=== PATIENT | female | born 1960 | race Caucasian/White ===

== ENCOUNTER 2017-05-01 15:04 | Emergency (ER) | payer OTHER ==
[2017-05-01 15:10] VITALS: BP 154/88; PULSE 87; RESP 20; TEMP 98.1
--- NOTE | 2017-05-01 15:36 | ED ---
General Adult HPI - General Chief complaint: Alcohol Stated complaint: Mental Health Time Seen by Provider: 05/01/17 15:15 Source: family, RN notes reviewed Mode of arrival: ambulatory Limitations: no limitations - History of Present Illness Initial comments: 56 yo female presents to the ER with cc of alcoholism. Patient is an alcoholic. She relapsed in February and has been drinking since then. He did contact [facility] does have an appointment for her to be evaluated and treated there on the . He states he's been watching her at home but he cannot seem to watch all the time and he is concerned that she may hurt herself she may fall. He states he cannot seem to get her to stop drinking. He states he is hoping we can admit her until the of that she is taking care of. He states he is not expressing suicidal or homicidal thoughts and the patient denies any suicidal or homicidal thoughts at this time. Patient denies any recent fever, chills, shortness of breath, chest pain, back pain, abdominal pain , nausea vomiting, numbness or tingling, dysuria or hematuria, constipation or diarrhea, headaches or visual changes, or any other current symptoms. - Related Data Home Medications Medication Instructions Recorded Confirmed Escitalopram [Lexapro] 10 mg PO DAILY 05/01/17 05/01/17 LORazepam [Ativan] 1 - 2 mg PO TID PRN 05/01/17 05/01/17 Allergies Allergy/AdvReac Type Severity Reaction Status Date / Time No Known Allergies Allergy Verified 05/01/17 15:24 Review of Systems ROS Statement: Those systems with pertinent positive or pertinent negative responses have been documented in the HPI. ROS Other: All systems not noted in ROS Statement are negative. Past Medical History Past Medical History: COPD Additional Past Medical History / Comment(s): alcoholism History of Any Multi-Drug Resistant Organisms: None Reported Past Surgical History: Section Past Anesthesia/Blood Transfusion Reactions: No Reported Reaction Past Psychological History: Anxiety, Depression Smoking Status: Current every day smoker Past Alcohol Use History: Daily, Heavy Past Drug Use History: None Reported - Past Family History Mother Family Medical History: COPD Additional Family Medical History / Comment(s): ETOH, lung cancer Father Family Medical History: Myocardial Infarction ([place]) Additional Family Medical History / Comment(s): ETOH General Exam - General Exam Comments Initial Comments: General: The patient is awake and alert, in no distress, and does not appear acutely ill. Eye: Pupils are equal Ears, nose, mouth and throat: There are moist mucous membranes. Neck: The neck is supple, there is no tenderness. Respiratory: respirations are non-labored Gastrointestinal: non-distended Back: There is no obvious deformity. No rashes noted. Musculoskeletal: Normal ROM. Neurological:There are no obvious motor or sensory deficits. Coordination appears grossly intact. Speech is normal. Skin: Skin is warm and dry and no rashes or lesions are noted. Psychiatric: Cooperative, intoxicated. Limitations: no limitations Course Vital Signs 05/01/17 15:07 Temperature 98.1 F Pulse Rate 87 Respiratory 20 Rate Blood Pressure 154/88 O2 Sat by Pulse 96 Oximetry Medical Decision Making - Medical Decision Making 56-year-old female presents for alcohol abuse. At this time and that was strong. At this time the patient has been will take her home. We did discuss outpatient follow-up. We did discuss [facility] as resources well and they were given paperwork regarding this. We did discuss return parameters and the importance of follow-up. We did discuss all the questions. They stated the [facility] management this plan. They will be discharged. Disposition Clinical Impression: Alcoholic intoxication Disposition: HOME SELF-CARE Condition: Stable Instructions: Alcohol Intoxication (ED), Alcohol Withdrawal (ED), Abuse of Alcohol (ED) Additional Instructions: Please follow up with CM as discussed. If she develops any suicidal or homicidal ideation please return to the emergency department. Please use medication as discussed. Please follow up with family doctor if symptoms have not improved over the next two days. Please return to the emergency room if your symptoms increase or worsen or for any other concerns. Referrals: Zev Contreras MD [Primary Care Provider] - 1-2 days Time of Disposition: 15:36
== END 2017-05-01 15:46 | disposition home or self-care (01) ==
LOC: EC 15:04
DX: F10.120 Alcohol abuse with intoxication, uncomplicated (principal); F41.9 Anxiety disorder, unspecified; F32.9 Major depressive disorder, single episode, unspecified; F17.200 Nicotine dependence, unspecified, uncomplicated; Z79.899 Other long term (current) drug therapy
CPT/HCPCS: 82075; 99284

== ENCOUNTER 2017-05-03 08:49 | Inpatient (IN) | payer OTHER ==
[2017-05-03] MEDS ORDERED: IPRATROPIUM-ALBUTEROL 3 ML NEB INHALATION STA (08:52)
[2017-05-03] MEDS ORDERED: SODIUM CHLORIDE 0.9% 1,000 ML IV STA (08:52)
[2017-05-03] MEDS ORDERED: SODIUM CHLORIDE 0.9% 500 ML IV STA (08:52)
--- NOTE | 2017-05-03 08:57 | ED ---
SOB HPI - General Stated Complaint: Resp Distress/Pneumonia Time Seen by Provider: 05/03/17 08:49 Source: patient, EMS, RN notes reviewed Mode of arrival: EMS - History of Present Illness Initial Comments: This is a 56-year-old female who is an admitted alcoholic who smokes cigarettes with COPD who apparently has had a cough with some fevers chills and sweats for last 2 weeks. EMS was finally called today she was brought in by EMS she was given oral prednisone updrafts with minimal relief. She has cough of white phlegm she states she also is been on a 10 day course of heavy alcohol use. She apparently is scheduled to be admitted for alcohol rehab this month at [facility]. She denies any chest pain or other symptoms she was nauseated she does not now feel nauseated. MD Complaint: shortness of breath, cough - Related Data Home Medications Medication Instructions Recorded Confirmed Escitalopram [Lexapro] 10 mg PO DAILY 05/01/17 05/03/17 LORazepam [Ativan] 1 - 2 mg PO TID PRN 05/01/17 05/03/17 Albuterol Inhaler [Ventolin Hfa 2 puff INHALATION RT-Q6H PRN 05/03/17 05/03/17 Inhaler] Allergies Allergy/AdvReac Type Severity Reaction Status Date / Time No Known Allergies Allergy Verified 05/03/17 11:02 Review of Systems ROS Statement: Those systems with pertinent positive or pertinent negative responses have been documented in the HPI. ROS Other: All systems not noted in ROS Statement are negative. Past Medical History Past Medical History: COPD Additional Past Medical History / Comment(s): alcoholism History of Any Multi-Drug Resistant Organisms: None Reported Past Surgical History: Section Past Anesthesia/Blood Transfusion Reactions: No Reported Reaction Past Psychological History: Anxiety, Depression Smoking Status: Current every day smoker Past Alcohol Use History: Daily, Heavy Past Drug Use History: None Reported - Past Family History Mother Family Medical History: COPD Additional Family Medical History / Comment(s): ETOH, lung cancer Father Family Medical History: Myocardial Infarction ([place]) Additional Family Medical History / Comment(s): ETOH General Exam - General Exam Comments Initial Comments: This is a well-developed well-nourished alert oriented 3 female she does have the smell of alcohol conjoiners on her breath General appearance: alert, lethargic Head exam: Present: atraumatic, normocephalic, normal inspection Eye exam: Present: normal appearance, PERRL, EOMI. Absent: scleral icterus, conjunctival injection, periorbital swelling ENT exam: Present: mucous membranes dry Neck exam: Present: normal inspection. Absent: tenderness, meningismus, lymphadenopathy Respiratory exam: Present: wheezes, decreased breath sounds. Absent: respiratory distress, rales, rhonchi, stridor Cardiovascular Exam: Present: regular rate, normal rhythm, normal heart sounds. Absent: systolic murmur, diastolic murmur, rubs, gallop, clicks GI/Abdominal exam: Present: soft, normal bowel sounds. Absent: distended, tenderness, guarding, rebound, rigid Extremities exam: Present: normal inspection, full ROM, normal capillary refill. Absent: tenderness, pedal edema, joint swelling, calf tenderness Back exam: Present: normal inspection Neurological exam: Present: alert, oriented X3, CN II-XII intact Psychiatric exam: Present: normal affect, normal mood Skin exam: Present: warm, dry, intact, normal color. Absent: rash Course Vital Signs 05/03/17 05/03/17 05/03/17 09:00 09:14 09:21 Temperature 97.4 F L Pulse Rate 86 85 83 Respiratory 16 Rate Blood Pressure 133/80 O2 Sat by Pulse 92 L Oximetry 05/03/17 05/03/17 09:28 10:00 Temperature Pulse Rate 87 Respiratory 18 18 Rate Blood Pressure 119/70 O2 Sat by Pulse 95 Oximetry - Reevaluation(s) Reevaluation #1: 05/03/17 11:11 I did reevaluate the patient she has no chest pain at this time I did have a discussion with her and her regarding findings patient later did say she has been having some chest pain. Further information also she had been sober for 3 years and started drinking again in February of this year for some unknown reason. Reevaluation #2: 05/03/17 11:14 Charting from [facility] has been ordered and is pending at this time Medical Decision Making - Medical Decision Making I did have a long discussion with the patient and family member regarding the findings. Patient will be admitted there was a mass of some sort found on the x -ray done at [facility] recently. The patient family do not recall who the lung doctor was patient. I did discuss the case with Dr. Campa the patient will be admitted for evaluation of the elevated troponin additionally the COPD exacerbation and lung mass. - Lab Data Result diagrams: 05/03/17 09:14 05/03/17 09:14 Lab Results 05/03/17 05/03/17 05/03/17 Range/Units 09:14 09:14 09:14 WBC 6.1 (3.8-10.6) k/uL RBC 4.62 (3.80-5.40) m/uL Hgb 15.0 (11.4-16.0) gm/dL Hct 47.1 H (34.0-46.0) % MCV 101.7 H (80.0-100.0) fL MCH 32.4 (25.0-35.0) pg MCHC 31.8 (31.0-37.0) g/dL RDW 15.9 H (11.5-15.5) % Plt Count 207 (150-450) k/uL Neutrophils % 63 % Lymphocytes % 32 % Monocytes % 4 % Eosinophils % 0 % Basophils % 1 % Neutrophils # 3.8 (1.3-7.7) k/uL Lymphocytes # 1.9 (1.0-4.8) k/uL Monocytes # 0.2 (0-1.0) k/uL Eosinophils # 0.0 (0-0.7) k/uL Basophils # 0.0 (0-0.2) k/uL Macrocytosis Slight PT (9.0-12.0) sec INR (<1.2) APTT (22.0-30.0) sec Sodium (137-145) mmol/L Potassium (3.5-5.1) mmol/L Chloride (98-107) mmol/L Carbon Dioxide (22-30) mmol/L Anion Gap mmol/L BUN (7-17) mg/dL Creatinine (0.52-1.04) mg/dL Est GFR (MDRD) Af Amer (>60 ml/min/1.73 sqM) Est GFR (MDRD) Non-Af (>60 ml/min/1.73 sqM) Glucose (74-99) mg/dL Calcium (8.4-10.2) mg/dL Magnesium (1.6-2.3) mg/dL Total Bilirubin (0.2-1.3) mg/dL AST (14-36) U/L ALT (9-52) U/L Alkaline Phosphatase (38-126) U/L Ammonia 15 (<30) umol/L Total Creatine Kinase 241 H (30-135) U/L CK-MB (CK-2) 0.4 (0.0-2.4) ng/mL CK-MB (CK-2) Rel Index 0.2 Troponin I 0.264 H* (0.000-0.034) ng/mL NT-Pro-B Natriuret Pep pg/mL Total Protein (6.3-8.2) g/dL Albumin (3.5-5.0) g/dL Amylase (30-110) U/L Lipase (23-300) U/L Serum Alcohol mg/dL 05/03/17 05/03/17 05/03/17 Range/Units 09:14 09:14 09:14 WBC (3.8-10.6) k/uL RBC (3.80-5.40) m/uL Hgb (11.4-16.0) gm/dL Hct (34.0-46.0) % MCV (80.0-100.0) fL MCH (25.0-35.0) pg MCHC (31.0-37.0) g/dL RDW (11.5-15.5) % Plt Count (150-450) k/uL Neutrophils % % Lymphocytes % % Monocytes % % Eosinophils % % Basophils % % Neutrophils # (1.3-7.7) k/uL Lymphocytes # (1.0-4.8) k/uL Monocytes # (0-1.0) k/uL Eosinophils # (0-0.7) k/uL Basophils # (0-0.2) k/uL Macrocytosis PT 12.5 H (9.0-12.0) sec INR 1.3 H (<1.2) APTT 22.2 (22.0-30.0) sec Sodium 143 (137-145) mmol/L Potassium 3.8 (3.5-5.1) mmol/L Chloride 104 (98-107) mmol/L Carbon Dioxide 27 (22-30) mmol/L Anion Gap 12 mmol/L BUN 12 (7-17) mg/dL Creatinine 0.68 (0.52-1.04) mg/dL Est GFR (MDRD) Af Amer >60 (>60 ml/min/1.73 sqM) Est GFR (MDRD) Non-Af >60 (>60 ml/min/1.73 sqM) Glucose 108 H (74-99) mg/dL Calcium 8.1 L (8.4-10.2) mg/dL Magnesium 1.8 (1.6-2.3) mg/dL Total Bilirubin 0.3 (0.2-1.3) mg/dL AST 65 H (14-36) U/L ALT 51 (9-52) U/L Alkaline Phosphatase 121 (38-126) U/L Ammonia (<30) umol/L Total Creatine Kinase (30-135) U/L CK-MB (CK-2) (0.0-2.4) ng/mL CK-MB (CK-2) Rel Index Troponin I (0.000-0.034) ng/mL NT-Pro-B Natriuret Pep 155 pg/mL Total Protein 6.2 L (6.3-8.2) g/dL Albumin 3.4 L (3.5-5.0) g/dL Amylase <30 L (30-110) U/L Lipase 102 (23-300) U/L Serum Alcohol 189 mg/dL - EKG Data -: EKG Interpreted by Me EKG shows normal: sinus rhythm (Normal sinus rhythm rate of 88. Interval 126 QRS duration 80 QT since QTC of 382/[address]-T wave changes) - Radiology Data Radiology results: report reviewed (I did review the imaging and report or is some evidence of right lung mass. Also COPD.), image reviewed Critical Care Time Critical Care Time: Yes Critical Care Time: Critical care time which includes the monitoring of the EMS run and discussed with paramedics upon arrival history physical and labs on the patient reevaluation patient several occasions long discussion with the patient and her regarding the findings. Discussion with the admitting physician admitting orders and documentation of the above. Disposition Clinical Impression: Acute exacerbation of chronic obstructive airways disease, Adult respiratory distress syndrome, Alcohol intoxication, Alcohol withdrawal, Lung mass Disposition: ADMITTED IP TO THIS HOSP Condition: Stable Referrals: Zev Contreras MD [Primary Care Provider] - 1-2 days
[2017-05-03 09:36] LABS: Basophils % (A) 1 %; CH 33.5; CHCM 33.2; Eosinophils % (A) 0 %; HCT 47.1 % (34.0-46.0); HDW 2.26; Luc % (Auto) 2; Lymphocytes # (A) 1.9 k/uL (1.0-4.8); Lymphocytes % (A) 32 %; MCH 32.4 pg (25.0-35.0); MCHC 31.8 g/dL (31.0-37.0); MCV 101.7 fL (80.0-100.0); Macrocytosis Slight; Mean Platelet Volume 7.3; Monocytes # (A) 0.2 k/uL (0-1.0); Monocytes % (A) 4 %; Neutrophils # (A) 3.8 k/uL (1.3-7.7); Neutrophils % (A) 63 %; RBC 4.62 m/uL (3.80-5.40); RDW 15.9 % (11.5-15.5); WBC 6.1 k/uL (3.8-10.6); WBC (Perox) 6.15
--- NOTE | 2017-05-03 09:42 | XR ---
EXAMINATION TYPE: XR chest 2V DATE OF EXAM: 05/03/2017 HISTORY: difficulty breathing. REFERENCE: Previous study dated 02/28/2013. FINDINGS: The lungs are overinflated. There has been interval development of a 3.6 cm mass in the rig ht midlung. This appears to be in the superior segment of the right lower lobe. The lungs are otherwi se clear. Pleural space are clear. The heart is not enlarged. IMPRESSION: 1. COPD. 2. 3.6 CM RIGHT-SIDED PULMONARY MASS.
[2017-05-03 09:47] LABS: INR 1.3 (<1.2); Partial Thromboplastin Time 22.2 sec (22.0-30.0); Prothrombin Time 12.5 sec (9.0-12.0)
[2017-05-03 09:48] LABS: ALT 51 U/L (9-52); AST 65 U/L (14-36); Alkaline Phosphatase 121 U/L (38-126); Amylase <30 U/L (30-110); Anion Gap 12 mmol/L; Blood Urea Nitrogen 12 mg/dL (7-17); Calcium 8.1 mg/dL (8.4-10.2); Carbon Dioxide 27 mmol/L (22-30); Chloride 104 mmol/L (98-107); Glucose 108 mg/dL (74-99); Magnesium 1.8 mg/dL (1.6-2.3); Non-African American GFR(MDRD) >60 (>60 ml/min/1.73 sqM); Potassium 3.8 mmol/L (3.5-5.1); Sodium 143 mmol/L (137-145); Total Bilirubin 0.3 mg/dL (0.2-1.3); Total Protein 6.2 g/dL (6.3-8.2)
[2017-05-03] MEDS ORDERED: LORazepam 2 MG/ML INJ IV STA ×2 (10:08→14:15)
[2017-05-03 10:12] LABS: Creatine Kinase MB 0.4 ng/mL (0.0-2.4)
[2017-05-03 10:20] LABS: Troponin I 0.264 ng/mL (0.000-0.034)
[2017-05-03 10:27] LABS: Alcohol 189 mg/dL
[2017-05-03] MEDS ORDERED: HEPARIN SODIUM,PORCINE/D5W PMX 25,000 UNIT in DEXTROSE/WATER 1 500ML.BAG IV SCH (11:15)
[2017-05-03] MEDS ORDERED: NITROGLYCERIN SL TABS 0.4 MG TAB SUBLINGUAL PRN (11:15)
[2017-05-03] MEDS ORDERED: HEPARIN SODIUM,PORCINE 5,000 UNIT/ML 1 ML VIAL IV ONE (11:15)
[2017-05-03] MEDS ORDERED: THIAMINE 100 MG/ML 2 ML VIAL IM STA (11:19)
--- NOTE | 2017-05-03 11:21 | ED ---
Medical Decision Making - Lab Data Result diagrams: 05/03/17 09:14 05/03/17 09:14 Lab Results 05/03/17 05/03/17 05/03/17 Range/Units 09:14 09:14 09:14 WBC 6.1 (3.8-10.6) k/uL RBC 4.62 (3.80-5.40) m/uL Hgb 15.0 (11.4-16.0) gm/dL Hct 47.1 H (34.0-46.0) % MCV 101.7 H (80.0-100.0) fL MCH 32.4 (25.0-35.0) pg MCHC 31.8 (31.0-37.0) g/dL RDW 15.9 H (11.5-15.5) % Plt Count 207 (150-450) k/uL Neutrophils % 63 % Lymphocytes % 32 % Monocytes % 4 % Eosinophils % 0 % Basophils % 1 % Neutrophils # 3.8 (1.3-7.7) k/uL Lymphocytes # 1.9 (1.0-4.8) k/uL Monocytes # 0.2 (0-1.0) k/uL Eosinophils # 0.0 (0-0.7) k/uL Basophils # 0.0 (0-0.2) k/uL Macrocytosis Slight PT (9.0-12.0) sec INR (<1.2) APTT (22.0-30.0) sec Sodium (137-145) mmol/L Potassium (3.5-5.1) mmol/L Chloride (98-107) mmol/L Carbon Dioxide (22-30) mmol/L Anion Gap mmol/L BUN (7-17) mg/dL Creatinine (0.52-1.04) mg/dL Est GFR (MDRD) Af Amer (>60 ml/min/1.73 sqM) Est GFR (MDRD) Non-Af (>60 ml/min/1.73 sqM) Glucose (74-99) mg/dL Calcium (8.4-10.2) mg/dL Magnesium (1.6-2.3) mg/dL Total Bilirubin (0.2-1.3) mg/dL AST (14-36) U/L ALT (9-52) U/L Alkaline Phosphatase (38-126) U/L Ammonia 15 (<30) umol/L Total Creatine Kinase 241 H (30-135) U/L CK-MB (CK-2) 0.4 (0.0-2.4) ng/mL CK-MB (CK-2) Rel Index 0.2 Troponin I 0.264 H* (0.000-0.034) ng/mL NT-Pro-B Natriuret Pep pg/mL Total Protein (6.3-8.2) g/dL Albumin (3.5-5.0) g/dL Amylase (30-110) U/L Lipase (23-300) U/L Serum Alcohol mg/dL 05/03/17 05/03/17 05/03/17 Range/Units 09:14 09:14 09:14 WBC (3.8-10.6) k/uL RBC (3.80-5.40) m/uL Hgb (11.4-16.0) gm/dL Hct (34.0-46.0) % MCV (80.0-100.0) fL MCH (25.0-35.0) pg MCHC (31.0-37.0) g/dL RDW (11.5-15.5) % Plt Count (150-450) k/uL Neutrophils % % Lymphocytes % % Monocytes % % Eosinophils % % Basophils % % Neutrophils # (1.3-7.7) k/uL Lymphocytes # (1.0-4.8) k/uL Monocytes # (0-1.0) k/uL Eosinophils # (0-0.7) k/uL Basophils # (0-0.2) k/uL Macrocytosis PT 12.5 H (9.0-12.0) sec INR 1.3 H (<1.2) APTT 22.2 (22.0-30.0) sec Sodium 143 (137-145) mmol/L Potassium 3.8 (3.5-5.1) mmol/L Chloride 104 (98-107) mmol/L Carbon Dioxide 27 (22-30) mmol/L Anion Gap 12 mmol/L BUN 12 (7-17) mg/dL Creatinine 0.68 (0.52-1.04) mg/dL Est GFR (MDRD) Af Amer >60 (>60 ml/min/1.73 sqM) Est GFR (MDRD) Non-Af >60 (>60 ml/min/1.73 sqM) Glucose 108 H (74-99) mg/dL Calcium 8.1 L (8.4-10.2) mg/dL Magnesium 1.8 (1.6-2.3) mg/dL Total Bilirubin 0.3 (0.2-1.3) mg/dL AST 65 H (14-36) U/L ALT 51 (9-52) U/L Alkaline Phosphatase 121 (38-126) U/L Ammonia (<30) umol/L Total Creatine Kinase (30-135) U/L CK-MB (CK-2) (0.0-2.4) ng/mL CK-MB (CK-2) Rel Index Troponin I (0.000-0.034) ng/mL NT-Pro-B Natriuret Pep 155 pg/mL Total Protein 6.2 L (6.3-8.2) g/dL Albumin 3.4 L (3.5-5.0) g/dL Amylase <30 L (30-110) U/L Lipase 102 (23-300) U/L Serum Alcohol 189 mg/dL Disposition Clinical Impression: Acute exacerbation of chronic obstructive airways disease, Adult respiratory distress syndrome, Alcohol intoxication, Alcohol withdrawal, Lung mass, Non-ST elevation (NSTEMI) myocardial infarction Disposition: ADMITTED IP TO THIS HOSP Condition: Stable Referrals: Zev Contreras MD [Primary Care Provider] - 1-2 days
[2017-05-03] MEDS: SODIUM CHLORIDE 0.9% 1,000 ML IV SCH (11:38)
[2017-05-03] MEDS ORDERED: methylPREDNISolone SOD SUCCI 125 MG/2 ML VIAL IV SCH (12:00)
[2017-05-03] MEDS ORDERED: IPRATROPIUM-ALBUTEROL 3 ML NEB INHALATION SCH (12:00)
[2017-05-03] MEDS: LORazepam 2 MG/ML INJ IV PRN ×7 (12:56→23:34)
[2017-05-03 14:08] LABS: Creatine Kinase MB 0.6 ng/mL (0.0-2.4)
[2017-05-03 14:12] LABS: Troponin I 0.219 ng/mL (0.000-0.034)
[2017-05-03] MEDS ORDERED: ALBUTEROL INHALER 60 PUFF/8 GM INHALER INHALATION PRN (14:32)
[2017-05-03 15:00] LABS: Glucose,Whole Blood 148 mg/dL (75-99)
[2017-05-03 15:12] VITALS: BMI 24.3
[2017-05-03] MEDS ORDERED: METOPROLOL TARTRATE 25 MG TAB PO SCH (15:30)
[2017-05-03] MEDS: LACTATED RINGERS 1,000 ML IV SCH (15:48)
[2017-05-03] MEDS: DIAZEPAM 5 MG TAB PO SCH ×2 (15:49→20:40)
--- NOTE | 2017-05-03 16:10 | HP ---
HISTORY AND PHYSICAL DATE OF ADMISSION: 05/03/17. PRESENTING COMPLAINT: Short of breath. Tired, nausea. HISTORY OF PRESENTING COMPLAINT: This is a 56-year-old patient of Dr. Contreras who is a long-standing alcoholic. The patient was clean for 3 years and started back doing alcohol recently. The patient was at [place]. The patient also a smoker, presented with multitude symptoms including short of breath, cough, wheezing, nausea, a bit delirious. Alcohol level was found to be high. The patient is drinking about a 5th of whiskey every day. Brought into the ER. The patient is put on the CIWA scale and did require quite a bit of Ativan, hence she was transferred to the ICU. The patient is somewhat jittery and somewhat delirious not able to give much of a history, but can answer some questions. REVIEW OF SYSTEMS: CONSTITUTIONAL: Tired. HEENT: None. RESPIRATORY: Wheezing, cough. CARDIOVASCULAR: None. GASTROINTESTINAL: None. GENITOURINARY: None. MUSCULOSKELETAL: None. DERMATOLOGICAL, HEMATOLOGIC, LYMPHATIC: None. PSYCHIATRY: Very anxious. NEUROLOGICAL: Nil focal except for some shakiness. PAST MEDICAL HISTORY: COPD, alcoholism, anxiety, depression. PAST SURGICAL HISTORY: . PAST PSYCH HISTORY: Anxiety and depression. SOCIAL HISTORY: Smokes anywhere from half to a pack a day. Drinks about a 5th of alcohol; had been clean for 3 years. Drinking prior to that and was also at [place]. Lives with her . FAMILY HISTORY: Lung cancer, COPD, alcohol. HOME MEDICATIONS: 1. Ventolin 2 puffs q.6h p.r.n. 2. Ativan 1-2 mg t.i.d. p.r.n. 3. Lexapro 10 mg a day. ALLERGIES: None. PHYSICAL EXAMINATION: On examination afebrile. Pulse 115, respiration 26, blood pressure 130/76, pulse ox 95% on room air. GENERAL APPEARANCE: Thin build sitting up, shaky, jittery, anxious. EYES: Pupils equal. Conjunctivae normal. HEENT: Oral cavity normal. NECK: JVD not raised. Mass not palpable. RESPIRATORY: Effort increased. LUNGS: Diminished breath sounds. Prolonged expiration wheezing. CARDIOVASCULAR: First and second sounds. No edema. ABDOMEN: Soft, nontender. Liver and spleen not palpable. LYMPHATIC: No lymph nodes palpable in neck or axillae. PSYCHIATRY: Patient is awake but somewhat delirious, not able to answer all questions. Sometimes just keeps quite. NEUROLOGICAL: Pupils equal. No facial asymmetry. Power and sensation grossly intact. MUSCULOSKELETAL: Some wasting of the muscles. INVESTIGATIONS: White count 6.1, hemoglobin 15, potassium 3.9. BUN and creatinine normal. Troponin 0.264, 0.219. Amylase less than 30. Lipase 102. Serum alcohol 189. ASSESSMENT: 1. Acute chronic obstructive pulmonary disease exacerbation in a smoker. 2. Chronic nicotine dependence. Patient active cigarette smoker. 3. Mild protein-calorie malnutrition. Patient has decreased muscle mass, decreased oral intake. Albumin is 3.4. 4. Chronic alcohol dependence. 5. Acute alcohol intoxication with level being 189 on presentation. 6. Acute delirium tremens. PLAN: The patient is already on the CIWA scale. We will start the patient on Valium 5 mg q.i.d. and also add a small dose of beta jud to cut back on sympathetic drive. The patient also started on COPD treatment with nebulized bronchodilators, IV steroids and also given nicotine patch. The patient will be monitored neurologically closely. No family members present. MMODL / IJN: [id number] /
[2017-05-03] MEDS: IPRATROPIUM-ALBUTEROL 3 ML NEB INHALATION SCH ×2 (16:14→19:49)
[2017-05-03] MEDS: METOPROLOL TARTRATE 12.5 MG TAB PO SCH (17:14)
[2017-05-03] MEDS: THIAMINE 100 MG TAB PO SCH (17:14)
[2017-05-03] MEDS: ENOXAPARIN 40 MG/0.4 ML SYRINGE SQ SCH (17:14)
[2017-05-03] MEDS: methylPREDNISolone SOD SUCCI 40 MG/ML 1 ML VIAL IV SCH (17:32)
[2017-05-03 18:56] LABS: Creatine Kinase MB 0.8 ng/mL (0.0-2.4)
[2017-05-03 18:57] LABS: Troponin I 0.167 ng/mL (0.000-0.034)
[2017-05-03] MEDS: ONDANSETRON 4 MG/2 ML VIAL IVP PRN (20:40)
[2017-05-03 20:45] LABS: Glucose,Whole Blood 158 mg/dL (75-99)
[2017-05-03] MEDS: INSULIN ASPART 100 UNIT/ML 1 ML 10 ML VIAL SQ SCH (20:48)
[2017-05-04] MEDS: LACTATED RINGERS 1,000 ML IV SCH ×5 (00:26→20:57)
[2017-05-04] MEDS: METOPROLOL TARTRATE 12.5 MG TAB PO SCH ×3 (00:26→16:14)
[2017-05-04] MEDS: IBUPROFEN 600 MG TAB PO PRN ×3 (00:26→13:27)
[2017-05-04] MEDS: methylPREDNISolone SOD SUCCI 40 MG/ML 1 ML VIAL IV SCH ×3 (00:27→16:14)
[2017-05-04] MEDS: LORazepam 2 MG/ML INJ IV PRN ×16 (00:37→23:57)
[2017-05-04] MEDS: DIAZEPAM 5 MG TAB PO SCH ×4 (03:11→20:20)
[2017-05-04 04:34] LABS: Anisocytosis Slight; Basophils % (A) 0 %; CH 33.1; CHCM 33.1; Eosinophils % (A) 0 %; HDW 2.27; HGB 13.4 gm/dL (11.4-16.0); Luc # (Auto) 0.03; Luc % (Auto) 1; Lymphocytes # (A) 0.4 k/uL (1.0-4.8); Lymphocytes % (A) 9 %; MCH 32.9 pg (25.0-35.0); MCHC 32.7 g/dL (31.0-37.0); MCV 100.6 fL (80.0-100.0); Macrocytosis Slight; Mean Platelet Volume 7.6; Monocytes # (A) 0.1 k/uL (0-1.0); Monocytes % (A) 1 %; Neutrophils # (A) 4.2 k/uL (1.3-7.7); Neutrophils % (A) 89 %; RBC 4.08 m/uL (3.80-5.40); RDW 16.4 % (11.5-15.5); WBC 4.7 k/uL (3.8-10.6); WBC (Perox) 4.96
[2017-05-04 04:48] LABS: Anion Gap 5 mmol/L; Blood Urea Nitrogen 8 mg/dL (7-17); Calcium 9.1 mg/dL (8.4-10.2); Carbon Dioxide 33 mmol/L (22-30); Chloride 99 mmol/L (98-107); Cholesterol 155 mg/dL (<200); Glucose 124 mg/dL (74-99); HDL Cholesterol 57 mg/dL (40-60); Magnesium 1.7 mg/dL (1.6-2.3); Non-African American GFR(MDRD) >60 (>60 ml/min/1.73 sqM); Potassium 3.9 mmol/L (3.5-5.1); Sodium 137 mmol/L (137-145)
[2017-05-04] MEDS ORDERED: Magnesium Replacement Protocol 1 EACH MISC MISCELLANE PRN (05:16)
[2017-05-04] MEDS: MAGNESIUM SULFATE-D5W PMX 1 GM in DEXTROSE/WATER 1 100ML.BAG IVPB SCH ×2 (05:59→07:04)
[2017-05-04 07:15] LABS: Glucose,Whole Blood 146 mg/dL (75-99)
[2017-05-04] MEDS: IPRATROPIUM-ALBUTEROL 3 ML NEB INHALATION SCH ×5 (07:37→23:12)
[2017-05-04] MEDS: NICOTINE 21MG/24HR PATCH TRANSDERM SCH (08:04)
[2017-05-04] MEDS: ENOXAPARIN 40 MG/0.4 ML SYRINGE SQ SCH (08:04)
[2017-05-04] MEDS ORDERED: RX INFO: IV CONTRAST WAS GIVEN 1 EACH MISC MISCELLANE PRN (08:21)
[2017-05-04] MEDS: INSULIN ASPART 100 UNIT/ML 1 ML 10 ML VIAL SQ SCH ×4 (08:28→20:56)
[2017-05-04] MEDS: PANTOPRAZOLE 40 MG/10 ML VIAL IVP SCH (08:35)
[2017-05-04] MEDS: ESCITALOPRAM 10 MG TAB PO SCH (08:35)
[2017-05-04] MEDS ORDERED: ASPIRIN 325 MG TAB PO SCH (09:00)
--- NOTE | 2017-05-04 11:09 | P.CNPUL ---
History of Present Illness Consult date: 05/04/17 Requesting physician: Esa Campa Reason for consult: lung mass Chief complaint: Shortness of breath, tired and nausea. History of present illness: This is a 56-year-old female, heavy smoker, heavy drinker, long-standing history of alcoholism, patient was for [place] of time at [place], and she was clean for about 3 years. However in the last few weeks, the patient relapsed, and has been drinking alcohol excessively again. Patient has been smoking heavily. Presented to the ER with mostly symptoms of shortness of breath, wheezing, nausea, and seems to be intoxicated with alcohol level high upon presentation. Patient drinks on the average of 1 pint of whiskey a day. And upon admission to the medical floor, patient was noted to require a bit of more Ativan based on the CIWA scale. Hence arrangements were made to transfer the patient to the ICU. And upon my evaluation the patient was noted to be called, less jittery, not delirious, and was noted to be in no form of distress. She was very appropriate. Chest x-ray however showed a 3.6 cm mass in the right lower lobe strongly suspicious for bronchogenic carcinoma. Hence I have recommended a CT of the chest, and the patient will eventually need further workup for the right lower lobe mass, and possibly bronchoscopy and transbronchial biopsy for tissue diagnosis. Based on the findings, the mass is felt to be malignant unless proven otherwise. Patient denies any constitutional symptoms, no weight loss, no fever, no chills. He denies any chest pain. She had no abdominal pain but she had occasional nausea but no vomiting. No headaches no blurred vision no dizziness. No aches and pains. Review of Systems 14 point review of systems were obtained, please refer to pertinent positives in HPI, otherwise remaining systems are negative. Past Medical History Past Medical History: COPD Additional Past Medical History / Comment(s): alcoholism History of Any Multi-Drug Resistant Organisms: None Reported Past Surgical History: Section Past Anesthesia/Blood Transfusion Reactions: No Reported Reaction Past Psychological History: Anxiety, Depression Smoking Status: Current every day smoker Past Alcohol Use History: Daily, Heavy Past Drug Use History: None Reported - Past Family History Mother Family Medical History: COPD Additional Family Medical History / Comment(s): ETOH, lung cancer Father Family Medical History: Myocardial Infarction ([place]) Additional Family Medical History / Comment(s): ETOH Medications and Allergies Home Medications Medication Instructions Recorded Confirmed Type Escitalopram [Lexapro] 10 mg PO DAILY 05/01/17 05/03/17 History LORazepam [Ativan] 1 - 2 mg PO TID PRN 05/01/17 05/03/17 History Albuterol Inhaler [Ventolin Hfa 2 puff INHALATION RT-Q6H PRN 05/03/17 05/03/17 History Inhaler] Allergies Allergy/AdvReac Type Severity Reaction Status Date / Time No Known Allergies Allergy Verified 05/03/17 11:02 Physical Exam Vitals: Vital Signs Temp Pulse Pulse Resp BP BP Pulse Ox 05/04/17 09:00 57 L 28 H 139/87 95 05/04/17 08:00 98.5 F 74 22 156/82 93 L 05/04/17 07:47 71 05/04/17 07:37 62 96 05/04/17 07:00 56 L 18 137/79 91 L 05/04/17 06:00 71 27 H 135/75 92 L 05/04/17 05:00 53 L 17 122/74 90 L 05/04/17 04:00 98.4 F 53 L 18 169/92 90 L 05/04/17 03:00 54 L 23 129/70 90 L 05/04/17 02:00 55 L 17 131/74 90 L 05/04/17 01:00 65 23 153/86 91 L 05/04/17 00:00 98.6 F 64 22 151/86 95 05/03/17 23:00 72 19 110/67 93 L 05/03/17 22:00 73 72 H 109/68 94 L 05/03/17 21:00 75 18 156/82 92 L 05/03/17 20:02 80 05/03/17 20:00 98.6 F 81 14 148/83 98 05/03/17 19:50 78 05/03/17 19:00 79 24 153/92 93 L 05/03/17 18:00 80 22 135/82 93 L 05/03/17 17:00 81 17 123/70 92 L 05/03/17 16:27 84 05/03/17 16:20 94 L 05/03/17 16:15 82 11/11/17 16:00 98.9 F 92 21 136/79 93 L 05/03/17 15:45 86 22 118/77 05/03/17 15:30 84 41 H 118/77 05/03/17 15:15 87 17 130/78 92 L 05/03/17 15:00 99.1 F 86 18 133/81 05/03/17 14:59 84 21 05/03/17 11:54 98.2 F 79 20 127/72 95 05/03/17 11:41 99.1 F 86 21 133/81 90 L Intake and Output 05/03/17 05/04/17 05/04/17 22:59 06:59 14:59 Intake Total 1132 1337 600 Output Total 850 1100 1300 Balance 282 237 -700 Intake: IV 895 1000 500 Lactated Ringers 1,000 ml 875 1000 500 @ 125 mls/hr IV .Q8H MOMO Rx#:[id number] Sodium Chloride 0.9% 1, 20 000 ml @ 20 mls/hr IV . Q24H MOMO Rx#:[id number] Intake, IV Titration 100 100 Amount Magnesium Sulfate-D5w Pmx 100 100 1 gm In Dextrose/Water 1 100ml.bag @ 100 mls/hr IVPB Q1H MOMO Rx#: [id number] Oral 237 237 Output: Urine 850 1100 1300 Other: Voiding Method Bedside Commode Bedside Commode Bedside Commode Weight 57.9 kg Physical Exam: Revealed a 56-year-old, frail looking, in no form of respiratory distress, calm, asymptomatic. HEENT:[Neck is supple.] [No neck masses.] [No thyromegaly.] [No JVD.] Chest: [Diminished breath sounds at the bases, no crackles or rhonchi or wheezes.] Cardiac Exam: [Normal S1 and S2, no S3 gallop, no murmur.] Abdomen: [Soft, nontender, no megaly, no rebound, no guarding, normal bowel sounds.] Extremities: Positive clubbing, no edema, no cyanosis.] Neurological Exam: [No focal neurologic deficit.] Psychiatric: Blunted affect, normal mood, normal mental status examination. Lymphatics: No lymphadenopathy was appreciated. Skin: No rashes, no erythema, no cyanosis. Positive clubbing was noted. Musculoskeletal: No limitations in range of motion, no deformities, no tenderness. Results - Laboratory Findings CBC and BMP: 05/04/17 04:19 05/04/17 04:19 PT/INR, D-dimer PT 12.5 sec (9.0-12.0) H 05/03/17 09:14 INR 1.3 (<1.2) H 05/03/17 09:14 Abnormal lab findings: Abnormal Labs 05/03/17 05/03/17 05/03/17 09:14 09:14 09:14 Hct 47.1 H MCV 101.7 H RDW 15.9 H Lymphocytes # PT INR APTT Carbon Dioxide Glucose 108 H POC Glucose (mg/dL) Calcium 8.1 L AST 65 H Total Creatine Kinase 241 H Troponin I 0.264 H* Total Protein 6.2 L Albumin 3.4 L Amylase <30 L 05/03/17 05/03/17 05/03/17 09:14 12:55 14:58 Hct MCV RDW Lymphocytes # PT 12.5 H INR 1.3 H APTT Carbon Dioxide Glucose POC Glucose (mg/dL) 148 H Calcium AST Total Creatine Kinase 258 H Troponin I 0.219 H* Total Protein Albumin Amylase 05/03/17 05/03/17 05/03/17 18:00 18:01 20:43 Hct MCV RDW Lymphocytes # PT INR APTT 31.8 H Carbon Dioxide Glucose POC Glucose (mg/dL) 158 H Calcium AST Total Creatine Kinase 262 H Troponin I 0.167 H* Total Protein Albumin Amylase 05/04/17 05/04/17 05/04/17 04:19 04:19 07:13 Hct MCV 100.6 H RDW 16.4 H Lymphocytes # 0.4 L PT INR APTT Carbon Dioxide 33 H Glucose 124 H POC Glucose (mg/dL) 146 H Calcium AST Total Creatine Kinase Troponin I Total Protein Albumin Amylase - Diagnostic Findings Chest x-ray: image reviewed (COPD and right lower lobe mass were noted.) Assessment and Plan Assessment: Impression: 1 chronic alcohol dependence and acute intoxication level was 189 on presentation. 2 acute alcohol withdrawal requiring transfer to the ICU and placed on the [facility] protocol. 3 history of alcoholism and nicotine dependence. 4 right lower lobe mass, 3.6 cm in size, strongly suspicious for bronchogenic carcinoma. 5 suspect significant chronic obstructive lung disease, patient will need further workup on outpatient basis. Recommendation: Continue present treatment plan for alcohol withdrawal, patient is on the protocol, arrange for a CT of the chest with contrast to evaluate the right lower lobe mass, and evaluate for any other lesions or lymphadenopathy. Patient may eventually require bronchoscopy, preferably navigational bronchoscopy and biopsy. Patient was counseled regarding smoking cessation. And in the meantime she was placed on nicotine patches. Prognosis is guarded, we'll continue to follow. Time with Patient: Greater than 30
[2017-05-04] MEDS: SODIUM CHLORIDE 0.9% 1,000 ML IV SCH (12:17)
[2017-05-04] MEDS: THIAMINE 100 MG TAB PO SCH ×2 (12:19→16:15)
[2017-05-04 12:20] LABS: Glucose,Whole Blood 126 mg/dL (75-99)
--- NOTE | 2017-05-04 12:23 | CONS ---
CONSULTATION Evangelina Myles is a 56-year-old lady with a history of smoking 2 packs a day and alcoholism. She came into the hospital with some alcohol intoxication type symptoms, also complained of increasing wheezing and shortness of breath, and after arrival and troponins were elevated and the lung mass was noted on the right mid lung area on the chest x-ray and I was asked to see her mainly because of the elevated troponin. Apparently, she has gone through alcohol rehab type situation and was free of alcohol for 3 years, but in the last 3-4 weeks she has been drinking alcohol excessively almost a pint of vodka daily and came in with intoxication. Her main complaint on arrival was shortness of breath, wheezing, nauseated and was quite intoxicated. After arrival, she was found to be hypoxic and had a troponin elevation. She has been transferred to the ICU. I evaluated her in the ICU. She seems to answer questions but is unable to give any meaningful history. She was also found to have a 3.6 cm right lung mass and this is being worked up by Dr. Arnett. She denies any chest pain, has no shortness of breath. She is comfortable at the time of my evaluation. PAST MEDICAL HISTORY: 1. Alcoholism. 2. Smoking and chronic obstructive pulmonary disease. 3. No evidence of any prior myocardial infarction, CVA, or any other major medical problems. 4. 5. MEDICATIONS: None. ALLERGIES: None. Although the chart says Lexapro, patient tells me that she does not take any medications. PHYSICAL EXAMINATION: On examination, blood pressure is 130/70, pulse rate is 68 per minute, regular. HEENT: Unremarkable. Fundus was not examined by me. Neck is supple. No JVD. I do not hear a carotid bruit. Heart exam reveals S1, S2 without any significant murmur. Lungs reveal diminished air entry. Abdomen is soft, nontender. Lower extremities reveal diminished but palpable pulses. No edema. Central nervous system is normal. LABORATORY DATA: EKG revealed a sinus mechanism without any acute changes. Lab data revealed the troponin is elevated. The initial troponin on arrival was 0.2 and now it is 0.167 this morning. The troponin profile does suggest hypoxia related to myocardial injury. However, the EKG changes are not evident. It is possible that there may have been a oxygen supply demand issue causing troponin elevation as a type 2 myocardial infarction. IMPRESSION: 1. Non-T elevation myocardial infarction probably related to hypoxia and oxygen mismatch. 2. History of acute alcoholism and chronic alcoholism. 3. Chronic obstructive pulmonary disease and smoking. 4. Right lung mass. RECOMMENDATIONS: From a cardiac standpoint. I am recommending that we will give Lovenox for another 24 hours at 60 mg subcu q.12 hours. I am also recommending that we will obtain echocardiogram to assess LV function. I would suggest that we will do the workup for lung mass before we do any aggressive intervention cardiac-[place], at this time. She has already been initiated on a small dose of beta jud and we will continue the same at this time. The patient is asymptomatic and the troponin profile suggests oxygen mismatch related myocardial injury. We will obtain echocardiogram to assess LV function and use Lovenox for now. Patient's workup with regards to lung mass is already in progress. Thank you very much for the consult. MMODL / IJN: [id number] /
--- NOTE | 2017-05-04 16:35 | P.PN ---
Progress Note - Text Progress Note Date: 05/04/17 DATE OF SERVICE: 05/04/2017 PRESENTING COMPLAINT: Short of breath, tired nausea. HISTORY OF PRESENT ILLNESS: 56-year-old female with history of alcohol abuse. Was clean for 3 years and just recently started drinking again. Has had 3 admissions for rehabilitation at [facility]. Patient was drinking about a fifth of whiskey every day, according to her patient was also abusing Ativan. Admitted to [facility]., placed on CIWA scale, received quite a bit in order to try and control her symptoms therefore requiring a transfer to the ICU. INTERVAL HISTORY: 05/04/2017: Patient lying in bed, at the bedside, patient is not speaking much, some tremoring noted, complains of low appetite, ate a banana for breakfast, has some nausea, ambulatory with assistance, we'll likely transfer to [facility]. is able to fill in patient history. He is very concerned about her ability to be admitted to [facility] for rehabilitation, particularly with this new right lower lobe mass. Explained to him that we will take it day by day, see how she does, follow testing results and then make decisions from there. He was in agreement. REVIEW OF SYSTEMS: Done for constitutional ,cardiovascular, GI, pulmonary with relevant findings as above. CURRENT MEDICATIONS DuoNeb's 3 mL every ID, aspirin 81 mg by mouth daily, Valium 5 mg by mouth every 6 hours, Lovenox 60 mg subcu every 12 hours, Lexapro 10 mg by mouth daily , Motrin 600 mg by mouth every 6 hours when necessary, NovoLog sliding scale, Ativan 1 mg IV every 2 hours WA protocol, Solu-Medrol 40 mg IV every 8 hours, Lopressor 12.5 mg by mouth every 8 hours, nicotine patch, Protonix 40 mg IV push daily, PHYSICAL EXAM VITAL SIGNS: Temperature 98.5, pulse 74, respiratory rate 22, blood pressure 156/82, oxygen saturation 93% on room air. GENERAL APPEARANCE: Lying in bed, not in distress. EYES: Pupils equal. Conjunctiva normal. NECK: JVD not raised. Mass not palpable. RESPIRATORY: Respiratory effort normal. Lungs diminished to auscultation. CARDIOVASCULAR: First and second sounds normal. No edema. ABDOMEN: Soft. Liver and spleen not palpable. No tenderness. No mass palpable. PSYCHIATRY: Alert and oriented x3. Mood and affect anxious and jittery. INVESTIGATIONS: CBC unremarkable, carbon dioxide 33, Accu-Cheks noted. ASSESSMENT: -Acute chronic obstructive pulmonary disease exacerbation in a smoker, slow to respond -Elevated troponin, Non-ST elevation myocardial infarction probably related to hypoxia and oxygen mismatch. -Right lower lobe mass, 3.6 cm in size, strongly suspicious for bronchogenic carcinoma. -Acute delirium tremens, slow to respond -Chronic nicotine dependence, patient is an active smoker -Protein calorie malnutrition, patient has a decreased muscle mass, decreased oral intake, albumin is 3.4. -Chronic alcohol dependence. -Acute alcohol intoxication with level being 189 on presentation, improving PLAN: Continue Lovenox for 24 hours, echocardiogram pending, right lower lobe mass being worked up by pulmonology, continue CIWA protocol for delirium tremens as well as beta jud and Valium. Will remain in ICU for today with possible transfer to E. tomorrow. Plan of care discussed at the bedside with patient and . Questions answered. We'll continue to follow closely. ADMINISTRATIVE PROFESSIONAL statement: Patient was seen and examined by nurse practitioner Olivia Mosher and all elements of the case discussed with attending Dr. Campa
[2017-05-04 17:06] LABS: Glucose,Whole Blood 135 mg/dL (75-99)
[2017-05-04] MEDS: ONDANSETRON 4 MG/2 ML VIAL IVP PRN (18:05)
--- NOTE | 2017-05-04 19:27 | PN ---
PROGRESS NOTE DATE OF SERVICE: 05/04/17. ATTENDING NOTE: Patient seen and examined by me. I discussed with nurse practitioner, Jyotihuang. Patient admitted with DTs and COPD exacerbation. Patient ate a little bit. PHYSICAL EXAMINATION: Temperature 98.8, pulse 68, respiration 20, blood pressure 110/67. LUNGS: Decreased breath sounds. Decreased wheezing. Some tremors are present. Less anxious. INVESTIGATIONS: White count 4.7, potassium 3.9. ASSESSMENT: 1. Acute chronic obstructive pulmonary disease exacerbation. 2. Right lower lobe mass being worked. 3. Acute delirium tremens. 4. Myocardial infarction, non ST elevation from hemodynamic mismatch. PLAN: Continue current medication and treatment plan. Will decrease the dose of Valium to 2.5 mg starting tomorrow morning. Encourage oral intake. MMCIERRAL / LEONARDON: [id number] /
[2017-05-04 20:57] LABS: Glucose,Whole Blood 128 mg/dL (75-99)
[2017-05-04] MEDS ORDERED: ENOXAPARIN 60 MG/0.6 ML SYRINGE SQ SCH (21:00)
[2017-05-05] MEDS: LORazepam 2 MG/ML INJ IV PRN ×13 (00:11→22:26)
[2017-05-05] MEDS: METOPROLOL TARTRATE 12.5 MG TAB PO SCH ×3 (00:54→16:04)
[2017-05-05] MEDS: methylPREDNISolone SOD SUCCI 40 MG/ML 1 ML VIAL IV SCH ×4 (01:21→23:49)
[2017-05-05] MEDS: DIAZEPAM 5 MG TAB PO SCH ×3 (02:37→09:11)
[2017-05-05 05:34] LABS: Anisocytosis Slight; Basophils % (A) 0 %; CH 32.4; CHCM 32.8; Eosinophils % (A) 0 %; HCT 43.6 % (34.0-46.0); HDW 2.25; HGB 14.1 gm/dL (11.4-16.0); Luc # (Auto) 0.02; Luc % (Auto) 0; Lymphocytes # (A) 0.4 k/uL (1.0-4.8); Lymphocytes % (A) 5 %; MCH 32.1 pg (25.0-35.0); MCHC 32.3 g/dL (31.0-37.0); MCV 99.4 fL (80.0-100.0); Macrocytosis Slight; Monocytes # (A) 0.2 k/uL (0-1.0); Monocytes % (A) 2 %; Neutrophils # (A) 7.8 k/uL (1.3-7.7); Neutrophils % (A) 92 %; RBC 4.38 m/uL (3.80-5.40); RDW 16.6 % (11.5-15.5); WBC 8.5 k/uL (3.8-10.6); WBC (Perox) 8.58
[2017-05-05 05:46] LABS: Anion Gap 5 mmol/L; Blood Urea Nitrogen 9 mg/dL (7-17); Calcium 9.3 mg/dL (8.4-10.2); Carbon Dioxide 34 mmol/L (22-30); Chloride 99 mmol/L (98-107); Glucose 121 mg/dL (74-99); Non-African American GFR(MDRD) >60 (>60 ml/min/1.73 sqM); Potassium 3.9 mmol/L (3.5-5.1); Sodium 138 mmol/L (137-145)
[2017-05-05 07:28] LABS: Glucose,Whole Blood 132 mg/dL (75-99)
[2017-05-05] MEDS: IPRATROPIUM-ALBUTEROL 3 ML NEB INHALATION SCH ×4 (08:30→20:43)
[2017-05-05] MEDS: LACTATED RINGERS 1,000 ML IV SCH ×2 (09:05→16:04)
[2017-05-05] MEDS: INSULIN ASPART 100 UNIT/ML 1 ML 10 ML VIAL SQ SCH ×4 (09:05→22:25)
[2017-05-05] MEDS: NICOTINE 21MG/24HR PATCH TRANSDERM SCH (09:05)
[2017-05-05] MEDS: ESCITALOPRAM 10 MG TAB PO SCH (09:06)
[2017-05-05] MEDS: ASPIRIN 81 MG PO SCH (09:06)
[2017-05-05] MEDS: PANTOPRAZOLE 40 MG/10 ML VIAL IVP SCH (09:06)
[2017-05-05] MEDS: ENOXAPARIN 30 MG/0.3 ML SYRINGE SQ SCH ×2 (09:44→20:11)
--- NOTE | 2017-05-05 09:59 | P.PN ---
Subjective Progress Note Date: 05/05/17 Principal diagnosis: Delirium tremens Progress note dated 05/05/2017 56-year-old female admitted on May 03. Has a history of heavy tobacco and alcohol abuse. Has a long-standing history of alcoholism. The patient was seen by my partner yesterday consultation. His impressions included chronic alcohol dependence with intoxication and admission alcohol level 189 acute alcohol withdrawal history of alcohol and nicotine dependence and right lower lobe mass, suspicious for bronchogenic carcinoma. She also probably has a history of underlying COPD. Her primary physician is Dr. Contreras. The patient is doing relatively well today. Is asking for something for anxiety. We'll stop the Valium. The patient is on the CIWA scale for alcohol abuse. Objective - Vital Signs Vital signs: Vital Signs Temp 98 F 05/05/17 09:00 Pulse 42 L 05/05/17 09:00 Resp 25 H 05/05/17 09:00 BP 127/73 05/05/17 09:00 Pulse Ox 100 05/05/17 09:00 Intake & Output 05/04/17 05/05/17 05/05/17 18:59 06:59 18:59 Intake Total 1400 1674 300 Output Total 1999 2760 Balance -600 -1086 300 Weight 55.5 kg Intake: IV 1300 1200 300 Lactated Ringers 1,000 ml 1300 1200 300 @ 100 mls/hr IV .Q10H MOMO Rx#:[id number] Intake, IV Titration 100 Amount Magnesium Sulfate-D5w Pmx 100 1 gm In Dextrose/Water 1 100ml.bag @ 100 mls/hr IVPB Q1H MOMO Rx#: [id number] Oral 237 Tube Feeding 237 Output: Urine 1999 2760 Other: Voiding Method Bedside Commode Bedside Commode # Voids 1 - Exam No acute distress, oriented 2. HEENT examination is grossly unremarkable. Mucous membranes are moist. No oral lesions. Neck supple. Full range of motion. No adenopathy or thyromegaly. Neck veins are flat. Cardiovascular examination reveals regular rhythm rate. S1-S2 normal. Mildly tachycardic. Lungs are clear breath sounds are equal. No wheezes or rhonchi. Abdomen soft bowel sounds are heard. No masses or tenderness. Extremities are intact. No cyanosis clubbing or edema. Skin without rash. Neurologic examination is nonfocal. - Labs CBC & Chem 7: 05/05/17 05:06 05/05/17 05:06 Labs: Abnormal Lab Results - Last 24 Hours (Table) 05/04/17 05/04/17 05/04/17 Range/Units 12:18 17:04 20:55 RDW (11.5-15.5) % Neutrophils # (1.3-7.7) k/uL Lymphocytes # (1.0-4.8) k/uL Carbon Dioxide (22-30) mmol/L Glucose (74-99) mg/dL POC Glucose (mg/dL) 126 H 135 H 128 H (75-99) mg/dL 05/05/17 05/05/17 05/05/17 Range/Units 05:06 05:06 07:25 RDW 16.6 H (11.5-15.5) % Neutrophils # 7.8 H (1.3-7.7) k/uL Lymphocytes # 0.4 L (1.0-4.8) k/uL Carbon Dioxide 34 H (22-30) mmol/L Glucose 121 H (74-99) mg/dL POC Glucose (mg/dL) 132 H (75-99) mg/dL Microbiology - Last 24 Hours (Table) 05/03/17 09:14 Blood Culture - Preliminary Blood No Growth after 24 hours Assessment and Plan (1) Acute exacerbation of chronic obstructive airways disease Current Visit: Yes Status: Acute Code(s): J44.1 - CHRONIC OBSTRUCTIVE PULMONARY DISEASE W (ACUTE) EXACERBATION SNOMED Code(s): 540918174 (2) Alcohol withdrawal syndrome Current Visit: Yes Status: Acute Code(s): F10.239 - ALCOHOL DEPENDENCE WITH WITHDRAWAL, UNSPECIFIED SNOMED Code(s): 555932710 (3) Alcoholic intoxication Current Visit: Yes Status: Acute Code(s): F10.929 - ALCOHOL USE, UNSPECIFIED WITH INTOXICATION, UNSPECIFIED SNOMED Code(s): 92196377 (4) Lung mass Current Visit: Yes Status: Acute Code(s): R91.8 - OTHER NONSPECIFIC ABNORMAL FINDING OF LUNG FIELD SNOMED Code(s): 486842664 (5) Non-ST elevation (NSTEMI) myocardial infarction Current Visit: Yes Status: Acute Code(s): I21.4 - NON-ST ELEVATION (NSTEMI) MYOCARDIAL INFARCTION SNOMED Code(s): 210535538 (6) Acute anxiety Current Visit: No Status: Acute Code(s): F41.9 - ANXIETY DISORDER, UNSPECIFIED SNOMED Code(s): 59754351 Plan: Plan dated 05/05/2017 The patient skipped receiving lactated Ringer's at 100 mL an hour. The patient is also on oxygen at 2 L/m by nasal cannula. The patient will be given Ativan as per the protocol. We are concerned about alcohol withdrawal syndrome. Additional recommendations and suggestions are forthcoming. We'll continue to follow closely. Prognosis is guarded. In addition, the patient will eventually need bronchoscopy for her lung mass in the right lower lobe. Is 3.6 cm in size. The patient is on a nicotine patch. Time with Patient: Greater than 30
[2017-05-05] MEDS: ONDANSETRON 4 MG/2 ML VIAL IVP PRN ×2 (11:27→20:44)
--- NOTE | 2017-05-05 11:43 | ECHOF ---
Referral Reason:nstemi MEASUREMENTS -------- HEIGHT: 157.5 cm WEIGHT: 57.6 kg BP: 127/73 RVIDd: 2.7 cm (< 3.3) IVSd: 1.2 cm (0.6 - 1.1) LVIDd: 3.8 cm (3.9 - 5.3) LVPWd: 1.0 cm (0.6 - 1.1) IVSs: 1.4 cm LVIDs: 2.9 cm LVPWs: 1.4 cm LA Diam: 3.1 cm (2.7 - 3.8) Ao Diam: 2.5 cm (2.0 - 3.7) AV Cusp: 1.3 cm (1.5 - 2.6) LA Diam: 3.9 cm (2.7 - 3.8) MV EXCURSION: 17.007 mm (> 18.000) MV EF SLOPE: 92 mm/s (70 - 150) EPSS: 0.6 cm MV E Ricky: 0.53 m/s MV DecT: 298 ms MV A Ricky: 0.96 m/s MV E/A Ratio: 0.56 RAP: 5.00 mmHg RVSP: 17.64 mmHg FINDINGS -------- Sinus rhythm. This was a technically adequate study. The left ventricular size is normal. There is mild concentric left ventricular hypertrophy. Overa ll left ventricular systolic function is normal with, an EF between 55 - 60 %. The right ventricle is normal in size. Normal LA size by volume 22+/-6 ml/m2. The right atrial size is normal. The aortic valve is trileaflet, and appears structurally normal. No aortic stenosis or regurgitation. Mild mitral regurgitation is present. Mild tricuspid regurgitation present. There is no evidence of pulmonary hypertension. The right v entricular systolic pressure, as measured by Doppler, is 17.64mmHg. There is no pulmonic regurgitation present. The aortic root size is normal. There is no pericardial effusion. CONCLUSIONS -------- 1. The left ventricular size is normal. 2. Overall left ventricular systolic function is normal with, an EF between 55 - 60 %. 3. The aortic valve is trileaflet, and appears structurally normal. No aortic stenosis or regurgitati on. 4. Mild mitral regurgitation is present. 5. Mild tricuspid regurgitation present. 6. There is no evidence of pulmonary hypertension. 7. The right ventricular systolic pressure, as measured by Doppler, is 17.64mmHg. 8. There is no pulmonic regurgitation present. 9. The aortic root size is normal. 10. There is no pericardial effusion. RESERVOIR ENGINEERING ADVISOR: Alexandria Barahona RDCS
--- NOTE | 2017-05-05 12:01 | CT ---
EXAMINATION TYPE: CT chest w con DATE OF EXAM: 05/05/2017 COMPARISON: NONE HISTORY: Right lower lobe mass CT DLP: 410 mGycm Automated exposure control for dose reduction was used. CONTRAST: CT scan of the chest is performed with IV Contrast, patient injected with 100 mL of Omnipaque 300. FINDINGS: LUNGS: Lobulated right infrahilar soft tissue mass felt to reflect malignancy until proven otherwise measures approximately 3.5 x 2.4 cm. No additional nodules or masses are seen. Mild upper lobe emphys ematous changes noted. Dependent atelectasis left lower lobe. MEDIASTINUM: There is right hilar adenopathy measuring 1.8 cm and 1.6 cm. There are no greater than 1 cm left hilar or mediastinal lymph nodes. No pericardial effusion is seen. Thoracic aorta is of normal caliber. The heart is not enlarged. UPPER ABDOMEN: There is hepatic steatosis noted. Upper pole nephrolithiasis left kidney. OTHER: No additional significant abnormality is seen. IMPRESSION: 1. Lobulated right infrahilar pulmonary mass felt to reflect malignancy until proven otherwise with r ight hilar adenopathy.
[2017-05-05 12:15] LABS: Glucose,Whole Blood 124 mg/dL (75-99)
--- NOTE | 2017-05-05 12:27 | PN ---
PROGRESS NOTE Mrs. Myles is a lady with alcoholism, came in yesterday with a troponin elevation in the setting of hypoxia. She is resting comfortably. Hemodynamically stable. She has some a alcohol withdrawal type symptoms, has been given a high dose of diazepam. PHYSICAL EXAMINATION: Blood pressure is 130/70, pulse rate is 68 per minute S1, S2 are normal. Lungs are clear. Abdomen and lower extremity exam unchanged. I will review the echocardiogram that was performed today. For now we will continue the beta jud. Same medications. Increase activity. MMODL / IJN: [id number] /
[2017-05-05] MEDS: THIAMINE 100 MG TAB PO SCH ×2 (13:00→17:50)
--- NOTE | 2017-05-05 15:20 | P.PN ---
Progress Note - Text Progress Note Date: 05/05/17 DATE OF SERVICE: 05/05/2017 PRESENTING COMPLAINT: Short of breath, tired nausea. HISTORY OF PRESENT ILLNESS: 56-year-old female with history of alcohol abuse. Was clean for 3 years and just recently started drinking again. Has had 3 admissions for rehabilitation at [place]. Patient was drinking about a fifth of whiskey every day, according to her patient was also abusing Ativan. Admitted to [facility] placed on CIWA scale, received quite a bit in order to try and control her symptoms therefore requiring a transfer to the ICU. INTERVAL HISTORY: 05/05/2017: Patient lying in bed, not speaking much, answers questions when asked what otherwise makes no other conversation some tremoring continues but improved Appetite is poor did not eat any breakfast due to nausea. Ambulatory with some assistance. Likely Transfers to [facility]. later today. Patient's computed tomography scan revealed a right infrahilar pulmonary mass. Will need bronchoscopy in the future. 05/04/2017: Patient lying in bed, at the bedside, patient is not speaking much, some tremoring noted, complains of low appetite, ate a banana for breakfast, has some nausea, ambulatory with assistance, we'll likely transfer to [facility]. is able to fill in patient history. He is very concerned about her ability to be admitted to [facility] for rehabilitation, particularly with this new right lower lobe mass. Explained to him that we will take it day by day, see how she does, follow testing results and then make decisions from there. He was in agreement. REVIEW OF SYSTEMS: Done for constitutional ,cardiovascular, GI, pulmonary with relevant findings as above. CURRENT MEDICATIONS DuoNeb's 3 mL every ID, aspirin 81 mg by mouth daily, Valium 5 mg by mouth every 6 hours, Lovenox 60 mg subcu every 12 hours, Lexapro 10 mg by mouth daily , Motrin 600 mg by mouth every 6 hours when necessary, NovoLog sliding scale, Ativan 1 mg IV every 2 hours [facility] protocol, Solu-Medrol 40 mg IV every 8 hours, Lopressor 12.5 mg by mouth every 8 hours, nicotine patch, Protonix 40 mg IV push daily, PHYSICAL EXAM VITAL SIGNS: Temperature 98.0, pulse 42, respirations 14, blood pressure 127/73, oxygen saturation 100% on 2 L. GENERAL APPEARANCE: Lying in bed, not in distress. EYES: Pupils equal. Conjunctiva normal. NECK: JVD not raised. Mass not palpable. RESPIRATORY: Respiratory effort normal. Lungs diminished to auscultation. CARDIOVASCULAR: First and second sounds normal. No edema. ABDOMEN: Soft. Liver and spleen not palpable. No tenderness. No mass palpable. PSYCHIATRY: Alert and oriented x3. Mood and affect anxious and jittery. INVESTIGATIONS: RDW 16.6, carbon dioxide 34,Accu-Cheks noted ASSESSMENT: -Acute chronic obstructive pulmonary disease exacerbation in a smoker, slow to respond - Non-ST elevation myocardial infarction probably related to hypoxia and oxygen mismatch. -Right lower lobe mass, 3.6 cm in size, strongly suspicious for bronchogenic carcinoma. -Acute delirium tremens, slow to respond -Chronic nicotine dependence, patient is an active smoker -Protein calorie malnutrition, patient has a decreased muscle mass, decreased oral intake, albumin is 3.4. -Chronic alcohol dependence. -Acute alcohol intoxication with level being 189 on presentation, improving PLAN: Valium stopped by ICU deputy fire marshal, beta jud to continue for now. patient's condition overall is stabilized and is appropriate for transfer to [facility]., right parahilar mass currently being worked up, may need bronchoscopy at a future date. Plan of care discussed at the bedside, patient is agreeable. We will follow closely. PEBBLE MILL OPERATOR statement: Patient was seen and examined by nurse practitioner Olivia Mosher and all elements of the case discussed with attending Dr. Campa
[2017-05-05 17:19] LABS: Glucose,Whole Blood 131 mg/dL (75-99)
[2017-05-05 21:11] LABS: Glucose,Whole Blood 129 mg/dL (75-99)
--- NOTE | 2017-05-05 21:30 | PN ---
PROGRESS NOTE DATE OF SERVICE: 05/05/17 ATTENDING NOTE: Patient was seen and examined by me. I discussed with nurse practitioner Ms. Mosher. Patient admitted with acute DTs, acute COPD exacerbation, more awake, less jittery, does not eat much. PHYSICAL EXAMINATION: Temperature 98, pulse 42, respiration 20, blood pressure 120/73, pulse ox of 96% on room air. The patient is a bit more settled. Lungs decreased breath sounds. Awake, answering questions. A bit anxious. ASSESSMENT: 1. Acute chronic obstructive pulmonary disease exacerbation. 2. Non ST elevation myocardial infarction type 2. 3. Acute delirium. 4. Acute delirium tremens, improving. PLAN: Valium was discontinued earlier. The patient encouraged to increase oral intake. Other medications and treatment plan to continue. Spoke to the nurse to get the patient out of bed. Follow. MANINDER / LEONARDON: [id number] /
[2017-05-06] MEDS: METOPROLOL TARTRATE 12.5 MG TAB PO SCH ×3 (00:32→16:12)
[2017-05-06] MEDS: LORazepam 2 MG/ML INJ IV PRN ×4 (00:33→11:43)
[2017-05-06] MEDS: SODIUM CHLORIDE 0.9% 1,000 ML IV SCH (05:53)
[2017-05-06] MEDS: IPRATROPIUM-ALBUTEROL 3 ML NEB INHALATION SCH ×4 (07:52→20:44)
[2017-05-06 07:54] LABS: Glucose,Whole Blood 117 mg/dL (75-99)
[2017-05-06] MEDS: INSULIN ASPART 100 UNIT/ML 1 ML 10 ML VIAL SQ SCH ×4 (08:02→21:58)
[2017-05-06] MEDS: ESCITALOPRAM 10 MG TAB PO SCH (09:13)
[2017-05-06] MEDS: ASPIRIN 81 MG PO SCH (09:13)
[2017-05-06] MEDS: NICOTINE 21MG/24HR PATCH TRANSDERM SCH (09:13)
[2017-05-06] MEDS: PANTOPRAZOLE 40 MG TABLET PO SCH (09:13)
[2017-05-06] MEDS: ENOXAPARIN 30 MG/0.3 ML SYRINGE SQ SCH ×2 (09:13→20:56)
[2017-05-06] MEDS: LACTATED RINGERS 1,000 ML IV SCH ×3 (09:14→22:01)
[2017-05-06] MEDS: methylPREDNISolone SOD SUCCI 40 MG/ML 1 ML VIAL IV SCH ×3 (09:14→16:39)
[2017-05-06 11:48] LABS: Glucose,Whole Blood 112 mg/dL (75-99)
--- NOTE | 2017-05-06 12:27 | P.PN ---
Subjective Progress Note Date: 05/06/17 Principal diagnosis: Chronic alcohol dependence and acute alcohol intoxication, shortness of breath, COPD, right lower lobe mass This is a 56-year-old female, heavy smoker, heavy drinker, long-standing history of alcoholism, patient was for [place] of time at [place], and she was clean for about 3 years. However in the last few weeks, the patient relapsed, and has been drinking alcohol excessively again. Patient has been smoking heavily. Presented to the ER with mostly symptoms of shortness of breath, wheezing, nausea, and seems to be intoxicated with alcohol level high upon presentation. Patient drinks on the average of 1 pint of whiskey a day. And upon admission to the medical floor, patient was noted to require a bit of more Ativan based on the CIWA scale. Hence arrangements were made to transfer the patient to the ICU. And upon my evaluation the patient was noted to be called, less jittery, not delirious, and was noted to be in no form of distress. She was very appropriate. Chest x-ray however showed a 3.6 cm mass in the right lower lobe strongly suspicious for bronchogenic carcinoma. Hence I have recommended a CT of the chest, and the patient will eventually need further workup for the right lower lobe mass, and possibly bronchoscopy and transbronchial biopsy for tissue diagnosis. Based on the findings, the mass is felt to be malignant unless proven otherwise. Patient denies any constitutional symptoms, no weight loss, no fever, no chills. He denies any chest pain. She had no abdominal pain but she had occasional nausea but no vomiting. No headaches no blurred vision no dizziness. No aches and pains. 56-year-old female admitted on May 03. Has a history of heavy tobacco and alcohol abuse. Has a long-standing history of alcoholism. The patient was seen by my partner yesterday consultation. His impressions included chronic alcohol dependence with intoxication and admission alcohol level 189 acute alcohol withdrawal history of alcohol and nicotine dependence and right lower lobe mass, suspicious for bronchogenic carcinoma. She also probably has a history of underlying COPD. Her primary physician is Dr. Contreras. The patient is doing relatively well today. Is asking for something for anxiety. We'll stop the Valium. The patient is on the CIWA scale for alcohol abuse. On 05/06/2017 patient seen in follow-up on medical surgical floor. She is resting in bed, lethargic, but arousable to stimuli. Appears generally weak, she has been up out of bed using the bedside commode, but from the looks of it that has been the extent of her activity. She has been afebrile, on room air with O2 sat at 96%. Lung sounds are diminished, with rhonchi over right lower lobe. Vital signs has been stable, blood cultures show no growth since admission. She continues on IV Solu-Medrol, Ativan for DTs on as-needed basis. IV fluids are infusing at 100 mL per hour. Her oral intake remains poor, she has a poor appetite. But she states it is improving. Objective - Vital Signs Vital signs: Vital Signs Temp 97.6 F 05/06/17 07:00 Pulse 56 L 05/06/17 11:27 Resp 15 05/06/17 07:00 BP 142/73 05/06/17 07:00 Pulse Ox 96 05/06/17 07:00 Intake & Output 05/05/17 05/06/17 05/06/17 18:59 06:59 18:59 Intake Total 1500 Output Total 1900 Balance -400 Intake: IV 1200 Lactated Ringers 1,000 ml 1200 @ 100 mls/hr IV .Q10H MOMO Rx#:[id number] Oral 300 Output: Urine 1900 Other: Voiding Method Bedside Commode Bedside Commode # Voids 1 - Exam GENERAL EXAM: Lethargic, but arousable to verbal stimuli, comfortable in no apparent distress. HEAD: Normocephalic/atraumatic. EYES: Normal reaction of pupils, equal size. Conjunctiva pink, sclera white. NOSE: Clear with pink turbinates. THROAT: No erythema or exudates. NECK: No masses, no JVD, no thyroid enlargement, no adenopathy. CHEST: No chest wall deformity. Symmetrical expansion. LUNGS: Equal air entry, lung sounds are positive for coarse rhonchi over right lower lobe. CVS: Regular rate and rhythm, normal S1 and S2, no gallops, no murmurs, no rubs ABDOMEN: Soft, nontender. No hepatosplenomegaly, normal bowel sounds, no guarding or rigidity. EXTREMITIES: No clubbing, no edema, no cyanosis, 2+ pulses and upper and lower extremities. MUSCULOSKELETAL: Muscle strength and tone normal. SPINE: No scoliosis or deformity SKIN: No rashes CENTRAL NERVOUS SYSTEM: Alert and oriented -3. No focal deficits, tone is normal in all 4 extremities. PSYCHIATRIC: Alert and oriented -3. Appropriate affect. Intact judgment and insight. - Labs CBC & Chem 7: 05/05/17 05:06 05/05/17 05:06 Labs: Abnormal Lab Results - Last 24 Hours (Table) 05/05/17 05/05/17 05/06/17 Range/Units 17:18 21:05 07:42 POC Glucose (mg/dL) 131 H 129 H 117 H (75-99) mg/dL 05/06/17 Range/Units 11:46 POC Glucose (mg/dL) 112 H (75-99) mg/dL Microbiology - Last 24 Hours (Table) 05/03/17 09:14 Blood Culture - Preliminary Blood No Growth after 72 hours Assessment and Plan Plan: Assessment: Impression: 1 chronic alcohol dependence and acute intoxication level was 189 on presentation. 2 acute alcohol withdrawal requiring transfer to the ICU and placed on the CIAZ protocol. 3 history of alcoholism and nicotine dependence. 4 right lower lobe mass, 3.6 cm in size, strongly suspicious for bronchogenic carcinoma. 5 suspect significant chronic obstructive lung disease, patient will need further workup on outpatient basis. Recommendation: Patient is negative for any signs of delirium tremens, remains generally weak, may benefit from physical therapy and potentially rehab. Will arrange for CT of the chest to rule out bronchogenic carcinoma in the right lower lobe as an outpatient. Patient may eventually require bronchoscopy, preferably navigational bronchoscopy and biopsy. Patient was counseled regarding smoking cessation. And in the meantime she was placed on nicotine patches. Prognosis is guarded, we'll continue to follow. I performed a history & physical examination of the patient and discussed their management with my nurse practitioner, Rebecca Amaral. I reviewed the nurse practitioner's note and agree with the documented findings and plan of care. Lung sounds are positive for coarse rhonchi in the right lower lobe. The findings and the impression was discussed with the patient. I attest to the documentation by the nurse practitioner. Time with Patient: Less than 30
[2017-05-06] MEDS: THIAMINE 100 MG TAB PO SCH ×2 (13:10→18:33)
[2017-05-06] MEDS: LORazepam 1 MG TAB PO SCH ×2 (15:43→21:57)
[2017-05-06] MEDS: ONDANSETRON 4 MG/2 ML VIAL IVP PRN (17:11)
[2017-05-06 17:32] LABS: Glucose,Whole Blood 120 mg/dL (75-99)
--- NOTE | 2017-05-06 20:22 | P.PN ---
Progress Note - Text Progress Note Date: 05/06/17 DATE OF SERVICE: 05/06/2017 PRESENTING COMPLAINT: Short of breath, tired nausea. HISTORY OF PRESENT ILLNESS: 56-year-old female with history of alcohol abuse. Was clean for 3 years and just recently started drinking again. Has had 3 admissions for rehabilitation at [place]. Patient was drinking about a fifth of whiskey every day, according to her patient was also abusing Ativan. Admitted to [facility] placed on CIWA scale, received quite a bit in order to try and control her symptoms therefore requiring a transfer to the ICU. INTERVAL HISTORY: 05/06/2017: Patient lying in bed appears anxious tremoring less than in previous days. Appetite is poor didn't eat breakfast. Did better with lunch ate about 30%. Requires some assistance with ambulation. Requesting Ativan. Remains on beta jud and small dose of Valium. 1 mg of Ativan added for anxiety. Psychiatry consulted for anxiety. CIWA scale discontinued. 05/05/2017: Patient lying in bed, not speaking much, answers questions when asked what otherwise makes no other conversation some tremoring continues but improved Appetite is poor did not eat any breakfast due to nausea. Ambulatory with some assistance. Likely Transfers to [facility]. later today. Patient's computed tomography scan revealed a right infrahilar pulmonary mass. Will need bronchoscopy in the future. 05/04/2017: Patient lying in bed, at the bedside, patient is not speaking much, some tremoring noted, complains of low appetite, ate a banana for breakfast, has some nausea, ambulatory with assistance, we'll likely transfer to [facility]. is able to fill in patient history. He is very concerned about her ability to be admitted to [place] for rehabilitation, particularly with this new right lower lobe mass. Explained to him that we will take it day by day, see how she does, follow testing results and then make decisions from there. He was in agreement. REVIEW OF SYSTEMS: Done for constitutional ,cardiovascular, GI, pulmonary with relevant findings as above. CURRENT MEDICATIONS DuoNeb's 3 mL every ID, aspirin 81 mg by mouth daily, Valium 5 mg by mouth every 6 hours, Lovenox 60 mg subcu every 12 hours, Lexapro 10 mg by mouth daily , Motrin 600 mg by mouth every 6 hours when necessary, NovoLog sliding scale, Ativan 1 mg by mouth 3 times a day, Solu-Medrol 40 mg IV every 8 hours, Lopressor 12.5 mg by mouth every 8 hours, nicotine patch, Protonix 40 mg IV push daily, PHYSICAL EXAM VITAL SIGNS: Temperature 97.6, pulse 64, respirations 15, blood pressure 142/73, oxygen saturation 96% on room air. GENERAL APPEARANCE: Lying in bed, not in distress. EYES: Pupils equal. Conjunctiva normal. NECK: JVD not raised. Mass not palpable. RESPIRATORY: Respiratory effort normal. Lungs diminished to auscultation. CARDIOVASCULAR: First and second sounds normal. No edema. ABDOMEN: Soft. Liver and spleen not palpable. No tenderness. No mass palpable. PSYCHIATRY: Alert and oriented x3. Mood and affect anxious and jittery. INVESTIGATIONS: Labs: Accu-Cheks noted ASSESSMENT: -Acute chronic obstructive pulmonary disease exacerbation in a smoker, slow to respond - Non-ST elevation myocardial infarction probably related to hypoxia and oxygen mismatch. -Right lower lobe mass, 3.6 cm in size, strongly suspicious for bronchogenic carcinoma. -Acute delirium tremens, improving -Chronic nicotine dependence, patient is an active smoker -Protein calorie malnutrition, patient has a decreased muscle mass, decreased oral intake, albumin is 3.4. -Chronic alcohol dependence. -Acute alcohol intoxication with level being 189 on presentation, resolved -Anxiety not otherwise specified PLAN: Valium and beta jud continue, Ativan added for patient's anxiety, psychiatry consulted to evaluate anxiety. Patient encouraged to be up out of bed and to encourage eating her meals. right parahilar mass currently being worked up, may need navigational bronchoscopy and biopsy at a future date. Nicotine patches added. Plan of care discussed at the bedside, patient is agreeable. We will follow closely. ELECTRICAL CONSTRUCTION PROJECT MANAGER statement: Patient was seen and examined by nurse practitioner Olivia Mosher and all elements of the case discussed with attending Dr. Campa
[2017-05-06 20:36] LABS: Glucose,Whole Blood 137 mg/dL (75-99)
[2017-05-06] MEDS: IBUPROFEN 600 MG TAB PO PRN (21:28)
[2017-05-07] MEDS ORDERED: METOPROLOL TARTRATE 12.5 MG TAB ONE (00:37)
--- NOTE | 2017-05-07 02:23 | PN ---
PROGRESS NOTE DATE OF SERVICE: 05/06/2017. ATTENDING NOTE: The patient was seen and examined by me. I discussed with nurse practitioner, Ms. Mosher. Patient admitted with COPD exacerbation, acute OR and acute DTs. Eating slightly better. Valium was discontinued yesterday. Patient is rather anxious. PHYSICAL EXAMINATION: Temperature 98.2, pulse 72, respirations 15, blood pressure 105/82. LUNGS: Decreased breath sounds. Anxiety present. Tremors are present. INVESTIGATIONS: Accu-Cheks are noted. ASSESSMENT: Anxiety, uncontrolled. PLAN: We will put the patient on Ativan 1 mg 3 times a day. Psychiatry has been consulted. Care was discussed with the patient. Other medication and treatment plan is to continue. Will switch to p.o. steroids from the morning. MANINDER / LEONARDON: [id number] /
[2017-05-07] MEDS: METOPROLOL TARTRATE 12.5 MG TAB PO SCH ×2 (03:18→08:56)
[2017-05-07 07:37] LABS: Glucose,Whole Blood 94 mg/dL (75-99)
[2017-05-07] MEDS: IPRATROPIUM-ALBUTEROL 3 ML NEB INHALATION SCH ×5 (07:53→20:27)
[2017-05-07] MEDS: INSULIN ASPART 100 UNIT/ML 1 ML 10 ML VIAL SQ SCH ×4 (08:09→22:03)
[2017-05-07] MEDS: LORazepam 1 MG TAB PO SCH ×2 (08:56→15:00)
[2017-05-07] MEDS: ENOXAPARIN 30 MG/0.3 ML SYRINGE SQ SCH ×2 (08:56→20:18)
[2017-05-07] MEDS: NICOTINE 21MG/24HR PATCH TRANSDERM SCH (08:56)
[2017-05-07] MEDS: ESCITALOPRAM 10 MG TAB PO SCH (08:56)
[2017-05-07] MEDS: predniSONE 20 MG TAB PO SCH (08:56)
[2017-05-07] MEDS: THIAMINE 100 MG TAB PO SCH ×2 (08:56→16:07)
[2017-05-07] MEDS: PANTOPRAZOLE 40 MG TABLET PO SCH (08:56)
[2017-05-07] MEDS: ASPIRIN 81 MG PO SCH (08:56)
[2017-05-07 12:24] LABS: Glucose,Whole Blood 112 mg/dL (75-99)
--- NOTE | 2017-05-07 12:24 | P.PN ---
Subjective Progress Note Date: 05/07/17 Principal diagnosis: Chronic alcohol dependence and acute alcohol intoxication, COPD exacerbation, right lower lobe mass. This is a 56-year-old female, heavy smoker, heavy drinker, long-standing history of alcoholism, patient was for [place] of time at [place], and she was clean for about 3 years. However in the last few weeks, the patient relapsed, and has been drinking alcohol excessively again. Patient has been smoking heavily. Presented to the ER with mostly symptoms of shortness of breath, wheezing, nausea, and seems to be intoxicated with alcohol level high upon presentation. Patient drinks on the average of 1 pint of whiskey a day. And upon admission to the medical floor, patient was noted to require a bit of more Ativan based on the CIWA scale. Hence arrangements were made to transfer the patient to the ICU. And upon my evaluation the patient was noted to be called, less jittery, not delirious, and was noted to be in no form of distress. She was very appropriate. Chest x-ray however showed a 3.6 cm mass in the right lower lobe strongly suspicious for bronchogenic carcinoma. Hence I have recommended a CT of the chest, and the patient will eventually need further workup for the right lower lobe mass, and possibly bronchoscopy and transbronchial biopsy for tissue diagnosis. Based on the findings, the mass is felt to be malignant unless proven otherwise. Patient denies any constitutional symptoms, no weight loss, no fever, no chills. He denies any chest pain. She had no abdominal pain but she had occasional nausea but no vomiting. No headaches no blurred vision no dizziness. No aches and pains. 56-year-old female admitted on May 03. Has a history of heavy tobacco and alcohol abuse. Has a long-standing history of alcoholism. The patient was seen by my partner yesterday consultation. His impressions included chronic alcohol dependence with intoxication and admission alcohol level 189 acute alcohol withdrawal history of alcohol and nicotine dependence and right lower lobe mass, suspicious for bronchogenic carcinoma. She also probably has a history of underlying COPD. Her primary physician is Dr. Contreras. The patient is doing relatively well today. Is asking for something for anxiety. We'll stop the Valium. The patient is on the CIWA scale for alcohol abuse. On 05/06/2017 patient seen in follow-up on medical surgical floor. She is resting in bed, lethargic, but arousable to stimuli. Appears generally weak, she has been up out of bed using the bedside commode, but from the looks of it that has been the extent of her activity. She has been afebrile, on room air with O2 sat at 96%. Lung sounds are diminished, with rhonchi over right lower lobe. Vital signs has been stable, blood cultures show no growth since admission. She continues on IV Solu-Medrol, Ativan for DTs on as-needed basis. IV fluids are infusing at 100 mL per hour. Her oral intake remains poor, she has a poor appetite. But she states it is improving. She was seen again today 05/07/2017 in follow-up on the regular medical floor. She is awake and alert in no acute distress. She denies any worsening shortness of breath, cough or congestion. She's been afebrile. Maintaining O2 saturations in the 90s on room air. Hemodynamically stable. He did require 1 mg of Ativan earlier this morning for some restlessness. Objective - Vital Signs Vital signs: Vital Signs Temp 97.5 F L 05/07/17 07:00 Pulse 67 05/07/17 07:00 Resp 16 05/07/17 07:00 BP 134/84 05/07/17 07:00 Pulse Ox 92 L 05/07/17 07:00 Intake & Output 05/06/17 05/07/17 05/07/17 18:59 06:59 18:59 Intake Total 440 Balance 440 Intake: Oral 440 Other: Voiding Method Bedside Commode # Voids 4 2 # Bowel Movements 1 0 - Exam GENERAL EXAM: Alert, comfortable in no apparent distress. HEAD: Normocephalic/atraumatic. EYES: Normal reaction of pupils, equal size. Conjunctiva pink, sclera white. NOSE: Clear with pink turbinates. THROAT: No erythema or exudates. NECK: No masses, no JVD, no thyroid enlargement, no adenopathy. CHEST: No chest wall deformity. Symmetrical expansion. LUNGS: Equal air entry, lung sounds are positive for coarse rhonchi over right lower lobe. CVS: Regular rate and rhythm, normal S1 and S2, no gallops, no murmurs, no rubs ABDOMEN: Soft, nontender. No hepatosplenomegaly, normal bowel sounds, no guarding or rigidity. EXTREMITIES: No clubbing, no edema, no cyanosis, 2+ pulses and upper and lower extremities. MUSCULOSKELETAL: Muscle strength and tone normal. SPINE: No scoliosis or deformity SKIN: No rashes CENTRAL NERVOUS SYSTEM: Alert and oriented -3. No focal deficits, tone is normal in all 4 extremities. PSYCHIATRIC: Alert and oriented -3. Appropriate affect. Intact judgment and insight. - Labs CBC & Chem 7: 05/05/17 05:06 05/05/17 05:06 Labs: Abnormal Lab Results - Last 24 Hours (Table) 05/06/17 05/06/17 Range/Units 17:20 20:33 POC Glucose (mg/dL) 120 H 137 H (75-99) mg/dL Microbiology - Last 24 Hours (Table) 05/03/17 09:14 Blood Culture - Preliminary Blood No Growth after 96 hours Assessment and Plan Assessment: Impression: 1 chronic alcohol dependence and acute intoxication level was 189 on presentation. 2 acute alcohol withdrawal requiring transfer to the ICU and placed on the CIWA protocol. 3 history of alcoholism and nicotine dependence. 4 right lower lobe mass, 3.6 cm in size, strongly suspicious for bronchogenic carcinoma. 5 suspect significant chronic obstructive lung disease, patient will need further workup on outpatient basis. Recommendation: The patient was seen and evaluated by Dr. Zhang. She is cleared for discharge from the pulmonary standpoint. She will need a follow-up appointment in our office. We will need to optimize her suspected COPD with maintenance medications. She'll most likely require bronchoscopy, preferably navigational, in the outpatient setting. She is again educated regarding the importance of complete smoking cessation. I, the cosigning physician, have performed a history and physical examination on the patient. Lung sounds have faint end expiratory wheeze. Diminished.. Maintaining good O2 saturations in the 90s on room air. I have discussed the assessment and plan of care with my nurse practitioner, Cassandra Nolan. I attest the above note as dictated by her.
[2017-05-07] MEDS ORDERED: METOPROLOL TARTRATE 12.5 MG TAB PO SCH (16:00)
--- NOTE | 2017-05-07 16:19 | P.CN ---
Psychiatric Consult - . Consult date: 05/07/17 Consult:: PSYCHIATRY CONSULTATION: HPI: Patient is a 56-year-old female with a longstanding history of alcoholism who recently relapsed after sobriety for 3 years. Patient presented to ER with acutely intoxicated on alcohol with shortness of breath, wheezing, nausea. She reported drinking 1+ pint of whiskey per day. Patient was admitted to medicine and then ICU due to amount of Ativan consumption, patient stabilized and transferred back to medicine where she was evaluated by Psychiatry today. Patient states she is feeling much better today. She denies feeling depressed or anxious and states, I learned my lesson, and I want to go home. Mild tremors are still noted. Patient states she has been through bad alcohol withdrawals before and she is not concerned at this time.Patient is unable to report what triggered her to start drinking again. She is able to state that she sequestered herself from friends and family when she started thinking she could control her behavior with the intention initially of just taking one drink. This disastrously failed, and patient relapsed hiding her drinking which escalated, patient was ultimately caught by family. Patient states she had been sober for 3 years. She reports going to anabaptist being her primary support structure to maintain sobriety. In years past, she also attended professional OP therapy for substance abuse. Patient has an extensive alcohol history with years of failed. At this time, patient denies SI/HI/AVH. PSYCHIATRIC HISTORY: 1 past hospitalization at [facility] in 2013 for SI, see EMR. No history of SA. PAST MEDICAL HISTORY: Past Medical History: COPD Additional Past Medical History / Comment(s): alcoholism, patient started drinking heavily after of one of her brother and has had multiple episodes of relapse and recovery Past Surgical History: Section Past Psychological History: Anxiety, Depression Smoking Status: Current every day smoker Past Alcohol Use History: Daily, Heavy Past Drug Use History: None Reported - Past Family History Mother Family Medical History: COPD Additional Family Medical History / Comment(s): ETOH, lung cancer Father Family Medical History: Myocardial Infarction ([place]) Additional Family Medical History / Comment(s): ETOH HOME MEDICATIONS: 3 Medication Instructions Recorded Confirmed Escitalopram [Lexapro] 10 mg PO DAILY 05/01/17 05/03/17 LORazepam [Ativan] 1 - 2 mg PO TID PRN 05/01/17 05/03/17 Albuterol Inhaler [Ventolin Hfa 2 puff INHALATION RT-Q6H PRN 05/03/17 05/03/17 Inhaler] ALLERGIES: 3 Allergy/AdvReac Type Severity Reaction Status Date / Time No Known Allergies Allergy Verified 05/03/17 11:02 SOCIAL HISTORY: education: 11th occupational: in home care environmental: lives at home with : no alevism: [employer] access to firearms: no sexual orientation: heterosexual safety at home: yes and characterizes such as being good, two children who are healthy and doing well. Reports having a total of 4 sisters, 7 brothers, patient the 2nd youngest of the children. Denies any past trauma history. One patient's nephews via suicide a few years ago. STRENGTHS/WEAKNESSES: Strong family/social support system Difficulty asking for help MENTAL STATUS EXAM: Appearance: sleepy at first, easily aroused, disheveled , appears stated age Behavior: no psychomotor agitation or psychomotor retardation, mild bilateral hand tremors, fair eye contact Attitude: cooperative Speech: normal rate, rhythm, fluency, articulation, volume, and prosody; primary language: Lithuanian Mood: anxious Affect: congruent, reactive Thought processes: linear Thought content: patient does not appear to be responding to internal stimuli; patient denies auditory and visual hallucinations, no delusions appreciated Insight: fair Judgment: overall fair despite recent relapse Cognitive: oriented to all 3 spheres, average intelligence Assessment and Plan (1) Alcohol use disorder, severe, dependence Current Visit: Yes Status: Acute Code(s): F10.20 - ALCOHOL DEPENDENCE, UNCOMPLICATED SNOMED Code(s): 103912774 (2) Alcohol withdrawal syndrome Current Visit: Yes Status: Acute Code(s): F10.239 - ALCOHOL DEPENDENCE WITH WITHDRAWAL, UNSPECIFIED SNOMED Code(s): 361514886 (3) Acute anxiety Narrative/Plan: Continue Lexapro 10-mg PO QAM Current Visit: No Status: Acute Code(s): F41.9 - ANXIETY DISORDER, UNSPECIFIED SNOMED Code(s): 41397573 Plan: RECOMMENDATIONS: There is no psychiatric contraindication for discharge Patient identified attending routine anabaptist services as a rome component to maintaining her sobriety and was encouraged return Patient was encouraged to schedule routine OP counseling which helped her after she graduated from [place] No psychotropic medications are indicated at this time For future cases, recommend against adding B-jud therapy to blunt autonomic symptoms as this invalidates the CIWA scale. For this reason, the patient was presenting as overly anxious with a low score on day 3 of hospital course ~ Rodo Ibarra DO Time with Patient: Greater than 30
[2017-05-07 17:20] LABS: Glucose,Whole Blood 104 mg/dL (75-99)
--- NOTE | 2017-05-07 18:23 | P.PN ---
Progress Note - Text Progress Note Date: 05/07/17 DATE OF SERVICE: 05/07/2017 PRESENTING COMPLAINT: Short of breath, tired nausea. HISTORY OF PRESENT ILLNESS: 56-year-old female with history of alcohol abuse. Was clean for 3 years and just recently started drinking again. Has had 3 admissions for rehabilitation at [facility] [place]. Patient was drinking about a fifth of whiskey every day, according to her patient was also abusing Ativan. Admitted to [facility]., placed on CIWA scale, received quite a bit in order to try and control her symptoms therefore requiring a transfer to the ICU. INTERVAL HISTORY: 05/07/2017: Resting quietly in bed, less tremoring remains anxious. Appetite continues to be poor ate barely 20% of her meals. Psychiatry evaluated the patient, no contraindication for discharge from a psychiatric standpoint. Patient is up with assistance and requires a lot of encouragement. 05/06/2017: Patient lying in bed appears anxious tremoring less than in previous days. Appetite is poor didn't eat breakfast. Did better with lunch ate about 30%. Requires some assistance with ambulation. Requesting Ativan. Remains on beta jud and small dose of Valium. 1 mg of Ativan added for anxiety. Psychiatry consulted for anxiety. CIWA scale discontinued. 05/05/2017: Patient lying in bed, not speaking much, answers questions when asked what otherwise makes no other conversation some tremoring continues but improved Appetite is poor did not eat any breakfast due to nausea. Ambulatory with some assistance. Likely Transfers to [facility]. later today. Patient's computed tomography scan revealed a right infrahilar pulmonary mass. Will need bronchoscopy in the future. 05/04/2017: Patient lying in bed, at the bedside, patient is not speaking much, some tremoring noted, complains of low appetite, ate a banana for breakfast, has some nausea, ambulatory with assistance, we'll likely transfer to [facility]. is able to fill in patient history. He is very concerned about her ability to be admitted to [facility] for rehabilitation, particularly with this new right lower lobe mass. Explained to him that we will take it day by day, see how she does, follow testing results and then make decisions from there. He was in agreement. REVIEW OF SYSTEMS: Done for constitutional ,cardiovascular, GI, pulmonary with relevant findings as above. CURRENT MEDICATIONS DuoNeb's 3 mL every ID, aspirin 81 mg by mouth daily, Valium 5 mg by mouth every 6 hours, Lovenox 60 mg subcu every 12 hours, Lexapro 10 mg by mouth daily , Motrin 600 mg by mouth every 6 hours when necessary, NovoLog sliding scale, Ativan 1 mg by mouth 3 times a day, Solu-Medrol 40 mg IV every 8 hours, Lopressor 12.5 mg by mouth every 8 hours, nicotine patch, Protonix 40 mg IV push daily, PHYSICAL EXAM VITAL SIGNS: Temperature 97.5, pulse 67, respiratory rate 16, blood pressure 134/84, oxygen saturation 92% on room air. GENERAL APPEARANCE: Lying in bed, not in distress. EYES: Pupils equal. Conjunctiva normal. NECK: JVD not raised. Mass not palpable. RESPIRATORY: Respiratory effort normal. Lungs diminished to auscultation. CARDIOVASCULAR: First and second sounds normal. No edema. ABDOMEN: Soft. Liver and spleen not palpable. No tenderness. No mass palpable. PSYCHIATRY: Alert and oriented x3. Mood and affect anxious and less jittery. INVESTIGATIONS: Labs: Accu-Cheks noted ASSESSMENT: -Acute chronic obstructive pulmonary disease exacerbation in a smoker, slow to respond - Non-ST elevation myocardial infarction probably related to hypoxia and oxygen mismatch. -Right lower lobe mass, 3.6 cm in size, strongly suspicious for bronchogenic carcinoma. -Acute delirium tremens, improving -Chronic nicotine dependence, patient is an active smoker -Protein calorie malnutrition, patient has a decreased muscle mass, decreased oral intake, albumin is 3.4. -Chronic alcohol dependence. -Acute alcohol intoxication with level being 189 on presentation, resolved -Anxiety not otherwise specified PLAN: Psychiatry recommends not using beta-blockade for withdrawal as it invalidates the CIWA scale and patient presented is anxious with a low score towards the end of withdrawal when she was actually still withdrawing. Patient encouraged to be up out of bed and to encourage eating her meals. Plan of care discussed at the bedside, patient is agreeable. Discharge planning for the next 24-48 hours. We will follow closely. PREP MANAGER statement: Patient was seen and examined by nurse practitioner Olivia Mosher and all elements of the case discussed with attending Dr. Campa
[2017-05-07 21:11] LABS: Glucose,Whole Blood 89 mg/dL (75-99)
--- NOTE | 2017-05-07 22:39 | PN ---
PROGRESS NOTE DATE OF SERVICE: 05/07/2017 ATTENDING NOTE: This patient was seen and examined by me. I discussed with my nurse practitioner, Ms. Mosher. I saw this patient this morning, doing much better, awaiting a psych input, eating better, less shaky. EXAMINATION: Temperature 97.5, pulse 67, respirations 16, blood pressure 134/84. Sitting up, less anxious. LUNGS: Decreased breath sounds. Accu-Cheks are noted. ASSESSMENT: 1. Anxiety disorder. 2. Chronic obstructive pulmonary disease exacerbation. PLAN: Overall doing much better. Will cut back the dose of Ativan, await input from Psychiatry. Beta jud can be discontinued after today. MMODL / IJN: [id number] /
[2017-05-08 07:29] LABS: Glucose,Whole Blood 89 mg/dL (75-99)
[2017-05-08] MEDS: IPRATROPIUM-ALBUTEROL 3 ML NEB INHALATION SCH ×3 (07:31→15:50)
[2017-05-08 07:34] VITALS: BP 132/77; RESP 16; TEMP 97.8
[2017-05-08] MEDS: INSULIN ASPART 100 UNIT/ML 1 ML 10 ML VIAL SQ SCH ×2 (08:13→12:26)
[2017-05-08] MEDS ORDERED: LORazepam 0.5 MG TAB PO SCH (09:00)
[2017-05-08] MEDS: ESCITALOPRAM 10 MG TAB PO SCH (09:53)
[2017-05-08] MEDS: predniSONE 20 MG TAB PO SCH (09:53)
[2017-05-08] MEDS: PANTOPRAZOLE 40 MG TABLET PO SCH (09:53)
[2017-05-08] MEDS: NICOTINE 21MG/24HR PATCH TRANSDERM SCH (09:53)
[2017-05-08] MEDS: ENOXAPARIN 30 MG/0.3 ML SYRINGE SQ SCH (09:53)
[2017-05-08] MEDS: ASPIRIN 81 MG PO SCH (09:54)
[2017-05-08] MEDS: THIAMINE 100 MG TAB PO SCH (11:35)
--- NOTE | 2017-05-08 11:58 | P.PN ---
Subjective Progress Note Date: 05/08/17 Principal diagnosis: Chronic alcohol dependence and acute alcohol intoxication, COPD exacerbation, right lower lobe mass. This is a 56-year-old female, heavy smoker, heavy drinker, long-standing history of alcoholism, patient was for [place] of time at [facility], and she was clean for about 3 years. However in the last few weeks, the patient relapsed, and has been drinking alcohol excessively again. Patient has been smoking heavily. Presented to the ER with mostly symptoms of shortness of breath, wheezing, nausea, and seems to be intoxicated with alcohol level high upon presentation. Patient drinks on the average of 1 pint of whiskey a day. And upon admission to the medical floor, patient was noted to require a bit of more Ativan based on the CIWA scale. Hence arrangements were made to transfer the patient to the ICU. And upon my evaluation the patient was noted to be called, less jittery, not delirious, and was noted to be in no form of distress. She was very appropriate. Chest x-ray however showed a 3.6 cm mass in the right lower lobe strongly suspicious for bronchogenic carcinoma. Hence I have recommended a CT of the chest, and the patient will eventually need further workup for the right lower lobe mass, and possibly bronchoscopy and transbronchial biopsy for tissue diagnosis. Based on the findings, the mass is felt to be malignant unless proven otherwise. Patient denies any constitutional symptoms, no weight loss, no fever, no chills. He denies any chest pain. She had no abdominal pain but she had occasional nausea but no vomiting. No headaches no blurred vision no dizziness. No aches and pains. 56-year-old female admitted on May 03. Has a history of heavy tobacco and alcohol abuse. Has a long-standing history of alcoholism. The patient was seen by my partner yesterday consultation. His impressions included chronic alcohol dependence with intoxication and admission alcohol level 189 acute alcohol withdrawal history of alcohol and nicotine dependence and right lower lobe mass, suspicious for bronchogenic carcinoma. She also probably has a history of underlying COPD. Her primary physician is Dr. Contreras. The patient is doing relatively well today. Is asking for something for anxiety. We'll stop the Valium. The patient is on the CIWA scale for alcohol abuse. On 05/06/2017 patient seen in follow-up on medical surgical floor. She is resting in bed, lethargic, but arousable to stimuli. Appears generally weak, she has been up out of bed using the bedside commode, but from the looks of it that has been the extent of her activity. She has been afebrile, on room air with O2 sat at 96%. Lung sounds are diminished, with rhonchi over right lower lobe. Vital signs has been stable, blood cultures show no growth since admission. She continues on IV Solu-Medrol, Ativan for DTs on as-needed basis. IV fluids are infusing at 100 mL per hour. Her oral intake remains poor, she has a poor appetite. But she states it is improving. She was seen again today 05/07/2017 in follow-up on the regular medical floor. She is awake and alert in no acute distress. She denies any worsening shortness of breath, cough or congestion. She's been afebrile. Maintaining O2 saturations in the 90s on room air. Hemodynamically stable. He did require 1 mg of Ativan earlier this morning for some restlessness. The patient is seen again today 05/08/2017 in follow-up on the regular medical floor. She is currently sitting up in the chair at the bedside. She is awake and alert in no acute distress. She is anxious to go home. Objective - Vital Signs Vital signs: Vital Signs Temp 97.8 F 05/08/17 07:00 Pulse 81 05/08/17 07:00 Resp 16 05/08/17 07:00 BP 132/77 05/08/17 07:00 Pulse Ox 98 05/08/17 07:00 Intake & Output 05/07/17 05/08/17 05/08/17 18:59 06:59 18:59 Intake Total 400 720 Balance 400 720 Intake: IV 400 Lactated Ringers 1,000 ml 400 @ 100 mls/hr IV .Q10H MOMO Rx#:[id number] Oral 720 Other: Voiding Method Bedside Commode # Voids 2 4 - Exam GENERAL EXAM: Alert, comfortable in no apparent distress. HEAD: Normocephalic/atraumatic. EYES: Normal reaction of pupils, equal size. Conjunctiva pink, sclera white. NOSE: Clear with pink turbinates. THROAT: No erythema or exudates. NECK: No masses, no JVD, no thyroid enlargement, no adenopathy. CHEST: No chest wall deformity. Symmetrical expansion. LUNGS: Equal air entry, lung sounds are positive for coarse rhonchi over right lower lobe. CVS: Regular rate and rhythm, normal S1 and S2, no gallops, no murmurs, no rubs ABDOMEN: Soft, nontender. No hepatosplenomegaly, normal bowel sounds, no guarding or rigidity. EXTREMITIES: No clubbing, no edema, no cyanosis, 2+ pulses and upper and lower extremities. MUSCULOSKELETAL: Muscle strength and tone normal. SPINE: No scoliosis or deformity SKIN: No rashes CENTRAL NERVOUS SYSTEM: Alert and oriented -3. No focal deficits, tone is normal in all 4 extremities. PSYCHIATRIC: Alert and oriented -3. Appropriate affect. Intact judgment and insight. - Labs CBC & Chem 7: 05/05/17 05:06 05/05/17 05:06 Labs: Abnormal Lab Results - Last 24 Hours (Table) 05/07/17 05/07/17 Range/Units 12:19 17:07 POC Glucose (mg/dL) 112 H 104 H (75-99) mg/dL Microbiology - Last 24 Hours (Table) 05/03/17 09:14 Blood Culture - Preliminary Blood No Growth after 120 hours Assessment and Plan Assessment: Impression: 1 chronic alcohol dependence and acute intoxication level was 189 on presentation. 2 acute alcohol withdrawal requiring transfer to the ICU and placed on the CIWA protocol. 3 history of alcoholism and nicotine dependence. 4 right lower lobe mass, 3.6 cm in size, strongly suspicious for bronchogenic carcinoma. 5 suspect significant chronic obstructive lung disease, patient will need further workup on outpatient basis. Recommendation: The patient was seen and evaluated by Dr. Zhang. She is cleared for discharge from the pulmonary standpoint. She will need a follow-up appointment in our office. She'll most likely require bronchoscopy, preferably navigational, in the outpatient setting. She is again educated regarding the importance of complete smoking cessation. I, the cosigning physician, have performed a history and physical examination on the patient. Lung sounds are clear.. Diminished.. Maintaining good O2 saturations in the 90s on room air. I have discussed the assessment and plan of care with my nurse practitioner, Cassandra Nolan. I attest the above note as dictated by her.
[2017-05-08 12:02] LABS: Glucose,Whole Blood 215 mg/dL (75-99)
[2017-05-08 14:23] VITALS: PULSE 86
--- NOTE | 2017-05-08 17:13 | DS ---
DISCHARGE SUMMARY DATE OF ADMISSION: 05/03/17. DATE OF DISCHARGE: May 08, 2017. FINAL DIAGNOSES: 1. Acute chronic obstructive pulmonary disease exacerbation in a smoker, present on admission. 2. Acute non ST elevation myocardial infarction probably related to type 2 hypoxia and oxygen mismatch. 3. Right lower lobe mass 3.6 cm to be followed by Pulmonary. 4. Acute DTs from alcohol, present on admission. 5. Nicotine dependence patient active cigarette smoker. 6. Moderate protein-calorie malnutrition from decreased oral intake. 7. Chronic alcohol dependence. 8. Acute alcohol intoxication upon presentation. 9. Anxiety disorder not otherwise noted. CONSULTATION: Dr. Ibarra from Psychiatry, Dr. Zhang from Pulmonary, Dr. Ramy Vance from cardiology. HOSPITAL COURSE: This is a patient who smokes and drinks alcohol, has been at [facility], presented with DTs and COPD exacerbation. The patient has been drinking about a fifth of whiskey. The patient is put on CIWA scale, given Valium, Ativan and finally settled down and treated for COPD exacerbation. The patient did have a CT scan of the chest that showed a lobulated right infrahilar pulmonary mass. This was followed by Pulmonary, who will follow the patient as an outpatient. 2D echocardiogram shows EF of 55-60%. No wall motion abnormality. The patient did have a troponin leak could be from hemodynamic mismatch. On exam lungs decreased breath sounds. by the time of discharge AO x3. DISCHARGE MEDICATIONS: 1. Lexapro 10 mg a day. 2. Ventolin 2 puffs q.6h p.r.n. 3. Aspirin 81 mg a day. 4. Pepcid 20 mg b.i.d. 5. Atrovent HFA 2 puffs q.i.d. 6. Ativan 0.5 p.o. p.r.n. 7. Nicotine 20 mg patch. 8. Thiamine 100 mg p.o. b.i.d. 9. Prednisone taper. Follow up with Dr. Arnett on May 13, 2017, Dr. Contreras on May 12, 2017. MMCIERRAL / IJN: [id number] /
== END 2017-05-08 15:58 | disposition home health service (06) | DRG 140 ==
LOC: EC 08:49 → 6SEL 11:16 → 6ICU 14:58 → 4MS4W 05-05 17:57
PROVIDERS: ADMIT Hospitalist; ATTEND Hospitalist
DX: J44.1 Chronic obstructive pulmonary disease with (acute) exacerbation (principal); I21.A1 Myocardial infarction type 2; F10.231 Alcohol dependence with withdrawal delirium; E44.0 Moderate protein-calorie malnutrition; F10.229 Alcohol dependence with intoxication, unspecified; R91.8 Other nonspecific abnormal finding of lung field; F17.210 Nicotine dependence, cigarettes, uncomplicated; F41.9 Anxiety disorder, unspecified; R09.02 Hypoxemia; F32.9 Major depressive disorder, single episode, unspecified; Y90.6 Blood alcohol level of 120-199 mg/100 ml; Z80.1 Family history of malignant neoplasm of trachea, bronchus and lung; Z79.899 Other long term (current) drug therapy; Z82.49 Family history of ischemic heart disease and other diseases of the circulatory system; Z82.5 Family history of asthma and other chronic lower respiratory diseases
CPT/HCPCS: 36415; 71020; 71260; 80048; 80053; 80061; 80320; 82075; 82140; 82150; 82550; 82553; 83036; 83690; 83735; 83880; 84484; 85025; 85610; 85730; 87040; 93005; 93306; 94640; 96361; 96372; 96374; 96375; 99284; 99285

== ENCOUNTER 2017-07-09 10:55 | Day surgery (SDC) | payer OTHER ==
[2017-07-02 14:51] VITALS: BMI 27.4
[~2017-07-09 10:55] MED LIST: ALBUTEROL NEB (CONC) 2.5 MG/0.5 ML INHALATION ONE; ATROPINE SULFATE 0.4 MG/ML 1 ML VIAL IM ONE; LACTATED RINGERS 1,000 ML IV ONE; LACTATED RINGERS 1,000 ML IV SCH; LIDOCAINE 1% 20 ML VIAL (10MG/ML) FOR IV START INTRADERMA PRN; LIDOCAINE 2% (PF) 20 MG/ML 2 ML AMP INHALATION ONE
[2017-07-09 11:18] VITALS: RESP 16
[2017-07-09] MEDS ORDERED: ONDANSETRON 4 MG/2 ML VIAL IVP ONE (11:45)
[2017-07-09] MEDS ORDERED: DEXAMETHASONE SOD PHOSPHATE 10 MG/ML 1 ML VIAL IV ONE (11:45)
[2017-07-09] MEDS ORDERED: MIDAZOLAM 2 MG/2 ML VIAL IV ONE (11:47)
[2017-07-09] MEDS ORDERED: SUCCINYLCHOLINE CHLORIDE 100 MG/5 ML SYR IV ONE (13:18)
[2017-07-09] MEDS ORDERED: fentaNYL (PF) 50 MCG/ML 2 ML AMP ONE (13:18)
[2017-07-09] MEDS ORDERED: GLYCOPYRROLATE 0.2 MG/ML 2 ML VIAL ONE (13:18)
[2017-07-09] MEDS ORDERED: PROPOFOL 10 MG/ML 20 ML VIAL IV ONE (13:18)
[2017-07-09] MEDS ORDERED: LIDOCAINE 1% INJ 10MG/ML (20 ML MDV) ONE (13:18)
[2017-07-09] MEDS ORDERED: NEOSTIGMINE 1 MG/ML 10 ML VIAL ONE (13:18)
[2017-07-09] MEDS ORDERED: ROCURONIUM BROMIDE 10 MG/ML 10 ML VIAL IV ONE (13:18)
[2017-07-09] MEDS ORDERED: MIDAZOLAM 2 MG/2 ML VIAL ONE (13:18)
--- NOTE | 2017-07-09 13:22 | CT ---
EXAMINATION TYPE: CT Chest [facility] Protocol DATE OF EXAM: 07/09/2017 COMPARISON: CT chest 05/05/2017 HISTORY: Pre op bronchial navigation CT DLP: 557 mGycm Automated exposure control for dose reduction was used. Helical acquisition through the chest. No int ravenous contrast. FINDINGS: Exam was performed for prebronchoscopy planning. Soft tissue mass in the right lower lobe is again no amy and shows a lobular contour, there may be interval development of pleural extension, there is ext ension towards the right hilum, right hilar adenopathy noted. Mass measures approximately 7.2 x 4.6 x 4 cm in size. No pleural or pericardial effusion. Lack of contrast could compromise sensitivity. Cor onary artery calcifications are present. IMPRESSION: CT FOR BRONCHOSCOPY PLANNING. RIGHT LOWER LOBE LUNG MASS AGAIN NOTED.
[2017-07-09 14:44] VITALS: TEMP 97
--- NOTE | 2017-07-09 15:34 | XR ---
EXAMINATION TYPE: XR chest 1V portable DATE OF EXAM: 07/09/2017 COMPARISON: Prior chest x-ray 05/03/2017 HISTORY: Status post bronchoscopy, lung biopsy TECHNIQUE: Single frontal view of the chest is obtained. FINDINGS: Some increased airspace disease noted at the right lung base. No evident pneumothorax or s izable effusion. Patchy basilar density also noted in the left. Heart size thought to be stable accou nting for rotation, differences in technique. There are overlying cardiac leads IMPRESSION: Post bronchoscopy findings, no evident pneumothorax. Local airspace disease could be due to washings or local hemorrhage in the right lower lobe. Follow-up as indicated.
[2017-07-09 16:00] VITALS: PULSE 82
[2017-07-09 16:01] VITALS: BP 129/86
--- NOTE | 2017-07-09 16:37 | PCN ---
PROCEDURE NOTE PROCEDURE: Navigational bronchoscopy. PREOPERATIVE DIAGNOSIS: Right lung mass. POSTOPERATIVE DIAGNOSIS: Rule out cancer. PROCEDURE DESCRIPTION: The patient's procedure was done in room #2 of the operating room side of [facility]. The patient underwent general anesthesia. This was provided by Dr. Rodriguez and Phil Murphy CRNA. There was informed consent. There was universal timeout. After the patient was adequately sedated and under the effects of general anesthesia with an endotracheal tube in place, the bronchoscope was taken down to the location suggested by the [employer] electromagnetic navigational bronchoscope. First, transbronchial biopsies were done in the right lower lobe. Next, a needle biopsy was done in the right lower lobe. Subsequent to that, brushes were done in the right lower lobe, and after that a BAL was done in the right lower lobe. The patient tolerated the procedure well. There was minimal if any bleeding. There was no significant blood loss. There was no immediate complication. The patient will have a chest x-ray post procedure. The patient will be recovered in the recovery area. If everything is okay, the patient will be discharged. Specimens were sent to the laboratory for analysis. Appropriate paperwork was filled out. MMODL / IJN: [id number] /
== END 2017-07-09 16:08 | disposition home or self-care (01) ==
LOC: ORWHC2ENDO 10:55
PROVIDERS: ATTEND Internal Medicine Critical Care Medicine
DX: C34.91 Malignant neoplasm of unspecified part of right bronchus or lung (principal); J44.9 Chronic obstructive pulmonary disease, unspecified; F17.210 Nicotine dependence, cigarettes, uncomplicated; I25.10 Atherosclerotic heart disease of native coronary artery without angina pectoris; I25.2 Old myocardial infarction; F41.9 Anxiety disorder, unspecified; F32.9 Major depressive disorder, single episode, unspecified; Z79.899 Other long term (current) drug therapy; Z79.82 Long term (current) use of aspirin
CPT/HCPCS: 88104; 88108; 88305; 88173; 88342; 88341; 87070; 87205; 71045; 71250; 31628; 31623; 31624; 31627; J2250; J0461; J1100; J2710; J2405; J2001; J3010; J0330; J2704; 31629

== ENCOUNTER 2017-07-16 14:37 | Emergency (ER) | payer OTHER ==
[2017-07-16 15:09] VITALS: PULSE 104; TEMP 100.8
[2017-07-16] MEDS ORDERED: LORazepam 2 MG/ML INJ IM STA (15:51)
--- NOTE | 2017-07-16 16:02 | ED ---
General Adult HPI - General Chief complaint: Anxiety Stated complaint: anxiety Time Seen by Provider: 07/16/17 15:42 Source: patient, RN notes reviewed Mode of arrival: ambulatory Limitations: no limitations - History of Present Illness Initial comments: 56-year-old female presents to the emergency department with a chief complaint of anxiety. She receives her cancer resulting test tomorrow. She has Ativan 1 mg at home but is not helping. She states she just needs something to help with her anxiety at this time. She denies any suicidal or homicidal ideation. She states is exactly like her normal anxiety it just seems worse and she believes is related to these results. She denies any other symptoms at this time. She denies any pain or discomfort.Patient denies any recent fever, chills , shortness of breath, chest pain, back pain, abdominal pain, nausea vomiting, numbness or tingling, dysuria or hematuria, constipation or diarrhea, headaches or visual changes, or any other current symptoms. - Related Data Home Medications Medication Instructions Recorded Confirmed Albuterol Inhaler [Ventolin Hfa 2 puff INHALATION RT-Q6H PRN 05/03/17 07/02/17 Inhaler] busPIRone HCL [Buspar] 30 mg PO BID 07/02/17 07/02/17 traZODone HCL [Desyrel] 100 mg PO HS 07/02/17 07/09/17 Escitalopram [Lexapro] 1 tab PO DAILY 07/09/17 07/09/17 Previous Rx's Medication Instructions Recorded Aspirin 81 mg PO DAILY chew 05/08/17 Ipratropium [place] [Atrovent Hfa] 2 puff INHALATION QID #1 inhaler 05/08/17 Allergies Allergy/AdvReac Type Severity Reaction Status Date / Time No Known Allergies Allergy Verified 07/16/17 15:09 Review of Systems ROS Statement: Those systems with pertinent positive or pertinent negative responses have been documented in the HPI. ROS Other: All systems not noted in ROS Statement are negative. Past Medical History Past Medical History: COPD Additional Past Medical History / Comment(s): hx alcoholism History of Any Multi-Drug Resistant Organisms: None Reported Past Surgical History: Section Past Anesthesia/Blood Transfusion Reactions: No Reported Reaction Past Psychological History: Anxiety, Depression Smoking Status: Current every day smoker Past Alcohol Use History: None Reported Past Drug Use History: None Reported - Past Family History Mother Family Medical History: COPD Additional Family Medical History / Comment(s): ETOH, lung cancer Father Family Medical History: Myocardial Infarction ([place]) Additional Family Medical History / Comment(s): ETOH General Exam Limitations: no limitations General appearance: alert, anxious Head exam: Present: atraumatic, normocephalic, normal inspection Respiratory exam: Present: normal lung sounds bilaterally. Absent: respiratory distress, wheezes, rales, rhonchi, stridor Cardiovascular Exam: Present: regular rate, normal rhythm, normal heart sounds. Absent: systolic murmur, diastolic murmur, rubs, gallop, clicks Neurological exam: Present: alert, oriented X3 Psychiatric exam: Present: anxious. Absent: homicidal ideation, suicidal ideation Skin exam: Present: warm, dry, intact Course Vital Signs 07/16/17 15:07 Temperature 100.8 F H Pulse Rate 104 H Respiratory 20 Rate Blood Pressure 172/89 O2 Sat by Pulse 95 Oximetry Medical Decision Making - Medical Decision Making 56-year-old female presents emergency department with what appears to be anxiety. She states this is much like her normal anxiety. She states that it is increased due to receiving her cancer resulting seen. At this time we did give her Ativan. We did discuss close follow-up return parameters all questions. Patient states that she understood and all questions have any answered. At this time the patient is agreement this plan. Patient will be discharged home. Disposition Clinical Impression: Acute anxiety Disposition: HOME SELF-CARE Condition: Stable Instructions: Generalized Anxiety Disorder (ED) Additional Instructions: Please use medication as discussed. Please follow up with family doctor if symptoms have not improved over the next two days. Please return to the emergency room if your symptoms increase or worsen or for any other concerns. Referrals: Zev Contreras MD [Primary Care Provider] - 1-2 days Time of Disposition: 16:01
[2017-07-16 16:14] VITALS: BP 148/84; RESP 18
== END 2017-07-16 16:13 | disposition home or self-care (01) ==
LOC: EC 14:37
DX: F41.9 Anxiety disorder, unspecified (principal); F32.9 Major depressive disorder, single episode, unspecified; F17.200 Nicotine dependence, unspecified, uncomplicated; Z79.899 Other long term (current) drug therapy
CPT/HCPCS: 99283; 96372; J2060

== ENCOUNTER 2017-07-23 18:56 | Emergency (ER) | payer OTHER ==
[2017-07-23 19:03] VITALS: RESP 20
[2017-07-23] MEDS ORDERED: ONDANSETRON 4 MG/2 ML VIAL IVP STA (19:24)
[2017-07-23] MEDS ORDERED: PANTOPRAZOLE 40 MG/10 ML VIAL IVP STA (19:24)
[2017-07-23] MEDS ORDERED: DIAZEPAM 5 MG/ML 2 ML INJ IVP STA (19:24)
[2017-07-23] MEDS ORDERED: diphenhydrAMINE 50 MG/ML 1 ML VIAL IVP STA (19:24)
[2017-07-23] MEDS ORDERED: SODIUM CHLORIDE 0.9% 1,000 ML IV STA (19:25)
--- NOTE | 2017-07-23 19:34 | ED ---
General Adult HPI - General Chief complaint: Anxiety Stated complaint: Anxiety Time Seen by Provider: 07/23/17 19:02 Source: patient, EMS, RN notes reviewed, old records reviewed Mode of arrival: EMS Limitations: no limitations - History of Present Illness Initial comments: This is a 56-year-old female to the ER for evaluation. Patient coming in for evaluation of severe anxiety. Patient is a lot of changes in her life recently especially her health, COPD and recent diagnosis of lung CA. Patient's going through outpatient management. Patient does take medication at home with no help at this time. Patient's coming in by EMS for evaluation regarding severe anxiety. She denies chest pain no significant shortness of breath. Patient denies drugs or alcohol, denies soft tissue symptoms of wine to kill herself or hurt others - Related Data Home Medications Medication Instructions Recorded Confirmed Albuterol Inhaler [Ventolin Hfa 2 puff INHALATION RT-Q6H PRN 05/03/17 07/23/17 Inhaler] busPIRone HCL [Buspar] 30 mg PO BID 07/02/17 07/23/17 traZODone HCL [Desyrel] 100 mg PO HS 07/02/17 07/23/17 LORazepam [Ativan] 0.5 - 1 mg PO TID PRN 07/23/17 07/23/17 Previous Rx's Medication Instructions Recorded Aspirin 81 mg PO DAILY chew 05/08/17 Allergies Allergy/AdvReac Type Severity Reaction Status Date / Time No Known Allergies Allergy Verified 07/23/17 19:03 Review of Systems ROS Statement: Those systems with pertinent positive or pertinent negative responses have been documented in the HPI. ROS Other: All systems not noted in ROS Statement are negative. Past Medical History Past Medical History: Cancer, COPD Additional Past Medical History / Comment(s): hx alcoholism, lung cancer History of Any Multi-Drug Resistant Organisms: None Reported Past Surgical History: Section Past Anesthesia/Blood Transfusion Reactions: No Reported Reaction Past Psychological History: Anxiety, Depression Smoking Status: Current every day smoker Past Alcohol Use History: None Reported Past Drug Use History: None Reported - Past Family History Mother Family Medical History: COPD Additional Family Medical History / Comment(s): ETOH, lung cancer Father Family Medical History: Myocardial Infarction ([place]) Additional Family Medical History / Comment(s): ETOH General Exam Limitations: no limitations General appearance: alert, in no apparent distress, anxious Head exam: Present: atraumatic, normocephalic, normal inspection Eye exam: Present: normal appearance, PERRL, EOMI. Absent: scleral icterus, conjunctival injection, periorbital swelling ENT exam: Present: normal exam, mucous membranes moist Neck exam: Present: normal inspection. Absent: tenderness, meningismus, lymphadenopathy Respiratory exam: Present: normal lung sounds bilaterally. Absent: respiratory distress, wheezes, rales, rhonchi, stridor Cardiovascular Exam: Present: regular rate, normal rhythm, normal heart sounds. Absent: systolic murmur, diastolic murmur, rubs, gallop, clicks GI/Abdominal exam: Present: soft, normal bowel sounds. Absent: distended, tenderness, guarding, rebound, rigid Extremities exam: Present: normal inspection, full ROM, normal capillary refill. Absent: tenderness, pedal edema, joint swelling, calf tenderness Back exam: Present: normal inspection Neurological exam: Present: alert, oriented X3, CN II-XII intact Psychiatric exam: Present: normal affect, normal mood Skin exam: Present: warm, dry, intact, normal color. 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 Medical Decision Making - Medical Decision Making 56 female the ER for anxiety, patient's feeling better at this time, not homicidal or suicidal, we'll keep outpatient evaluation for lung C8 tomorrow Disposition Clinical Impression: Acute anxiety, Panic attack, Panic disorder Disposition: HOME SELF-CARE Instructions: Generalized Anxiety Disorder (ED) Referrals: Zev Contreras MD [Primary Care Provider] - 1-2 days
[2017-07-23 22:00] VITALS: BP 126/66; PULSE 80; TEMP 98.1
== END 2017-07-23 22:01 | disposition home or self-care (01) ==
LOC: EC 18:56
DX: F41.0 Panic disorder [episodic paroxysmal anxiety] (principal); F32.9 Major depressive disorder, single episode, unspecified; F17.200 Nicotine dependence, unspecified, uncomplicated; Z85.118 Personal history of other malignant neoplasm of bronchus and lung; Z79.899 Other long term (current) drug therapy
CPT/HCPCS: 99284; 96374; 96375 ×3; 96361 ×2; J1200; J3360; J2405; C9113

== ENCOUNTER → 2017-07-24 | Outpatient (CLI) | payer OTHER ==
--- NOTE | 2017-07-24 15:15 | MR ---
EXAMINATION TYPE: MR brain wo/w con DATE OF EXAM: 07/24/2017 COMPARISON: NONE HISTORY: 56-year-old female Lung cancer / Headache/Dizziness TECHNIQUE: Multiplanar, multisequence images of the brain and brainstem were acquired before and aft er administration of 5 mL IV Gadavist. Diffusion weighted imaging is performed. FINDINGS: No evidence for acute infarction, hemorrhage, mass, mass effect, midline shift, herniation, effacemen t of basal cisterns, or extra-axial fluid collection. The ventricles and sulci are age-appropriate. Major intracranial flow voids are intact. T2/FLAIR weighted sequences show [id number] scattered burden of bright white matter change in t he subcortical and deep white matter of both cerebral hemispheres, numbering approximately 25 in the left cerebral hemisphere and 15 in the right cerebral hemisphere. Midline structures demonstrate normal morphology. The craniocervical junction is normal. Post contrast images demonstrate no evidence of pathologic enhancement. Dural venous sinuses are pat ent. Mild mucosal thickening ethmoid air cells and right maxillary sinus. Globes are intact. Leftward nasa l septal deviation. IMPRESSION: 1. No evidence for brain metastases. No acute intracranial abnormality seen. 2. Mild to moderate scattered burden of T2 bright white matter change in both cerebral hemispheres. N onspecific findings typically related to changes of chronic small vessel ischemic disease. 3. Mild chronic ethmoid and right maxillary sinus disease.
== END | disposition home or self-care (01) ==
LOC: RADMRIMAIN 14:00
PROVIDERS: ATTEND Internal Medicine Hematology & Oncology
DX: C34.91 Malignant neoplasm of unspecified part of right bronchus or lung (principal); I67.82 Cerebral ischemia; R51 Headache; R90.89 Other abnormal findings on diagnostic imaging of central nervous system
CPT/HCPCS: 70553; A9581

== ENCOUNTER → 2017-07-26 | Outpatient (CLI) | payer OTHER ==
--- NOTE | 2017-07-27 16:16 | PE ---
EXAMINATION TYPE: PET CT fusion skull to thigh DATE OF EXAM: 07/26/2017 COMPARISON: CT chest 07/09/2017 Prior PET/CT: None HISTORY: Lung cancer TECHNIQUE: Following the intravenous administration of 16.3 mCi of F-18 FDG, whole body images are p erformed from the skull base to the midthigh. Images are reviewed on the computer in the coronal, ax ial, and sagittal planes. Reconstructed rotating images are created on independent workstation and r eviewed on the computer. A localization and attenuation correction CT is performed in conjunction w ith the PET scan. DLP: 235.90 mGycm SCAN: Initial Blood glucose: 110 mg/dL Average Mediastinum SUV: 1.1 Average Liver SUV: 1.35 FINDINGS: NECK: Vocal cord level uptake bilaterally likely related to inflammation. No suspicious radiotracer accumulation. THORAX: There is focal radiotracer accumulation in the right infrahilar region with an SUV value of 5 .80. Uptake in the region of consolidation type change of the right lower lung field is in the range of SUV 4.1 suspicious for neoplastic involvement. Metabolically active infection is within the differ ential. ABDOMEN: No abnormal uptake PELVIS: There is muscular type activity within the left proximal hamstring. Suspicious uptake is not identified. OSSEOUS STRUCTURES: No abnormal uptake LOCALIZATION CT: There are shotty lymph nodes within the pretracheal space. The ascending thoracic ao rta at the level the main pulmonary artery is 3.4 cm. The main pulmonary artery the bifurcation is 2. 9 cm. Coronary artery calcifications present. There is superior medial left renal calcifications with out evidence of obstruction. COMPARISON: The consolidation type findings in the right lower lobe have developed over the interval. The right infrahilar mass remains present. IMPRESSION: 1. Right infrahilar mass with increased uptake compatible with neoplasm. 2. Developing consolidation peripheral to the mass. SUV value is elevated. Neoplasm is not excluded. Active infection could be considered.
== END | disposition home or self-care (01) ==
LOC: RADPETMAIN 15:24
PROVIDERS: ATTEND Internal Medicine Hematology & Oncology
DX: C34.91 Malignant neoplasm of unspecified part of right bronchus or lung (principal); R91.8 Other nonspecific abnormal finding of lung field
CPT/HCPCS: 78815; A9552

== ENCOUNTER 2017-09-12 18:07 | Emergency (ER) | payer OTHER ==
[2017-09-12 18:33] VITALS: RESP 18
--- NOTE | 2017-09-12 18:52 | ED ---
GI Bleed HPI - General Chief complaint: GI Bleed Stated complaint: Rectal bleeding/ca pt Time Seen by Provider: 09/12/17 18:33 Source: patient, RN notes reviewed, old records reviewed Mode of arrival: ambulatory Limitations: no limitations - History of Present Illness Initial comments: This patient is a 56-year-old female with history of lung cancer currently undergoing chemotherapy and radiation treatments presents emergency department today chief complaint of having blood after a hard bowel movement. Patient states that it was bright red blood in his toilet. She states she's not had any bleeding since then. She reports that when she wipes she's noticed some bright red blood. Patient states that she has no abdominal pain. She has been having history of constipation over the past 2 weeks. She has not been taking her stool softener. Patient states that she has no chest pain shortness of breath, nausea or vomiting. Denies any recent fever or chills. Patient states that she is going through daily radiation but with the radiation was canceled today due to malfunction of the SHEENT today. Patient states that she otherwise feels well. Patient reports her oncologist Dr. Recinos. - Related Data Home Medications Medication Instructions Recorded Confirmed busPIRone HCL [Buspar] 30 mg PO BID 07/02/17 09/12/17 traZODone HCL [Desyrel] 100 mg PO HS 07/02/17 09/12/17 Citalopram Hydrobromide [CeleXA] 20 mg PO DAILY 09/12/17 09/12/17 Diazepam [Valium] 10 mg PO TID 09/12/17 09/12/17 Dronabinol [Marinol] 5 mg PO TID 09/12/17 09/12/17 Ipratropium [place] [Atrovent Hfa] 2 puff INHALATION RT-QID 09/12/17 09/12/17 Lactose-Reduced Food [Ensure Plus] 1 can PO TID-W/MEALS 09/12/17 09/12/17 Ondansetron [Zofran] 4 mg PO Q6H PRN 09/12/17 09/12/17 Potassium Chloride [Klor-Con 20] 20 meq PO DAILY 09/12/17 09/12/17 Allergies Allergy/AdvReac Type Severity Reaction Status Date / Time No Known Allergies Allergy Verified 03/23/18 18:55 Review of Systems ROS Statement: Those systems with pertinent positive or pertinent negative responses have been documented in the HPI. ROS Other: All systems not noted in ROS Statement are negative. Past Medical History Past Medical History: Cancer, COPD Additional Past Medical History / Comment(s): hx alcoholism, lung cancer History of Any Multi-Drug Resistant Organisms: None Reported Past Surgical History: Section Past Anesthesia/Blood Transfusion Reactions: No Reported Reaction Past Psychological History: Anxiety, Depression Smoking Status: Current every day smoker Past Alcohol Use History: None Reported Past Drug Use History: None Reported - Past Family History Mother Family Medical History: COPD Additional Family Medical History / Comment(s): ETOH, lung cancer Father Family Medical History: Myocardial Infarction ([place]) Additional Family Medical History / Comment(s): ETOH General Exam - General Exam Comments Initial Comments: This patient is a 56-year-old female. Patient does not appear to be in any acute distress. Patient is very thin. Limitations: no limitations General appearance: alert, in no apparent distress Head exam: Present: atraumatic, normocephalic, normal inspection Eye exam: Present: normal appearance, PERRL, EOMI. Absent: scleral icterus, conjunctival injection, periorbital swelling ENT exam: Present: normal exam, mucous membranes moist Neck exam: Present: normal inspection. Absent: tenderness, meningismus, lymphadenopathy Respiratory exam: Present: normal lung sounds bilaterally. Absent: respiratory distress, wheezes, rales, rhonchi, stridor Cardiovascular Exam: Present: regular rate, normal rhythm, normal heart sounds. Absent: systolic murmur, diastolic murmur, rubs, gallop, clicks Rectal exam: Present: normal inspection, normal rectal tone, heme (+) stool, hemorrhoids (Patient has evidence of some small external hemorrhoids. On internal exam there is positive internal hemorrhoid with bright red bleeding.) Extremities exam: Present: normal inspection, full ROM, normal capillary refill. Absent: tenderness, pedal edema, joint swelling, calf tenderness Back exam: Present: normal inspection Neurological exam: Present: alert, oriented X3, CN II-XII intact Psychiatric exam: Present: normal affect, normal mood Skin exam: Present: warm, dry, intact, normal color. Absent: rash Course Vital Signs 09/12/17 18:30 Temperature 96.7 F L Pulse Rate 97 Respiratory 18 Rate Blood Pressure 113/81 O2 Sat by Pulse 97 Oximetry Medical Decision Making - Medical Decision Making Patient's 56-year-old patient with lung cancer undergoing chemo and radiation treatment. She states after having a large hard bowel movement she had some bright red blood in her toilet. does have positive external hemorrhoids. She denies some dried blood in her rectum. Upon review of patient's previous charts last hemoglobin was done in April and was 14. Today patient's hemoglobin is 10.5. She is also neutropenic with white blood cell count 1.6. Again she is undergoing chemotherapy. She has no significant complaints at this time. His cousin Sayed. Concern for the Hemoglobin drop of 4 points. We would like to admit the patient for repeat CBCs and follow-up. Patient states that she does feel fine. She states that she does not want to be admitted and would like to go home. Discussed that I do believe her source of bleeding is from her hemorrhoids however there is a chance that she could have a significant drop her hemoglobin. Patient states that she would like to leave and will be signing out AGAINST MEDICAL ADVICE. I discussed with her that despite leading us medical patient needs return if she has any worsening symptoms or any pain fevers or other concerning side effects. Patient advised to use stool softeners for stool. Discussed the importance of repeat CBC on Friday. - Lab Data Result diagrams: 09/12/17 18:50 09/12/17 18:50 Lab Results 09/12/17 09/12/17 09/12/17 Range/Units 18:50 18:50 18:50 WBC 1.6 L* (3.8-10.6) k/uL RBC 3.29 L (3.80-5.40) m/uL Hgb 10.5 L (11.4-16.0) gm/dL Hct 29.9 L (34.0-46.0) % MCV 90.8 (80.0-100.0) fL MCH 31.9 (25.0-35.0) pg MCHC 35.1 (31.0-37.0) g/dL RDW 18.2 H (11.5-15.5) % Plt Count 80 L (150-450) k/uL Neutrophils % (Manual) 31 % Band Neutrophils % 6 % Lymphocytes % (Manual) 62 % Basophils % (Manual) 1 % Neutrophils # (Manual) 0.50 L (1.3-7.7) k/uL Lymphocytes # (Manual) 0.99 L (1.0-4.8) k/uL Basophils # (Manual) 0.02 (0-0.2) k/uL Nucleated RBCs 0 (0-0) /100 WBC Manual Slide Review Performed Poikilocytosis (manual Present Anisocytosis Slight PT (9.0-12.0) sec INR (<1.2) APTT (22.0-30.0) sec Sodium 139 (137-145) mmol/L Potassium 3.7 (3.5-5.1) mmol/L Chloride 99 (98-107) mmol/L Carbon Dioxide 28 (22-30) mmol/L Anion Gap 12 mmol/L BUN 10 (7-17) mg/dL Creatinine 0.42 L (0.52-1.04) mg/dL Est GFR (CKD-EPI)AfAm >90 (>60 ml/min/1.73 sqM) Est GFR (CKD-EPI)NonAf >90 (>60 ml/min/1.73 sqM) Glucose 78 (74-99) mg/dL Calcium 9.2 (8.4-10.2) mg/dL Total Bilirubin 0.2 (0.2-1.3) mg/dL AST 21 (14-36) U/L ALT 37 (9-52) U/L Alkaline Phosphatase 74 (38-126) U/L Total Protein 6.3 (6.3-8.2) g/dL Albumin 3.7 (3.5-5.0) g/dL Stool Occult Blood Positive H (Negative) 09/12/17 Range/Units 18:50 WBC (3.8-10.6) k/uL RBC (3.80-5.40) m/uL Hgb (11.4-16.0) gm/dL Hct (34.0-46.0) % MCV (80.0-100.0) fL MCH (25.0-35.0) pg MCHC (31.0-37.0) g/dL RDW (11.5-15.5) % Plt Count (150-450) k/uL Neutrophils % (Manual) % Band Neutrophils % % Lymphocytes % (Manual) % Basophils % (Manual) % Neutrophils # (Manual) (1.3-7.7) k/uL Lymphocytes # (Manual) (1.0-4.8) k/uL Basophils # (Manual) (0-0.2) k/uL Nucleated RBCs (0-0) /100 WBC Manual Slide Review Poikilocytosis (manual Anisocytosis PT 9.7 (9.0-12.0) sec INR 1.0 (<1.2) APTT 23.2 (22.0-30.0) sec Sodium (137-145) mmol/L Potassium (3.5-5.1) mmol/L Chloride (98-107) mmol/L Carbon Dioxide (22-30) mmol/L Anion Gap mmol/L BUN (7-17) mg/dL Creatinine (0.52-1.04) mg/dL Est GFR (CKD-EPI)AfAm (>60 ml/min/1.73 sqM) Est GFR (CKD-EPI)NonAf (>60 ml/min/1.73 sqM) Glucose (74-99) mg/dL Calcium (8.4-10.2) mg/dL Total Bilirubin (0.2-1.3) mg/dL AST (14-36) U/L ALT (9-52) U/L Alkaline Phosphatase (38-126) U/L Total Protein (6.3-8.2) g/dL Albumin (3.5-5.0) g/dL Stool Occult Blood (Negative) Disposition Clinical Impression: Hemorrhoids, Drop in hemoglobin, Chemotherapy induced neutropenia Disposition: Left Against Medical Advice Condition: Stable Instructions: Gastrointestinal Bleeding (ED) Additional Instructions: Patient is follow-up with primary care provider oncologist on Friday to have repeat CBC. Also recommended following up with GI specialist for possible scopes. Recommended stool softeners. Return to emergency department if any alarming signs or symptoms occur. Referrals: Zev Contreras MD [Primary Care Provider] - 1-2 days Hiral Stone MD [STAFF PHYSICIAN] - 1-2 days Time of Disposition: 19:55
[2017-09-12 19:10] LABS: Partial Thromboplastin Time 23.2 sec (22.0-30.0); Prothrombin Time 9.7 sec (9.0-12.0)
[2017-09-12 19:11] LABS: ALT 37 U/L (9-52); AST 21 U/L (14-36); Albumin 3.7 g/dL (3.5-5.0); Alkaline Phosphatase 74 U/L (38-126); Anion Gap 12 mmol/L; Blood Urea Nitrogen 10 mg/dL (7-17); Calcium 9.2 mg/dL (8.4-10.2); Carbon Dioxide 28 mmol/L (22-30); Chloride 99 mmol/L (98-107); Glucose 78 mg/dL (74-99); Potassium 3.7 mmol/L (3.5-5.1); Sodium 139 mmol/L (137-145); Total Bilirubin 0.2 mg/dL (0.2-1.3); Total Protein 6.3 g/dL (6.3-8.2)
[2017-09-12 19:14] LABS: Anisocytosis Slight; HCT 29.9 % (34.0-46.0); HGB 10.5 gm/dL (11.4-16.0); MCH 31.9 pg (25.0-35.0); MCHC 35.1 g/dL (31.0-37.0); Mean Platelet Volume 7.6; RBC 3.29 m/uL (3.80-5.40); RDW 18.2 % (11.5-15.5)
[2017-09-12 19:17] LABS: Platelet Count 80 k/uL (150-450); WBC 1.6 k/uL (3.8-10.6)
[2017-09-12 19:18] LABS: MCV 90.8 fL (80.0-100.0)
[2017-09-12 19:43] LABS: Band Neutrophils % 6 %; Basophils # (M) 0.02 k/uL (0-0.2); Lymphocytes # (M) 0.99 k/uL (1.0-4.8); Neutrophils % (M) 31 %; Nucleated Red Blood Cells 0 /100 WBC (0-0); Poikilocytosis (M) Present; Total Cells Counted 100
[2017-09-12] MEDS ORDERED: SODIUM CHLORIDE 0.9% 1,000 ML IV ONE (19:44)
[2017-09-12] MEDS ORDERED: SODIUM CHLORIDE 0.9% 1,000 ML IV SCH (19:45)
[2017-09-12 20:18] VITALS: BP 125/89; PULSE 100; TEMP 97.9
== END 2017-09-12 20:18 | disposition left against medical advice (07) ==
LOC: EC 18:07
DX: K64.4 Residual hemorrhoidal skin tags (principal); D70.1 Agranulocytosis secondary to cancer chemotherapy; D64.9 Anemia, unspecified; J44.9 Chronic obstructive pulmonary disease, unspecified; C34.90 Malignant neoplasm of unspecified part of unspecified bronchus or lung; F32.9 Major depressive disorder, single episode, unspecified; F41.9 Anxiety disorder, unspecified; F17.200 Nicotine dependence, unspecified, uncomplicated; Z79.899 Other long term (current) drug therapy
CPT/HCPCS: 36415; 80053; 82272; 85025; 85610; 85730; 99285

== ENCOUNTER → 2017-12-03 | Outpatient (CLI) | payer OTHER ==
--- NOTE | 2017-12-03 14:31 | CT ---
EXAMINATION TYPE: CT ChestAbdPelvis w con DATE OF EXAM: 12/03/2017 COMPARISON: Prior CT chest 05/05/2017, nuclear medicine PET/CT 07/26/2017 HISTORY: Lung CA post radiation and chemo CT DLP: 1468 mGycm Automated exposure control for dose reduction was used. CONTRAST: CT scan of the chest, abdomen and pelvis is performed with Oral Contrast and with IV Contrast, patien t injected with 100 mL of Isovue 300. FINDINGS: LUNGS: There are extensive emphysematous changes within the lungs. There has been development of dist ortion abnormal lung parenchyma the right lung base likely due to posttreatment change, thickened sep ghazala bands are present with some large cystic spaces especially at the level of the right hemidiaphrag m, there is some pleural thickening, there may be minimal pleural effusion on the right. Comparison t o prior PET/CT shows improvement in consolidation. Some volume loss present in the right hemithorax. Some minimal pleural thickening at the left lung base is stable. MEDIASTINUM: There are no greater than 1 cm hilar or mediastinal lymph nodes. No pericardial effusi on is seen. AORTA: No significant abnormality is seen. Coronary artery calcifications are present. OTHER: No additional significant abnormality is seen. LIVER/GB: No significant abnormality is appreciated. PANCREAS: No significant abnormality is seen. SPLEEN: No significant abnormality is seen. ADRENALS: No significant abnormality is seen. KIDNEYS: There are nonobstructive calculi present within the upper pole of the left kidney which are stable. There may be some mild hydronephrosis or partial ureteropelvic junction stenosis on the right . REPRODUCTIVE ORGANS: No gross abnormality seen. BOWEL: No significant abnormality is seen. FREE AIR: No Free Air visible. ASCITES: None seen. RETROPERITONEAL ADENOPATHY: No retroperitoneal adenopathy is seen. LYMPH NODES: No greater than 1 cm abdominal or pelvic lymph nodes are appreciated. URINARY BLADDER: No significant abnormality is seen. PELVIC ADENOPATHY: None visualized. OSSEOUS STRUCTURES: No significant abnormality is seen. IMPRESSION: Interval improvement compared to previous exams as described.
== END ==
LOC: RADCTMAIN 10:57
PROVIDERS: ATTEND Internal Medicine Hematology & Oncology
DX: Z03.89 Encounter for observation for other suspected diseases and conditions ruled out (principal); C34.91 Malignant neoplasm of unspecified part of right bronchus or lung
CPT/HCPCS: 71260; 74177; Q9967

== ENCOUNTER → 2017-12-09 | Outpatient (CLI) | payer OTHER ==
--- NOTE | 2017-12-09 11:42 | MR ---
EXAMINATION TYPE: MR brain wo/w con DATE OF EXAM: 12/09/2017 COMPARISON: Prior MRI brain July 24, 2017 HISTORY: Secondary malignant neoplasm of bone, metastatic lung cancer TECHNIQUE: Multiplanar, multisequence images of the brain and brainstem is performed without and with IV contras t, utilizing 5.5 mL intravenous Gadavist . FINDINGS: Diffusion weighted images demonstrate no evidence of a recent infarct or other diffusion ab normality. There is no worrisome extra-axial fluid collection. The ventricular system and cisternal spaces are normal in size and appearance. The brain volume is age appropriate. There are scattered foci of T2 hyperintensity redemonstrated throughout the white matter bilaterally. Lesions are nonspec ific in appearance and distribution but most likely on basis of product of chronic small vessel ische aide change. Approximately 25-35 scattered small lesions are felt present Midline structures demonstrate normal morphology. The craniocervical junction appears within normal limits. Post contrast images demonstrate no abnormal enhancement. The dural venous sinuses appear pa tent. The visualized sinuses are clear and the globes are intact. Stable leftward nasal septal deviat ion is noted. IMPRESSION: Mild to moderate nonspecific white matter changes redemonstrated is likely on basis of pr oduct of chronic small vessel ischemic change in patient this age. No significant change from prior s tudy. No suspicious enhancing intraparenchymal mass is noted to suggest metastatic disease.
== END | disposition home or self-care (01) ==
LOC: RADMRIMAIN 10:42
PROVIDERS: ATTEND Radiology Radiation Oncology
DX: C79.51 Secondary malignant neoplasm of bone (principal); R90.82 White matter disease, unspecified
CPT/HCPCS: 70553; A9581

== ENCOUNTER → 2018-03-09 | Outpatient (CLI) | payer OTHER ==
--- NOTE | 2018-03-09 13:20 | CT ---
EXAMINATION TYPE: CT ChestAbdPelvis w con DATE OF EXAM: 03/09/2018 COMPARISON: 12/03/2017 HISTORY: C34.91 Lung ca / Z03.[address] DLP: 1139 mGycm CONTRAST: CT scan of the chest, abdomen and pelvis is performed with Oral Contrast and with IV Contrast, patien t injected with 100 mL of Isovue 300. CT Chest: LUNGS: Persistent pleural-parenchymal opacity right lung base with associated posttherapeutic interst itial change. Small right-sided pleural effusion. No distinct mass identified. Upper lobe emphysemato us changes seen. MEDIASTINUM: Thoracic aorta is of normal caliber. The heart is not enlarged. No evidence for media stinal mass or adenopathy. HILAR STRUCTURES: No evidence for mass. No hilar adenopathy is appreciated. OTHER: No significant abnormality. CONTRAST CT ABDOMEN AND PELVIS FINDINGS: LIVER/GB: No calcified gallstones. No space occupying hepatic lesion. Biliary tree is of normal ca liber. PANCREAS: No inflammation. No distinct mass. SPLEEN: No splenic enlargement. No lesion seen. ADRENALS: No nodule. Mild left adrenal glandular thickening compatible with hyperplasia unchanged fr om prior study. KIDNEYS/BLADDER: No hydronephrosis. No nephrolithiasis. No distinct renal mass. BOWEL: Normal appendix. Normal bowel caliber. No inflammation. GENITAL ORGANS: No gross abnormality. LYMPH NODES: No greater than 1cm abdominal or pelvic lymph nodes are appreciated. AORTA: No significant abnormality. OSSEOUS STRUCTURES: No significant abnormality is seen. OTHER: No significant additional abnormality is seen. IMPRESSION: 1. Stable post therapeutic change right lung base. No evidence for recurrent disease or metastatic di sease at this time.
== END | disposition home or self-care (01) ==
LOC: RADCTMAIN 10:16
PROVIDERS: ATTEND Internal Medicine Hematology & Oncology
DX: Z03.89 Encounter for observation for other suspected diseases and conditions ruled out (principal); Z85.118 Personal history of other malignant neoplasm of bronchus and lung
CPT/HCPCS: 71260; 74177; Q9967

== ENCOUNTER → 2018-03-09 | Outpatient (CLI) | payer OTHER ==
--- NOTE | 2018-03-09 13:59 | MR ---
EXAMINATION TYPE: MR brain wo/w con DATE OF EXAM: 03/09/2018 COMPARISON: 12/09/2017 HISTORY: Secondary Brain Ca / Lung Ca CONTRAST: Performed utilizing 6.5 mL intravenous Gadavist gadolinium contrast. TECHNIQUE: Multiplanar, multiecho imaging on a 3.0 Nieves magnet is performed through the brain. Stud y is performed within 24 hours of arrival to the hospital. The craniovertebral junction is normal. The pituitary is normal. Diffusion-weighted imaging is performed. No abnormal hyperintensity is present to suggest an acute i ntracranial infarct or acute ischemic change. There are normal vascular flow voids within the visualized intracranial cerebral vasculature. Couple of punctate subcortical white matter changes are in the frontal and parietal lobes. Additional subcor tical white matter changes are through the parietal-occipital regions and into the centrum semiovale. These are nonspecific. Abnormal enhancement is not identified. Diagnosis could include microvascular ischemic change. Vasculitis multiple sclerosis Lyme disease cou ld be considered. Metastatic disease without enhancement is considered less likely but remains within the differential. Ventricles and sulci are mildly prominent for the patient age. IMPRESSIONS: 1. Multiple stable appearing punctate subcortical white matter changes, most likely on the basis of m icrovascular ischemic change. Findings are unchanged from the comparison of 12/09/2017. Suspicious sujatha nges for metastases are not identified.
== END | disposition home or self-care (01) ==
LOC: RADMRIMAIN 10:10
PROVIDERS: ATTEND Radiology Radiation Oncology
DX: C79.31 Secondary malignant neoplasm of brain (principal); C34.31 Malignant neoplasm of lower lobe, right bronchus or lung; R90.89 Other abnormal findings on diagnostic imaging of central nervous system
CPT/HCPCS: 70553; A9581

== ENCOUNTER → 2018-07-08 | Outpatient (CLI) | payer SELFPAY ==
--- NOTE | 2018-07-08 15:47 | CT ---
EXAMINATION TYPE: CT ChestAbdPelvis w con DATE OF EXAM: 07/08/2018 COMPARISON: CT chest abdomen and pelvis March 09, 2018 and older studies. Intact CT July 26 015 HISTORY: Lung cancer observed for metastases. CT DLP: 1214 mGycm. Automated Exposure Control for Dose Reduction was Utilized. CONTRAST: CT scan of the thorax, abdomen and pelvis is performed with oral and with IV Contrast, patient inject ed with 100 mL of Isovue 300. FINDINGS: LUNGS: Moderate to advanced underlying emphysematous change is redemonstrated. There is small right-s ided pleural fluid collection remains present. There is increasing. There is increasing right basilar compressive atelectasis and/or irregular consolidation with moderate bronchiectatic change in the ri ght lung base identified suspected posttreatment change. Right-sided volume loss with mediastinal meerdith ft is more prominent on current study. Left lung remains clear. MEDIASTINUM: There are no greater than 1 cm hilar or mediastinal lymph nodes. No cardiomegaly or pe ricardial effusion is seen. Moderate to severe 3 vessel coronary artery calcification is redemonstra amy. OTHER: No additional significant abnormality is seen. LIVER/GB: No significant abnormality is appreciated. PANCREAS: No significant abnormality is seen. SPLEEN: No significant abnormality is seen. ADRENALS: Thickening to both adrenal glands is redemonstrated and stable favoring benign hyperplasia. KIDNEYS: No significant abnormality is seen. BOWEL: Oral contrast reaches level of rectum. No suspicious small or large bowel dilatation is presen t. GENITAL ORGANS: Anteverted uterus is seen. LYMPH NODES: No greater than 1cm abdominal or pelvic lymph nodes are appreciated. OSSEOUS STRUCTURES: Mild chronic compression T9 level is noted. OTHER: No significant additional abnormality is seen. IMPRESSION: Further progression of suspected posttreatment change right lung centered right lung base as detailed above. No convincing evidence for local or metastatic recurrence.
== END ==
LOC: RADCTMAIN 10:25
PROVIDERS: ATTEND Internal Medicine Hematology & Oncology
DX: C34.91 Malignant neoplasm of unspecified part of right bronchus or lung (principal)
CPT/HCPCS: 71260; 74177; Q9967

== ENCOUNTER → 2018-10-13 | Outpatient (CLI) | payer OTHER ==
--- NOTE | 2018-10-15 07:39 | MR ---
MR thoracic spine with and without contrast HISTORY: Lung cancer, back pain for 6 months Multiplanar multisequence and postcontrast images obtained through the thoracic spine following 6 cc Gadavist IV. Correlation CT chest abdomen pelvis 07/08/2018 The eighth thoracic vertebral body shows compression deformity centrally with loss of height of appro ximately 50% towards the right of midline, there is some superior endplate deformity and loss of sign al also present at the superior margin of T9 and inferior margin of T7, low signal is present on T1 a nd T2-weighted sequences within the marrow. Following contrast administration, there is some mild enh ancement. There is no associated soft tissue mass present. There is a mild spinal curvature present. No significant central stenosis is evident. Mild facet arthropathy changes are present at the lower t horacic spine. No sizable disc herniation or foraminal encroachment. Disc spaces are maintained. Mild spondylosis is present. T3 also shows some low signal on T1 and T2 weighted images with some mild en hancement, mild superior compression of endplate anteriorly. Increased signal within the T10 vertebra l body may be due to hemangioma. Minimal posterior extension of endplate disc complex present at T8-9 , T7-8 causing only slight anterior mass effect on the thecal sac. Abnormal signal in the right lung base is at a similar level to the abnormal findings within the thor acic spine. Thoracic cord signal is maintained. IMPRESSION: Correlate for any history of radiation to the right chest, findings could be related to r adiation necrosis rather than tumor. Follow-up could be performed to assess for stability. Whole body bone scan may be of benefit.
== END | disposition home or self-care (01) ==
LOC: RADMRIMAIN 10:57
PROVIDERS: ATTEND Internal Medicine Hematology & Oncology
DX: C34.91 Malignant neoplasm of unspecified part of right bronchus or lung (principal); Z92.3 Personal history of irradiation
CPT/HCPCS: 72157; A9585

== ENCOUNTER 2018-10-17 11:17 | Inpatient (IN) | payer OTHER ==
[2018-10-17] MEDS ORDERED: SODIUM CHLORIDE 0.9% 2,000 ML IV ONE (11:38)
[2018-10-17] MEDS ORDERED: methylPREDNISolone SOD SUCCI 125 MG/2 ML VIAL IV STA (11:40)
[2018-10-17] MEDS ORDERED: IPRATROPIUM-ALBUTEROL 3 ML NEB INHALATION STA (11:40)
--- NOTE | 2018-10-17 11:44 | ED ---
General Adult HPI - General Chief complaint: Weakness Stated complaint: KAI, Weak Time Seen by Provider: 10/17/18 11:29 - History of Present Illness Initial comments: There is a 57-year-old female with a history of lung cancer, COPD, and a history of alcoholism, currently smoking, who presents with a chief complaint weakness and shortness of breath. This is been going on for about 3 days. Patient does not wear supple oxygen at home and was found to be hypoxic. She not identified inciting incident. She admits to a cough that is somewhat productive of white sputum. I relating factors are exertion, alleviating or rest, timing is constant. She denies any previous medical history or neurologic history. She states that she has not had a drink of alcohol a long time. - Related Data Home Medications Medication Instructions Recorded Confirmed traZODone HCL [Desyrel] 100 mg PO HS 07/02/17 10/17/18 Citalopram Hydrobromide [CeleXA] 20 mg PO DAILY 09/12/17 10/17/18 Ipratropium [place] [Atrovent Hfa] 2 puff INHALATION RT-QID 09/12/17 10/17/18 Acetaminophen/Diphenhydramine 1 tab PO HS PRN 10/17/18 10/17/18 [Tylenol PM Extra Strength] Benzonatate [Tessalon Perles] 100 mg PO TID PRN 10/17/18 10/17/18 Cyclobenzaprine [Flexeril] 5 mg PO TID PRN 10/17/18 10/17/18 Diazepam [Valium] 7.5 mg PO TID PRN 10/17/18 10/17/18 Ibuprofen [Motrin] 800 mg PO TID PRN 10/17/18 10/17/18 Allergies Allergy/AdvReac Type Severity Reaction Status Date / Time No Known Allergies Allergy Verified 10/17/18 12:08 Review of Systems ROS Statement: Those systems with pertinent positive or pertinent negative responses have been documented in the HPI. ROS Other: All systems not noted in ROS Statement are negative. Constitutional: Reports: weakness ENT: Reports: congestion Respiratory: Reports: cough, dyspnea Cardiovascular: Reports: chest pain Past Medical History Past Medical History: Cancer, COPD Additional Past Medical History / Comment(s): hx alcoholism, lung cancer History of Any Multi-Drug Resistant Organisms: None Reported Past Surgical History: Section Past Anesthesia/Blood Transfusion Reactions: No Reported Reaction Smoking Status: Current every day smoker - Past Family History Mother Family Medical History: COPD Additional Family Medical History / Comment(s): ETOH, lung cancer Father Family Medical History: Myocardial Infarction ([place]) Additional Family Medical History / Comment(s): ETOH General Exam Limitations: no limitations General appearance: alert, in no apparent distress Head exam: Present: atraumatic, normocephalic Eye exam: Present: normal appearance, PERRL ENT exam: Present: normal exam, normal oropharynx, mucous membranes dry Neck exam: Present: normal inspection Respiratory exam: Present: wheezes, accessory muscle use Cardiovascular Exam: Present: normal rhythm, tachycardia GI/Abdominal exam: Present: soft. Absent: distended, tenderness Rectal exam: Present: deferred Extremities exam: Present: normal inspection Back exam: Present: normal inspection. Absent: CVA tenderness (R), CVA tenderness (L) Neurological exam: Present: alert, oriented X3 Psychiatric exam: Present: normal affect, normal mood Skin exam: Present: warm, dry, intact Course Vital Signs 10/17/18 10/17/18 10/17/18 11:25 11:31 11:57 Temperature 98.1 F Pulse Rate 92 105 H Respiratory 28 H Rate Blood Pressure 87/60 100/70 O2 Sat by Pulse 79 L 93 L Oximetry 10/17/18 10/17/18 10/17/18 12:07 12:18 12:30 Temperature Pulse Rate 103 H 102 H 112 H Respiratory 20 Rate Blood Pressure 100/70 O2 Sat by Pulse 94 L Oximetry 10/17/18 13:17 Temperature Pulse Rate 110 H Respiratory 20 Rate Blood Pressure 103/72 O2 Sat by Pulse 93 L Oximetry Medical Decision Making - Medical Decision Making Patient presents with a chief complaint short of breath and weakness. On initial evaluation, vital signs show hypotension and tachycardia. EKG performed at 1139 shows sinus tachycardia with a rate of 108 beats per minute, segment are within normal limits, no acute ischemic findings. Patient appears septic on exam, she is using accessory muscles of breathing, she was placed in supple oxygen with an oxygen saturation of 90-94%. Patient given duo nebs and Solu- Medrol. Blood cultures drawn, lactic sent. She'll be evaluated with basic cardiac labs and a chest x-ray. 12:27 PM Laboratory evaluation shows leukocytosis of 22.6, d-dimer is elevated at 1.26, other abnormalities include an elevated alk phos at 244. No previous values to compare, patient not having any abdominal pain currently. Patient given a dose of Rocephin, she will be sent for a computed tomography scan of the chest and abdominal ultrasound. 2:32 PM Lab evaluation this patient otherwise shows a mild respiratory acidosis. Chest x-ray shows near white out of the right lung, computed tomography scan showing pneumonia versus mucus plugging. Case discussed with Dr. seaman except admission. Case discussed with Dr. Zhang who is aware of the patient. Patient will be admitted to the ICU. Patient made nothing by mouth - Lab Data Result diagrams: 10/17/18 11:57 10/17/18 11:57 Lab Results 10/17/18 10/17/18 10/17/18 Range/Units 11:56 11:57 11:57 WBC 22.6 H (3.8-10.6) k/uL RBC 3.12 L (3.80-5.40) m/uL Hgb 11.4 (11.4-16.0) gm/dL Hct 33.5 L (34.0-46.0) % MCV 107.2 H (80.0-100.0) fL MCH 36.3 H (25.0-35.0) pg MCHC 33.9 (31.0-37.0) g/dL RDW 15.8 H (11.5-15.5) % Plt Count 197 (150-450) k/uL Neutrophils % 94 % Lymphocytes % 1 % Monocytes % 3 % Eosinophils % 0 % Basophils % 0 % Neutrophils # 21.3 H (1.3-7.7) k/uL Lymphocytes # 0.3 L (1.0-4.8) k/uL Monocytes # 0.7 (0-1.0) k/uL Eosinophils # 0.1 (0-0.7) k/uL Basophils # 0.1 (0-0.2) k/uL Manual Slide Review Performed Macrocytosis Marked Target Cells Present D-Dimer (<0.60) mg/L FEU VBG pH 7.32 (7.31-7.41) VBG pCO2 43 (37-51) mmHg VBG HCO3 22 L (24-28) mmol/L Sodium (137-145) mmol/L Potassium (3.5-5.1) mmol/L Chloride (98-107) mmol/L Carbon Dioxide (22-30) mmol/L Anion Gap mmol/L BUN (7-17) mg/dL Creatinine (0.52-1.04) mg/dL Est GFR (CKD-EPI)AfAm (>60 ml/min/1.73 sqM) Est GFR (CKD-EPI)NonAf (>60 ml/min/1.73 sqM) Glucose (74-99) mg/dL Plasma Lactic Acid Osman (0.7-2.0) mmol/L Calcium (8.4-10.2) mg/dL Total Bilirubin (0.2-1.3) mg/dL AST (14-36) U/L ALT (9-52) U/L Alkaline Phosphatase (38-126) U/L Troponin I (0.000-0.034) ng/mL NT-Pro-B Natriuret Pep pg/mL Total Protein (6.3-8.2) g/dL Albumin (3.5-5.0) g/dL Influenza Type A RNA Not Detected (Not Detectd) Influenza Type B (PCR) Not Detected (Not Detectd) 10/17/18 10/17/18 10/17/18 Range/Units 11:57 11:57 11:57 WBC (3.8-10.6) k/uL RBC (3.80-5.40) m/uL Hgb (11.4-16.0) gm/dL Hct (34.0-46.0) % MCV (80.0-100.0) fL MCH (25.0-35.0) pg MCHC (31.0-37.0) g/dL RDW (11.5-15.5) % Plt Count (150-450) k/uL Neutrophils % % Lymphocytes % % Monocytes % % Eosinophils % % Basophils % % Neutrophils # (1.3-7.7) k/uL Lymphocytes # (1.0-4.8) k/uL Monocytes # (0-1.0) k/uL Eosinophils # (0-0.7) k/uL Basophils # (0-0.2) k/uL Manual Slide Review Macrocytosis Target Cells D-Dimer 1.26 H (<0.60) mg/L FEU VBG pH (7.31-7.41) VBG pCO2 (37-51) mmHg VBG HCO3 (24-28) mmol/L Sodium 125 L (137-145) mmol/L Potassium 3.5 (3.5-5.1) mmol/L Chloride 92 L (98-107) mmol/L Carbon Dioxide 19 L (22-30) mmol/L Anion Gap 14 mmol/L BUN 21 H (7-17) mg/dL Creatinine 0.72 (0.52-1.04) mg/dL Est GFR (CKD-EPI)AfAm >90 (>60 ml/min/1.73 sqM) Est GFR (CKD-EPI)NonAf >90 (>60 ml/min/1.73 sqM) Glucose 96 (74-99) mg/dL Plasma Lactic Acid Osman 2.0 (0.7-2.0) mmol/L Calcium 8.5 (8.4-10.2) mg/dL Total Bilirubin 1.2 (0.2-1.3) mg/dL AST 14 (14-36) U/L ALT 25 (9-52) U/L Alkaline Phosphatase 244 H (38-126) U/L Troponin I (0.000-0.034) ng/mL NT-Pro-B Natriuret Pep pg/mL Total Protein 5.2 L (6.3-8.2) g/dL Albumin 2.6 L (3.5-5.0) g/dL Influenza Type A RNA (Not Detectd) Influenza Type B (PCR) (Not Detectd) 10/17/18 10/17/18 Range/Units 11:57 11:57 WBC (3.8-10.6) k/uL RBC (3.80-5.40) m/uL Hgb (11.4-16.0) gm/dL Hct (34.0-46.0) % MCV (80.0-100.0) fL MCH (25.0-35.0) pg MCHC (31.0-37.0) g/dL RDW (11.5-15.5) % Plt Count (150-450) k/uL Neutrophils % % Lymphocytes % % Monocytes % % Eosinophils % % Basophils % % Neutrophils # (1.3-7.7) k/uL Lymphocytes # (1.0-4.8) k/uL Monocytes # (0-1.0) k/uL Eosinophils # (0-0.7) k/uL Basophils # (0-0.2) k/uL Manual Slide Review Macrocytosis Target Cells D-Dimer (<0.60) mg/L FEU VBG pH (7.31-7.41) VBG pCO2 (37-51) mmHg VBG HCO3 (24-28) mmol/L Sodium (137-145) mmol/L Potassium (3.5-5.1) mmol/L Chloride (98-107) mmol/L Carbon Dioxide (22-30) mmol/L Anion Gap mmol/L BUN (7-17) mg/dL Creatinine (0.52-1.04) mg/dL Est GFR (CKD-EPI)AfAm (>60 ml/min/1.73 sqM) Est GFR (CKD-EPI)NonAf (>60 ml/min/1.73 sqM) Glucose (74-99) mg/dL Plasma Lactic Acid Osman (0.7-2.0) mmol/L Calcium (8.4-10.2) mg/dL Total Bilirubin (0.2-1.3) mg/dL AST (14-36) U/L ALT (9-52) U/L Alkaline Phosphatase (38-126) U/L Troponin I <0.012 (0.000-0.034) ng/mL NT-Pro-B Natriuret Pep 92683 pg/mL Total Protein (6.3-8.2) g/dL Albumin (3.5-5.0) g/dL Influenza Type A RNA (Not Detectd) Influenza Type B (PCR) (Not Detectd) Disposition Clinical Impression: Hypoxia, Respiratory failure, COPD exacerbation, Sepsis, CAP (community acquired pneumonia) Disposition: ADMITTED IP TO THIS HOSP Condition: Fair Referrals: Zev Contreras MD [Primary Care Provider] - 1-2 days Decision to Admit Reason: Admit from EC - Out of Hospital Transfer - Req. Specs Out of Hospital Transfer - Requested Specifics: Adult ICU
[2018-10-17 12:13] LABS: Basophils # (A) 0.1 k/uL (0-0.2); Basophils % (A) 0 %; Eosinophils # (A) 0.1 k/uL (0-0.7); Eosinophils % (A) 0 %; HCT 33.5 % (34.0-46.0); HGB 11.4 gm/dL (11.4-16.0); Lymphocytes # (A) 0.3 k/uL (1.0-4.8); Lymphocytes % (A) 1 %; MCH 36.3 pg (25.0-35.0); MCHC 33.9 g/dL (31.0-37.0); MCV 107.2 fL (80.0-100.0); Macrocytosis Marked; Mean Platelet Volume 8.3; Monocytes # (A) 0.7 k/uL (0-1.0); Monocytes % (A) 3 %; Neutrophils # (A) 21.3 k/uL (1.3-7.7); Neutrophils % (A) 94 %; Platelet Count 197 k/uL (150-450); RBC 3.12 m/uL (3.80-5.40); RDW 15.8 % (11.5-15.5); WBC 22.6 k/uL (3.8-10.6)
[2018-10-17 12:14] LABS: VBG PH 7.32 (7.31-7.41)
[2018-10-17 12:21] LABS: ALT 25 U/L (9-52); AST 14 U/L (14-36); Albumin 2.6 g/dL (3.5-5.0); Alkaline Phosphatase 244 U/L (38-126); Anion Gap 14 mmol/L; Blood Urea Nitrogen 21 mg/dL (7-17); Calcium 8.5 mg/dL (8.4-10.2); Carbon Dioxide 19 mmol/L (22-30); Chloride 92 mmol/L (98-107); Glucose 96 mg/dL (74-99); Potassium 3.5 mmol/L (3.5-5.1); Sodium 125 mmol/L (137-145); Total Bilirubin 1.2 mg/dL (0.2-1.3); Total Protein 5.2 g/dL (6.3-8.2)
[2018-10-17] MEDS ORDERED: cefTRIAXone IN SWFI 1,000 MG/10 ML SYRINGE IVP STA (12:24)
[2018-10-17 12:26] LABS: Target Cells Present
[2018-10-17] MEDS ORDERED: DOXYCYCLINE 100 MG in SODIUM CHLORIDE 0.9% 100 ML IVPB ONE (13:00)
--- NOTE | 2018-10-17 13:11 | XR ---
EXAMINATION TYPE: XR chest 2V DATE OF EXAM: 10/17/2018 HISTORY: Pain. REFERENCE: Previous study dated 07/09/2017. FINDINGS: There has been a marked worsening in the appearance of the chest. The right hemithorax is a lmost completely opaque with some aerated lung in the right upper lobe. Left lung is overinflated but clear. Mediastinal structures are shifted towards the right. Heart size is obscured. IMPRESSION: MARKED WORSENING IN THE APPEARANCE OF THE CHEST WITH NEAR COMPLETE OPACIFICATION OF THE RIGHT HEMITHO RAX.
--- NOTE | 2018-10-17 13:19 | CT ---
EXAMINATION TYPE: CT chest angio for PE DATE OF EXAM: 10/17/2018 COMPARISON: None. HISTORY: KAI, elevated d dimer, lung CA CT DLP: 205 mGycm Automated exposure control for dose reduction was used. CONTRAST: CT Chest for pulmonary embolism performed with with IV Contrast, patient injected with 43 mL of Isovu e 370. FINDINGS: There are emphysematous changes throughout the lungs worse on the right than the left. Ther e is honeycombing involving the entire right lung and there is marked consolidation and masslike opac ity of the right lung. There is volume loss on the right. The right main stem bronchus is patent but both the upper lobe bronchus and the middle and lower lobe bronchus is are attenuated. There is some paratracheal adenopathy. The largest lymph node measures 9.6 mm. The contrast bolus is suboptimal. No large central pulmonary emboli are seen. The aorta is normal in caliber without evidence of dissection. The heart is upper limits of normal in size. There are at least 3 nonobstructing left upper pole renal calculi. Visualized portions of the upper a bdomen are otherwise unremarkable. There is a wedge compression fracture of the T8 vertebral body as well as inferior endplate infractio n of the T7 vertebral body and superior endplate of the T9 vertebral body. This is associated with fo fortino sclerosis but without a definite paraspinal mass. IMPRESSION: 1. SUBOPTIMAL EXAMINATION. 2. NO LARGE, CENTRAL PULMONARY EMBOLI. 3. MARKED VOLUME LOSS ON THE RIGHT WITH END-STAGE LUNG AND NEAR COMPLETE OPACIFICATION. THERE IS APPE ARS TO BE OBSTRUCTION OF BOTH THE UPPER AND LOWER LOBE BRONCHI. 4. NONOBSTRUCTING LEFT UPPER POLE RENAL CALCULI. 5. LESIONS OF THE T7-T9 VERTEBRAL BODIES.
--- NOTE | 2018-10-17 14:07 | US ---
EXAMINATION TYPE: US abdomen limited DATE OF EXAM: 10/17/2018 COMPARISON: CLINICAL HISTORY: Pain. Difficult breathing. Abn labs. suboptimal exam due to patient breathing and coughing EXAM MEASUREMENTS: Liver Length: 18.3 cm Gallbladder Wall: 0.2 cm CBD: 0.7 cm CHD: 0.4 cm Right Kidney: 12.9 x 4.2 x 3.9 cm Pancreas: Limited visualization due to overlying bowel gas, appears echogenic Liver: Enlarged in size. Portal wood appear echogenic and prominent. Gallbladder: wnl Evidence for sonographic Best's sign: neg CBD: appears dilated for patient age Right Kidney: Appears echogenic. Medial anechoic lesion seen at hilum - 2.6 x 0.6 cm Limited views of the pancreas are unremarkable. The liver is mildly prominent measuring 18.3 cm. It is otherwise unremarkable. The gallbladder is normal. The gallbladder wall measures 2 mm. The distal common hepatic duct is prom inent measuring 7 mm. There is no sonographic Best's sign. Anechoic lesion in the hilum of the right kidney may represent a parapelvic cyst. IMPRESSION: 1. MILD HEPATOMEGALY. 2. DISTAL COMMON HEPATIC DUCT IS PROMINENT FOR THE PATIENT'S AGE. ERCP OR MRCP MAY BE WORTHWHILE.
[2018-10-17] MEDS ORDERED: IPRATROPIUM-ALBUTEROL 3 ML NEB INHALATION PRN (14:29)
[2018-10-17] MEDS ORDERED: NALOXONE 0.4 MG/ML 1 ML VIAL IV PRN (14:29)
[2018-10-17 15:57] LABS: Glucose,Whole Blood 119 mg/dL (75-99)
[2018-10-17] MEDS: SODIUM CHLORIDE 0.9% 1,000 ML IV SCH (20:39)
[2018-10-17] MEDS: IPRATROPIUM-ALBUTEROL 3 ML NEB INHALATION SCH (22:07)
--- NOTE | 2018-10-17 22:52 | HP ---
HISTORY AND PHYSICAL DATE OF ADMISSION: 10/17/2018 DATE OF SERVICE: 10/17/2018. PRESENTING COMPLAINT: Short of breath, cough. HISTORY OF PRESENTING COMPLAINT: This is a 57-year-old patient of Dr. Contreras. The patient, at the present time, is in overflow in the ICU, very lethargic, not really able to give any history, though arousable and dozes off. History is obtained by the nurse and the ER physician. The patient has a history of COPD, has been smoking for close to 40 years. Did heavy alcohol in the past. The patient also has a diagnosis of lung cancer apparently with metastasis disease to the brain and bone. Has been followed by Dr. Recinos and also Dr. Rafael Tobar from radiation oncology. The patient came in to the ER feeling more short of breath, cough, some sputum production, tired and lethargic. The patient is rather hypoxic, 89% on room air, respiratory rate of 28. Hence patient was sent down to the ICU. The nurse spoke to Dr. Zhang and patient was made an overflow. I am not really able to obtain much history from the patient as patient is rather lethargic. REVIEW OF SYSTEMS: See above. Rest cannot be obtained as patient rather lethargic. PAST MEDICAL HISTORY: COPD, alcoholism, not anymore; metastatic lung cancer, anxiety, depression. PAST SURGICAL HISTORY: . PSYCH HISTORY: Anxiety and depression. SOCIAL HISTORY: Smoked for close to 40 years down to half a pack a day. The patient has stop drinking excessive alcohol for over a year. FAMILY HISTORY: COPD, alcohol, lung cancer. HOME MEDICATIONS: 1. Desyrel 100 mg q.h.s. 2. Tylenol p.m. 1 tablet at bedtime p.r.n. 3. Motrin 800 mg t.i.d. p.r.n. 4. Tessalon Perles 100 mg p.o. t.i.d. p.r.n. 5. Atrovent HFA 2 puffs q.i.d. 6. Valium 7.5 p.o. t.i.d. p.r.n. 7. Flexeril 5 mg p.o. t.i.d. p.r.n. 8. Celexa 20 mg p.o. daily. ALLERGIES: None. PHYSICAL EXAMINATION: VITAL SIGNS: Vital signs on presentation, temperature 98.1, pulse 105, respirations 28, blood pressure 87/60, pulse ox 97% on room air. GENERAL APPEARANCE: Thin build, BMI 22.1. Lying in bed, lethargic but arousable. EYES: Pupils equal. Conjunctivae pale. HEENT: External appearance of nose and ears normal. Oral cavity a bit dry. NECK: JVD unable to assess. Mass not palpable. RESPIRATORY: Effort increased. Some accessory muscles are working. Patient not able to speak in full sentences. LUNGS: Diminished breath sounds. Scattered crackles and wheezing. CARDIOVASCULAR: First and second sounds normal. No edema. ABDOMEN: Soft, nontender. Liver and spleen not palpable. LYMPHATICS: No lymph nodes palpable in the neck and axilla. PSYCHIATRY: Patient lethargic, unable to assess. NEUROLOGICAL: Pupils equal. No facial asymmetry. Does move all limbs and then dozes off. INVESTIGATIONS: White count 22.6, hemoglobin 11.4, platelets 197. Potassium 3.5, sodium 125, BUN 21, creatinine 0.72. ProBNP 11,700. Albumin 2.6. Influenza A and B negative. Chest x- ray film, personally reviewed by me shows extensive white out on the right side. EKG tracing personally reviewed by me shows sinus tachycardia. CT scan of the chest emphysematous changes, honeycombing involving the entire right lung with marked consolidation and masslike opacity of the right lung volume loss, some attenuation of the right upper lobe bronchus and middle and lower lobe bronchus, which compression fracture of T8, T7, T9. ASSESSMENT: 1. Possible obstructive pneumonia in a patient with lung cancer. 2. Metastatic lung cancer, being followed by Dr. Recinos and Dr. Rafael Tobar. 3. Anxiety and depression, not otherwise specified. 4. Acute hypoxic respiratory failure. 5. Acute metabolic encephalopathy from hypoxia and patient is also taking Valium and Flexeril. 6. Chronic nicotine dependence, patient is a cigarette smoker. 7. Acute chronic obstructive pulmonary disease exacerbation in a cigarette smoker. 8. Mild protein-calorie malnutrition. Albumin is 2.6 with some muscle wasting. 9. Hyponatremia; suspect hypo-osmolar from decreased oral intake. PLAN: Dr. Zhang from Pulmonary was consulted. Will add Zosyn. The patient is already on DuoNeb and also add steroids, breathing treatments. Prognosis is guarded. I will also consult Oncology. Oxygen being supplemented. May need BiPAP if needed. Aspiration precautions in place ordered. Copy to Dr. Contreras. MMCIERRAL / IJN: [id number] /
[2018-10-17] MEDS: NICOTINE 14MG/24HR PATCH TRANSDERM SCH (23:14)
[2018-10-17] MEDS: methylPREDNISolone SOD SUCCI 40 MG/ML 1 ML VIAL IV SCH (23:15)
[2018-10-17] MEDS: ENOXAPARIN 40 MG/0.4 ML SYRINGE SQ SCH (23:15)
[2018-10-18] MEDS: IPRATROPIUM-ALBUTEROL 3 ML NEB INHALATION SCH ×7 (01:22→23:05)
[2018-10-18 05:49] LABS: Anion Gap 6 mmol/L; Blood Urea Nitrogen 17 mg/dL (7-17); Calcium 8.8 mg/dL (8.4-10.2); Carbon Dioxide 24 mmol/L (22-30); Chloride 105 mmol/L (98-107); Glucose 124 mg/dL (74-99); Potassium 3.9 mmol/L (3.5-5.1); Sodium 135 mmol/L (137-145)
[2018-10-18 05:53] LABS: Anisocytosis Slight; Basophils % (A) 0 %; Eosinophils # (A) 0.1 k/uL (0-0.7); Eosinophils % (A) 1 %; HCT 32.8 % (34.0-46.0); HGB 10.6 gm/dL (11.4-16.0); Lymphocytes # (A) 0.4 k/uL (1.0-4.8); Lymphocytes % (A) 2 %; MCH 34.8 pg (25.0-35.0); MCHC 32.3 g/dL (31.0-37.0); MCV 107.9 fL (80.0-100.0); Mean Platelet Volume 8.7; Monocytes # (A) 0.4 k/uL (0-1.0); Monocytes % (A) 2 %; Neutrophils # (A) 18.8 k/uL (1.3-7.7); Neutrophils % (A) 95 %; Platelet Count 188 k/uL (150-450); RBC 3.04 m/uL (3.80-5.40); RDW 16.7 % (11.5-15.5); WBC 19.8 k/uL (3.8-10.6)
[2018-10-18 05:54] LABS: Macrocytosis Marked
[2018-10-18] MEDS: SODIUM CHLORIDE 0.9% 1,000 ML IV SCH ×2 (05:56→20:10)
[2018-10-18] MEDS ORDERED: DOXYCYCLINE 100 MG in SODIUM CHLORIDE 0.9% 100 ML IVPB SCH (06:00)
--- NOTE | 2018-10-18 06:33 | XR ---
EXAMINATION TYPE: XR chest 1V portable DATE OF EXAM: 10/18/2018 HISTORY: SOB . REFERENCE: Previous study dated 10/17/2018. FINDINGS: There is volume loss in the right lung with shift of mediastinal structures towards the rig ht. There is near complete opacification of the right hemithorax and this is worsened slightly from p revious. There is vascular congestion and increased interstitial markings in the left. I could not ex clude some degree of pulmonary edema. I could not exclude a small left effusion. IMPRESSION: 1. WORSENING OPACIFICATION OF THE RIGHT HEMITHORAX. 2. I COULD NOT EXCLUDE A MILD DEGREE OF PULMONARY EDEMA.
[2018-10-18] MEDS: NICOTINE 14MG/24HR PATCH TRANSDERM SCH (08:11)
[2018-10-18] MEDS: methylPREDNISolone SOD SUCCI 40 MG/ML 1 ML VIAL IV SCH ×3 (08:11→23:30)
[2018-10-18] MEDS: ENOXAPARIN 40 MG/0.4 ML SYRINGE SQ SCH (08:11)
[2018-10-18] MEDS ORDERED: IPRATROPIUM-ALBUTEROL 3 ML NEB INHALATION PRN (09:08)
[2018-10-18] MEDS ORDERED: AZITHROMYCIN 500 MG in SODIUM CHLORIDE 0.9% 250 ML IVPB SCH (09:30)
--- NOTE | 2018-10-18 10:25 | CONS ---
CONSULTATION Pulmonary/critical care consultation DATE OF SERVICE: October 18, 2018. REASON FOR CONSULTATION: Shortness of breath and weakness. HISTORY OF PRESENT ILLNESS: This is a 57-year-old female who apparently I saw in the past for a lung mass. 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 She apparently is undergoing chemotherapy and radiation therapy with Dr. Recinos. She apparently was admitted to the hospital on October 17. She came with apparent shortness of breath and weakness. The patient is currently still smoking. Shortness of breath has been going on for about 3 days. Her weakness for a bit longer. She apparently was found to be hypoxemic at home. She admits to some coughing and producing some white thick phlegm. No fever or chills. No chest pain or chest discomfort. Her chest x-ray shows near complete opacification of the right chest. I did speak to the ER doctor yesterday. Her primary doctor is Dr. Contreras. I think Dr. Armstrong saw the patient in the emergency room. Currently, she is on O2 at 4 L by nasal cannula and has a saline IV running at 75 mL an hour. The plan for today was to do a bronchoscopy. We kept her n.p.o. I am not sure whether not that is fluid and/or cancer in the right chest or maybe just mucus plugs. MEDICATIONS: Her home medications are reviewed. She is on Desyrel, Celexa, ipratropium bromide, Tylenol Extra Strength, Tessalon Perles, Flexeril, Valium, Motrin. ALLERGIES: Are negative. PAST MEDICAL HISTORY: Includes small cell lung cancer and COPD. She apparently also has a history of anxiety and depression. She also has a history of chronic tobacco abuse and chronic alcohol abuse. SURGICAL HISTORY: Includes electromagnetic navigational bronchoscopy which was done June 2017 to make a diagnosis of lung cancer, small cell type and . SOCIAL HISTORY: Positive for chronic tobacco and alcohol use. FAMILY HISTORY: Positive for lung cancer, alcohol history, myocardial infarction, and COPD. REVIEW OF SYSTEMS: CONSTITUTIONAL: Weakness, decreased appetite neurologic negative. HEENT negative. CARDIOVASCULAR: Negative. PULMONARY: Shortness of breath, cough, phlegm production. GI: Negative. : Negative. RHEUMATOLOGIC negative. IMMUNOLOGIC negative. ENDOCRINOLOGIC negative. DERMATOLOGIC negative. PHYSICAL EXAMINATION: VITAL SIGNS: Current vital signs are reviewed. Temperature 98.9, heart rate 105, respiratory rate 14, blood pressure 95/67, mean 76, 4 L saturation 95%. GENERAL: Appears in no acute distress. Lying in bed comfortably. No audible wheezing. No use of accessory muscles. HEENT examination is grossly unremarkable. Nasal O2 noted. NECK: Supple. Full range of motion. No adenopathy. CARDIOVASCULAR EXAMINATION: Reveals mild tachycardia. Heart rate 105. S1, S2 normal. No S3, S4, or murmur. LUNGS: Diminished breath sounds on the right. A few scattered rhonchi noted. No wheezes or crackles. ABDOMEN: Soft. Bowel sounds are heard. EXTREMITIES are intact. No cyanosis, clubbing, or edema. SKIN without rash. NEUROLOGIC EXAMINATION: Is brief but nonfocal. LABORATORY STUDIES: White count 19.8, hemoglobin 10.6, hematocrit 32.8, platelet count is normal. D-dimer 1.26. Venous blood gas shows a CO2 of 43, pH 7.32. Sodium 135, potassium 3.9, chloride 105, CO2 of 24. BUN and creatinine were 17 and 0.5. Alkaline phosphatase 244. Albumin 2.6. N terminal proBNP 50570. Influenza A and B negative. CHEST X-RAY: From today shows worsening opacification of the right hemithorax. There may be some pulmonary edema as well. CT angiogram shows no large central pulmonary emboli but marked volume loss on the right side with end-stage lung and near-complete opacification. There appears to be obstruction of both the upper and lower lobe bronchi. This could be from tumor and/or mucus plugs. Medications are reviewed. Currently, she is on Zithromax and ceftriaxone, Lovenox, updrafts, Solu-Medrol, Narcan, nicotine patch, and a basic IV of saline at 75 mL an hour. ASSESSMENT: 1. Shortness of breath, presumably from underlying chronic obstructive pulmonary disease and significant lung cancer involving the right chest with possible mucous plugging and opacification of the right hemithorax. 2. Status post diagnosis of small cell lung cancer June 2017 by electromagnetic navigational bronchoscopy, the patient has undergone both chemo and radiation. 3. Ongoing tobacco use with nicotine addiction. 4. Possible postobstructive pneumonia. 5. History of alcohol abuse. 6. Anemia of chronic disease. 7. Anorexia/cachexia syndrome of malignancy. PLAN: The patient will likely undergo bronchoscopy. We kept her n.p.o. We will make sure that she is on updrafts, steroids and antibiotics. Additional recommendations and suggestions forthcoming. Prognosis is very guarded. We will continue to follow. MMODL / IJN: [id number] /
[2018-10-18] MEDS ORDERED: IV FLUID CONTINUATION 1,000 ML IV ONE (13:10)
[2018-10-18] MEDS ORDERED: LIDOCAINE 1% INJ 10MG/ML (20 ML MDV) ONE (13:10)
[2018-10-18] MEDS ORDERED: MIDAZOLAM 2 MG/2 ML VIAL ONE (13:10)
[2018-10-18] MEDS ORDERED: KETAMINE 10 MG/ML 20 ML VIAL ONE (13:10)
[2018-10-18] MEDS ORDERED: PROPOFOL 10 MG/ML 20 ML VIAL IV ONE (13:10)
[2018-10-18] MEDS ORDERED: fentaNYL (PF) 50 MCG/ML 2 ML AMP ONE (13:10)
[2018-10-18] MEDS ORDERED: LIDOCAINE 2% INJ 20 MG/ML INTRATRACH ONE ×2 (13:15→13:20)
--- NOTE | 2018-10-18 14:01 | PCN ---
PROCEDURE NOTE PROCEDURE PERFORMED: Bronchoscopy, airway examination and lavage, BAL. OPERATORS: Dr. Zhang and Blair Amaral. PREOP DIAGNOSIS: Lung cancer. POSTOPERATIVE DIAGNOSES: Lung cancer and right lung collapse from mucus plugs. There was informed consent. There was universal timeout. ANESTHESIA: Anesthesia provided general anesthetic at the bedside. It was Dr. Chan and one of the [employer]. DESCRIPTION OF PROCEDURE: After the patient was adequately sedated and being fully monitored, the bronchoscope was inserted through the left nostril. It passed through the left nasopharynx into the oropharynx. There was quite a bit of debris in the hypopharynx which needed to be suctioned out. Once all the debris was removed, I got a good evaluation of the hypopharyngeal structures including anterior commissure, true cords, false cords, arytenoids, piriform sinuses, right and left vallecula and epiglottis. Everything appeared normal. The glottic opening was topicalized. The bronchoscope was pushed through the glottic opening into the trachea. Trachea appeared normal. Tracheal michael was sharp. First, we went down the right side. The right mainstem, right upper lobe, right middle lobe and right lower lobe were full of secretions. They were very thick and purulent looking. I had to suction them with some difficulty using saline. The right upper lobe was normally trifurcated. The mucosa was mildly erythematous. The right middle lobe was bifurcated. The medial and lateral segments appeared relatively normal otherwise. There were thick secretions noted throughout. The right lower lobe had traditional 5 segments including superior basal, medial basal, anterior lateral and posterior basal segments. On the left side, the left upper lobe proper with the apical posterior and anterior segments appeared relatively normal. Likewise, the lingula with the superior and inferior segments looked normal. They were thick secretions noted, but not near as many on the left than that was on the right. Likewise, the left lower lobe and its 4 segments including anterior medial, lateral, posterior and superior basal segments were all relatively normal. There was no dominant mass or tumor. There was no bleeding. Next, the bronchoscope was wedged into the right middle lobe. The BAL took place. Thirty mL was recovered. The patient tolerated the procedure well. There was no immediate complications. The fluid will be sent for analysis. The patient will be recovered. No additional recommendations are made. MMODL / IJN: [id number] /
[2018-10-18 15:18] LABS: Appearance,BF Hazy; RBC, Body Fluid 50 /uL
[2018-10-18 15:19] LABS: Nucleated Cells, Body Fluid 5650 /uL
[2018-10-18 15:23] LABS: Mononuclear WBC,Body Fluid 18 %; Polynuclear WBC,Body Fluid 82 %; Total Cells Counted,Body Fluid 100
[2018-10-18] MEDS ORDERED: ACETAMINOPHEN PO PRN (21:17)
[2018-10-18] MEDS ORDERED: DIPHENHYDRAMINE PO PRN (21:17)
[2018-10-18] MEDS: traZODone HCL 100 MG TAB PO SCH (21:43)
[2018-10-18] MEDS: IBUPROFEN 800 MG TAB PO PRN (21:43)
--- NOTE | 2018-10-18 22:22 | PN ---
PROGRESS NOTE DATE OF SERVICE: 10/18/2018. PRESENTING COMPLAINT: Short of breath, cough. INTERVAL HISTORY: This is a patient admitted with postobstructive pneumonia, who has known metastatic lung cancer, acute hypoxic respiratory failure, metabolic encephalopathy. Seen by Dr. Zhang this morning. The patient was urgently taken down for a bronchoscopy and there was right lung collapse from severe mucus. A lot of mucus secretion was removed. The patient is awake, tired, got a cough. Lying in bed. REVIEW OF SYSTEMS: Done for constitutional, cardiovascular, GI, pulmonary; relevant findings as above. CURRENT MEDICATIONS: Reviewed. They include IV ceftriaxone, IV Solu-Medrol. PHYSICAL EXAMINATION: VITAL SIGNS: Temperature 97.9, pulse 105, respirations 22, blood pressure 103/70, pulse ox 97% on 4 L. GENERAL APPEARANCE: Lying in bed, awake. Tired-appearing. EYES: Pupils equal. Conjunctivae pale. NECK: JVD unable to assess. Mass not palpable. RESPIRATORY: Effort increased. LUNGS: Decreased breath sounds. Prolonged expiration. Some crackles. CARDIOVASCULAR: First and second sounds normal. No edema. ABDOMEN: Soft, nontender. Liver and spleen not palpable. Some psychiatry awake tired- appearing but answering questions. INVESTIGATIONS: White count 19.8, hemoglobin 10.6, potassium 3.9, BUN 17, creatinine 0.50. Influenza A and B was negative. Chest x-ray from this morning was showed worsening opacification of the right hemothorax. ASSESSMENT: 1. Obstructive pneumonia due to mucus plug, status post bronchoscopy with mucus plug being removed. 2. Metastatic lung cancer. Patient being followed by Dr. Recinos and Dr. Davin Tobar. 3. Anxiety and depression, not otherwise specified. 4. Acute hypoxic respiratory failure from pneumonia and chronic obstructive pulmonary disease, on nasal cannula 4 L. 5. Acute metabolic encephalopathy from hypoxia and many medications improving. 6. Chronic nicotine dependence. The patient is a cigarette smoker. 7. Acute chronic obstructive pulmonary disease exacerbation in a cigarette smoker, slow to respond. 8. Mild protein-calorie malnutrition. 9. Hyponatremia; suspect hypoosmolar from decreased oral intake with some improvement. PLAN: Patient is on bronchodilators, steroids, antibiotics. Prognosis remains guarded. The patient is reminded about smoking. We will start on the home medications. Will hold off patient's Valium. Care was discussed with the patient. MMODL / IJN: [id number] /
[2018-10-19] MEDS: IPRATROPIUM-ALBUTEROL 3 ML NEB INHALATION SCH ×6 (02:54→23:53)
[2018-10-19] MEDS: CYCLOBENZAPRINE 5 MG TAB PO PRN (04:18)
[2018-10-19] MEDS: NICOTINE 14MG/24HR PATCH TRANSDERM SCH (08:56)
[2018-10-19] MEDS: ENOXAPARIN 40 MG/0.4 ML SYRINGE SQ SCH (08:56)
[2018-10-19] MEDS: methylPREDNISolone SOD SUCCI 40 MG/ML 1 ML VIAL IV SCH ×3 (08:56→23:00)
--- NOTE | 2018-10-19 09:55 | XR ---
EXAMINATION TYPE: XR chest 2V DATE OF EXAM: 10/19/2018 COMPARISON: 10/18/2018 TECHNIQUE: PA and lateral views submitted. HISTORY: Shortness of breath FINDINGS: There is volume loss in the right lung with shift of mediastinal structures towards the right. There is near complete opacification of the right hemithorax and this is worsened slightly from previous. T here is vascular congestion and increased interstitial markings in the left. Could not exclude some d egree of pulmonary edema. I could not exclude a small left effusion. IMPRESSION: 1. Diffuse lung disease in the right is stable. Asymmetric pulmonary edema, diffuse pneumonia, endobr onchial lesion or mucous plug in the differential diagnosis. 2. Stable small left effusion and subsegmental consolidation. Underlying CHF is not excluded given th e interstitial prominence.
[2018-10-19] MEDS ORDERED: VANCOMYCIN IV PER PHARMACY 1 EACH MISC MISCELLANE PRN (15:11)
[2018-10-19] MEDS: AZITHROMYCIN 500 MG TAB PO SCH (16:44)
[2018-10-19] MEDS: VANCOMYCIN 1,000 MG in SODIUM CHLORIDE 0.9% 250 ML IVPB SCH ×2 (16:44→23:01)
--- NOTE | 2018-10-19 16:52 | P.PN ---
Subjective Progress Note Date: 10/19/18 Principal diagnosis: Dyspnea On 10/19/2018 patient seen in follow-up on selective care unit, he is awake and alert, in no acute distress, she still has a occasional cough with production of yellow sputum, current antibiotic coverage in the form of Zithromax and Rocephin, patient is status post bronchoscopy with BAL on 10/18/2018, bronchial wash cultures are pending, was positive for Divya albicans only thus far. No fever or chills, platelets of chest pain, she remains on 3 L of oxygen with a pulse ox of 98%, hemodynamically stable, will patient is weak, her incentive s pirometer effort is only 500 mL. Lung sounds reveal diminished breath sounds with some limited crackles at the bases. Objective - Vital Signs Vital signs: Vital Signs Temp 98.1 F 10/19/18 08:00 Pulse 106 H 10/19/18 11:51 Resp 16 10/19/18 11:51 BP 126/82 10/19/18 11:51 Pulse Ox 98 10/19/18 11:51 Intake & Output 10/18/18 10/19/18 10/19/18 18:59 06:59 18:59 Intake Total 1000 1850 360 Output Total 1350 Balance 1000 500 360 Weight 56.6 kg Intake: IV 1000 850 Sodium Chloride 0.9% 1, 900 850 000 ml @ 75 mls/hr IV . [id number] [facility] Rx#:[id number] Oral 1000 360 Output: Urine 1350 Other: Voiding Method Bedpan Bedside Commode Bedside Commode # Voids 2 1 1 # Bowel Movements 0 - Exam GENERAL EXAM: Alert, weak, thin 57-year-old white female comfortable in no apparent distress. HEAD: Normocephalic/atraumatic. EYES: Normal reaction of pupils, equal size. Conjunctiva pink, sclera white. NOSE: Clear with pink turbinates. THROAT: No erythema or exudates. NECK: No masses, no JVD, no thyroid enlargement, no adenopathy. CHEST: No chest wall deformity. Symmetrical expansion. LUNGS: Equal air entry with diminished breath sounds, lower crackles at the bases CVS: Regular rate and rhythm, normal S1 and S2, no gallops, no murmurs, no rubs ABDOMEN: Soft, nontender. No hepatosplenomegaly, normal bowel sounds, no guarding or rigidity. EXTREMITIES: No clubbing, no edema, no cyanosis, 2+ pulses and upper and lower extremities. MUSCULOSKELETAL: Muscle strength and tone normal. SPINE: No scoliosis or deformity SKIN: No rashes CENTRAL NERVOUS SYSTEM: Alert and oriented -3. No focal deficits, tone is normal in all 4 extremities. PSYCHIATRIC: Alert and oriented -3. Appropriate affect. Intact judgment and insight. - Labs CBC & Chem 7: 10/18/18 04:21 10/18/18 04:21 Labs: Microbiology - Last 24 Hours (Table) 10/17/18 11:57 Blood Culture - Preliminary Blood No Growth after 48 hours 10/18/18 13:30 Gram Stain - Preliminary Bronchoalviolar Lavage - Right Bronchial Washings Culture - Preliminary Divya albicans 10/18/18 13:30 Fungal Culture - Preliminary Bronchoalviolar Lavage - Right 10/18/18 13:30 Acid Fast Bacilli Culture - Preliminary Bronchoalviolar Lavage - Right Assessment and Plan Plan: Assessment: #1. Shortness of breath related to right lung pneumonia, chest x-ray showed significant opacification of the right hemithorax. She is status post bronchoscopy with BAL on 10/18/2018 with removal of large amount of tenacious secretions #2. 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 Patient undergone both chemotherapy and radiation, and has been in remission #3. Ongoing tobacco use with nicotine addiction #4. History of alcohol abuse #5. Of chronic disease #6. Anorexia/cachexia syndrome of malignancy #7. Elevated d-dimer #8. Elevated proBNP sudjesting possibility of underlying congestive heart failure Plan: Bronchial wash cultures are still pending, today's chest x-ray has been reviewed, shows diffuse lung disease in the right lung likely related to underlying pneumonia, although the possibility of recurrent malignancy is not completely excluded. We will switch the antibiotic coverage to cefepime and vancomycin. We will obtain echocardiogram. Will continue breathing treatments. She did the steroids, we'll continue to follow I performed a history & physical examination of the patient and discussed their management with my nurse practitioner, Rebecca Amaral. I reviewed the nurse practitioner's note and agree with the documented findings and plan of care. Lung sounds are positive for diminished breath sounds, some limited crackles. The findings and the impression was discussed with the patient. I attest to the documentation by the nurse practitioner. Time with Patient: Less than 30
--- NOTE | 2018-10-19 17:19 | P.CONS ---
History of Present Illness - Reason for Consult Consult date: 10/19/18 SCLC Requesting physician: Esa Campa - Chief Complaint KAI - History of Present Illness Mrs. Myles is a very pleasant female patient of Dr. Recinos who initially presented to the hospital with complaints of acute dyspnea in April 2017. Test x-ray revealed a right lower lobe lung mass, CT of the chest 05/05/17 revealed 3.5cm RLL lung mass and right hilar adenopathy. She was evaluated by Dr Zhang, underwent diagnostic navigational bronchoscopy on 07/15/17, FNA of RLL mass was positive for small cell lung carcinoma, 07/24/17 brain MRI negative for metastatic disease, staging PET scan on 07/27/17 revealed suspicious uptake in the right hilar node and right lower lobe mass, otherwise negative. Patient was started on carboplatin any topical side concurrent radiation starting with cycle 2. She completed 4 cycles of treatment in October 2017. Treatment follow-up CT CAP 12/03/2017 showed significant improvement, MRI of the brain on 12/09/2017 was negative for metastatic disease. March 09, 2018, brain MRI and CT CAP showed no evidence of progression. June 2018 CT of the CAP showed no evidence of recurrence, compression deformity at T9. 09/09/18 she was seen in the office with complaints of pain across the back, she had no other symptoms, this was tr eated with medications and supportive care and supposed to follow-up for reevaluation. Patient is currently on observation for her malignancy Patient comes to the hospital with complaints of difficulty in breathing, progressive, x 3 days, she was hypoxic and having difficulty expectorating, not sure if she had fever. CTA on admit which showed no evidence for PE, there was note of suspicious areas in the thoracic spine, patient recently had an MRI of the thoracic spine on 10/13 and questioned if this was from radiation. Patient had abdominal ultrasound that was negative for any acute process. Yesterday patient had a bronchoscopy with mucous plug removal as well as bronchioloalveolar lavage with Dr. Zhang, the procedure note was reviewed, no discussion of mass or areas suspicious for recurrent malignancy. Post bronchoscopy she is feeling much better, denies any hemoptysis, nausea, vomit ing, pain is fairly well-controlled time. Past Medical History Past Medical History: Cancer, COPD Additional Past Medical History / Comment(s): hx alcoholism, lung cancer History of Any Multi-Drug Resistant Organisms: None Reported Past Surgical History: Section Past Anesthesia/Blood Transfusion Reactions: No Reported Reaction Past Psychological History: Anxiety, Depression Smoking Status: Current every day smoker Past Alcohol Use History: None Reported Additional Past Alcohol Use History / Comment(s): states has not used alchohol since 04/2018. smokes about 1/2ppd from age 16 Past Drug Use History: None Reported - Past Family History Mother Family Medical History: COPD Additional Family Medical History / Comment(s): ETOH, lung cancer Father Family Medical History: Myocardial Infarction (ID) Additional Family Medical History / Comment(s): ETOH Medications and Allergies Home Medications Medication Instructions Recorded Confirmed Type traZODone HCL [Desyrel] 100 mg PO HS 07/02/17 10/17/18 History Citalopram Hydrobromide [CeleXA] 20 mg PO DAILY 09/12/17 10/17/18 History Ipratropium [place] [Atrovent Hfa] 2 puff INHALATION RT-QID 09/12/17 10/17/18 History Acetaminophen/Diphenhydramine 1 tab PO HS PRN 10/17/18 10/17/18 History [Tylenol PM Extra Strength] Benzonatate [Tessalon Perles] 100 mg PO TID PRN 10/17/18 10/17/18 History Cyclobenzaprine [Flexeril] 5 mg PO TID PRN 10/17/18 10/17/18 History Diazepam [Valium] 7.5 mg PO TID PRN 10/17/18 10/17/18 History Ibuprofen [Motrin] 800 mg PO TID PRN 10/17/18 10/17/18 History Allergies Allergy/AdvReac Type Severity Reaction Status Date / Time No Known Allergies Allergy Verified 10/17/18 12:08 Physical Exam Vitals: Vital Signs Temp Pulse Pulse Resp BP Pulse Ox 10/19/18 11:51 106 H 16 126/82 98 10/19/18 11:32 96 10/19/18 11:31 16 10/19/18 11:20 92 10/19/18 08:00 98.1 F 101 H 16 96/62 96 10/19/18 07:57 92 10/19/18 07:45 96 96 10/19/18 04:00 97.5 F L 96 16 95/59 96 10/19/18 03:08 96 10/19/18 02:54 100 10/18/18 23:23 98 F 101 H 16 99/65 95 10/18/18 23:12 101 H 16 10/18/18 20:17 98 10/18/18 20:10 97.9 F 105 H 16 103/70 97 10/18/18 20:08 96 10/18/18 20:00 15 10/18/18 19:45 98 Intake and Output 10/19/18 10/19/18 10/19/18 06:59 14:59 22:59 Intake Total 650 360 Output Total 450 Balance 200 360 Intake: IV 350 Sodium Chloride 0.9% 1, 350 000 ml @ 75 mls/hr IV . [id number] MOMO Rx#:[id number] Oral 300 360 Output: Urine 450 Other: Voiding Method Bedside Commode Bedside Commode # Voids 1 1 # Bowel Movements 0 Weight 56.6 kg - Constitutional General appearance: average body habitus, cooperative, disheveled, no acute distress - EENT dry mouth Eyes: anicteric sclerae, EOMI ENT: hearing grossly normal - Neck Neck: no lymphadenopathy - Respiratory Respiratory: left: rales (rub? ), bilateral: diminished - Cardiovascular Rhythm: regular Heart sounds: normal: S1, S2 Abnormal Heart Sounds: no systolic murmur, no diastolic murmur, no rub, no S3 Gallop, no S4 Gallop, no click, no other leg Peripheral Edema: bilateral: None - Gastrointestinal General gastrointestinal: no absent bowel sounds, no decreased bowel sounds, no distended, no hepatomegaly, no hyperactive bowel sounds, normal bowel sounds, no organomegaly, no rigid, no scaphoid, soft, no splenomegaly, no tenderness, no umbilical hernia, no ventral hernia - Integumentary Integumentary: normal - Neurologic Neurologic: CNII-XII intact - Musculoskeletal Musculoskeletal: generalized weakness, strength equal bilaterally - Psychiatric Psychiatric: A&O x's 3, appropriate affect, intact judgment & insight Results CBC & Chem 7: 10/18/18 04:21 10/18/18 04:21 Labs: Microbiology - Last 24 Hours (Table) 10/17/18 11:57 Blood Culture - Preliminary Blood No Growth after 48 hours 10/18/18 13:30 Gram Stain - Preliminary Bronchoalviolar Lavage - Right Bronchial Washings Culture - Preliminary Divya albicans 10/18/18 13:30 Fungal Culture - Preliminary Bronchoalviolar Lavage - Right 10/18/18 13:30 Acid Fast Bacilli Culture - Preliminary Bronchoalviolar Lavage - Right Chest x-ray: report reviewed CT scan - chest: report reviewed US - abdomen: report reviewed Assessment and Plan (1) Respiratory failure Narrative/Plan: Status post bronchoscopy with significant improvement after mucous plug removal as well as BAL. Pending cytology Current Visit: Yes Status: Acute Priority: High Code(s): J96.90 - RESPIRATORY FAILURE, UNSP, UNSP W HYPOXIA OR HYPERCAPNIA SNOMED Code(s): 540447506 (2) CAP (community acquired pneumonia) Current Visit: Yes Status: Acute Priority: High Code(s): J18.9 - PNEUMONIA, UNSPECIFIED ORGANISM SNOMED Code(s): 666375128 (3) Small cell lung carcinoma Narrative/Plan: Patient's last PET scan was in June, no evidence of disease at that time. Braxton edmondson was just in the office a few weeks ago with complaints of back pain. It was treated conservatively at that time with patient due to follow-up but, she is now been admitted. There is concern about T7 - T9 findings on CT, MRI reports may be necrosis secondary to radiation, recommendation was for a bone scan. This will be requested. Patient would be due for follow-up imaging, this will be planned and continued as an outpatient as PET scan is the imaging that is being utilized for follow-up. We have to delay imaging until patient's current COPD exacerbation/upper respiratory infection is treated. Current Visit: Yes Status: Chronic Priority: Medium Code(s): C34.90 - MALIGNANT NEOPLASM OF UNSP PART OF UNSP BRONCHUS OR LUNG SNOMED Code(s): 943121300 Plan: Leukocytosis: Likely related to infection, no acute intervention Mild anemia: Will check a office for iron studies prior to ordering. Patient will be following up in the outpatient setting and these can be done at that time as anemia is not severe or requiring intervention at this time. Mild hepatomegaly on ultrasound-patient does have a history of EtOH abuse, po ssibly cirrhotic changes. Based on patient's hospital course may have to follow with recommendation for ERCP/MRCP for evaluation.
--- NOTE | 2018-10-19 17:56 | PN ---
PROGRESS NOTE DATE OF SERVICE: October 19, 2018. PRESENTING COMPLAINT: Short of breath, cough. INTERVAL HISTORY: This patient with metastatic lung cancer presented with postobstructive pneumonia, acute hypoxic respiratory failure, metabolic encephalopathy, status post mucous plugs removed and the patient was found to have right lung collapse. The patient is tired, eating a little bit, some wheezing, short of breath. The patient's sister is present who also takes care of her. Sister did pull me outside the room and told me the patient was very keen to get more Valium, but has been very sleepy with the same. I did tell the sister that I have held off the Valium, it is not safe for her. The patient wanted some more Valium which I have stopped. REVIEW OF SYSTEMS: Done for constitutional, cardiovascular, GI, pulmonary and relevant findings as above. CURRENT MEDICATIONS: Reviewed that include DuoNeb, IV cefepime, Solu-Medrol and vancomycin. PHYSICAL EXAMINATION: VITAL SIGNS: Temperature 97.1, pulse 101, respirations 16, blood pressure 96/62, pulse ox 96% on 3 L. GENERAL APPEARANCE: Lying in bed. Remains tired. EYES: Pupils equal. Conjunctivae pale. NECK: JVD unable to assess. Mass not palpable. RESPIRATORY: Effort increased. LUNGS: Decreased breath sounds. Prolonged expiration. Some crackles. CARDIOVASCULAR: First and second sounds normal. No edema. ABDOMEN: Soft, nontender. Liver and spleen not palpable. PSYCHIATRY: Awake. Does answer simple questions. NEUROLOGICAL: Moving all 4 limbs. INVESTIGATIONS: ProBNP is 5130. ASSESSMENT: 1. Right-sided obstructive pneumonia and mucus plugs removed with bronchoscopy. 2. Metastatic lung cancer, being followed by Dr. Recinos. 3. Anxiety, depression not otherwise specified. 4. Acute hypoxic respiratory failure from pneumonia and chronic obstructive pulmonary disease exacerbation on nasal cannula 4 L. 5. Acute metabolic encephalopathy from hypoxia on many medications including Valium, the latter of which has been discontinued. 6. Chronic nicotine dependence, patient is a cigarette smoker. 7. Acute chronic obstructive pulmonary disease exacerbation in a cigarette smoker, slow to respond. 8. Mild protein-calorie malnutrition. 9. Hyponatremia, hypoosmolar with some improvement. PLAN: Patient is still rather weak, tired, bronchospastic. Continue current medication and treatment plan. I did reiterate to the patient and caregiver, which I agree that Valium will not be given. Did speak to Myra Temple from Oncology to give me an update on the patient's cancer status. Expect the patient to be in the hospital for at least 2 more days. MMODL / IJN: [id number] /
[2018-10-19] MEDS: IBUPROFEN 800 MG TAB PO PRN (18:43)
[2018-10-19] MEDS: SODIUM CHLORIDE 0.9% 1,000 ML IV SCH ×2 (19:41→20:04)
--- NOTE | 2018-10-19 19:53 | ECHOF ---
Referral Reason:LV function MEASUREMENTS -------- HEIGHT: 157.5 cm WEIGHT: 56.2 kg BP: IVSd: 0.8 cm (0.6 - 1.1) LVIDd: 3.8 cm (3.9 - 5.3) LVPWd: 1.4 cm (0.6 - 1.1) IVSs: 1.1 cm LVIDs: 3.3 cm LVPWs: 1.1 cm LA Diam: 4.2 cm (2.7 - 3.8) RVIDd: 3.0 cm (< 3.3) LAESV Index (A-L): 26.69 ml/m Ao Diam: 2.6 cm (2.0 - 3.7) LA Diam: 4.4 cm (2.7 - 3.8) EPSS: 0.3 cm MV E Ricky: 0.64 m/s MV DecT: 225 ms MV A Ricky: 1.22 m/s MV E/A Ratio: 0.53 RAP: 20.00 mmHg RVSP: 62.66 mmHg MV EF SLOPE: 130.83 mm/s (70 - 150) MV EXCURSION: 21.52 mm (> 18.000) FINDINGS -------- Sinus rhythm. This was a technically good study. LV size, wall thickness and systolic function are normal, with an EF greater than 55%. The left andres tricular size is normal. The right ventricle is normal in size. The left atrial size is normal. Normal LA size by volume 22+/-6 ml/m2. The right atrial size is normal. Interatrial and interventricular septum intact. The aortic valve is trileaflet, and appears structurally normal. No aortic stenosis or regurgitation. Mild mitral regurgitation is present. Mild tricuspid regurgitation present. There is moderate pulmonary hypertension. The right ventric ular systolic pressure, as measured by Doppler, is 62.66mmHg. Trace/mild (physiologic) pulmonic regurgitation. The aortic root size is normal. The inferior vena cava is severely dilated. Echo free space indicative of a pericardial fat pad. CONCLUSIONS -------- 1. LV size, wall thickness and systolic function are normal, with an EF greater than 55%. 2. The left ventricular size is normal. 3. The right ventricle is normal in size. 4. The left atrial size is normal. 5. Normal LA size by volume 22+/-6 ml/m2. 6. The right atrial size is normal. 7. Interatrial and interventricular septum intact. 8. The aortic valve is trileaflet, and appears structurally normal. No aortic stenosis or regurgitati on. 9. Mild mitral regurgitation is present. 10. Mild tricuspid regurgitation present. 11. The right ventricular systolic pressure, as measured by Doppler, is 62.66mmHg. 12. Trace/mild (physiologic) pulmonic regurgitation. 13. The aortic root size is normal. 14. The inferior vena cava is severely dilated. 15. Echo free space indicative of a pericardial fat pad. DRIVER'S EDUCATION INSTRUCTOR: Alexandria Barahona RDCS
[2018-10-19] MEDS: CEFEPIME 1 GM in SODIUM CHLORIDE 0.9% 50 ML IVPB SCH (19:59)
[2018-10-19] MEDS: traZODone HCL 100 MG TAB PO SCH (19:59)
[2018-10-20] MEDS: IBUPROFEN 800 MG TAB PO PRN ×3 (03:02→22:55)
[2018-10-20] MEDS: IPRATROPIUM-ALBUTEROL 3 ML NEB INHALATION SCH ×5 (04:21→20:16)
[2018-10-20 06:30] LABS: Anion Gap 2 mmol/L; Blood Urea Nitrogen 16 mg/dL (7-17); Calcium 8.6 mg/dL (8.4-10.2); Carbon Dioxide 33 mmol/L (22-30); Chloride 101 mmol/L (98-107); Glucose 117 mg/dL (74-99); Sodium 136 mmol/L (137-145)
[2018-10-20] MEDS: methylPREDNISolone SOD SUCCI 40 MG/ML 1 ML VIAL IV SCH ×3 (07:53→22:55)
[2018-10-20] MEDS: AZITHROMYCIN 500 MG TAB PO SCH (07:53)
[2018-10-20] MEDS: CEFEPIME 1 GM in SODIUM CHLORIDE 0.9% 50 ML IVPB SCH ×2 (07:53→20:41)
[2018-10-20] MEDS: VANCOMYCIN 1,000 MG in SODIUM CHLORIDE 0.9% 250 ML IVPB SCH ×2 (07:53→16:10)
[2018-10-20] MEDS: ENOXAPARIN 40 MG/0.4 ML SYRINGE SQ SCH (07:54)
[2018-10-20] MEDS: NICOTINE 14MG/24HR PATCH TRANSDERM SCH (07:54)
--- NOTE | 2018-10-20 11:31 | NM ---
EXAMINATION TYPE: NM bone scan whole body DATE OF EXAM: 10/20/2018 COMPARISON: 10/13/2018 HISTORY: Back pain Delayed whole-body scanning was performed following the injection of 2326 mCi Tc 99m MDP. Images acq uired 4 hours post injection. FINDINGS: There is abnormal uptake involving the mid thoracic spine corresponding to the MRI abnormality. Neopl astic process in the differential diagnosis. Other etiologies not excluded. Abnormal faint uptake inv olving the right lateral rib cage is nonspecific could be correlated with x-ray. Additional faint upt noah seen in the upper thoracic spine appears to correspond to the MRI abnormality. Faint uptake at the lumbosacral junction likely degenerative. IMPRESSION: Abnormal uptake within the thoracic spine corresponds the MRI abnormalities. Findings are nonspecific by bone scan neoplastic process and compression fracture in the differential diagnosis.
--- NOTE | 2018-10-20 12:39 | P.PN ---
Subjective Progress Note Date: 10/20/18 Principal diagnosis: Right lung pneumonia The patient is seen today the 2017 in follow-up on the selective care unit. She is currently resting comfortably in bed. She is breathing about the same as compared to yesterday. Not quite back to her baseline. She is status post bronchoscopy with BAL. Cultures revealing divya thus far. Blood culture reveals no growth. She is maintaining O2 saturations in the 90s on 2 L/m per nasal cannula. She has a loose nonproductive cough. Currently afebrile. Sodium 136. Potassium 4.0. Creatinine 0.35. She remains on DuoNeb inhalations, IV Solu-Medrol, antibiotics in the form of vancomycin, cefepime and azithromycin. Chest x-ray continues to show extensive right lung pneumonia improved compared to previous. Bone scan reveals abnormal uptake within the thoracic spine neoplastic process and compression fractures within the differential diagnoses. Objective - Vital Signs Vital signs: Vital Signs Temp 97.4 F L 10/20/18 08:00 Pulse 90 10/20/18 09:41 Resp 16 10/20/18 11:41 BP 151/85 10/20/18 08:00 Pulse Ox 97 10/20/18 09:29 Intake & Output 10/19/18 10/20/18 10/20/18 18:59 06:59 18:59 Intake Total 360 Output Total 400 Balance 360 -400 Weight 58 kg Intake: Oral 360 Output: Urine 400 Other: Voiding Method Bedside Commode Bedside Commode Bedside Commode # Voids 1 2 # Bowel Movements 0 - Exam GENERAL EXAM: Alert, weak, thin 57-year-old white female comfortable in no apparent distress. On 2 L nasal cannula HEAD: Normocephalic/atraumatic. EYES: Normal reaction of pupils, equal size. Conjunctiva pink, sclera white. NOSE: Clear with pink turbinates. THROAT: No erythema or exudates. NECK: No masses, no JVD, no thyroid enlargement, no adenopathy. CHEST: No chest wall deformity. Symmetrical expansion. LUNGS: Equal air entry with diminished breath sounds, lower crackles at the bases CVS: Regular rate and rhythm, normal S1 and S2, no gallops, no murmurs, no rubs ABDOMEN: Soft, nontender. No hepatosplenomegaly, normal bowel sounds, no guarding or rigidity. EXTREMITIES: No clubbing, no edema, no cyanosis, 2+ pulses and upper and lower extremities. MUSCULOSKELETAL: Muscle strength and tone normal. SPINE: No scoliosis or deformity SKIN: No rashes CENTRAL NERVOUS SYSTEM: No focal deficits, tone is normal in all 4 extremities. PSYCHIATRIC: Alert and oriented -3. Appropriate affect. Intact judgment and insight. - Labs CBC & Chem 7: 10/18/18 04:21 10/20/18 05:38 Labs: Abnormal Lab Results - Last 24 Hours (Table) 10/20/18 Range/Units 05:38 Sodium 136 L (137-145) mmol/L Carbon Dioxide 33 H (22-30) mmol/L Creatinine 0.35 L (0.52-1.04) mg/dL Glucose 117 H (74-99) mg/dL Microbiology - Last 24 Hours (Table) 10/18/18 13:30 Gram Stain - Final Bronchoalviolar Lavage - Right Bronchial Washings Culture - Final Divya albicans 10/18/18 13:30 Acid Fast Bacilli Smear - Final Bronchoalviolar Lavage - Right Acid Fast Bacilli Culture - Preliminary 10/17/18 11:57 Blood Culture - Preliminary Blood No Growth after 48 hours Assessment and Plan Assessment: Assessment: #1. Shortness of breath related to right lung pneumonia, chest x-ray showed significant opacification of the right hemithorax. She is status post bronchos copy with BAL on 10/18/2018 with removal of large amount of tenacious secretions #2. 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 Patient undergone both chemotherapy and radiation, and has been in remission #3. Ongoing tobacco use with nicotine addiction #4. History of alcohol abuse #5. Of chronic disease #6. Anorexia/cachexia syndrome of malignancy #7. Elevated d-dimer #8. Elevated proBNP sudjesting possibility of underlying congestive heart failure Plan: The patient was seen and evaluated by Dr. Hein. She is about the same today as compared to yesterday. Chest x-ray does show improvement in aeration of the right lung but still significant infiltrate. She remains on vancomycin, cefepime, azithromycin. Continue with bronchodilators. Bronchial wash cultures/cytology pending. We will continue to follow and make further recommendations based on her clinical status. I, the cosigning physician, performed a history & physical examination of the patient. Lungs sounds with bilateral scattered rhonchi right greater than left.. Maintaining good O2 saturations in the 90s on 2 L/m per nasal cannula. I discussed the assessment and plan of care with my nurse practitioner, Cassandra Nolan. I attest to the above note as dictated by her.
--- NOTE | 2018-10-20 14:10 | P.PN ---
Subjective Progress Note Date: 10/20/18 Principal diagnosis: Difficulty in breathing, history of lung cancer, intractable back pain In follow-up today patient's breathing is much more comfortable, she is still having the intractable back pain, it is worse when she is moving, she stopped ambulating with physical therapy due to the back pain, currently it is a 10/10. We discussed possible referral to Orthopedic spine or pain services. She states taking Valium at home does help, she is willing to try Lidoderm patch for now Objective - Vital Signs Vital signs: Vital Signs Temp 97.4 F L 10/20/18 08:00 Pulse 92 10/20/18 12:00 Resp 16 10/20/18 12:00 BP 146/88 10/20/18 12:00 Pulse Ox 93 L 10/20/18 12:00 Intake & Output 10/19/18 10/20/18 10/20/18 18:59 06:59 18:59 Intake Total 360 222 Output Total 400 800 Balance 360 400 578 Weight 58 kg Intake: Oral 360 222 Output: Urine 400 800 Other: Voiding Method Bedside Commode Bedside Commode Bedside Commode # Voids 1 2 # Bowel Movements 0 - Constitutional General appearance: Present: cooperative, no acute distress, thin - EENT Eyes: Present: anicteric sclerae ENT: Present: hearing grossly normal - Respiratory Details: Weak inspiratory effort, congested cough Respiratory: bilateral: prolonged expiration - Cardiovascular Heart sounds: normal: S1, S2 - Peripheral edema leg Peripheral Edema: bilateral: None - Gastrointestinal General gastrointestinal: Present: normal bowel sounds, soft - Integumentary Integumentary: Present: normal - Neurologic Neurologic: Present: CNII-XII intact - Musculoskeletal Musculoskeletal: Present: strength equal bilaterally - Psychiatric Psychiatric Comment(s): Flat affect Psychiatric: Present: A&O x's 3, intact judgment & insight - Labs CBC & Chem 7: 10/18/18 04:21 10/20/18 05:38 Labs: Abnormal Lab Results - Last 24 Hours (Table) 10/20/18 Range/Units 05:38 Sodium 136 L (137-145) mmol/L Carbon Dioxide 33 H (22-30) mmol/L Creatinine 0.35 L (0.52-1.04) mg/dL Glucose 117 H (74-99) mg/dL Microbiology - Last 24 Hours (Table) 10/18/18 13:30 Gram Stain - Final Bronchoalviolar Lavage - Right Bronchial Washings Culture - Final Divya albicans 10/18/18 13:30 Acid Fast Bacilli Smear - Final Bronchoalviolar Lavage - Right Acid Fast Bacilli Culture - Preliminary 10/17/18 11:57 Blood Culture - Preliminary Blood No Growth after 48 hours Assessment and Plan (1) Respiratory failure Narrative/Plan: Patient significantly improved, continue treatment per Pulmonary Current Visit: Yes Status: Acute Priority: High Code(s): J96.90 - RESPIRATORY FAILURE, UNSP, UNSP W HYPOXIA OR HYPERCAPNIA SNOMED Code(s): 471548502 (2) CAP (community acquired pneumonia) Current Visit: Yes Status: Acute Priority: High Code(s): J18.9 - PNEUMONIA, UNSPECIFIED ORGANISM SNOMED Code(s): 365853860 (3) Small cell lung carcinoma Narrative/Plan: Patient's last PET scan was in June, no evidence of disease at that time. Patient was just in the office a few weeks ago with complaints of back pain. It was treated conservatively at that time with patient due to follow-up but, she is now been admitted. There is concern about T7 - T9 findings on CT, MRI reports may be necrosis se condary to radiation. Bone scan was performed, the thoracic areas of concern correlate to all of the other imaging reports, no other disease or areas of concern mentioned. Will continue to titrate medications for pain Patient due for follow-up imaging, this will be planned as an outpatient as PET scan is the imaging that is being utilized for follow-up. We have to delay imaging until patient's current COPD exacerbation/upper respiratory infection is treated. Current Visit: Yes Status: Chronic Priority: Medium Code(s): C34.90 - MALIGNANT NEOPLASM OF UNSP PART OF UNSP BRONCHUS OR LUNG SNOMED Code(s): 173064848 Plan: Leukocytosis: Likely related to infection, no acute intervention. CBC in AM Mild anemia: No acute intervention, not progressive, CBC in the a.m. Mild hepatomegaly on ultrasound-patient does have a history of EtOH abuse, possibly cirrhotic changes. Based on patient's hospital course may have to follow with recommendation for ERCP/MRCP for evaluation.
--- NOTE | 2018-10-20 14:18 | XR ---
EXAMINATION TYPE: XR chest 2V DATE OF EXAM: 10/20/2018 COMPARISON: 10/19/2018 TECHNIQUE: PA and lateral views submitted. HISTORY: Shortness of breath FINDINGS: There is volume loss in the right lung with shift of mediastinal structures towards the right. There is near complete opacification of the right hemithorax and this is worsened slightly from previous. T here is vascular congestion and increased interstitial markings in the left. Could not exclude some d egree of pulmonary edema. Could not exclude a small left effusion. Compression deformities of the rosemary tebral column are stable. Correlate for underlying COPD. IMPRESSION: 1. Diffuse lung disease in the right is stable. Asymmetric pulmonary edema, diffuse pneumonia, endobr onchial lesion or mucous plug in the differential diagnosis. 2. Stable small left effusion and subsegmental consolidation. Underlying CHF is not excluded given th e interstitial prominence.
--- NOTE | 2018-10-20 15:00 | XR ---
EXAMINATION TYPE: XR abdomen 2V DATE OF EXAM: 10/20/2018 CLINICAL DATA: 57 year-old female abdominal pain, PHH COMPARISON: None FINDINGS: Electronic device projects over the left flank. Multiple small bowel and colonic air fluid levels are demonstrated throughout. Mildly dilated small bowel loops are present in the left side of the abdome n measuring up to 3.7 cm. Small right greater left pleural effusions. Patchy density throughout the right hemithorax partially visualized. No evidence for free intraperitoneal air. Minimally displaced fracture of a mid to lower lateral right-sided rib. IMPRESSION: 1. Air-fluid levels throughout small and large bowel. Some dilated small bowel loops are also present in the left side of the abdomen measuring up to 3.7 cm. The presence of colonic gas is more suggesti ve of a generalized ileus or enteritis rather than small bowel obstruction at this time. Follow-up ca n be performed. 2. No evidence for free air. 3. Note: Minimally displaced acute fracture of a mid to lower right lateral rib.
[2018-10-20] MEDS: LIDOCAINE 5% PATCH TOPICAL SCH (16:10)
[2018-10-20] MEDS: DIAZEPAM 5 MG TAB PO SCH ×2 (16:10→21:13)
--- NOTE | 2018-10-20 16:30 | CDI ---
Documentation Clarification Form Date: 10/20/2018 4:03:09 PM From: Shannon Joseph RN, CCDS Admit Date: 10/17/2018 2:29:00 PM Patient Name: Evangelina Myles Visit Number: [id number] Discharge Date: ATTENTION: The Clinical Documentation Specialists (CDI) and [facility] Coding Staff appreciate your assistance in clarifying documentation. Please respond to the clarification below the line at the bottom and electronically sign. The CDI & [facility] Coding staff will review the response and follow-up if needed. Please note: Queries are made part of the Legal Health Record. If you have any questions, please contact the author of this message via ITS. Dr. Esa Campa The patient presented with complaints of weakness and shortness of breath with ER clinical impression of COPD exacerbation, Sepsis, Community acquired pneumonia History/Risk Factors: Lung cancer, COPD, Clinical Indicators: 57-year-old female with complaint of shortness of breath and weakness. On initial evaluation, vital signs show hypotension and tachycardia, she was lethargic. Patient appears septic on exam per ER evaluation; she is using accessory muscles of breathing. Vital signs on admission: 87/60 92 28 98.1 79 %RA, 100/70 112 20 94 % 3/L NC WBC 22.6, Neutrophils 21.3 Lactic acid: 2.0 Blood cultures: Pending, no growth after 72 hours Bronchoalviolar: gram stain, culture few Divya albicans Treatment: Zithromax PO, Maxipime IV, Vancomycin IV Bronchoscopy with BAL Duoneb's per orders Solu-Medrol IV (taper) monitor O2 Sat's (titrate) IV Fluids In your professional opinion, please clarify if these findings signify one of the following conditions, whether the condition is POA, and cause, if known: Condition Sepsis ruled in and present on admission Sepsis ruled out Other, please specify Unable to determine Identify the (suspected) organism Link or clarify if there is associated (due to/with infection source): SIRS Criteria (2 or more of the following may indicate SIRS): -Temperature < 96.8F (36C) or > 101.0F (38.3C) -Heart Rate > 90 bpm -Respiratory Rate > 20 breaths/min or PaCO2 < 32 mmHg -White Blood Cell Count > 12,000 or < 4,000 cells/mm3 or > 10% bands -Lactate >2.0 mmol/L (>4.0 is equivalent to septic shock) (Last Revision: September 2017) sepsis from pneumonia,POA MTDD
[2018-10-20] MEDS ORDERED: FLUCONAZOLE 100 MG TAB PO ONE (16:41)
[2018-10-20] MEDS: SODIUM CHLORIDE 0.9% 1,000 ML IV SCH (16:43)
--- NOTE | 2018-10-20 17:25 | PN ---
PROGRESS NOTE DATE OF SERVICE: PRESENTING COMPLAINT: Short of breath, cough. INTERVAL HISTORY: This is a patient who had metastatic lung cancer with a PET scan in June with no further disease. Admitted with post-obstructive pneumonia, acute hypoxic respiratory failure, metabolic encephalopathy from taking pain medications and sedatives, status post bronchoscopy and mucus plugs removed. The patient had right lung collapse. The patient is barely eating, quite constipated; did get an enema yesterday, though it did not help much. Having some abdominal discomfort. No nausea, vomiting. Also having back pain. REVIEW OF SYSTEMS: Done for constitutional, cardiovascular, GI, pulmonary; relevant findings as above. CURRENT MEDICATIONS: Reviewed. They include: 1. IV cefepime. 2. Zithromax. 3. IV Solu-Medrol. 4. Vancomycin. PHYSICAL EXAMINATION: Temperature 97.4, pulse 86, respiration 20, blood pressure 158/85, pulse ox 99% on 2 L. GENERAL APPEARANCE: Sitting up in a chair. Awake. Tired-appearing. EYES: Pupils equal. Conjunctivae normal. NECK: JVD not raised. Mass not palpable. RESPIRATORY: Effort increased. LUNGS: Decreased breath sounds. Prolonged expiration. CARDIOVASCULAR: First and second sounds normal. No edema. ABDOMEN: Soft. Minimal tenderness. No guarding or rigidity. Bowel sounds are sluggish. PSYCHIATRY: Awake. Answering simple questions. NEUROLOGICAL: Moving all 4 limbs. INVESTIGATIONS: White count 19.8, hemoglobin 10.6 potassium 4, BUN 16, creatinine 0.35. Patient's bronchial Gram stain is growing Divya albicans. Patient's nuclear bone scan shows abnormal uptake in the thoracic spine corresponding to the MRI abnormalities. ASSESSMENT: 1. Right-sided obstructive pneumonia with mucus plugs removed with bronchoscopy. 2. Lung cancer with PET scan negative in June of this year. 3. Anxiety and depression not otherwise specified. 4. Acute hypoxic respiratory failure from pneumonia and chronic obstructive pulmonary disease exacerbation, on nasal cannula. 5. Acute metabolic encephalopathy from hypoxia and on many medications, including Valium, the latter of which has been discontinued. 6. Chronic nicotine dependence. Patient is a cigarette smoker. 7. Acute severe chronic obstructive pulmonary disease exacerbation in a cigarette smoker, slow to respond. 8. Mild protein-calorie malnutrition. 9. Hyponatremia, hypo-osmolar, with improvement. 10.Acute ileus, probably from pain medications and decreased mobility. PLAN: Earlier I ordered an abdominal x-ray that confirmed patient to have ileus. General Surgery has been consulted. For back pain we will get Dr. Mendez's opinion. Will also consult Pain Management Services. In the meantime, a heating pad will be used. Overall prognosis is guarded. Will also add some Diflucan. MMODL / IJN: [id number] /
--- NOTE | 2018-10-20 19:45 | P.GSCN ---
History of Present Illness Consult date: 10/20/18 History of present illness: She reports severe constipation ongoing for 8 days. She complains of abdominal distention. Xray seen shows ileus. Recommend enemas with bowel regimen. No surgery needed at this time Past Medical History Past Medical History: Cancer, COPD Additional Past Medical History / Comment(s): hx alcoholism, lung cancer History of Any Multi-Drug Resistant Organisms: None Reported Past Surgical History: Section Past Anesthesia/Blood Transfusion Reactions: No Reported Reaction Past Psychological History: Anxiety, Depression Smoking Status: Current every day smoker Past Alcohol Use History: None Reported Additional Past Alcohol Use History / Comment(s): states has not used alchohol since 04/2018. smokes about 1/2ppd from age 16 Past Drug Use History: None Reported - Past Family History Mother Family Medical History: COPD Additional Family Medical History / Comment(s): ETOH, lung cancer Father Family Medical History: Myocardial Infarction ([place]) Additional Family Medical History / Comment(s): ETOH Medications and Allergies Home Medications Medication Instructions Recorded Confirmed Type traZODone HCL [Desyrel] 100 mg PO HS 07/02/17 10/17/18 History Citalopram Hydrobromide [CeleXA] 20 mg PO DAILY 09/12/17 10/17/18 History Ipratropium [place] [Atrovent Hfa] 2 puff INHALATION RT-QID 09/12/17 10/17/18 History Acetaminophen/Diphenhydramine 1 tab PO HS PRN 10/17/18 10/17/18 History [Tylenol PM Extra Strength] Benzonatate [Tessalon Perles] 100 mg PO TID PRN 10/17/18 10/17/18 History Cyclobenzaprine [Flexeril] 5 mg PO TID PRN 10/17/18 10/17/18 History Diazepam [Valium] 7.5 mg PO TID PRN 10/17/18 10/17/18 History Ibuprofen [Motrin] 800 mg PO TID PRN 10/17/18 10/17/18 History Allergies Allergy/AdvReac Type Severity Reaction Status Date / Time No Known Allergies Allergy Verified 10/17/18 12:08 Surgical - Exam Vital Signs Temp Pulse Resp BP Pulse Ox 98.1 F 92 28 H 87/60 79 L 10/17/18 11:25 10/17/18 11:25 10/17/18 11:25 10/17/18 11:25 10/17/18 11:25 Results - Labs 10/18/18 04:21 10/20/18 05:38 Abnormal Lab Results - Last 24 Hours (Table) 10/20/18 Range/Units 05:38 Sodium 136 L (137-145) mmol/L Carbon Dioxide 33 H (22-30) mmol/L Creatinine 0.35 L (0.52-1.04) mg/dL Glucose 117 H (74-99) mg/dL Microbiology - Last 24 Hours (Table) 10/17/18 11:57 Blood Culture - Preliminary Blood No Growth after 72 hours 10/18/18 13:30 Gram Stain - Final Bronchoalviolar Lavage - Right Bronchial Washings Culture - Final Divya albicans 10/18/18 13:30 Acid Fast Bacilli Smear - Final Bronchoalviolar Lavage - Right Acid Fast Bacilli Culture - Preliminary Diabetes panel 10/20/18 Range/Units 05:38 Sodium 136 L (137-145) mmol/L Potassium 4.0 (3.5-5.1) mmol/L Chloride 101 (98-107) mmol/L Carbon Dioxide 33 H (22-30) mmol/L BUN 16 (7-17) mg/dL Creatinine 0.35 L (0.52-1.04) mg/dL Glucose 117 H (74-99) mg/dL Calcium 8.6 (8.4-10.2) mg/dL Calcium panel 10/20/18 Range/Units 05:38 Calcium 8.6 (8.4-10.2) mg/dL Pituitary panel 10/20/18 Range/Units 05:38 Sodium 136 L (137-145) mmol/L Potassium 4.0 (3.5-5.1) mmol/L Chloride 101 (98-107) mmol/L Carbon Dioxide 33 H (22-30) mmol/L BUN 16 (7-17) mg/dL Creatinine 0.35 L (0.52-1.04) mg/dL Glucose 117 H (74-99) mg/dL Calcium 8.6 (8.4-10.2) mg/dL Adrenal panel 10/20/18 Range/Units 05:38 Sodium 136 L (137-145) mmol/L Potassium 4.0 (3.5-5.1) mmol/L Chloride 101 (98-107) mmol/L Carbon Dioxide 33 H (22-30) mmol/L BUN 16 (7-17) mg/dL Creatinine 0.35 L (0.52-1.04) mg/dL Glucose 117 H (74-99) mg/dL Calcium 8.6 (8.4-10.2) mg/dL
[2018-10-20] MEDS ORDERED: MINERAL OIL 133 ML ENEMA RECTAL STA (19:48)
[2018-10-20] MEDS: traZODone HCL 100 MG TAB PO SCH (21:13)
[2018-10-20] MEDS ORDERED: VANCOMYCIN TROUGH DUE 1 EACH MISC MISCELLANE ONE (23:00)
[2018-10-21] MEDS: VANCOMYCIN 1,000 MG in SODIUM CHLORIDE 0.9% 250 ML IVPB SCH ×4 (00:45→23:34)
[2018-10-21] MEDS: IPRATROPIUM-ALBUTEROL 3 ML NEB INHALATION SCH ×6 (00:52→20:55)
[2018-10-21] MEDS: SODIUM CHLORIDE 0.9% 1,000 ML IV SCH ×2 (01:56→20:22)
[2018-10-21] MEDS: LIDOCAINE 5% PATCH TOPICAL SCH (08:15)
[2018-10-21] MEDS: CEFEPIME 1 GM in SODIUM CHLORIDE 0.9% 50 ML IVPB SCH ×2 (08:15→21:54)
[2018-10-21] MEDS: NICOTINE 14MG/24HR PATCH TRANSDERM SCH (08:15)
[2018-10-21] MEDS: FLUCONAZOLE 100 MG TAB PO SCH (08:16)
[2018-10-21] MEDS: methylPREDNISolone SOD SUCCI 40 MG/ML 1 ML VIAL IV SCH ×3 (08:16→23:34)
[2018-10-21] MEDS: AZITHROMYCIN 500 MG TAB PO SCH (08:16)
[2018-10-21] MEDS: ENOXAPARIN 40 MG/0.4 ML SYRINGE SQ SCH (08:16)
[2018-10-21] MEDS: DIAZEPAM 5 MG TAB PO SCH ×3 (08:16→20:29)
[2018-10-21] MEDS ORDERED: FLUCONAZOLE ORAL SUSP 1,400 MG/35 ML BOTTLE PO SCH (09:00)
--- NOTE | 2018-10-21 09:06 | XR ---
EXAMINATION TYPE: XR chest 2V DATE OF EXAM: 10/21/2018 COMPARISON: 10/20/2009 TECHNIQUE: PA and lateral views submitted. HISTORY: Shortness of breath FINDINGS: There is volume loss in the right lung with shift of mediastinal structures towards the right. There is near complete opacification of the right hemithorax and this is worsened slightly from previous. T here is vascular congestion and increased interstitial markings in the left. Could not exclude some d egree of pulmonary edema. There is a small left effusion. Compression deformities of the vertebral co lumn are stable. Correlate for underlying COPD. Rib deformities on the right suggest previous fractur e. IMPRESSION: 1. Diffuse lung disease in the right is stable. Asymmetric pulmonary edema, diffuse pneumonia, endobr onchial lesion, neoplasm or mucous plug in the differential diagnosis. 2. Stable small left effusion and subsegmental consolidation. 3. Fractures involving the lateral right rib cage may be recent correlate clinically.
--- NOTE | 2018-10-21 10:47 | P.PN ---
Subjective Progress Note Date: 10/21/18 CHIEF COMPLAINT: Abdominal pain HISTORY OF PRESENT ILLNESS: Patient examined at the bedside. Patient reports receiving enema yesterday and having multiple bowel movements overnight and this morning. She denies abdominal pain. Patient reports abdominal distention has improved. Denies nausea or vomiting. Tolerating diet. PHYSICAL EXAM: VITAL SIGNS: Reviewed. GENERAL: Well-developed in no acute distress. HEENT: No sclera icterus. Extraocular movements grossly intact. Moist buccal mucosa. Head is atraumatic, normocephalic. ABDOMEN: Distended, but soft. Nontender. Positive bowel sounds NEUROLOGIC: Alert and oriented. Cranial nerves II through XII grossly intact. ASSESSMENT: 1. Abdominal pain secondary to constipation/ileus, resolving PLAN: 1. Continue current diet 2. Colace and Miralax daily to prevent constipation 3. No surgical intervention 4. We will sign off. Please reconsult if needed Nurse practitioner note has been reviewed by physician. Signing provider agrees with the documented findings, assessment, and plan of care. Objective - Vital Signs Vital signs: Vital Signs Temp 98 F 10/21/18 08:00 Pulse 89 10/21/18 08:00 Resp 20 10/21/18 08:00 BP 153/86 10/21/18 08:00 Pulse Ox 90 L 10/21/18 08:00 Intake & Output 10/20/18 10/21/18 10/21/18 18:59 06:59 18:59 Intake Total 462 Output Total 800 500 Balance -338 -500 Weight 56.9 kg Intake: Oral 462 Output: Urine 800 500 Other: Voiding Method Bedside Commode Bedside Commode # Voids 1 # Bowel Movements 1 1 - Labs CBC & Chem 7: 10/18/18 04:21 10/20/18 05:38 Labs: Microbiology - Last 24 Hours (Table) 10/17/18 11:57 Blood Culture - Preliminary Blood No Growth after 72 hours 10/18/18 13:30 Gram Stain - Final Bronchoalviolar Lavage - Right Bronchial Washings Culture - Final Divya albicans Assessment and Plan (1) Abdominal pain Current Visit: Yes Status: Acute Code(s): R10.9 - UNSPECIFIED ABDOMINAL PAIN SNOMED Code(s): 32361517 (2) Constipation Current Visit: Yes Status: Acute Code(s): K59.00 - CONSTIPATION, UNSPECIFIED SNOMED Code(s): 33280301 (3) Ileus Current Visit: Yes Status: Acute Code(s): K56.7 - ILEUS, UNSPECIFIED SNOMED Code(s): 127377843
[2018-10-21] MEDS: POLYETHYLENE GLYCOL 3350 17 GM POWD.PACK PO SCH (11:43)
[2018-10-21] MEDS: DOCUSATE 100 MG CAP PO SCH ×2 (11:43→20:29)
[2018-10-21 12:55] LABS: Iron Saturation 51.27 (12.00-45.00)
--- NOTE | 2018-10-21 15:39 | P.CNOR ---
History of Present Illness - [facility] Consult date: 10/21/18 Requesting physician: Esa Campa Consult reason: fracture (T7, T8, and T9 compression fracture deformities of un known origin which may be pathologic or could be 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), back pain (Thoracic back pain) History of present illness: Patient is a very pleasant 57-year-old female who is seen today at bedside for further evaluation in regards to thoracic back pain. Patient states she is known to have lung cancer. She's been following with her oncologist and business supervisor for treatment evaluation. She feels her thoracic back pain started after completing radiation for her cancer in April 2018. She states she is able to do regular activities of daily living. She states her back pain is intermittent. Some days she is able to clean the house and cup without difficulty. Other than her back pain is exacerbated. She feels her back pain is worse while sitting in a bedside chair and while in the bed here the hospital and feels her seating arrangements at home is much more comfortable. She occasionally has some pain that radiates around the ribs. She denies any specific injury. She denies any lower extremity weakness radiculopathy bilate rally. Her original presentation to the emergency department was for torn is of breath and constipation. During her admission she has continued to be seen by multiple medical providers including oncology, pulmonology, medicine, and general surgery. She has been cleared from a general surgery standpoint. She is not currently using any constipation is doing bowel movement without difficulty. She follows with Dr. Recinos in the outpatient setting. She's been seen again by Dr. Dobson during her admission. She states her pain for discharge tomorrow. She states her thoracic back pain is been ongoing and nothing specifically makes it better or worse. She does not appearance increased pain with coughing or sneezing. At this time she does not feel she needs bracing. She does have a medical history includes lung cancer, COPD, current smoker, with history of alcoholism. Past Medical History Past Medical History: Cancer, COPD Additional Past Medical History / Comment(s): hx alcoholism, lung cancer History of Any Multi-Drug Resistant Organisms: None Reported Past Surgical History: Section Past Anesthesia/Blood Transfusion Reactions: No Reported Reaction Past Psychological History: Anxiety, Depression Smoking Status: Current every day smoker Past Alcohol Use History: None Reported Additional Past Alcohol Use History / Comment(s): states has not used alchohol since 04/2018. smokes about 1/2ppd from age 16 Past Drug Use History: None Reported - Past Family History Mother Family Medical History: COPD Additional Family Medical History / Comment(s): ETOH, lung cancer Father Family Medical History: Myocardial Infarction ([place]) Additional Family Medical History / Comment(s): ETOH Medications and Allergies Home Medications Medication Instructions Recorded Confirmed Type traZODone HCL [Desyrel] 100 mg PO HS 07/02/17 10/17/18 History Citalopram Hydrobromide [CeleXA] 20 mg PO DAILY 09/12/17 10/17/18 History Ipratropium [place] [Atrovent Hfa] 2 puff INHALATION RT-QID 09/12/17 10/17/18 History Acetaminophen/Diphenhydramine 1 tab PO HS PRN 10/17/18 10/17/18 History [Tylenol PM Extra Strength] Benzonatate [Tessalon Perles] 100 mg PO TID PRN 10/17/18 10/17/18 History Cyclobenzaprine [Flexeril] 5 mg PO TID PRN 10/17/18 10/17/18 History Diazepam [Valium] 7.5 mg PO TID PRN 10/17/18 10/17/18 History Ibuprofen [Motrin] 800 mg PO TID PRN 10/17/18 10/17/18 History Allergies Allergy/AdvReac Type Severity Reaction Status Date / Time No Known Allergies Allergy Verified 10/17/18 12:08 Physical Examination Physical exam: Patient is awake, alert, and oriented 3; patient currently sitting comfortably in a bedside chair Vital signs stable Adequate chest excursion with deep inspiration and expiration; currently on O2 nasal cannula Examination of thoracic spine reveals skin is intact with no abrasions, lacera tions, or bruises; no erythema, purulence or signs of infection Some pain with palpation along the midline of the mid thoracic spine Dorsiflexion, plantarflexion, and extensor hallucis longus positive sustained bilaterally Lower extremity strength 5/5 bilaterally Patellar reflex 2+ bilaterally and Achilles reflexes 2+ bilaterally No lower extremity hyperreflexia bilaterally Straight leg test negative bilateral lower extremities No signs or symptoms of DVT; no calf pain No pain with internal and external rotation of the hips bilaterally Neurovascularly intact Results Pertinent studies: Nuclear medicine whole-body bone scan taken on 10/20/2018: Abnormal uptake in the mid thoracic spine that corresponds to the MRI abnormality in which neoplastic process is in the differential diagnosis but other etiologies are not excluded including possibility of compression fracture; abnormal faint uptake involving the right lateral rib cage is nonspecific; additional faint uptake seen in the upper thoracic spine appears to correspond to MRI abnormality CTA of the chest taken on 10/17/2018: T7 inferior endplate and fraction of the vertebral body, T8 wedging compression fracture deformity and T9 superior e ndplate compression fracture deformity; marked volume loss on the right with end-stage long and near complete opacification in the appears to be obstruction of both upper and lower lobe bronchi MRI of the thoracic spine taken with and without contrast on 10/13/2018: T7 inferior endplate change, T8 vertebral body compression fracture deformity with approximately 50% height loss, and T9 superior endplate deformity with low signal present on T1 and T2 weighted sequences within the marrow with some mild enhancement find contrast administration in which reports states to correlate history of radiation to the right chest as findings could be 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 rather than tumor the recommend follow-up to assess for stability; T3 some low signal T1 and T2 weighted imagings with some mild enhancement with some mild superior compression of the endplate; T10 increased signal within the vertebral body any due to hemangioma; mild facet arthropathy in the lower thoracic spine; no evidence of central canal stenosis; abnormal signal in the right lung base is at a similar lever to the abnormal findings within the thoracic spine - Labs Labs: Abnormal Lab Results - Last 24 Hours (Table) 10/21/18 Range/Units 07:11 TIBC 197 L (228-460) ug/dL Iron Saturation 51.27 H (12.00-45.00) Ferritin 654.5 H (10.0-291.0) ng/mL Vitamin B12 2514.0 H (200.0-944.0) pg/mL Microbiology - Last 24 Hours (Table) 10/17/18 11:57 Blood Culture - Preliminary Blood No Growth after 96 hours H & H 10/17/18 10/18/18 Range/Units 11:57 04:21 Hgb 11.4 10.6 L (11.4-16.0) gm/dL Hct 33.5 L 32.8 L (34.0-46.0) % Result Diagrams: 10/18/18 04:21 10/20/18 05:38 Assessment and Plan Assessment: Assessment: Subacute thoracic back pain T7, T8, and T9 compression fracture deformities of unknown origin which may be pathologic or could be 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 T3 increased signal History of lung cancer COPD Current smoker History of alcoholism Constipation resolved (1) Nontraumatic compression fracture of T7 vertebra Current Visit: Yes Status: Acute Code(s): M48.54XA - COLLAPSED VERTEBRA, NEC, THORACIC REGION, INIT SNOMED Code(s): 770209078 (2) Nontraumatic compression fracture of T8 vertebra Current Visit: Yes Status: Acute Code(s): M48.54XA - COLLAPSED VERTEBRA, NEC, THORACIC REGION, INIT SNOMED Code(s): 357146009 (3) Nontraumatic compression fracture of T9 vertebra Current Visit: Yes Status: Acute Code(s): M48.54XA - COLLAPSED VERTEBRA, NEC, THORACIC REGION, INIT SNOMED Code(s): 105989639 (4) Thoracic back pain Current Visit: Yes Status: Acute Code(s): M54.6 - PAIN IN THORACIC SPINE SNOMED Code(s): 862538750 (5) History of lung cancer Current Visit: Yes Status: Acute Code(s): Z85.118 - PERSONAL HISTORY OF MALIGNANT NEOPLASM OF BRONCHUS AND LUNG SNOMED Code(s): 357863098 (6) COPD (chronic obstructive pulmonary disease) Current Visit: Yes Status: Acute Code(s): J44.9 - CHRONIC OBSTRUCTIVE PULMONARY DISEASE, UNSPECIFIED SNOMED Code(s): 15719590 (7) History of alcoholism Current Visit: Yes Status: Acute Code(s): F10.21 - ALCOHOL DEPENDENCE, IN REMISSION SNOMED Code(s): 180448834 (8) Current smoker Current Visit: Yes Status: Acute Code(s): F17.200 - NICOTINE DEPENDENCE, UNSPECIFIED, UNCOMPLICATED SNOMED Code(s): 93259703 Plan: Plan: 1. Patient has been discussed in detail with Dr. Rogelio Mendez. After reviewing the imaging, physical examination of the patient, and further discussion with the patient, we will currently plan to continue with conservative treatment options. She does have evidence of fracture deformities at T7, T8, and T9 of unknown origin which may be pathologic or could be 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. Patient does have some ongoing thoracic back pain at these fracture sites and states her symptoms are intermittent and has been ongoing since April 2018 after finishing radiation. She continues to participate in regular activities of daily living including cooking and cleaning the house. She does not have increased pain with coughing or sneezing. At this time she does not feel she needs bracing. She states she did not present to the hospital due to back pain but was having difficulty with breathing and constipation. At this time we'll plan to refrain from bracing and we'll continue to follow the patient in the outpatient setting for further evaluation. If her symptoms do not continue to improve over time or worsen we may plan for bracing at that time. From an orthopedic spine standpoint, patient is cleared for discharge once cleared by other medical providers. We will plan to have her follow-up in outpatient setting Asa Ma PA-C or Dr. Rogelio Mendez at [facility] in approximately 2-3 weeks. 2. Patient will continue to be seen and examined by other multiple medical providers including oncology, pulmonology, and medicine; patient is cleared for discharge from a general surgery standpoint Time with Patient: Greater than 30 (Including obtaining history, physical examination, reviewing of imaging, and dictation.)
--- NOTE | 2018-10-21 19:11 | P.PN ---
Subjective Progress Note Date: 10/21/18 Principal diagnosis: Right lung pneumonia The patient is seen today in 10/21/2018 in follow-up on the selective care unit. She is currently awake and alert in no acute distress. She is actually breathing better today as compared to yesterday. Starting to feel some improvement as far as her pulmonary status is concerned. She is maintaining O2 saturations in the 90s on 2 L/m per nasal cannula. Chest x-ray reveals diffuse lung disease but stable and the right. Small left pleural effusion and subsegmental consolidation. Fractures involving the lateral right rib cage. Sh e's been afebrile. Bronchial wash cultures reveal Divya only thus far. Urine legionella antigen was negative. Blood cultures reveal no growth. Total iron 101, TIBC 197, iron saturation 51.27, ferritin 654, vitamin B12 2514. She has been seen by orthopedics in regarding to her compression fractures on T7, T8 and T9. Objective - Vital Signs Vital signs: Vital Signs Temp 98.2 F 10/21/18 15:28 Pulse 75 10/21/18 16:48 Resp 16 10/21/18 16:48 BP 161/83 10/21/18 15:28 Pulse Ox 95 10/21/18 16:36 Intake & Output 10/21/18 10/21/18 10/22/18 06:59 18:59 06:59 Intake Total 945 Output Total 2450 Balance -1505 Weight 56.9 kg Intake: IV 165 Sodium Chloride 0.9% 1, 165 000 ml @ 75 mls/hr IV . [id number] MOMO Rx#:[id number] Intake, IV Titration 300 Amount Cefepime 1 gm In Sodium 50 Chloride 0.9% 50 ml @ 100 mls/hr IVPB Q12HR MOMO Rx #:[id number] Vancomycin 1,000 mg In 250 Sodium Chloride 0.9% 250 ml @ 125 mls/hr IVPB Q8HR MOMO Rx#:[id number] Oral 480 Output: Urine 2450 Other: Voiding Method Bedside Commode # Voids 1 2 # Bowel Movements 1 1 - Exam GENERAL EXAM: Alert, weak, thin 57-year-old white female comfortable in no apparent distress. On 2 L nasal cannula HEAD: Normocephalic/atraumatic. EYES: Normal reaction of pupils, equal size. Conjunctiva pink, sclera white. NOSE: Clear with pink turbinates. THROAT: No erythema or exudates. NECK: No masses, no JVD, no thyroid enlargement, no adenopathy. CHEST: No chest wall deformity. Symmetrical expansion. LUNGS: Equal air entry with diminished breath sounds, lower crackles at the bases CVS: Regular rate and rhythm, normal S1 and S2, no gallops, no murmurs, no rubs ABDOMEN: Soft, nontender. No hepatosplenomegaly, normal bowel sounds, no guarding or rigidity. EXTREMITIES: No clubbing, no edema, no cyanosis, 2+ pulses and upper and lower extremities. MUSCULOSKELETAL: Muscle strength and tone normal. SPINE: No scoliosis or deformity SKIN: No rashes CENTRAL NERVOUS SYSTEM: No focal deficits, tone is normal in all 4 extremities. PSYCHIATRIC: Alert and oriented -3. Appropriate affect. Intact judgment and insight. - Labs CBC & Chem 7: 10/18/18 04:21 10/20/18 05:38 Labs: Abnormal Lab Results - Last 24 Hours (Table) 10/21/18 Range/Units 07:11 TIBC 197 L (228-460) ug/dL Iron Saturation 51.27 H (12.00-45.00) Ferritin 654.5 H (10.0-291.0) ng/mL Vitamin B12 2514.0 H (200.0-944.0) pg/mL Microbiology - Last 24 Hours (Table) 10/17/18 11:57 Blood Culture - Preliminary Blood No Growth after 96 hours Assessment and Plan Assessment: Assessment: #1. Shortness of breath related to right lung pneumonia, chest x-ray showed significant opacification of the right hemithorax. She is status post bronchoscopy with BAL on 10/18/2018 with removal of large amount of tenacious secretions. Cultures with Divya only. #2. 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 Patient undergone both chemotherapy and radiation, and has been in remission. Both scan reveals abnormal uptake within the thoracic spine. Findings are nonspecific by bone scan and neoplastic process and compression fracture are within the differential diagnosis. #3. Ongoing tobacco use with nicotine addiction #4. History of alcohol abuse #5. Of chronic disease #6. Anorexia/cachexia syndrome of malignancy #7. Elevated d-dimer #8. Elevated proBNP sudjesting possibility of underlying congestive heart failure Plan: The patient was seen and evaluated by Dr. Hein. She is improved today compared to yesterday. Breathing easier. It'll care on conversation. Chest x- ray does show improvement in aeration of the right lung but still significant infiltrate. She remains on vancomycin, cefepime, azithromycin. Continue with bronchodilators. Wash cultures with Divya only thus far. She is again educated regarding the importance of complete smoking cessation. NicoDerm patch remains in place. We will continue to follow and make further recommendations based on her clinical status. I, the cosigning physician, performed a history & physical examination of the patient. Lungs sounds with bilateral scattered rhonchi right greater than left.. Maintaining good O2 saturations in the 90s on 2 L/m per nasal cannula. I discussed the assessment and plan of care with my nurse practitioner, Cassandra Nolan. I attest to the above note as dictated by her.
[2018-10-21] MEDS ORDERED: HYDROcodone/APAP 5-325MG 1 EACH TAB PO PRN (20:16)
[2018-10-21] MEDS: traZODone HCL 100 MG TAB PO SCH (20:29)
[2018-10-21] MEDS: CYCLOBENZAPRINE 5 MG TAB PO PRN (20:29)
--- NOTE | 2018-10-21 20:43 | P.PAINCN ---
History of Present Illness - Reason for Consult Consult date: 10/21/18 - History of Present Illness This is 57 years old female, with a history of lung cancer, she started having Mid back pain after she had radiation therapy in April 2018, the pain is intermittent, localized in the mid back area, computed tomography scan of the chest showed that patient had lesion at T7 and T9 Compression Deformity ,patient was evaluated by orthopedic surgeon Dr. Mendez, and he did not recommend surgical interventions or kyphoplasty at this point, patient currently on Lidoderm patch applied to the thoracic area, Flexeril 5 mg 3 times a day and Motrin 800 3 times a day, patient continued to have pain thoracic area Past Medical History Past Medical History: Cancer, COPD Additional Past Medical History / Comment(s): hx alcoholism, lung cancer History of Any Multi-Drug Resistant Organisms: None Reported Past Surgical History: Section Past Anesthesia/Blood Transfusion Reactions: No Reported Reaction Past Psychological History: Anxiety, Depression Smoking Status: Current every day smoker Past Alcohol Use History: None Reported Additional Past Alcohol Use History / Comment(s): states has not used alchohol since 04/2018. smokes about 1/2ppd from age 16 Past Drug Use History: None Reported - Past Family History Mother Family Medical History: COPD Additional Family Medical History / Comment(s): ETOH, lung cancer Father Family Medical History: Myocardial Infarction (NM) Additional Family Medical History / Comment(s): ETOH Medications and Allergies Home Medications Medication Instructions Recorded Confirmed Type traZODone HCL [Desyrel] 100 mg PO HS 07/02/17 10/17/18 History Citalopram Hydrobromide [CeleXA] 20 mg PO DAILY 09/12/17 10/17/18 History Ipratropium Hewitt [Atrovent Hfa] 2 puff INHALATION RT-QID 09/12/17 10/17/18 History Acetaminophen/Diphenhydramine 1 tab PO HS PRN 10/17/18 10/17/18 History [Tylenol PM Extra Strength] Benzonatate [Tessalon Perles] 100 mg PO TID PRN 10/17/18 10/17/18 History Cyclobenzaprine [Flexeril] 5 mg PO TID PRN 10/17/18 10/17/18 History Diazepam [Valium] 7.5 mg PO TID PRN 10/17/18 10/17/18 History Ibuprofen [Motrin] 800 mg PO TID PRN 10/17/18 10/17/18 History Allergies Allergy/AdvReac Type Severity Reaction Status Date / Time No Known Allergies Allergy Verified 10/17/18 12:08 Physical Exam Vitals: Vital Signs Temp Pulse Pulse Resp BP Pulse Ox 10/21/18 16:48 75 16 10/21/18 16:36 73 16 95 10/21/18 15:28 98.2 F 78 20 161/83 91 L 10/21/18 11:22 78 10/21/18 11:19 97.9 F 70 20 182/82 90 L 10/21/18 11:13 78 10/21/18 08:00 98 F 89 20 153/86 90 L 10/21/18 07:37 77 10/21/18 07:23 76 10/21/18 04:40 82 10/21/18 04:31 82 10/21/18 04:00 98.0 F 74 18 175/83 90 L 10/21/18 00:00 97.9 F 86 18 124/80 92 L 10/20/18 20:40 84 Intake and Output 10/21/18 10/21/18 10/21/18 06:59 14:59 22:59 Intake Total 745 200 Output Total 2000 450 Balance -1255 -250 Intake: IV 165 Sodium Chloride 0.9% 1, 165 000 ml @ 75 mls/hr IV . [id number] MOMO Rx#:[id number] Intake, IV Titration 300 Amount Cefepime 1 gm In Sodium 50 Chloride 0.9% 50 ml @ 100 mls/hr IVPB Q12HR MOMO Rx #:[id number] Vancomycin 1,000 mg In 250 Sodium Chloride 0.9% 250 ml @ 125 mls/hr IVPB Q8HR MOMO Rx#:[id number] Oral 280 200 Output: Urine 2000 450 Other: Voiding Method Bedside Commode # Voids 1 2 # Bowel Movements 1 1 Weight 56.9 kg Physical Examinations : -Constitutiona : Cooperative , not in acute distress . -HEENT : nech ; supple , no Lymphadenopathy , normal thyroid size .. - Respiratory : Chest clear to auscultations Bilaterally , no wheezing , + Rhonchi . - Cardiovascula : regular rate and rhythem , S1 , S2 , no S3 , no S4. - Gastrointestina : abdomen soft no tenderness , bowel sounds , no organomegally . - Genitourinary : Defferred . - neurologic : Cranial nerve II to XII intact , no focal neurological deffecit . -psychatric : alert , oriented X 3 , appropriate affect , intact judgment and insight . -Lymphatic : no Lymphadenopathy . - musculoskeltal : Tenderness over the mid thoracic spine Results CBC & Chem 7: 10/18/18 04:21 10/20/18 05:38 Labs: Abnormal Lab Results - Last 24 Hours (Table) 10/21/18 Range/Units 07:11 TIBC 197 L (228-460) ug/dL Iron Saturation 51.27 H (12.00-45.00) Ferritin 654.5 H (10.0-291.0) ng/mL Vitamin B12 2514.0 H (200.0-944.0) pg/mL Microbiology - Last 24 Hours (Table) 10/17/18 11:57 Blood Culture - Preliminary Blood No Growth after 96 hours Comments: Computed tomography scan of the lung lesion at T7 and T9 vertebral body and compression deformity of T9 Assessment and Plan Plan: Assessment and plan= mid back pain secondary to compression deformity of the thoracic spine, patient is not a surgical candidate, patient currently on D iflucan, I started patient on Rosewood 5/325, but later on I found out , that Diflucan could interact with the opioid , and could increase the half life of the opioid . Significantly, for this reason I discontinued the Rosewood, patient had COPD and she was admitted to the hospital with respiratory failure, and this interaction could cause significant respiratory depression, recommend continue Lidoderm patch,and recommend changing Motrin to Mobic 7.5 twice daily , because patient currently on Lovenox , and this combination could increase the risk of bleeding, continue Flexeril 5 mg 3 times a day, orthopedic surgery did not recommend any braces, Time with Patient: Greater than 30 PQRS Measure Charge Sheet PQRS Narrative: Smoking Status Current every day smoker Blood Pressure [Right Arm] 161/83 Blood Pressure 99/68 Pain Intensity [Back] 0 Pain Intensity [None] 0 Pain Intensity 10 Pain Scale Used Numeric (1 - 10) Scale Used Numeric (1 - 10) Home Medications: Ambulatory Orders traZODone HCL [Desyrel] 100 mg PO HS 07/02/17 Citalopram Hydrobromide [CeleXA] 20 mg PO DAILY 09/12/17 Ipratropium Hewitt [Atrovent Hfa] 2 puff INHALATION RT-QID 09/12/17 Acetaminophen/Diphenhydramine [Tylenol PM Extra Strength] 1 tab PO HS PRN 10/17/18 Benzonatate [Tessalon Perles] 100 mg PO TID PRN 10/17/18 Cyclobenzaprine [Flexeril] 5 mg PO TID PRN 10/17/18 Diazepam [Valium] 7.5 mg PO TID PRN 10/17/18 Ibuprofen [Motrin] 800 mg PO TID PRN 10/17/18
[2018-10-22] MEDS: IPRATROPIUM-ALBUTEROL 3 ML NEB INHALATION SCH ×6 (00:34→21:23)
--- NOTE | 2018-10-22 00:47 | P.PN ---
Subjective Progress Note Date: 10/21/18 Principal diagnosis: Right-sided postobstructive pneumonia with mucous plug removal by bronchoscopy Patient is a 57-year-old female with a known history of metastatic lung cancer with PET scan in June with no further disease admitted with postobstructive pneumonia, acute hypoxic respiratory failure, metabolic encephalopathy from taking pain medications and sedatives. Status post bronchoscopy and mucous plug removal. Patient also had right lung collapse. 10/21/2018 Patient denied any complaints of chest pain or shortness breath. Patient did have abdominal distention and ileus yesterday with improvement of symptoms and bowel movement today. Patient is awake alert and oriented. Saturating well on nasal cannula oxygen. Patient has been afebrile. Patient is status post bronchoscopy. BAL cultures showed Divya. Blood cultures showed no growth. Pulmonary is following Chest x-ray showed diffuse lung disease in the right is stable. Asymmetric pulmonary edema, diffuse pneumonia, endobronchial lesion, neoplasm or mucous plug in the differential. Stable small left effusion and subsegmental atelectasis/consolidation. Fractures involving the lateral right rib cage maybe recent correlate clinically. Patient was seen by orthopedic surgery and recommends no surgical intervention at this time. Current medications reviewed. Objective - Vital Signs Vital signs: Vital Signs Temp 97.9 F 10/21/18 11:19 Pulse 78 10/21/18 11:22 Resp 20 10/21/18 11:19 BP 182/82 10/21/18 11:19 Pulse Ox 90 L 10/21/18 11:19 Intake & Output 10/20/18 10/21/18 10/21/18 18:59 06:59 18:59 Intake Total 462 Output Total 800 1500 Balance -338 -1500 Weight 56.9 kg Intake: Oral 462 Output: Urine 800 1500 Other: Voiding Method Bedside Commode Bedside Commode # Voids 1 # Bowel Movements 1 1 - Exam PHYSICAL EXAMINATION: Patient is lying in the bed comfortably, no acute distress, awake alert and cathie ented.. HEENT: Normocephalic. Neck is supple. Pupils reactive. Nostrils clear. Oral cavity is moist. Ears reveal no drainage. Neck reveals no JVD, carotid bruits, or thyromegaly. CHEST EXAMINATION: Trachea is central. Symmetrical expansion. Bibasilar crackles and no wheezing. Diminished air entry. CARDIAC: Normal S1, S2 with no gallops. No murmurs ABDOMEN: Soft. Bowel sounds normal. No organomegaly. No abdominal bruits. Extremities: reveal no edema. No clubbing or cyanosis Neurologically awake, alert, oriented x3 with well-coordinated movements. No focal deficits noted Skin: No rash or skin lesions. Psychiatric: Coperative. Nonsuicidal Musculoskeletal: No joint swelling or deformity. Normal range of motion. - Labs CBC & Chem 7: 10/18/18 04:21 10/20/18 05:38 Labs: Microbiology - Last 24 Hours (Table) 10/17/18 11:57 Blood Culture - Preliminary Blood No Growth after 72 hours 10/18/18 13:30 Gram Stain - Final Bronchoalviolar Lavage - Right Bronchial Washings Culture - Final Divya albicans Assessment and Plan Assessment: - Shortness of breath related to post obstructive right lung pneumonia, She is status post bronchoscopy with BAL on 10/18/2018 with removal of large amount of tenacious secretions. Cultures with Divya only. 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 Patient undergone both chemotherapy and radiation, and has been in remission. Both scan reveals abnormal uptake within the thoracic spine. - Ileus resolved with enema. Patient did have bowel movement. - Acute hypoxic respiratory failure secondary to pneumonia and COPD - Acute metabolic and toxic encephalopathy hypoxia, infection and sedative medications - Ongoing tobacco use with nicotine addiction - History of alcohol abuse - Anemia Of chronic disease - Anorexia/cachexia syndrome of malignancy - Moderate protein calorie malnutrition - Elevated d-dimer - Elevated proBNP sudjesting possibility of underlying congestive heart failure Plan: Patient will be continued on antibiotics no cough vancomycin and cefepime and azithromycin. Continue with DuoNeb's and IV steroids are being continued. We will increase oral intake and follow final culture reports. Pulmonary is following. Orthopedics recommends conservative management for rib fractures. C ontjuanue the pain management and pain management consult placed. Smoking cessation has been counseled extensively. Further recommendations based on clinical course. Prognosis poor. Time with Patient: Greater than 30
[2018-10-22] MEDS: IBUPROFEN 800 MG TAB PO PRN ×2 (03:06→16:35)
[2018-10-22 07:03] LABS: Anisocytosis Slight; HCT 30.5 % (34.0-46.0); MCHC 32.7 g/dL (31.0-37.0); MCV 107.1 fL (80.0-100.0); Macrocytosis Marked; Mean Platelet Volume 8.4; Platelet Count 125 k/uL (150-450); RBC 2.85 m/uL (3.80-5.40); RDW 16.2 % (11.5-15.5); WBC 7.5 k/uL (3.8-10.6)
[2018-10-22 07:29] LABS: Blood Urea Nitrogen 11 mg/dL (7-17); Calcium 8.3 mg/dL (8.4-10.2); Chloride 89 mmol/L (98-107); Glucose 121 mg/dL (74-99); Potassium 3.6 mmol/L (3.5-5.1); Sodium 139 mmol/L (137-145)
[2018-10-22 07:36] LABS: Anion Gap 4 mmol/L
[2018-10-22 07:49] LABS: Carbon Dioxide 46 mmol/L (22-30)
[2018-10-22 08:01] LABS: Band Neutrophils % 6 %; Lymphocytes # (M) 0.38 k/uL (1.0-4.8); Metamyelocytes # (M) 0.23 k/uL (0); Metamyelocytes % 3 %; Myelocytes # (M) 0.23 k/uL (0); Myelocytes % 3 %; Neutrophils % (M) 81 %; Nucleated Red Blood Cells 0 /100 WBC (0-0); Total Cells Counted 200
[2018-10-22 08:02] LABS: Toxic Granulation Present
[2018-10-22] MEDS: LIDOCAINE 5% PATCH TOPICAL SCH (08:51)
[2018-10-22] MEDS: NICOTINE 14MG/24HR PATCH TRANSDERM SCH (08:51)
[2018-10-22] MEDS: ENOXAPARIN 40 MG/0.4 ML SYRINGE SQ SCH (08:51)
[2018-10-22] MEDS: POLYETHYLENE GLYCOL 3350 17 GM POWD.PACK PO SCH (08:51)
[2018-10-22] MEDS: AZITHROMYCIN 500 MG TAB PO SCH (08:52)
[2018-10-22] MEDS: methylPREDNISolone SOD SUCCI 40 MG/ML 1 ML VIAL IV SCH ×3 (08:52→23:49)
[2018-10-22] MEDS: DOCUSATE 100 MG CAP PO SCH ×2 (08:52→21:46)
[2018-10-22] MEDS: FLUCONAZOLE 100 MG TAB PO SCH (08:52)
[2018-10-22] MEDS: DIAZEPAM 5 MG TAB PO SCH ×3 (08:52→21:46)
[2018-10-22] MEDS: CEFEPIME 1 GM in SODIUM CHLORIDE 0.9% 50 ML IVPB SCH ×2 (09:00→21:45)
[2018-10-22] MEDS: VANCOMYCIN 1,000 MG in SODIUM CHLORIDE 0.9% 250 ML IVPB SCH ×3 (09:01→23:49)
--- NOTE | 2018-10-22 09:09 | XR ---
EXAMINATION TYPE: XR chest 2V DATE OF EXAM: 10/22/2018 COMPARISON: Prior chest x-ray 10/21/[address] September 2018 HISTORY: Pneumonia TECHNIQUE: Frontal and lateral views of the chest are obtained. FINDINGS: Findings are similar to prior exam. There is abnormal increased density in the right lung with volume loss present. Patient is rotated. No evident pneumothorax. Heart size is likely stable. A yg is dense. Thoracic compression fracture is again seen. Pulmonary artery is prominent, correlate for pulmonary artery hypertension. Right-sided rib fractures are not well seen. IMPRESSION: Findings similar to prior exam. There is underlying emphysema, correlate for pneumonia, possible pulmonary artery hypertension, coronary artery disease. Follow-up to resolution. There are right-sided rib fractures noted on prior exam.
--- NOTE | 2018-10-22 10:57 | P.PN ---
Progress Note - Text Progress Note Date: 10/22/18 This is a 57-year-old lady with history of lung carcinoma with questionable metastasis to the thoracic spine. The patient's mid back pain has improved significantly since yesterday as the patient states, and most likely she is going to be discharged this afternoon. We'll sign off. Thank you for the consultation.
--- NOTE | 2018-10-22 13:20 | P.PN ---
Subjective Progress Note Date: 10/22/18 Principal diagnosis: Difficulty in breathing, history of lung cancer, intractable back pain In follow-up today patient's breathing is much more comfortable, back pain well-controlled, she did eat most of her lunch, she is asking about being discharged Objective - Vital Signs Vital signs: Vital Signs Temp 98.5 F 10/22/18 11:30 Pulse 100 10/22/18 12:20 Resp 20 10/22/18 11:30 BP 139/83 10/22/18 11:30 Pulse Ox 85 L 10/22/18 12:05 Intake & Output 10/21/18 10/22/18 10/22/18 18:59 06:59 18:59 Intake Total 945 800 540 Output Total 2450 Balance -1505 800 540 Weight 56.9 kg Intake: IV 165 600 Sodium Chloride 0.9% 1, 165 600 000 ml @ 75 mls/hr IV . [id number] MOMO Rx#:[id number] Intake, IV Titration 300 200 300 Amount Cefepime 1 gm In Sodium 50 100 50 Chloride 0.9% 50 ml @ 100 mls/hr IVPB Q12HR [facility]O Rx #:[id number] Vancomycin 1,000 mg In 250 100 250 Sodium Chloride 0.9% 250 ml @ 125 mls/hr IVPB Q8HR [facility]OMO Rx#:[id number] Oral 480 240 Output: Urine 2450 Other: Voiding Method Bedside Commode # Voids 2 1 1 # Bowel Movements 1 1 - Exam Well-developed, thin, frail female sitting up in bed, no acute distress, alert and oriented 3, respirations are even and unlabored, patient is much more calm in her affect, she does not exhibit signs or symptoms of pain, she is moving her body weight independently in the bed - Labs CBC & Chem 7: 10/22/18 06:12 10/22/18 06:12 Labs: Abnormal Lab Results - Last 24 Hours (Table) 10/22/18 10/22/18 Range/Units 06:12 06:12 RBC 2.85 L (3.80-5.40) m/uL Hgb 10.0 L (11.4-16.0) gm/dL Hct 30.5 L (34.0-46.0) % MCV 107.1 H (80.0-100.0) fL RDW 16.2 H (11.5-15.5) % Plt Count 125 L (150-450) k/uL Lymphocytes # (Manual) 0.38 L (1.0-4.8) k/uL Metamyelocytes # (Man) 0.23 H (0) k/uL Myelocytes # (Manual) 0.23 H (0) k/uL Chloride 89 L (98-107) mmol/L Carbon Dioxide 46 H* (22-30) mmol/L Creatinine 0.28 L (0.52-1.04) mg/dL Glucose 121 H (74-99) mg/dL Calcium 8.3 L (8.4-10.2) mg/dL Microbiology - Last 24 Hours (Table) 10/17/18 11:57 Blood Culture - Preliminary Blood No Growth after 96 hours Assessment and Plan (1) Respiratory failure Current Visit: Yes Status: Resolved Priority: High Code(s): J96.90 - RESPIRATORY FAILURE, UNSP, UNSP W HYPOXIA OR HYPERCAPNIA SNOMED Code(s): 157826597 (2) CAP (community acquired pneumonia) Current Visit: Yes Status: Acute Priority: High Code(s): J18.9 - PNEUMONIA, UNSPECIFIED ORGANISM SNOMED Code(s): 553449396 (3) Small cell lung carcinoma Narrative/Plan: Cytology from bronchoscopy does not show any evidence of malignancy. Patient has no other evidence of disease at this time. She is due for routine follow-up with Dr. Recinos in a few weeks. Patient will continue on her observation as directed. Current Visit: Yes Status: Chronic Priority: Medium Code(s): C34.90 - MALIGNANT NEOPLASM OF UNSP PART OF UNSP BRONCHUS OR LUNG SNOMED Code(s): 327877660 Plan: Leukocytosis: Resolved Mild anemia: No acute intervention, stable. Iron studies were suggestive of anemia of inflammation, no deficiencies Mild hepatomegaly on ultrasound-patient does have a history of EtOH abuse, possibly cirrhotic changes. Based on patient's hospital course may have to follow with recommendation for ERCP/MRCP for evaluation. Intractable back pain: On current medication regimen patient is doing much better. The only addition to her home regimen would be the Lidoderm patch.
[2018-10-22] MEDS: CITALOPRAM HYDROBROMIDE 20 MG TAB PO SCH (17:07)
--- NOTE | 2018-10-22 18:22 | P.PN ---
Subjective Progress Note Date: 10/22/18 Principal diagnosis: Right lung pneumonia The patient is seen today in 10/22/2018 in follow-up on the selective care unit. She is currently sitting up in bed. Awake and alert in no acute distress. She denies any worsening shortness of breath. Loose nonproductive cough. Breathing easier today as compared to yesterday. Feeling stronger as well. Chest x-ray continues to show improvement in the right lung pneumonia. There is underlying emphysema. Bronchial wash cultures reveal no growth except Divya. White count 7.5. Hemoglobin 10.0. Bicarb 46. Creatinine 0.28. She remains on vancomycin, cefepime, and azithromycin. Continued on DuoNeb inhalations, IV Solu-Medrol, Habitrol patch. Objective - Vital Signs Vital signs: Vital Signs Temp 98.1 F 10/22/18 15:36 Pulse 88 10/22/18 17:13 Resp 16 10/22/18 17:13 BP 123/86 10/22/18 15:36 Pulse Ox 93 L 10/22/18 17:03 Intake & Output 10/21/18 10/22/18 10/22/18 18:59 06:59 18:59 Intake Total 945 800 780 Output Total 2450 Balance -1505 800 780 Weight 56.9 kg Intake: IV 165 600 Sodium Chloride 0.9% 1, 165 600 000 ml @ 75 mls/hr IV . [id number] [facility] Rx#:[id number] Intake, IV Titration 300 200 300 Amount Cefepime 1 gm In Sodium 50 100 50 Chloride 0.9% 50 ml @ 100 mls/hr IVPB Q12HR [facility] Rx #:[id number] Vancomycin 1,000 mg In 250 100 250 Sodium Chloride 0.9% 250 ml @ 125 mls/hr IVPB Q8HR [facility] Rx#:[id number] Oral 480 480 Output: Urine 2450 Other: Voiding Method Bedside Commode # Voids 2 1 1 # Bowel Movements 1 1 - Exam GENERAL EXAM: Alert, thin 57-year-old white female comfortable in no apparent distress. On 2 L nasal cannula HEAD: Normocephalic/atraumatic. EYES: Normal reaction of pupils, equal size. Conjunctiva pink, sclera white. NOSE: Clear with pink turbinates. THROAT: No erythema or exudates. NECK: No masses, no JVD, no thyroid enlargement, no adenopathy. CHEST: No chest wall deformity. Symmetrical expansion. LUNGS: Equal air entry with diminished breath sounds, lower crackles at the bases right greater than left CVS: Regular rate and rhythm, normal S1 and S2, no gallops, no murmurs, no rubs ABDOMEN: Soft, nontender. No hepatosplenomegaly, normal bowel sounds, no guarding or rigidity. EXTREMITIES: No clubbing, no edema, no cyanosis, 2+ pulses and upper and lower extremities. MUSCULOSKELETAL: Muscle strength and tone normal. SPINE: No scoliosis or deformity SKIN: No rashes CENTRAL NERVOUS SYSTEM: No focal deficits, tone is normal in all 4 extremities. PSYCHIATRIC: Alert and oriented -3. Appropriate affect. Intact judgment and insight. - Labs CBC & Chem 7: 10/22/18 06:12 10/22/18 06:12 Labs: Abnormal Lab Results - Last 24 Hours (Table) 10/22/18 10/22/18 Range/Units 06:12 06:12 RBC 2.85 L (3.80-5.40) m/uL Hgb 10.0 L (11.4-16.0) gm/dL Hct 30.5 L (34.0-46.0) % MCV 107.1 H (80.0-100.0) fL RDW 16.2 H (11.5-15.5) % Plt Count 125 L (150-450) k/uL Lymphocytes # (Manual) 0.38 L (1.0-4.8) k/uL Metamyelocytes # (Man) 0.23 H (0) k/uL Myelocytes # (Manual) 0.23 H (0) k/uL Chloride 89 L (98-107) mmol/L Carbon Dioxide 46 H* (22-30) mmol/L Creatinine 0.28 L (0.52-1.04) mg/dL Glucose 121 H (74-99) mg/dL Calcium 8.3 L (8.4-10.2) mg/dL Microbiology - Last 24 Hours (Table) 10/17/18 11:57 Blood Culture - Preliminary Blood No Growth after 120 hours Assessment and Plan Assessment: Assessment: #1. Shortness of breath related to right lung pneumonia, chest x-ray showed significant opacification of the right hemithorax. She is status post bronchoscopy with BAL on 10/18/2018 with removal of large amount of tenacious secretions. Cultures with Divya only. Follow-up chest x-ray show improvement. #2. 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 Patient undergone both chemotherapy and radiation, and has been in remission. Both scan reveals abnormal uptake within the thoracic spine. Findings are nonspecific by bone scan and neoplastic process and compression fracture are within the differential diagnosis. #3. Ongoing tobacco use with nicotine addiction #4. History of alcohol abuse #5. Of chronic disease #6. Anorexia/cachexia syndrome of malignancy #7. Elevated d-dimer #8. Elevated proBNP sudjesting possibility of underlying congestive heart failure Plan: The patient was seen and evaluated by Dr. Hein. She is improved today co mpared to yesterday. Breathing easier. Chest x-ray does show improvement in aeration of the right lung but still significant infiltrate. She remains on vancomycin, cefepime, azithromycin. Continue with bronchodilators. Wash cultures with Divya only thus far. She is again educated regarding the importance of complete smoking cessation. NicoDerm patch remains in place. Possible discharge in the a.m. We will continue to follow and make further recommendations based on her clinical status. I, the cosigning physician, performed a history & physical examination of the pa luh. Lungs sounds with bilateral scattered rhonchi right greater than left.. Maintaining good O2 saturations in the 90s on 2 L/m per nasal cannula. I discussed the assessment and plan of care with my nurse practitioner, Cassandra Nolan. I attest to the above note as dictated by her.
[2018-10-22] MEDS: traZODone HCL 100 MG TAB PO SCH (21:45)
--- NOTE | 2018-10-23 00:57 | P.PN ---
Subjective Progress Note Date: 10/22/18 Principal diagnosis: Right-sided postobstructive pneumonia with mucous plug removal by bronchoscopy Patient is a 57-year-old female with a known history of metastatic lung cancer with PET scan in June with no further disease admitted with postobstructive pneumonia, acute hypoxic respiratory failure, metabolic encephalopathy from taking pain medications and sedatives. Status post bronchoscopy and mucous plug removal. Patient also had right lung collapse. 10/21/2018 Patient denied any complaints of chest pain or shortness breath. Patient did have abdominal distention and ileus yesterday with improvement of symptoms and bowel movement today. Patient is awake alert and oriented. Saturating well on nasal cannula oxygen. Patient has been afebrile. Patient is status post bronchoscopy. BAL cultures showed Divya. Blood cultures showed no growth. Pulmonary is following Chest x-ray showed diffuse lung disease in the right is stable. Asymmetric pulmonary edema, diffuse pneumonia, endobronchial lesion, neoplasm or mucous plug in the differential. Stable small left effusion and subsegmental atelectasis/consolidation. Fractures involving the lateral right rib cage maybe recent correlate clinically. Patient was seen by orthopedic surgery and recommends no surgical intervention at this time. 10/22/2018 Patient is currently awake alert oriented. Able to sit on the bed comfortably. Denied any worsening shortness of breath or chest pain. Rib pain and back pain improved currently. X-ray chest x-ray showed improvement in the right lung pneumonia. Underlying emphysema. Bronchial wash cultures showed no growth except Divya. Currently on broad-spectrum antibiotics in the form of vancomycin and cefepime and azithromycin. Also on breathing treatments and Solu-Medrol 40 mg every 8h. Pulmonary and pain management service is following. Current medications reviewed. Objective - Vital Signs Vital signs: Vital Signs Temp 97.5 F L 10/22/18 21:02 Pulse 93 10/22/18 21:02 Resp 17 10/22/18 21:02 BP 139/91 10/22/18 21:02 Pulse Ox 92 L 10/22/18 21:02 Intake & Output 10/22/18 10/22/18 10/23/18 06:59 18:59 06:59 Intake Total 800 780 Balance 800 780 Weight 56.9 kg Intake: IV 600 Sodium Chloride 0.9% 1, 600 000 ml @ 75 mls/hr IV . [id number] [facility] Rx#:[id number] Intake, IV Titration 200 300 Amount Cefepime 1 gm In Sodium 100 50 Chloride 0.9% 50 ml @ 100 mls/hr IVPB Q12HR [facility] Rx #:[id number] Vancomycin 1,000 mg In 100 250 Sodium Chloride 0.9% 250 ml @ 125 mls/hr IVPB Q8HR [facility] Rx#:[id number] Oral 480 Other: Voiding Method Bedside Commode # Voids 1 1 # Bowel Movements 1 - Exam PHYSICAL EXAMINATION: Patient is lying in the bed comfortably, no acute distress, awake alert and oriented.. HEENT: Normocephalic. Neck is supple. Pupils reactive. Nostrils clear. Oral cavity is moist. Ears reveal no drainage. Neck reveals no JVD, carotid bruits, or thyromegaly. CHEST EXAMINATION: Trachea is central. Symmetrical expansion. Bibasilar crackles and no wheezing. Diminished air entry. CARDIAC: Normal S1, S2 with no gallops. No murmurs ABDOMEN: Soft. Bowel sounds normal. No organomegaly. No abdominal bruits. Extremities: reveal no edema. No clubbing or cyanosis Neurologically awake, alert, oriented x3 with well-coordinated movements. No focal deficits noted Skin: No rash or skin lesions. Psychiatric: Coperative. Nonsuicidal Musculoskeletal: No joint swelling or deformity. Normal range of motion. - Labs CBC & Chem 7: 10/22/18 06:12 10/22/18 06:12 Labs: Abnormal Lab Results - Last 24 Hours (Table) 10/22/18 10/22/18 Range/Units 06:12 06:12 RBC 2.85 L (3.80-5.40) m/uL Hgb 10.0 L (11.4-16.0) gm/dL Hct 30.5 L (34.0-46.0) % MCV 107.1 H (80.0-100.0) fL RDW 16.2 H (11.5-15.5) % Plt Count 125 L (150-450) k/uL Lymphocytes # (Manual) 0.38 L (1.0-4.8) k/uL Metamyelocytes # (Man) 0.23 H (0) k/uL Myelocytes # (Manual) 0.23 H (0) k/uL Chloride 89 L (98-107) mmol/L Carbon Dioxide 46 H* (22-30) mmol/L Creatinine 0.28 L (0.52-1.04) mg/dL Glucose 121 H (74-99) mg/dL Calcium 8.3 L (8.4-10.2) mg/dL Microbiology - Last 24 Hours (Table) 10/17/18 11:57 Blood Culture - Preliminary Blood No Growth after 120 hours Assessment and Plan Assessment: - Shortness of breath related to post obstructive right lung pneumonia, She is status post bronchoscopy with BAL on 10/18/2018 with removal of large amount of tenacious secretions. Cultures with Divya only. 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 Patient undergone both chemotherapy and radiation, and has been in remission. Both scan reveals abnormal uptake within the thoracic spine. - Ileus resolved with enema. Patient did have bowel movement. - Acute hypoxic respiratory failure secondary to pneumonia and COPD - Acute metabolic and toxic encephalopathy hypoxia, infection and sedative medications - Ongoing tobacco use with nicotine addiction - History of alcohol abuse - Anemia Of chronic disease - Anorexia/cachexia syndrome of malignancy - Moderate protein calorie malnutrition - Elevated d-dimer - Elevated proBNP sudjesting possibility of underlying congestive heart failure Plan: Patient will be continued on antibiotics no cough vancomycin and cefepime and azithromycin. Continue with DuoNeb's and IV steroids are being continued. We will increase oral intake and follow final culture reports. Pulmonary is following. Orthopedics recommends conservative management for rib fractures. Continue the pain management and pain management consult placed. Smoking cessation has been counseled extensively. Further recommendations based on clinical course. Prognosis poor. Time with Patient: Greater than 30
[2018-10-23] MEDS: IBUPROFEN 800 MG TAB PO PRN (02:32)
[2018-10-23 06:44] VITALS: RESP 16
[2018-10-23] MEDS ORDERED: VANCOMYCIN TROUGH DUE 1 EACH MISC MISCELLANE ONE (07:00)
[2018-10-23] MEDS: DOCUSATE 100 MG CAP PO SCH (08:12)
[2018-10-23] MEDS: AZITHROMYCIN 500 MG TAB PO SCH (08:12)
[2018-10-23] MEDS: FLUCONAZOLE 100 MG TAB PO SCH (08:12)
[2018-10-23] MEDS: DIAZEPAM 5 MG TAB PO SCH ×2 (08:12→16:22)
[2018-10-23] MEDS: methylPREDNISolone SOD SUCCI 40 MG/ML 1 ML VIAL IV SCH ×2 (08:12→16:22)
[2018-10-23] MEDS: CITALOPRAM HYDROBROMIDE 20 MG TAB PO SCH (08:12)
[2018-10-23] MEDS: ENOXAPARIN 40 MG/0.4 ML SYRINGE SQ SCH (08:14)
[2018-10-23] MEDS: IPRATROPIUM-ALBUTEROL 3 ML NEB INHALATION SCH ×4 (08:43→19:54)
--- NOTE | 2018-10-23 08:48 | XR ---
EXAMINATION TYPE: XR chest 2V DATE OF EXAM: 10/23/2018 COMPARISON: Prior chest x-ray 10/22/2018 HISTORY: Pneumonia TECHNIQUE: Frontal and lateral views of the chest are obtained. FINDINGS: Increasing density noted at the right lung base, there is obscured right hemidiaphragm. Vo lume loss suspected in the right hemithorax. No evident pneumothorax. Heart size is likely stable. In terstitium is increased, left lung shows increased volume. IMPRESSION: Worsening airspace disease or possible development of atelectasis, effusion in the right hemithorax.
[2018-10-23] MEDS: CEFEPIME 1 GM in SODIUM CHLORIDE 0.9% 50 ML IVPB SCH (09:11)
[2018-10-23] MEDS: LIDOCAINE 5% PATCH TOPICAL SCH (09:11)
[2018-10-23] MEDS: NICOTINE 14MG/24HR PATCH TRANSDERM SCH (09:13)
[2018-10-23] MEDS: VANCOMYCIN 1,000 MG in SODIUM CHLORIDE 0.9% 250 ML IVPB SCH ×2 (10:56→16:21)
[2018-10-23 12:52] VITALS: BMI 22.9
[2018-10-23 15:26] VITALS: BP 115/77; TEMP 98.5
[2018-10-23 15:48] VITALS: PULSE 88
[2018-10-23] MEDS: POLYETHYLENE GLYCOL 3350 17 GM POWD.PACK PO SCH (16:20)
--- NOTE | 2018-10-23 16:54 | P.PN ---
Subjective Progress Note Date: 10/23/18 Principal diagnosis: Dyspnea On 10/19/2018 patient seen in follow-up on selective care unit, he is awake and alert, in no acute distress, she still has a occasional cough with production of yellow sputum, current antibiotic coverage in the form of Zithromax and Rocephin, patient is status post bronchoscopy with BAL on 10/18/2018, bronchial wash cultures are pending, was positive for Divya albicans only thus far. No fever or chills, platelets of chest pain, she remains on 3 L of oxygen with a pulse ox of 98%, hemodynamically stable, will patient is weak, her incentive s pirometer effort is only 500 mL. Lung sounds reveal diminished breath sounds with some limited crackles at the bases. On 10/23/2018 patient seen in follow-up on medical surgical floor. She is awake and alert, in no acute distress, she is resting in bed, currently on 2 L of oxygen, and the pulse ox of 92-96%, she is afebrile, hemodynamically stable, she denies worsening shortness of breath, she thinks she is going home today, his labs have been reviewed, and showed a white blood cell count of 7.5, hemoglobin of 10.0. Sodium of 139: Potassium is 3.6, chloride was 89, CO2 is 46, BUN was 11, creatinine 0.28, urine Legionella antigen was negative. Patient is on a combination of Zithromax, cefepime and vancomycin, bronchoalveolar lavage cultures were negative with exception of Divya, cytology of the bronchus wash was negative. No fever or chills, completed chest pain. Denies chest x-ray actually showed worsening of the airspace disease in the right lung, or possible development of atelectasis and effusion in the right hemithorax. patient denies any worsening dyspnea, her rib pain and back pain have improved. Objective - Vital Signs Vital signs: Vital Signs Temp 98.0 F 10/23/18 06:43 Pulse 92 10/23/18 12:06 Resp 16 10/23/18 06:43 BP 133/84 10/23/18 06:43 Pulse Ox 96 10/23/18 06:43 Intake & Output 10/22/18 10/23/18 10/23/18 18:59 06:59 18:59 Intake Total 780 Balance 780 Weight 56.9 kg Intake: Intake, IV Titration 300 Amount Cefepime 1 gm In Sodium 50 Chloride 0.9% 50 ml @ 100 mls/hr IVPB Q12HR [facility] Rx #:[id number] Vancomycin 1,000 mg In 250 Sodium Chloride 0.9% 250 ml @ 125 mls/hr IVPB Q8HR [facility] Rx#:[id number] Oral 480 Other: # Voids 1 2 # Bowel Movements 1 - Exam GENERAL EXAM: Alert, weak, thin 57-year-old white female comfortable in no apparent distress, HEAD: Normocephalic/atraumatic. EYES: Normal reaction of pupils, equal size. Conjunctiva pink, sclera white. NOSE: Clear with pink turbinates. THROAT: No erythema or exudates. NECK: No masses, no JVD, no thyroid enlargement, no adenopathy. CHEST: No chest wall deformity. Symmetrical expansion. LUNGS: Equal air entry with fine rales at the right lower lobe CVS: Regular rate and rhythm, normal S1 and S2, no gallops, no murmurs, no rubs ABDOMEN: Soft, nontender. No hepatosplenomegaly, normal bowel sounds, no guarding or rigidity. EXTREMITIES: No clubbing, no edema, no cyanosis, 2+ pulses and upper and lower extremities. MUSCULOSKELETAL: Muscle strength and tone normal. SPINE: No scoliosis or deformity SKIN: No rashes CENTRAL NERVOUS SYSTEM: Alert and oriented -3. No focal deficits, tone is normal in all 4 extremities. PSYCHIATRIC: Alert and oriented -3. Appropriate affect. Intact judgment and insight. - Labs CBC & Chem 7: 10/22/18 06:12 10/22/18 06:12 Labs: Microbiology - Last 24 Hours (Table) 10/17/18 11:57 Blood Culture - Preliminary Blood No Growth after 120 hours Assessment and Plan Plan: Assessment: #1. Shortness of breath related to right lung pneumonia, chest x-ray showed significant opacification of the right hemithorax. She is status post bronchoscopy with BAL on 10/18/2018 with removal of large amount of tenacious secretions, bronchial wash cultures were positive for Divya albicans only, and cytology was negative #2. 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 Patient undergone both chemotherapy and radiation, and has been in remission #3. Ongoing tobacco use with nicotine addiction #4. History of alcohol abuse #5. Of chronic disease #6. Anorexia/cachexia syndrome of malignancy #7. Elevated d-dimer #8. Elevated proBNP sudjesting possibility of underlying congestive heart failure Plan: Clinically patient is improving, although today's chest x-ray shows worsening in the appearance of the airspace disease in the right lung, possible development of atelectasis at the right lung base, and small pleural effusion. Encouraged patient to set up in the chair, deep breathe and cough, provided the incentive spirometry. There had been no fever or chills, cytology this bronchial wash cultures were negative. Complete a home oxygen assessment test. Patient has been treated with the cefepime and vancomycin, clinically improving, from pulmonary perspective she stable for discharge home today with 7 day course of oral Avelox 400 mg daily for 7 days, prednisone taper, she will need to follow- up with Dr. Zhang in the office in 7-10 days. I performed a history & physical examination of the patient and discussed their management with my nurse practitioner, Rebecca Amaral. I reviewed the nurse practitioner's note and agree with the documented findings and plan of care. Lung sounds are positive for diminished breath sounds, some limited crackles. The findings and the impression was discussed with the patient. I attest to the documentation by the nurse practitioner. Time with Patient: Less than 30
--- NOTE | 2018-10-24 00:35 | P.PN ---
Subjective Progress Note Date: 10/23/18 Principal diagnosis: Right-sided postobstructive pneumonia with mucous plug removal by bronchoscopy Patient is a 57-year-old female with a known history of metastatic lung cancer with PET scan in June with no further disease admitted with postobstructive pneumonia, acute hypoxic respiratory failure, metabolic encephalopathy from taking pain medications and sedatives. Status post bronchoscopy and mucous plug removal. Patient also had right lung collapse. 10/21/2018 Patient denied any complaints of chest pain or shortness breath. Patient did have abdominal distention and ileus yesterday with improvement of symptoms and bowel movement today. Patient is awake alert and oriented. Saturating well on nasal cannula oxygen. Patient has been afebrile. Patient is status post bronchoscopy. BAL cultures showed Divya. Blood cultures showed no growth. Pulmonary is following Chest x-ray showed diffuse lung disease in the right is stable. Asymmetric pulmonary edema, diffuse pneumonia, endobronchial lesion, neoplasm or mucous plug in the differential. Stable small left effusion and subsegmental atelectasis/consolidation. Fractures involving the lateral right rib cage maybe recent correlate clinically. Patient was seen by orthopedic surgery and recommends no surgical intervention at this time. 10/22/2018 Patient is currently awake alert oriented. Able to sit on the bed comfortably. Denied any worsening shortness of breath or chest pain. Rib pain and back pain improved currently. X-ray chest x-ray showed improvement in the right lung pneumonia. Underlying emphysema. Bronchial wash cultures showed no growth except Divya. Currently on broad-spectrum antibiotics in the form of vancomycin and cefepime and azithromycin. Also on breathing treatments and Solu-Medrol 40 mg every 8h. Pulmonary and pain management service is following. 10/23/2018 Patient is currently awake and oriented. Sitting in the bed comfortably. Saturating well on 2 L oxygen with another cannula. Pain is fairly controlled. Currently being continued on antibiotics off vancomycin syringe him and azithromycin. Chest x-ray showed worsening of the airspace disease in the right lung for possible development of atelectasis and effusion in the right hemithorax. Otherwise patient denied any worsening shortness of breath. Pulmonary is following. Patient has been afebrile. Pain management service is on board. Patient will need home oxygen evaluation. Current medications reviewed. Objective - Vital Signs Vital signs: Vital Signs Temp 98.5 F 10/23/18 15:00 Pulse 88 10/23/18 15:48 Resp 16 10/23/18 15:00 BP 115/77 10/23/18 15:00 Pulse Ox 93 L 10/23/18 15:00 Intake & Output 10/23/18 10/23/18 10/24/18 06:59 18:59 06:59 Intake Total 350 Balance 350 Weight 56.9 kg Intake: Intake, IV Titration 150 Amount Cefepime 1 gm In Sodium 50 Chloride 0.9% 50 ml @ 100 mls/hr IVPB Q12HR [facility] Rx #:[id number] Vancomycin 1,000 mg In 100 Sodium Chloride 0.9% 250 ml @ 125 mls/hr IVPB Q8HR [facility] Rx#:[id number] Oral 200 Other: # Voids 2 - Exam PHYSICAL EXAMINATION: Patient is lying in the bed comfortably, no acute distress, awake alert and oriented.. HEENT: Normocephalic. Neck is supple. Pupils reactive. Nostrils clear. Oral cavity is moist. Ears reveal no drainage. Neck reveals no JVD, carotid bruits, or thyromegaly. CHEST EXAMINATION: Trachea is central. Symmetrical expansion. Bibasilar crackles and no wheezing. Diminished air entry. CARDIAC: Normal S1, S2 with no gallops. No murmurs ABDOMEN: Soft. Bowel sounds normal. No organomegaly. No abdominal bruits. Extremities: reveal no edema. No clubbing or cyanosis Neurologically awake, alert, oriented x3 with well-coordinated movements. No focal deficits noted Skin: No rash or skin lesions. Psychiatric: Coperative. Nonsuicidal Musculoskeletal: No joint swelling or deformity. Normal range of motion. - Labs CBC & Chem 7: 10/22/18 06:12 10/22/18 06:12 Labs: Microbiology - Last 24 Hours (Table) 10/17/18 11:57 Blood Culture - Final Blood No Growth after 144 hours Assessment and Plan Assessment: - Shortness of breath related to post obstructive right lung pneumonia, She is status post bronchoscopy with BAL on 10/18/2018 with removal of large amount of tenacious secretions. Cultures with Divya only. 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 Patient undergone both chemotherapy and radiation, and has been in remission. Both scan reveals abnormal uptake within the thoracic spine. - Ileus resolved with enema. Patient did have bowel movement. - Acute hypoxic respiratory failure secondary to pneumonia and COPD - Acute metabolic and toxic encephalopathy hypoxia, infection and sedative medications - Ongoing tobacco use with nicotine addiction - History of alcohol abuse - Anemia Of chronic disease - Anorexia/cachexia syndrome of malignancy - Moderate protein calorie malnutrition - Elevated d-dimer - Elevated proBNP sudjesting possibility of underlying congestive heart failure Plan: Patient will be continued on antibiotics no cough vancomycin and cefepime and azithromycin. Continue with DuoNeb's and IV steroids are being continued. We will increase oral intake and follow final culture reports. Pulmonary is following. encourage incentive spirometry and deep breathing exercises. Orthopedics recommends conservative management for rib fractures. Continue the pain management and pain management consult placed. Smoking cessation has been counseled extensively. Further recommendations based on clinical course. Prognosis poor. Anticipate discharge home with final pulmonary recommendations. Patient will need home oxygen evaluation. Time with Patient: Greater than 30
[2018-10-24] MEDS ORDERED: VANCOMYCIN TROUGH DUE 1 EACH MISC MISCELLANE ONE (07:00)
--- NOTE | 2018-11-01 22:01 | P.DS ---
Providers Date of admission: 10/17/18 14:29 Expected date of discharge: 10/23/18 Attending physician: Esa Campa Consults: 10/17/18 14:29 Consult Physician Stat Consulting Provider: Ravinder Zhang Consult Reason/Comments: pneumonia, hypoxia Do you want consulting provider notified?: Already Contacted 10/17/18 21:30 Consult Physician Routine Consulting Provider: Janett Recinos Consult Reason/Comments: lung ca Do you want consulting provider notified?: Yes 10/20/18 16:34 Consult Physician Routine Consulting Provider: William Chan Consult Reason/Comments: pain management Do you want consulting provider notified?: Yes 10/20/18 16:36 Consult Physician Routine Consulting Provider: Manuel Mendez Consult Reason/Comments: back pain Do you want consulting provider notified?: Yes [facility] Course: Discharge diagnosis - Shortness of breath related to post obstructive right lung pneumonia, She is status post bronchoscopy with BAL on 10/18/2018 with removal of large amount of tenacious secretions. Cultures with Divya only. 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 Patient undergone both chemotherapy and radiation, and has been in remission. Both scan reveals abnormal uptake within the thoracic spine. - Ileus resolved with enema. Patient did have bowel movement. - Acute hypoxic respiratory failure secondary to pneumonia and COPD - Acute metabolic and toxic encephalopathy hypoxia, infection and sedative medications - Ongoing tobacco use with nicotine addiction - History of alcohol abuse - Anemia Of chronic disease - Anorexia/cachexia syndrome of malignancy - Moderate protein calorie malnutrition - Elevated d-dimer - Elevated proBNP sudjesting possibility of underlying congestive heart failure Hospital course Patient is a 57-year-old female with a known history of metastatic lung cancer with PET scan in June with no further disease admitted with postobstructive pneumonia, acute hypoxic respiratory failure, metabolic encephalopathy from taking pain medications and sedatives. Status post bronchoscopy and mucous plug removal. Patient also had right lung collapse. 10/21/2018 Patient denied any complaints of chest pain or shortness breath. Patient did have abdominal distention and ileus yesterday with improvement of symptoms and bowel movement today. Patient is awake alert and oriented. Saturating well on nasal cannula oxygen. Patient has been afebrile. Patient is status post br onchoscopy. BAL cultures showed Divya. Blood cultures showed no growth. Pulmonary is following Chest x-ray showed diffuse lung disease in the right is stable. Asymmetric pulmonary edema, diffuse pneumonia, endobronchial lesion, neoplasm or mucous plug in the differential. Stable small left effusion and subsegmental atelectasis/consolidation. Fractures involving the lateral right rib cage maybe recent correlate clinically. Patient was seen by orthopedic surgery and recommends no surgical intervention at this time. 10/22/2018 Patient is currently awake alert oriented. Able to sit on the bed comfortably. Denied any worsening shortness of breath or chest pain. Rib pain and back pain improved currently. X-ray chest x-ray showed improvement in the right lung pneumonia. Underlying emphysema. Bronchial wash cultures showed no growth except Divya. Currently on broad-spectrum antibiotics in the form of vancomycin and cefepime and azithromycin. Also on breathing treatments and Solu-Medrol 40 mg every 8h. Pulmonary and pain management service is following. 10/23/2018 Patient is currently awake and oriented. Sitting in the bed comfortably. Saturating well on 2 L oxygen with another cannula. Pain is fairly controlled. Currently being continued on antibiotics off vancomycin syringe him and azithromycin. Chest x-ray showed worsening of the airspace disease in the right lung for possible development of atelectasis and effusion in the right hemithorax. Otherwise patient denied any worsening shortness of breath. Pulmonary is following. Patient has been afebrile. Pain management service is on board. Patient will need home oxygen evaluation. Patient is stable to be discharged home to continue with antibiotics in the form of moxifloxacin. PHYSICAL EXAMINATION: Patient is lying in the bed comfortably, no acute distress, awake alert and oriented.. HEENT: Normocephalic. Neck is supple. Pupils reactive. Nostrils clear. Oral cavity is moist. Ears reveal no drainage. Neck reveals no JVD, carotid bruits, or thyromegaly. CHEST EXAMINATION: Trachea is central. Symmetrical expansion. Bibasilar crackles and no wheezing. Diminished air entry. CARDIAC: Normal S1, S2 with no gallops. No murmurs ABDOMEN: Soft. Bowel sounds normal. No organomegaly. No abdominal bruits. Extremities: reveal no edema. No clubbing or cyanosis Neurologically awake, alert, oriented x3 with well-coordinated movements. No focal deficits noted Skin: No rash or skin lesions. Psychiatric: Coperative. Nonsuicidal Musculoskeletal: No joint swelling or deformity. Normal range of motion. Vital Signs Temp 98.5 F 10/23/18 15:00 Pulse 88 10/23/18 15:48 Resp 16 10/23/18 15:00 BP 115/77 10/23/18 15:00 Pulse Ox 93 L 10/23/18 15:00 Intake & Output 10/23/18 10/23/18 10/24/18 06:59 18:59 06:59 Intake Total 350 Balance 350 Weight 56.9 kg Intake: Intake, IV Titration 150 Amount Cefepime 1 gm In Sodium 50 Chloride 0.9% 50 ml @ 100 mls/hr IVPB Q12HR [facility] Rx #:[id number] Vancomycin 1,000 mg In 100 Sodium Chloride 0.9% 250 ml @ 125 mls/hr IVPB Q8HR [facility] Rx#:[id number] Oral 200 Other: # Voids 2 Total time taken greater than 35 minutes including 18 minutes for counseling and coordination of care. Patient Condition at Discharge: Poor Plan - Discharge Summary Discharge Rx Participant: No New Discharge Prescriptions: New Docusate [Colace] 100 mg PO BID PRN #60 cap PRN Reason: Constipation Ipratropium-Albuterol Nebulize [Duoneb 0.5 mg-3 mg/3 ml Soln] 3 ml INHALATION RT-QID PRN #60 ampul.neb PRN Reason: Shortness Of Breath Lidocaine 5% Patch [Lidoderm 5% Patch] 1 patch TOPICAL DAILY #7 patch Moxifloxacin HCl [Avelox] 400 mg PO DAILY 7 Days #7 tablet Continue traZODone HCL [Desyrel] 100 mg PO HS Citalopram Hydrobromide [CeleXA] 20 mg PO DAILY Ibuprofen [Motrin] 800 mg PO TID PRN PRN Reason: Pain Benzonatate [Tessalon Perles] 100 mg PO TID PRN PRN Reason: Cough Diazepam [Valium] 7.5 mg PO TID PRN PRN Reason: Anxiety Cyclobenzaprine [Flexeril] 5 mg PO TID PRN PRN Reason: Muscle Spasm Acetaminophen/Diphenhydramine [Tylenol PM Extra Strength] 1 tab PO HS PRN PRN Reason: Pain Discontinued Ipratropium Krebs [Atrovent Hfa] 2 puff INHALATION RT-QID Discharge Medication List traZODone HCL [Desyrel] 100 mg PO HS 07/02/17 [History] Citalopram Hydrobromide [CeleXA] 20 mg PO DAILY 09/12/17 [History] Acetaminophen/Diphenhydramine [Tylenol PM Extra Strength] 1 tab PO HS PRN [History] Benzonatate [Tessalon Perles] 100 mg PO TID PRN 10/17/18 [History] Cyclobenzaprine [Flexeril] 5 mg PO TID PRN 10/17/18 [History] Diazepam [Valium] 7.5 mg PO TID PRN 10/17/18 [History] Ibuprofen [Motrin] 800 mg PO TID PRN 10/17/18 [History] Docusate [Colace] 100 mg PO BID PRN #60 cap 10/23/18 [Rx] Ipratropium-Albuterol Nebulize [Duoneb 0.5 mg-3 mg/3 ml Soln] 3 ml INHALATION RT-QID PRN #60 ampul.neb 10/23/18 [Rx] Lidocaine 5% Patch [Lidoderm 5% Patch] 1 patch TOPICAL DAILY #7 patch 10/23/18 [Rx] Moxifloxacin HCl [Avelox] 400 mg PO DAILY 7 Days #7 tablet 10/23/18 [Rx] Follow up Appointment(s)/Referral(s): Zev Contreras MD [Primary Care Provider] - 1-2 days Asa Ma PAC [PHYSICIAN LOSS PREVENTION RESEARCH ENGINEER] - 3 Weeks (Patient may follow-up with Asa Ma PA-C or Dr. Rogelio Mendez at [facility] in 2-3 weeks following discharge. ) Ravinder Zhang DO [Doctor of Osteopathic Medicine] - 1 Week Janett Recinos MD [STAFF PHYSICIAN] - 11/11/18 4:45 pm Patient Instructions/Handouts: Pneumonia (DC), Flexible Bronchoscopy (DC) Discharge Disposition: HOME WITH HOME HEALTH SERVICES
== END 2018-10-23 20:16 | disposition home health service (06) | DRG 871 ==
LOC: EC 11:17 → 2SICU 14:29 → 3SCARD 10-18 18:40 → 4MS4W 10-22 20:30
PROVIDERS: ADMIT Hospitalist; ATTEND Hospitalist
PROC: 0BC68ZZ Extirpation of Matter from Right Lower Lobe Bronchus, Via Natural or Artificial Opening Endoscopic (ICD-10-PCS; 2018-10-18)
PROC: 0BC48ZZ Extirpation of Matter from Right Upper Lobe Bronchus, Via Natural or Artificial Opening Endoscopic (ICD-10-PCS; 2018-10-18)
PROC: 0BC58ZZ Extirpation of Matter from Right Middle Lobe Bronchus, Via Natural or Artificial Opening Endoscopic (ICD-10-PCS; 2018-10-18)
PROC: 0BC38ZZ Extirpation of Matter from Right Main Bronchus, Via Natural or Artificial Opening Endoscopic (ICD-10-PCS; 2018-10-18)
PROC: 0B9D8ZX Drainage of Right Middle Lung Lobe, Via Natural or Artificial Opening Endoscopic, Diagnostic (ICD-10-PCS; principal; 2018-10-18 12:59)
DX: A41.9 Sepsis, unspecified organism (principal); J96.01 Acute respiratory failure with hypoxia; J96.02 Acute respiratory failure with hypercapnia; G92 Toxic encephalopathy; J18.9 Pneumonia, unspecified organism; E87.2 Acidosis; R64 Cachexia; E44.1 Mild protein-calorie malnutrition; E87.1 Hypo-osmolality and hyponatremia; C34.31 Malignant neoplasm of lower lobe, right bronchus or lung; K56.7 Ileus, unspecified; M48.54XA Collapsed vertebra, not elsewhere classified, thoracic region, initial encounter for fracture; T17.590A Other foreign object in bronchus causing asphyxiation, initial encounter; J43.9 Emphysema, unspecified; I95.9 Hypotension, unspecified; F10.20 Alcohol dependence, uncomplicated; F17.210 Nicotine dependence, cigarettes, uncomplicated; F41.9 Anxiety disorder, unspecified; F32.9 Major depressive disorder, single episode, unspecified; D63.8 Anemia in other chronic diseases classified elsewhere; T48.1X5A Adverse effect of skeletal muscle relaxants [neuromuscular blocking agents], initial encounter; T42.4X5A Adverse effect of benzodiazepines, initial encounter; Z71.3 Dietary counseling and surveillance; Z71.6 Tobacco abuse counseling; Z68.22 Body mass index [BMI] 22.0-22.9, adult; Z79.899 Other long term (current) drug therapy; Z85.118 Personal history of other malignant neoplasm of bronchus and lung; Z92.3 Personal history of irradiation; Z92.21 Personal history of antineoplastic chemotherapy; Z82.5 Family history of asthma and other chronic lower respiratory diseases; Z80.1 Family history of malignant neoplasm of trachea, bronchus and lung; Z82.49 Family history of ischemic heart disease and other diseases of the circulatory system; Z81.1 Family history of alcohol abuse and dependence
CPT/HCPCS: 31624; 36415; 71045; 71046; 71275; 74019; 76705; 78306; 80048; 80053; 80202; 82607; 82728; 82747; 82803; 83540; 83550; 83605; 83880; 84484; 85025; 85379; 87040; 87070; 87102; 87116; 87205; 87206; 87252; 87449; 87496; 87498; 87502; 87529; 87634; 87798; 88108; 88305; 89050; 93005; 93306; 94640; 94760; 96361; 96365; 96375; 99285

== ENCOUNTER 2018-11-16 20:23 | Inpatient (IN) | payer OTHER ==
[2018-11-16 20:29] LABS: Glucose,Whole Blood 100 mg/dL (75-99)
[2018-11-16] MEDS ORDERED: VANCOMYCIN IV PER PHARMACY 1 EACH MISC MISCELLANE PRN (20:32)
[2018-11-16] MEDS ORDERED: VANCOMYCIN 1,000 MG in SODIUM CHLORIDE 0.9% 250 ML IVPB STA (20:37)
[2018-11-16] MEDS ORDERED: ACETAMINOPHEN SUPPOSITORY 650 MG SUPP RECTAL PRN (20:40)
[2018-11-16] MEDS ORDERED: NALOXONE 0.4 MG/ML 1 ML VIAL IV PRN (20:40)
[2018-11-16 20:48] LABS: ABG Base Excess -0.2 mmol/L; ABG HCO3 28 mmol/L (21-25); ABG Oxygen Saturation 95.5 % (94-97); ABG PO2 79 mmHg (83-108); ABG TCO2 30 mmol/L (19-24); Allen Test Performed? Yes
--- NOTE | 2018-11-16 20:48 | ED ---
General Adult HPI - General Chief complaint: Shortness of Breath Stated complaint: Pneumonia Time Seen by Provider: 11/16/18 20:27 Source: EMS, RN notes reviewed, old records reviewed Mode of arrival: EMS Limitations: language barrier, altered mental status, physical limitation - History of Present Illness Initial comments: 57-year-old female presenting as transfer from outside hospital with altered mental status, septic shock, pneumonia. Patient unable to give history. She is only responsive to sternal rub. She was transferred for ICU management. There was a discussion with the ER physician and from a prior to transfer that this patient did not want intubation or CPR. She was willing to receive all other life-saving measures. Medical record was reviewed. - Related Data Home Medications Medication Instructions Recorded Confirmed traZODone HCL [Desyrel] 100 mg PO HS 07/02/17 10/17/18 Citalopram Hydrobromide [CeleXA] 20 mg PO DAILY 09/12/17 10/17/18 Acetaminophen/Diphenhydramine 1 tab PO HS PRN 10/17/18 10/17/18 [Tylenol PM Extra Strength] Benzonatate [Tessalon Perles] 100 mg PO TID PRN 10/17/18 10/17/18 Cyclobenzaprine [Flexeril] 5 mg PO TID PRN 10/17/18 10/17/18 Diazepam [Valium] 7.5 mg PO TID PRN 10/17/18 10/17/18 Ibuprofen [Motrin] 800 mg PO TID PRN 10/17/18 10/17/18 Previous Rx's Medication Instructions Recorded Docusate [Colace] 100 mg PO BID PRN #60 cap 10/23/18 Ipratropium-Albuterol Nebulize 3 ml INHALATION RT-QID PRN #60 10/23/18 [Duoneb 0.5 mg-3 mg/3 ml Soln] ampul.neb Lidocaine 5% Patch [Lidoderm 5% 1 patch TOPICAL DAILY #7 patch 10/23/18 Patch] Moxifloxacin HCl [Avelox] 400 mg PO DAILY 7 Days #7 tablet 10/23/18 Allergies Allergy/AdvReac Type Severity Reaction Status Date / Time No Known Allergies Allergy Verified 10/17/18 12:08 Review of Systems ROS Statement: Those systems with pertinent positive or pertinent negative responses have been documented in the HPI. ROS Other: All systems not noted in ROS Statement are negative. Past Medical History Past Medical History: Cancer, COPD Additional Past Medical History / Comment(s): hx alcoholism, lung cancer History of Any Multi-Drug Resistant Organisms: None Reported Past Surgical History: Section Past Anesthesia/Blood Transfusion Reactions: No Reported Reaction Past Psychological History: Anxiety, Depression Smoking Status: Current every day smoker Past Alcohol Use History: None Reported Past Drug Use History: None Reported - Past Family History Mother Family Medical History: COPD Additional Family Medical History / Comment(s): ETOH, lung cancer Father Family Medical History: Myocardial Infarction ([place]) Additional Family Medical History / Comment(s): ETOH General Exam Limitations: language barrier, altered mental status, physical limitation General appearance: obtunded Head exam: Present: atraumatic, normocephalic Eye exam: Present: normal appearance, PERRL ENT exam: Present: mucous membranes dry Neck exam: Present: normal inspection. Absent: tenderness Respiratory exam: Present: respiratory distress, wheezes, rhonchi Cardiovascular Exam: Present: regular rate, normal rhythm GI/Abdominal exam: Present: soft. Absent: distended, tenderness Neurological exam: Absent: alert Skin exam: Present: warm, dry, pallor Course Vital Signs 11/16/18 20:25 Temperature 97.5 F L Pulse Rate 96 Respiratory 16 Rate Blood Pressure 131/66 O2 Sat by Pulse 99 Oximetry Medical Decision Making - Medical Decision Making Medical record review, patient has chest x-ray showing concern for lung mass with adjacent pneumonia. She has no elevated white blood cell count at 19.5. She had hyponatremia and hypoglycemia. Should hemoglobin 9.5. She was given a Zithromax, ceftriaxone, vancomycin prior to transfer. She had a venous blood gas showing pH is 7.1 and a carbon dioxide of 85. She was placed on BiPAP because she did not want intubation. Patient arrives to emergency departments with stable blood pressure, and norepinephrine will be titrated. I discussed the case with both the admitting physician Dr. Serna in with the pulmonary structural engineer Dr. Hein. Laboratory studies will be repeated, chest x-ray will be repeated. She will be kept on antibiotics and vasopressors, admitted to the ICU. - Lab Data Lab Results 11/16/18 Range/Units 20:28 POC Glucose (mg/dL) 100 H (75-99) mg/dL POC Glu Credit Verification Clerk ID Roxanne Espinal Critical Care Time Critical Care Time: Yes Total Critical Care Time: 35 Disposition Clinical Impression: Healthcare-associated pneumonia, Septic shock, Acute exacerbation of chronic obstructive airways disease, Lung mass Disposition: ADMITTED IP TO THIS HOSP Condition: Serious Is patient prescribed a controlled substance at d/c from ED?: No Referrals: None,Stated [Primary Care Provider] - 1-2 days Decision to Admit Reason: Admit from EC Decision Date: 11/16/18 Decision Time: 20:48
[2018-11-16 20:52] LABS: ABG PCO2 72 mmHg (35-45)
[2018-11-16] MEDS: NOREPINEPHRINE 4 MG in SODIUM CHLORIDE 0.9% 250 ML IV ONE (21:08)
[2018-11-16] MEDS ORDERED: MIDAZOLAM (PF) 2 MG/2 ML VIAL IV STA (21:28)
[2018-11-16] MEDS ORDERED: ROCURONIUM BROMIDE 10 MG/ML 10 ML VIAL IV ONE (21:30)
[2018-11-16] MEDS ORDERED: MIDAZOLAM 1 MG/ML 5 ML VIAL ONE (21:30)
[2018-11-16] MEDS ORDERED: ROCURONIUM BROMIDE 10 MG/ML 10 ML VIAL IV STA (21:30)
--- NOTE | 2018-11-16 21:42 | ED ---
Medical Decision Making - Medical Decision Making 57-year-old female presenting us transfer. Patient's family did arrive in the emergency department, and there was a conversation with the admitting physician and patient's family members were at bedside as well as myself indicating that the patient would like to proceed with intubation. She was intubated in the emergency department. - Lab Data Lab Results 11/16/18 Range/Units 20:28 POC Glucose (mg/dL) 100 H (75-99) mg/dL POC Glu Ground[employer] Monitoring Technician ID Roxanne Espinal Disposition Clinical Impression: Healthcare-associated pneumonia, Septic shock, Acute exacerbation of chronic obstructive airways disease, Lung mass Disposition: ADMITTED IP TO THIS HOSP Condition: Serious Procedures - Intubation Sedative: Versed Mg Given: 5 Paralytic: Rocuronium Mg Given: 50 Laryngoscope: Adama Size: 3 ET Tube Size: 7.5 ET Tube Uncuffed: No Tube Secured Depth (cm): 22 Tube Secured Location: lips Tube Placement Confirmation: visualized tube passing through cords, equal breath sounds bilaterally, confirmation by capnometry Patient Tolerated Procedure: well Intubation Complications: none
--- NOTE | 2018-11-16 21:47 | XR ---
EXAMINATION TYPE: XR chest 1V portable DATE OF EXAM: 11/16/2018 COMPARISON: Prior chest x-ray 10/23/2018 and prior chest x-ray from outside institution. HISTORY: Intubated TECHNIQUE: Single frontal view of the chest is obtained. FINDINGS: Interval placement of an endotracheal tube is overlying the tracheal air column. Right jug ular central venous catheter shows the distal tip in the right atrium. Right hemithorax is near compl etely opacified. Patchy basilar density noted on left. Patient is rotated. There are overlying cardia c leads. IMPRESSION: Interval intubation.
[2018-11-16] MEDS: DEXTROSE 5%-0.9% NACL 1,000 ML IV SCH (21:56)
[2018-11-16 22:04] LABS: ABG Base Excess 1.5 mmol/L; ABG HCO3 26 mmol/L (21-25); ABG PCO2 40 mmHg (35-45); ABG PH 7.42 (7.35-7.45); ABG PO2 >400 mmHg (83-108); ABG TCO2 27 mmol/L (19-24); Allen Test Performed? Yes
[2018-11-16 22:20] LABS: Anisocytosis Slight; HCT 28.8 % (34.0-46.0); HGB 9.4 gm/dL (11.4-16.0); MCH 36.8 pg (25.0-35.0); MCHC 32.6 g/dL (31.0-37.0); Mean Platelet Volume 7.7; Platelet Count 269 k/uL (150-450); RBC 2.55 m/uL (3.80-5.40); RDW 18.3 % (11.5-15.5)
[2018-11-16 22:29] LABS: ALT 22 U/L (9-52); AST 38 U/L (14-36); African American GFR (CKD) >90 (>60 ml/min/1.73 sqM); Albumin 2.4 g/dL (3.5-5.0); Alkaline Phosphatase 198 U/L (38-126); Anion Gap 7 mmol/L; Blood Urea Nitrogen 6 mg/dL (7-17); Calcium 7.8 mg/dL (8.4-10.2); Carbon Dioxide 25 mmol/L (22-30); Chloride 93 mmol/L (98-107); Glucose 101 mg/dL (74-99); Sodium 125 mmol/L (137-145); Total Bilirubin 0.2 mg/dL (0.2-1.3); Total Protein 4.8 g/dL (6.3-8.2)
[2018-11-16 22:41] LABS: Potassium 4.2 mmol/L (3.5-5.1)
[2018-11-16] MEDS: MIDAZOLAM HCL 50 MG in SODIUM CHLORIDE 0.9% 40 ML IV SCH (22:57)
[2018-11-16 22:58] LABS: Band Neutrophils % 16 %; Lymphocytes # (M) 0.34 k/uL (1.0-4.8); Metamyelocytes # (M) 0.17 k/uL (0); Metamyelocytes % 1 %; Monocytes # (M) 0.51 k/uL (0-1.0); Neutrophils % (M) 78 %; Nucleated Red Blood Cells 0 /100 WBC (0-0); Total Cells Counted 100
[2018-11-16 22:59] LABS: Macrocytosis Marked
[2018-11-16 23:29] LABS: Glucose,Whole Blood 99 mg/dL (75-99)
[2018-11-16] MEDS: PROPOFOL 1,000 MG in EMPTY BAG 1 BAG IV SCH (23:40)
[2018-11-16] MEDS ORDERED: MAGNESIUM SULFATE-D5W PMX 1 GM in DEXTROSE/WATER 1 100ML.BAG IVPB ONE (23:51)
[2018-11-17] MEDS ORDERED: CEFEPIME 2 GM in SODIUM CHLORIDE 0.9% 100 ML IVPB SCH ×2
--- NOTE | 2018-11-17 00:17 | P.HPIM ---
History of Present Illness H&P Date: 11/16/18 Chief Complaint: Lethargy 57-year-old female with history of non-small cell lung cancer status post chemoradiotherapy currently in remission Patient was transferred from [facility] for ICU management. Initially at [facility] she refused intubation and opted to use the BiPAP for her hypercapnic respiratory failure with lethargy. CT of the brain was performed and was negative chest x-ray suggested complete whiteout of the right side of the lung. Patient received IV fluid resuscitation however her blood pressure remained low for which central line was inserted and which she was started on levo fed at [facility]. Her lactic acid was 1.2 she was found to be hyponatremic pCO2 was 85 pH was 7.14 magnesium was 1.5. Upon presentation to our facility I had prolonged discussion with the family and they clarify to me that her cancer is in remission there is no metastasis she has received chemo and radiotherapy in the past. I did very thorough revision of her records as follows most recent MRI done to the brain was negative for any evidence of metastasis. 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 Computed tomography scan of the chest in June 2018 showed no evidence of local recurrence or metastasis, CT angiogram of the chest done in September 2018 showed evidence of obstruction of the upper and lower bronchi, no evidence of recurrent cancer. Bronchoscopy was done around that time in September 2018 and biopsies showed no evidence of malignancy. Only showed evidence of acute inflammatory changes due to infection from pneumonia Patient was made full code after further discussion with the family and the patient herself who agreed to be a full code and agreed to intubation. Understanding with her severe lethargy BiPAP was not appropriate with risk of aspiration. Besides her PaCO2 level remained 72 and she was severely symptomatic despite using the BiPAP for over 2 hours. Patient unable to provide any meaningful history otherwise. History was obtained by reviewing medical records and talking to the family. Family indicated that she used to be alcoholic in the past but she's been sober for years now. However she continues to smoke heavily. They denied using any drugs or opiates. However she would take extra Valium when she can but the family was able to lock up her medications and give her only what's prescribed. Family did not suspect any overdosing at this point. Lyubov reported that she was getting increasingly lethargic and weak over the past couple days. Also indicated decreased by mouth intake significantly she was sleeping too much. Otherwise per the patient the patient is functional at home doesn't use any assistive device for ambulation however she's not compliant with medications and recommendations of her doctor to quit smoking Review of Systems ROS unobtainable: due to mental status Past Medical History Past Medical History: Cancer, COPD Additional Past Medical History / Comment(s): hx alcoholism, lung cancer in remission History of Any Multi-Drug Resistant Organisms: None Reported Past Surgical History: Section Past Anesthesia/Blood Transfusion Reactions: No Reported Reaction Past Psychological History: Anxiety, Depression Smoking Status: Current every day smoker Past Alcohol Use History: None Reported Past Drug Use History: None Reported - Past Family History Mother Family Medical History: COPD Additional Family Medical History / Comment(s): ETOH, lung cancer Father Family Medical History: Myocardial Infarction (ME) Additional Family Medical History / Comment(s): ETOH Medications and Allergies Home Medications Medication Instructions Recorded Confirmed Type traZODone HCL [Desyrel] 100 mg PO HS 07/02/17 11/16/18 History Citalopram Hydrobromide [CeleXA] 20 mg PO DAILY 09/12/17 11/16/18 History Acetaminophen/Diphenhydramine 1 tab PO HS PRN 10/17/18 11/16/18 History [Tylenol PM Extra Strength] Cyclobenzaprine [Flexeril] 5 mg PO TID PRN 10/17/18 11/16/18 History Diazepam [Valium] 7.5 mg PO TID PRN 10/17/18 11/16/18 History Ibuprofen [Motrin] 800 mg PO TID PRN 10/17/18 11/16/18 History Docusate [Colace] 100 mg PO BID PRN #60 cap 10/23/18 11/16/18 Rx Ipratropium-Albuterol Nebulize 3 ml INHALATION RT-QID PRN #60 10/23/18 11/16/18 Rx [Duoneb 0.5 mg-3 mg/3 ml Soln] ampul.neb Lidocaine 5% Patch [Lidoderm 5% 1 patch TOPICAL DAILY #7 patch 10/23/18 11/16/18 Rx Patch] Ipratropium Dubach [Atrovent Hfa] 2 puff INHALATION RT-QID PRN 11/16/18 11/16/18 History Allergies Allergy/AdvReac Type Severity Reaction Status Date / Time No Known Allergies Allergy Verified 11/16/18 20:53 Physical Exam Vitals: Vital Signs Temp Pulse Resp BP Pulse Ox 11/16/18 23:40 100 24 84/57 98 11/16/18 23:30 97.6 F 101 H 34 H 120/78 94 L 11/16/18 23:26 101 H 20 11/16/18 23:10 98 25 H 122/80 11/16/18 23:00 101 H 17 91/63 100 11/16/18 22:50 101 H 14 95/66 99 11/16/18 22:40 106 H 14 93/60 95 11/16/18 22:30 106 H 14 104/67 76 L 11/16/18 22:10 106 H 24 188/105 100 11/16/18 22:00 90 24 99/74 100 11/16/18 21:50 113 H 24 189/107 100 11/16/18 21:30 101 H 12 111/68 98 11/16/18 21:20 98 12 111/68 100 11/16/18 21:10 96 11 L 111/68 100 11/16/18 21:00 92 15 111/68 98 11/16/18 20:50 92 11 L 105/68 95 11/16/18 20:40 95 15 131/66 97 11/16/18 20:32 94 9 L 131/66 99 11/16/18 20:25 97.5 F L 96 16 131/66 99 Intake and Output 11/16/18 11/16/18 11/17/18 14:59 22:59 06:59 Intake Total 19.936 75 Output Total 800 Balance 19.936 -725 Intake: IV 75 Dextrose 5%-0.9% NaCl 1, 75 000 ml @ 75 mls/hr IV . [id number] [facility] Rx#:[id number] Intake, IV Titration 19.936 Amount Norepinephrine 4 mg In 19.936 Sodium Chloride 0.9% 250 ml @ 0.05 MCG/KG/MIN 10. 974 mls/hr IV .[id number] ONE Rx#:[id number] Output: Urine 800 Other: Weight 57.606 kg Constitutional: Patient using BiPAP, when stopped she desats quickly down to the 70s percent, patient very lethargic makes good eye contact though, followed simple commands Eyes: Anicteric sclerae, moist conjunctiva Pupils equal round reactive to light ENMT: NC/AT Oropharynx clear, no erythema, or exudates Neck: Supple, FROM, no masses, or JVD No carotid bruits No thyromegaly Lungs: Decreased breath sounds over right lung with coarse crackles Patient using accessory muscles of respiration Cardiovascular: Heart regular in rate and rhythm, distant heart sounds No murmurs, gallops, or rubs No peripheral edema Abdominal: Soft Nontender, no guarding, rebound or rigidity Abdomen moving with respiration Normoactive bowel sounds No hepatomegaly, No splenomegaly No palpable mass No abdominal wall hernia noted Skin: Cold extremities, pale, ashen No induration No subcutaneous nodules No rash, lesions No ulcers Extremities: No digital cyanosis No clubbing Pedal pulses weak and symmetrical Radial pulses intact and symmetrical No calf tenderness Psychiatric: Very lethargic, arousable with verbal stimulation she would open eyes makes good eye contact, oriented to place and person, fair judgment Neuro patient was unable to cooperate with neurologic exam, she was able to move both lower extremities and upper extremities against gravity but not against resistance. Lymphatics: no palpable cervical or supraclavicular , or inguinal lymph nodes Results CBC & Chem 7: 11/16/18 21:40 11/16/18 21:40 Labs: Abnormal Lab Results - Last 24 Hours (Table) 11/16/18 11/16/18 11/16/18 Range/Units 20:28 20:45 21:40 WBC 17.0 H (3.8-10.6) k/uL RBC 2.55 L (3.80-5.40) m/uL Hgb 9.4 L (11.4-16.0) gm/dL Hct 28.8 L (34.0-46.0) % MCV 113.0 H D (80.0-100.0) fL MCH 36.8 H (25.0-35.0) pg RDW 18.3 H (11.5-15.5) % Neutrophils # (Manual) 15.90 H (1.3-7.7) k/uL Lymphocytes # (Manual) 0.34 L (1.0-4.8) k/uL Metamyelocytes # (Man) 0.17 H (0) k/uL Macrocytosis Marked A ABG pH 7.20 L (7.35-7.45) ABG pCO2 72 H* (35-45) mmHg ABG pO2 79 L (83-108) mmHg ABG HCO3 28 H (21-25) mmol/L ABG Total CO2 30 H (19-24) mmol/L ABG O2 Saturation (94-97) % Sodium (137-145) mmol/L Chloride (98-107) mmol/L BUN (7-17) mg/dL Creatinine (0.52-1.04) mg/dL Glucose (74-99) mg/dL POC Glucose (mg/dL) 100 H (75-99) mg/dL Calcium (8.4-10.2) mg/dL AST (14-36) U/L Alkaline Phosphatase (38-126) U/L Total Protein (6.3-8.2) g/dL Albumin (3.5-5.0) g/dL 11/16/18 11/16/18 Range/Units 21:40 22:00 WBC (3.8-10.6) k/uL RBC (3.80-5.40) m/uL Hgb (11.4-16.0) gm/dL Hct (34.0-46.0) % MCV (80.0-100.0) fL MCH (25.0-35.0) pg RDW (11.5-15.5) % Neutrophils # (Manual) (1.3-7.7) k/uL Lymphocytes # (Manual) (1.0-4.8) k/uL Metamyelocytes # (Man) (0) k/uL Macrocytosis ABG pH (7.35-7.45) ABG pCO2 (35-45) mmHg ABG pO2 >400 H (83-108) mmHg ABG HCO3 26 H (21-25) mmol/L ABG Total CO2 27 H (19-24) mmol/L ABG O2 Saturation 100.0 H (94-97) % Sodium 125 L (137-145) mmol/L Chloride 93 L (98-107) mmol/L BUN 6 L (7-17) mg/dL Creatinine 0.38 L (0.52-1.04) mg/dL Glucose 101 H (74-99) mg/dL POC Glucose (mg/dL) (75-99) mg/dL Calcium 7.8 L (8.4-10.2) mg/dL AST 38 H (14-36) U/L Alkaline Phosphatase 198 H (38-126) U/L Total Protein 4.8 L (6.3-8.2) g/dL Albumin 2.4 L (3.5-5.0) g/dL Assessment and Plan Assessment: 57-year-old female with history of non-small cell lung cancer status post chemo and radiotherapy currently in remission Admitted as an inpatient with anticipated length of stay more than 48 hours due to acute metabolic encephalopathy, acute hypoxic respiratory failure, septic shock from possible postobstructive pneumonia Patient was transferred to our facility from [facility] for ICU management she was initially DO NOT INTUBATE status. After further clarification with the family regarding her cancer status patient agreed to be a full code. Decision was made to intubate the patient due to altered mental status severe lethargic and BiPAP was not appropriate in her situation along with consistently elevated PaCO2 of 72. Preformed a thorough record review from recent hospitalization patient with history of non-small cell lung cancer diagnosed in June 2017, there was questionable metastasis an advanced cancer however I did thorough outpatient of all her records seems like most recent MRI done to the brain was negative for any evidence of metastasis. 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 Computed tomography scan of the chest in June 2018 showed no evidence of local recurrence or metastasis, CT angiogram of the chest done in September 2018 showed evidence of obstruction of the upper and lower bronchi, no evidence of recurrent cancer. Bronchoscopy was done around that time in September 2018 and biopsies showed no evidence of malignancy. Only showed evidence of acute inflammatory changes due to infection from pneumonia Plan: Acute metabolic encephalopathy, CT brain was negative Acute hypoxic respiratory failure, secondary to postobstructive pneumonia Sepsis, with shock COPD Hypomagnesemia Hyponatremia Anemia of chronic disease Plan Obtain cultures Patient intubated, patient mental status was not appropriate for BiPAP therapy after using BiPAP for over 2 hours her pCO2 was still 72 patient was very lethargic Start Zosyn and vancomycin, discontinue cefepime. Zosyn will cover postob structive pneumonia, follow-up cultures Replace magnesium, follow-up levels Follow up labs closely ICU management Normal saline IV infusion Continue with IV pressors for cardiovascular support, most recent echocardiogram shows left ventricular ejection fraction of 55% Repeat lactic acid Preformed a thorough record review from recent hospitalization patient with history of non-small cell lung cancer diagnosed in June 2017, there was questionable metastasis an advanced cancer however I did thorough outpatient of all her records seems like most recent MRI done to the brain was negative for any evidence of metastasis. 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 Computed tomography scan of the chest in June 2018 showed no evidence of local recurrence or metastasis, CT angiogram of the chest done in September 2018 showed evidence of obstruction of the upper and lower bronchi, no evidence of recurrent cancer. Bronchoscopy was done around that time in September 2018 and biopsies showed no evidence of malignancy. Only showed evidence of acute inflammatory changes due to infection from pneumonia Surrogate decision-maker: Patient CODE STATUS: Full code DVT prophylaxis: Heparin subcu 3 times a day Discussed with: Patient, ER, RN Anticipated discharge: 48-[address]: Pending clinical course A total of 70 minutes was spent on the care of this complex patient more than 50% of the time was spent in counseling and care coordination. Sepsis - Sepsis Sepsis Focused Exam #1 Sepsis Focused Exam Date: 11/16/18 Sepsis Focused Exam Time: 21:40 Sepsis Focused Exam Complete: Yes Vital Signs & RN Notes Reviewed: Yes Capillary Refill: < 2 Seconds: Fingers, > 2 Seconds: Toes Peripheral Pulses: Weak: Posterior Tibialis (R), Posterior Tibialis (L), Dorsalis Pedis (R), Dorsalis Pedis (L), Normal: Radial (R), Radial (L) Skin Color: Ashen Respiratory Exam: decreased breath sounds Respiratory Exam Comment: Decreased breath sounds over the right lung coarse crackles Cardiovascular Exam: regular rate
--- NOTE | 2018-11-17 00:44 | P.HPADDEND ---
H&P Addendum H&P Addendum Date: 11/17/18 Advanced Care Planning Active diagnoses: Acute hypoxic respiratory failure secondary to postobstructive pneumonia. Acute metabolic encephalopathy History of non-small cell lung cancer status post chemoradiotherapy currently in remission Background: The patient was admitted for treatment of septic shock and acute hypoxic respiratory failure and acute metabolic encephalopathy Discussion: Person(s) present and participating in discussion: The patient, myself, and patient and other family members Summary: Initially per transfer note from [facility] seems like patient has indicated that she wouldn't like to be intubated and would like to pursue CPR. Transfer note also indicated stage IV lung cancer with metastasis . Upon further revision of medical records and discussion with the family it seems like there were recent investigations done as documented in patient H&P from this hospitalization where it shows there is no evidence of recurrence or metastasis. Patient indicated that cancer is in remission status post chemo and radiotherapy. After explaining her current situation to the family and to the patient, patient was able to express her wishes in pursuing CPR and intubation if needed so she was switched to be a full code. Family was in agreement. Patient named her as a surrogate decision-maker Time spent: Total time spent face to face in education and discussion directly related to advanced care plannin minutes
[2018-11-17] MEDS: HEPARIN SODIUM,PORCINE 5,000 UNIT/ML 1 ML VIAL SQ SCH ×3 (01:18→16:34)
[2018-11-17] MEDS: PIPERACILLIN-TAZOBACTAM 3.375 GM in SODIUM CHLORIDE 0.9% 100 ML IVPB SCH ×3 (01:18→16:35)
[2018-11-17 04:15] LABS: Appearance,Urine Clear (Clear); Bilirubin,Urine Negative (Negative); Blood,Urine Negative (Negative); Color,Urine Colorless; Glucose,Urine (UA) Negative (Negative); Ketones,Urine Negative (Negative); Leukocyte Esterase,Urine Negative (Negative); Nitrite,Urine Negative (Negative); Protein,Urine Negative (Negative); Specific Gravity,Urine 1.007 (1.001-1.035); Urobilinogen,Urine <2.0 mg/dL (<2.0)
[2018-11-17] MEDS: PROPOFOL 1,000 MG in EMPTY BAG 1 BAG IV SCH ×3 (05:00→22:24)
[2018-11-17 05:01] LABS: ABG Base Excess 8.4 mmol/L; ABG HCO3 30 mmol/L (21-25); ABG Oxygen Saturation 98.7 % (94-97); ABG PCO2 29 mmHg (35-45); ABG PO2 87 mmHg (83-108); ABG TCO2 31 mmol/L (19-24); Allen Test Performed? Yes
[2018-11-17 05:05] LABS: Anisocytosis Slight; Basophils % (A) 0 %; Eosinophils % (A) 0 %; HCT 25.3 % (34.0-46.0); HGB 8.4 gm/dL (11.4-16.0); Lymphocytes # (A) 0.6 k/uL (1.0-4.8); Lymphocytes % (A) 4 %; MCH 36.8 pg (25.0-35.0); MCV 111.6 fL (80.0-100.0); Mean Platelet Volume 8.5; Monocytes # (A) 0.5 k/uL (0-1.0); Monocytes % (A) 3 %; Neutrophils # (A) 13.3 k/uL (1.3-7.7); Neutrophils % (A) 92 %; Platelet Count 220 k/uL (150-450); RBC 2.27 m/uL (3.80-5.40); RDW 18.3 % (11.5-15.5); WBC 14.5 k/uL (3.8-10.6)
[2018-11-17 05:10] LABS: ABG PH 7.62 (7.35-7.45)
[2018-11-17 05:12] LABS: Macrocytosis Marked
[2018-11-17] MEDS: NOREPINEPHRINE 4 MG in SODIUM CHLORIDE 0.9% 250 ML IV ONE (05:26)
[2018-11-17 05:28] LABS: ALT 18 U/L (9-52); AST 31 U/L (14-36); African American GFR (CKD) >90 (>60 ml/min/1.73 sqM); Albumin 2.1 g/dL (3.5-5.0); Alkaline Phosphatase 169 U/L (38-126); Anion Gap 4 mmol/L; Blood Urea Nitrogen 3 mg/dL (7-17); Calcium 7.5 mg/dL (8.4-10.2); Carbon Dioxide 29 mmol/L (22-30); Chloride 92 mmol/L (98-107); Glucose 121 mg/dL (74-99); Magnesium 1.9 mg/dL (1.6-2.3); Phosphorus 1.3 mg/dL (2.5-4.5); Potassium 2.9 mmol/L (3.5-5.1); Sodium 125 mmol/L (137-145); Total Bilirubin 0.3 mg/dL (0.2-1.3); Total Protein 4.2 g/dL (6.3-8.2)
[2018-11-17] MEDS ORDERED: Potassium Replacement Protocol 1 EACH MISC MISCELLANE PRN (05:39)
[2018-11-17] MEDS ORDERED: POTASSIUM CHLORIDE 20 MEQ in WATER FOR INJECTION 1 100ML.BAG IVPB SCH (06:00)
[2018-11-17] MEDS: VANCOMYCIN 1,000 MG in SODIUM CHLORIDE 0.9% 250 ML IVPB SCH ×3 (06:09→20:56)
[2018-11-17 06:24] LABS: T4, Free (Free Thyroxine) 2.34 ng/dL (0.78-2.19)
[2018-11-17] MEDS ORDERED: Phosphorus Replacement Protoco 1 EACH MISC MISCELLANE PRN (07:21)
[2018-11-17] MEDS ORDERED: Magnesium Replacement Protocol 1 EACH MISC MISCELLANE PRN (07:23)
[2018-11-17] MEDS ORDERED: INSULIN ASPART (NovoLOG) 100 UNIT/ML VIAL SQ SCH (07:30)
[2018-11-17] MEDS: IPRATROPIUM-ALBUTEROL 3 ML NEB INHALATION SCH ×4 (07:33→19:57)
--- NOTE | 2018-11-17 08:14 | XR ---
EXAMINATION TYPE: XR chest 1V portable DATE OF EXAM: 11/17/2018 COMPARISON: Prior chest x-ray 11/16/2018 HISTORY: Intubated TECHNIQUE: Single frontal view of the chest is obtained. FINDINGS: Endotracheal tube is overlying the tracheal air column, right jugular central venous ector ter shows the distal tip likely in the right atrium. There is some improvement in aeration at the rig ht upper lobe, near complete opacification present throughout the remainder of the right lung. Basila r increased density present on the left. There are overlying cardiac leads. IMPRESSION: Some improvement in aeration.
[2018-11-17] MEDS: PANTOPRAZOLE 40 MG/10 ML VIAL IV SCH (09:15)
[2018-11-17] MEDS: CHLORHEXIDINE GLUCONATE 15 ML CUP MUCOUS MEM SCH ×2 (09:15→20:48)
[2018-11-17] MEDS: POTASSIUM PHOSPHATE 10 MMOL in SODIUM CHLORIDE 0.9% 100 ML IV SCH ×3 (09:17→13:47)
[2018-11-17] MEDS: MAGNESIUM SULFATE-D5W PMX 1 GM in DEXTROSE/WATER 1 100ML.BAG IVPB SCH ×2 (09:18→11:25)
[2018-11-17] MEDS ORDERED: SODIUM CHLORIDE 0.9% 1,000 ML IV ONE (10:41)
[2018-11-17] MEDS: DEXTROSE 5%-0.9% NACL 1,000 ML IV SCH (11:31)
[2018-11-17] MEDS: INSULIN ASPART (NovoLOG) 100 UNIT/ML VIAL SQ SCH ×2 (11:40→17:29)
[2018-11-17 11:41] LABS: Glucose,Whole Blood 117 mg/dL (75-99)
--- NOTE | 2018-11-17 12:04 | P.CNPUL ---
History of Present Illness Consult date: 11/17/18 Requesting physician: Tiffany De Souza Reason for consult: COPD, pneumonia Chief complaint: Altered mental status History of present illness: This is a 57-year-old female with history of small cell lung cancer, diagnosed about a year ago by Dr. Zhang, and she received chemotherapy as well as rad iation therapy, and she was supposedly in remission. Patient was admitted to the hospital in late September and early October. At that time she was seen for acute exacerbation of COPD, right lower lobe postobstructive pneumonia underwent bronchoscopy and BAL on 10/18/2018, and she had significant amount of tenacious secretions cultures were only positive for Divya albicans. Patient had abnormal PET scan showing a right hilar uptake, and abnormal uptake in the thoracic spine. Patient was eventually discharged home, however she presented yesterday to [facility] with profound shortness of breath, and mental status change. Apparently the patient was hypoxic, hypercapnic, and in acute respiratory failure. Initially her CODE STATUS was DO NOT RESUSCITATE. However this was later changed when the patient was transferred to our facility from [facility] ER. As soon as the CODE STATUS was changed, patient was intubated for worsening respiratory failure placed on mechanical ventilation, and this consult was initiated. Her ventilator settings where handled overnight by Dr. Heni. Presently the patient is on mechanical ventilation, assist control mode tidal volume of 400 rate of 12 FiO2 of 40% and PEEP of 5. She is also on propofol, and on 0.07 mcg/kg/m of norepinephrine. Her propofol is at 40 mcg/kg/m. Patient is sedated, chest x-ray was reviewed, I discussed her condition with her family members at bedside, and I recommended ultrasound of the chest to possibly consider a right-sided thoracentesis. There is a significant volume loss and consolidation involving the right lung if the ultrasound is negative for pleural effusion, may consider bronchoscopy and evaluation of the right lung in the next 24 hours. Family was made aware of that recommendation. Review of Systems ROS unobtainable: due to endotracheal tube Past Medical History Past Medical History: Cancer, COPD Additional Past Medical History / Comment(s): hx alcoholism, lung cancer in remission History of Any Multi-Drug Resistant Organisms: None Reported Past Surgical History: Section Past Anesthesia/Blood Transfusion Reactions: No Reported Reaction Past Psychological History: Anxiety, Depression Smoking Status: Current every day smoker Past Alcohol Use History: None Reported Past Drug Use History: None Reported - Past Family History Mother Family Medical History: COPD Additional Family Medical History / Comment(s): ETOH, lung cancer Father Family Medical History: Myocardial Infarction ([place]) Additional Family Medical History / Comment(s): ETOH Medications and Allergies Home Medications Medication Instructions Recorded Confirmed Type traZODone HCL [Desyrel] 100 mg PO HS 07/02/17 11/16/18 History Citalopram Hydrobromide [CeleXA] 20 mg PO DAILY 09/12/17 11/16/18 History Acetaminophen/Diphenhydramine 1 tab PO HS PRN 10/17/18 11/16/18 History [Tylenol PM Extra Strength] Cyclobenzaprine [Flexeril] 5 mg PO TID PRN 10/17/18 11/16/18 History Diazepam [Valium] 7.5 mg PO TID PRN 10/17/18 11/16/18 History Ibuprofen [Motrin] 800 mg PO TID PRN 10/17/18 11/16/18 History Docusate [Colace] 100 mg PO BID PRN #60 cap 10/23/18 11/16/18 Rx Ipratropium-Albuterol Nebulize 3 ml INHALATION RT-QID PRN #60 10/23/18 11/16/18 Rx [Duoneb 0.5 mg-3 mg/3 ml Soln] ampul.neb Lidocaine 5% Patch [Lidoderm 5% 1 patch TOPICAL DAILY #7 patch 10/23/18 11/16/18 Rx Patch] Ipratropium [place] [Atrovent Hfa] 2 puff INHALATION RT-QID PRN 11/16/18 11/16/18 History Allergies Allergy/AdvReac Type Severity Reaction Status Date / Time No Known Allergies Allergy Verified 11/16/18 20:53 Physical Exam Vitals: Vital Signs Temp Pulse Resp BP Pulse Ox 11/17/18 11:45 94 11/17/18 11:00 94 8 L 116/68 100 11/17/18 10:45 93 14 105/67 99 11/17/18 10:30 96 16 92/63 100 11/17/18 10:15 97 13 88/62 100 11/17/18 10:00 98 12 105/68 100 11/17/18 09:45 97 15 94/63 100 11/17/18 09:30 98 12 86/62 99 11/17/18 09:15 101 H 14 86/62 100 11/17/18 09:00 100 16 84/59 99 11/17/18 08:45 101 H 10 L 84/59 99 11/17/18 08:30 104 H 23 91/70 99 11/17/18 08:15 99 13 104/69 95 11/17/18 08:00 99.5 F 100 12 104/70 95 11/17/18 07:51 98 11/17/18 07:45 100 12 104/70 100 11/17/18 07:41 100 11/17/18 07:30 99 13 100/61 99 11/17/18 07:15 100 12 101/80 100 11/17/18 07:00 102 H 12 101/80 98 11/17/18 06:45 101 H 12 105/69 99 11/17/18 06:30 102 H 12 107/68 99 11/17/18 06:15 101 H 12 110/65 99 11/17/18 06:00 101 H 14 111/70 98 11/17/18 05:45 98 19 105/66 99 11/17/18 05:30 98 12 104/65 99 11/17/18 05:15 101 H 4 L 92/65 99 11/17/18 05:00 101 H 24 96/63 99 11/17/18 04:45 103 H 24 98/60 99 11/17/18 04:30 101 H 19 105/67 98 11/17/18 04:15 102 H 24 105/67 98 11/17/18 04:00 99.3 F 101 H 24 105/74 98 11/17/18 03:45 101 H 24 100 11/17/18 03:30 100 24 94/65 99 11/17/18 03:15 98 24 103/68 100 11/17/18 03:00 99 22 87/59 99 11/17/18 02:45 99 24 91/67 99 11/17/18 02:30 99 25 H 97/72 99 11/17/18 02:15 101 H 25 H 98/70 98 11/17/18 02:00 97 24 97/62 98 11/17/18 01:45 101 H 25 H 91/67 98 11/17/18 01:30 102 H 25 H 100/71 97 11/17/18 01:15 101 H 24 96/65 99 11/17/18 01:00 100 24 91/62 98 11/17/18 00:45 98 24 93/64 99 11/17/18 00:33 99 24 93/64 98 11/17/18 00:30 99 24 102/68 98 11/17/18 00:15 98 24 97/64 99 11/17/18 00:00 98 24 101/65 98 11/16/18 23:45 101 H 19 85/57 97 11/16/18 23:40 100 24 84/57 98 11/16/18 23:30 97.6 F 101 H 34 H 120/78 94 L 11/16/18 23:26 101 H 20 11/16/18 23:10 98 25 H 122/80 11/16/18 23:00 101 H 17 91/63 100 11/16/18 22:50 101 H 14 95/66 99 11/16/18 22:40 106 H 14 93/60 95 11/16/18 22:30 106 H 14 104/67 76 L 11/16/18 22:10 106 H 24 188/105 100 11/16/18 22:00 90 24 99/74 100 11/16/18 21:50 113 H 24 189/107 100 11/16/18 21:33 30 H 11/16/18 21:30 101 H 12 111/68 98 11/16/18 21:20 98 12 111/68 100 11/16/18 21:10 96 11 L 111/68 100 11/16/18 21:00 92 15 111/68 98 11/16/18 20:50 92 11 L 105/68 95 11/16/18 20:40 95 15 131/66 97 11/16/18 20:32 94 9 L 131/66 99 11/16/18 20:25 97.5 F L 96 16 131/66 99 Intake and Output 11/16/18 11/17/18 11/17/18 22:59 06:59 14:59 Intake Total 19.936 3451.302 6664.238 Output Total 1150 96 Balance 19.936 96.786 1926.238 Intake: IV 800 1775 Dextrose 5%-0.9% NaCl 1, 600 375 000 ml @ 75 mls/hr IV . [id number] [facility] Rx#:[id number] Magnesium Sulfate-D5w Pmx 100 200 1 gm In Dextrose/Water 1 100ml.bag @ 100 mls/hr IVPB ONCE [facility] Rx#: [id number] Piperacillin-Tazobactam 3 100 100 .375 gm In Sodium Chloride 0.9% 100 ml @ 25 mls/hr IVPB Q8HR [facility] Rx# :[id number] Potassium Phosphate 10 100 mmol In Sodium Chloride 0 .9% 100 ml @ 50 mls/hr IV Q2H [facility] Rx#:[id number] Sodium Chloride 0.9% 1, 1000 000 ml @ 999 mls/hr IV . Q1H1M [facility] Rx#:[id number] Intake, IV Titration 19.936 446.786 247.238 Amount Norepinephrine 4 mg In 19.936 146.612 111.765 Sodium Chloride 0.9% 250 ml @ 0.05 MCG/KG/MIN 10. 974 mls/hr IV .Q23H9M [facility] Rx#:[id number] Potassium Chloride 20 meq 100 In Water For Injection 1 100ml.bag @ 50 mls/hr IVPB Q2H [facility] Rx#: [id number] Propofol 1,000 mg In 50.174 35.473 Empty Bag 1 bag @ Titrate IV .Q0M [facility] Rx#: [id number] Vancomycin 1,000 mg In 250 Sodium Chloride 0.9% 250 ml @ 125 mls/hr IVPB Q8H [facility] Rx#:[id number] Output: Urine 1150 96 Other: Voiding Method Indwelling Catheter Weight 57.606 kg 51.9 kg 51.9 kg Limitations: On mechanical ventilation General appearance: Revealed a 57-year-old female, cachectic looking, chronically ill, on mechanical ventilation, in no distress. Sedated. Head exam: Present: atraumatic, normocephalic, endotracheal tube and orogastric tube are intact. Eye exam: Present: normal appearance, PERRL, no icterus, ENT exam: Present: mucous membranes dry Neck exam: No neck masses, no JVD, no stridor Respiratory exam: Extremely diminished breath sounds on the right side, normal on the left side. No chest wall tenderness. Cardiovascular Exam: Regular rate and rhythm, no S3 gallop, no murmur. GI/Abdominal exam: Flat, soft, nontender, no megaly, no rebound, no guarding, positive bowel sounds. Neurological exam: Cannot be assessed, fully sedated Skin exam: No rashes. Good skin turgor, no erythema. Results - Laboratory Findings CBC and BMP: 11/17/18 04:58 11/17/18 04:58 ABG ABG pH 7.62 (7.35-7.45) H* 11/17/18 04:56 ABG pCO2 29 mmHg (35-45) L 11/17/18 04:56 ABG pO2 87 mmHg (83-108) 11/17/18 04:56 ABG O2 Saturation 98.7 % (94-97) H 11/17/18 04:56 Abnormal lab findings: Abnormal Labs 11/16/18 11/16/18 11/16/18 20:28 20:45 21:40 WBC 17.0 H RBC 2.55 L Hgb 9.4 L Hct 28.8 L MCV 113.0 H D MCH 36.8 H RDW 18.3 H Neutrophils # Neutrophils # (Manual) 15.90 H Lymphocytes # Lymphocytes # (Manual) 0.34 L Metamyelocytes # (Man) 0.17 H Macrocytosis Marked A ABG pH 7.20 L ABG pCO2 72 H* ABG pO2 79 L ABG HCO3 28 H ABG Total CO2 30 H ABG O2 Saturation Sodium Potassium Chloride BUN Creatinine Glucose POC Glucose (mg/dL) 100 H Calcium Phosphorus AST Alkaline Phosphatase Total Protein Albumin TSH Free T4 11/16/18 11/16/18 11/17/18 21:40 22:00 04:56 WBC RBC Hgb Hct MCV MCH RDW Neutrophils # Neutrophils # (Manual) Lymphocytes # Lymphocytes # (Manual) Metamyelocytes # (Man) Macrocytosis ABG pH 7.62 H* ABG pCO2 29 L ABG pO2 >400 H ABG HCO3 26 H 30 H ABG Total CO2 27 H 31 H ABG O2 Saturation 100.0 H 98.7 H Sodium 125 L Potassium Chloride 93 L BUN 6 L Creatinine 0.38 L Glucose 101 H POC Glucose (mg/dL) Calcium 7.8 L Phosphorus AST 38 H Alkaline Phosphatase 198 H Total Protein 4.8 L Albumin 2.4 L TSH Free T4 11/17/18 11/17/18 11/17/18 04:58 04:58 11:38 WBC 14.5 H RBC 2.27 L Hgb 8.4 L Hct 25.3 L MCV 111.6 H MCH 36.8 H RDW 18.3 H Neutrophils # 13.3 H Neutrophils # (Manual) Lymphocytes # 0.6 L Lymphocytes # (Manual) Metamyelocytes # (Man) Macrocytosis Marked A ABG pH ABG pCO2 ABG pO2 ABG HCO3 ABG Total CO2 ABG O2 Saturation Sodium 125 L Potassium 2.9 L Chloride 92 L BUN 3 L Creatinine 0.25 L Glucose 121 H POC Glucose (mg/dL) 117 H Calcium 7.5 L Phosphorus 1.3 L AST Alkaline Phosphatase 169 H Total Protein 4.2 L Albumin 2.1 L TSH 0.123 L Free T4 2.34 H - Diagnostic Findings Chest x-ray: image reviewed (As noted in HPI) Assessment and Plan Assessment: Impression: 1 acute hypoxic and hypercapnic respiratory failure multifactorial secondary to small cell lung cancer involving her right lower lobe, postobstructive pneumonia, pleural effusion, and underlying COPD. 2 history of small cell lung cancer 3 acute sepsis and septic shock most likely secondary to right lower lobe pneumonia/postobstructive pneumonitis. 4. History of alcohol abuse Recommendation: Patient will remain on mechanical ventilation, we'll continue present antibiotics, bronchodilators, steroids, sedation, pressors as needed, plan to have ultrasound of the chest, may consider thoracentesis if there is significant pleural effusion, may also seriously consider bronchoscopy and eval uation of the right middle lobe and right lower lobe since there is significant consolidation noted on the chest x-ray. I had a long discussion with her family members at bedside, patient is critically ill, we will follow closely. Critical care time is 55 minutes Time with Patient: Greater than 30
--- NOTE | 2018-11-17 13:09 | US ---
EXAMINATION TYPE: US chest DATE OF EXAM: 11/17/2018 COMPARISON: Chest x-ray 11/09/2018 CLINICAL HISTORY: Markings for thoracentesis by pulmonary staff. Markings for thoracentesis, rt effus ion per order. TECHNIQUE: Targeted ultrasound of the posterior lower right hemithorax EXAM MEASUREMENTS: Right Pleural Effusion pocket size: 0 cm Right skin surface to fluid distance: 0 cm Right side NOT marked for possible thoracentesis outside the dept. Pulmonologists are able to review the images in the patient?s EMR. Limited scanning performed in the posterior right chest IMPRESSIONS: No sizable effusion noted in the posterior right chest.
[2018-11-17 17:29] LABS: Glucose,Whole Blood 97 mg/dL (75-99)
[2018-11-17 18:22] LABS: Phosphorus 3.2 mg/dL (2.5-4.5); Potassium 4.3 mmol/L (3.5-5.1)
--- NOTE | 2018-11-17 20:23 | P.PN ---
Subjective Progress Note Date: 11/17/18 (delayed charting patient seen at 0815) Principal diagnosis: letheragy Patient is a 49-year-old female with a history of non-small cell lung cancer status post chemo and radiation and currently in remission, COPD, and tobacco abuse who initially presented to [facility] with lethargy. Patient was transferred here for ICU management. At [facility] she initially refused intubation and opted for BiPAP. CT of the brain was performed which was negative, chest x-ray showed complete opacification of the right side of the lung. Patient received IV fluids however her blood pressure remained low and a central line was inserted and she was started on levo. There lactic acid was 1.2, she was hyponatremic, and CO 2 was found to be 85 with a pH of 7.14, magnesium noted at 1.5. She was subsequently transferred to our facility. Patient did not have any active malignancy after discussion with family she was made full code and was subsequently intubated. She was felt to have possible postobstructive pneumonia along with septic shock and toxic metabolic encephalopathy. She was started on Vanco and Zosyn. She was admitted to the ICU and started on IV fluids. Pulmonology was consulted. Patient seen and examined at bedside. She is sedated on the ventilator. She is currently not responding. Nursing at bedside. No acute events overnight. Has been maintained on IV vasopressors. No family present. Objective - Vital Signs Vital signs: Vital Signs Temp 96.9 F L 11/17/18 16:00 Pulse 98 11/17/18 20:06 Resp 12 11/17/18 19:15 BP 96/65 11/17/18 19:15 Pulse Ox 99 11/17/18 19:15 Intake & Output 11/17/18 11/17/18 11/18/18 06:59 18:59 06:59 Intake Total 2223.491 8634.099 85 Output Total 1150 991 185 Balance 432.247 7933.099 -100 Weight 51.9 kg 51.9 kg Intake: IV 800 2850 75 Dextrose 5%-0.9% NaCl 1, 600 900 75 000 ml @ 75 mls/hr IV . [id number] [facility] Rx#:[id number] Magnesium Sulfate-D5w Pmx 100 200 1 gm In Dextrose/Water 1 100ml.bag @ 100 mls/hr IVPB ONCE ONE Rx#: [id number] Piperacillin-Tazobactam 3 100 200 .375 gm In Sodium Chloride 0.9% 100 ml @ 25 mls/hr IVPB Q8HR [facility] Rx# :[id number] Potassium Phosphate 10 300 mmol In Sodium Chloride 0 .9% 100 ml @ 50 mls/hr IV Q2H [facility] Rx#:[id number] Sodium Chloride 0.9% 1, 1000 000 ml @ 999 mls/hr IV . Q1H1M [facility] Rx#:[id number] Vancomycin 1,000 mg In 250 Sodium Chloride 0.9% 250 ml @ 125 mls/hr IVPB Q8H [facility] Rx#:[id number] Intake, IV Titration 466.722 307.099 Amount Norepinephrine 4 mg In 166.548 111.765 Sodium Chloride 0.9% 250 ml @ 0.05 MCG/KG/MIN 10. 974 mls/hr IV .Q23H9M [facility] Rx#:[id number] Potassium Chloride 20 meq 100 In Water For Injection 1 100ml.bag @ 50 mls/hr IVPB Q2H [facility] Rx#: [id number] Propofol 1,000 mg In 50.174 95.334 Empty Bag 1 bag @ Titrate IV .Q0M [facility] Rx#: [id number] Vancomycin 1,000 mg In 250 Sodium Chloride 0.9% 250 ml @ 125 mls/hr IVPB Q8H [facility] Rx#:[id number] Tube Feeding 30 10 Other 30 Output: Urine 1150 991 185 Other: Voiding Method Indwelling Catheter Indwelling Catheter # Voids 1 - Exam General: Ill-appearing, no distress, appears at stated age Derm: warm, dry Head: atraumatic, normocephalic, symmetric Eyes: EOMI, no lid lag, anicteric sclera Mouth: no lip lesion, mucus membranes moist, ET tube in place Cardiovascular: S1S2 reg, no murmur, positive posterior tibial pulse bilateral, Lungs: Sounds bilateral, no rhonchi, no rales , no accessory muscle use, on vent Abdominal: soft, nontender to palpation, no guarding, no appreciable organome tami Ext: no gross muscle atrophy, no edema, no contractures Neuro: Withdrawal to pain, breathing over vent, positive cough Psych: Sedated on vent - Labs CBC & Chem 7: 11/17/18 04:58 05/28/19 18:03 Labs: Abnormal Lab Results - Last 24 Hours (Table) 11/16/18 11/16/18 11/16/18 Range/Units 20:28 20:45 21:40 WBC 17.0 H (3.8-10.6) k/uL RBC 2.55 L (3.80-5.40) m/uL Hgb 9.4 L (11.4-16.0) gm/dL Hct 28.8 L (34.0-46.0) % MCV 113.0 H D (80.0-100.0) fL MCH 36.8 H (25.0-35.0) pg RDW 18.3 H (11.5-15.5) % Neutrophils # (1.3-7.7) k/uL Neutrophils # (Manual) 15.90 H (1.3-7.7) k/uL Lymphocytes # (1.0-4.8) k/uL Lymphocytes # (Manual) 0.34 L (1.0-4.8) k/uL Metamyelocytes # (Man) 0.17 H (0) k/uL Macrocytosis Marked A ABG pH 7.20 L (7.35-7.45) ABG pCO2 72 H* (35-45) mmHg ABG pO2 79 L (83-108) mmHg ABG HCO3 28 H (21-25) mmol/L ABG Total CO2 30 H (19-24) mmol/L ABG O2 Saturation (94-97) % Sodium (137-145) mmol/L Potassium (3.5-5.1) mmol/L Chloride (98-107) mmol/L BUN (7-17) mg/dL Creatinine (0.52-1.04) mg/dL Glucose (74-99) mg/dL POC Glucose (mg/dL) 100 H (75-99) mg/dL Calcium (8.4-10.2) mg/dL Phosphorus (2.5-4.5) mg/dL AST (14-36) U/L Alkaline Phosphatase (38-126) U/L Total Protein (6.3-8.2) g/dL Albumin (3.5-5.0) g/dL TSH (0.465-4.680) mIU/L Free T4 (0.78-2.19) ng/dL 11/16/18 11/16/18 11/17/18 Range/Units 21:40 22:00 04:56 WBC (3.8-10.6) k/uL RBC (3.80-5.40) m/uL Hgb (11.4-16.0) gm/dL Hct (34.0-46.0) % MCV (80.0-100.0) fL MCH (25.0-35.0) pg RDW (11.5-15.5) % Neutrophils # (1.3-7.7) k/uL Neutrophils # (Manual) (1.3-7.7) k/uL Lymphocytes # (1.0-4.8) k/uL Lymphocytes # (Manual) (1.0-4.8) k/uL Metamyelocytes # (Man) (0) k/uL Macrocytosis ABG pH 7.62 H* (7.35-7.45) ABG pCO2 29 L (35-45) mmHg ABG pO2 >400 H (83-108) mmHg ABG HCO3 26 H 30 H (21-25) mmol/L ABG Total CO2 27 H 31 H (19-24) mmol/L ABG O2 Saturation 100.0 H 98.7 H (94-97) % Sodium 125 L (137-145) mmol/L Potassium (3.5-5.1) mmol/L Chloride 93 L (98-107) mmol/L BUN 6 L (7-17) mg/dL Creatinine 0.38 L (0.52-1.04) mg/dL Glucose 101 H (74-99) mg/dL POC Glucose (mg/dL) (75-99) mg/dL Calcium 7.8 L (8.4-10.2) mg/dL Phosphorus (2.5-4.5) mg/dL AST 38 H (14-36) U/L Alkaline Phosphatase 198 H (38-126) U/L Total Protein 4.8 L (6.3-8.2) g/dL Albumin 2.4 L (3.5-5.0) g/dL TSH (0.465-4.680) mIU/L Free T4 (0.78-2.19) ng/dL 11/17/18 11/17/18 11/17/18 Range/Units 04:58 04:58 11:38 WBC 14.5 H (3.8-10.6) k/uL RBC 2.27 L (3.80-5.40) m/uL Hgb 8.4 L (11.4-16.0) gm/dL Hct 25.3 L (34.0-46.0) % MCV 111.6 H (80.0-100.0) fL MCH 36.8 H (25.0-35.0) pg RDW 18.3 H (11.5-15.5) % Neutrophils # 13.3 H (1.3-7.7) k/uL Neutrophils # (Manual) (1.3-7.7) k/uL Lymphocytes # 0.6 L (1.0-4.8) k/uL Lymphocytes # (Manual) (1.0-4.8) k/uL Metamyelocytes # (Man) (0) k/uL Macrocytosis Marked A ABG pH (7.35-7.45) ABG pCO2 (35-45) mmHg ABG pO2 (83-108) mmHg ABG HCO3 (21-25) mmol/L ABG Total CO2 (19-24) mmol/L ABG O2 Saturation (94-97) % Sodium 125 L (137-145) mmol/L Potassium 2.9 L (3.5-5.1) mmol/L Chloride 92 L (98-107) mmol/L BUN 3 L (7-17) mg/dL Creatinine 0.25 L (0.52-1.04) mg/dL Glucose 121 H (74-99) mg/dL POC Glucose (mg/dL) 117 H (75-99) mg/dL Calcium 7.5 L (8.4-10.2) mg/dL Phosphorus 1.3 L (2.5-4.5) mg/dL AST (14-36) U/L Alkaline Phosphatase 169 H (38-126) U/L Total Protein 4.2 L (6.3-8.2) g/dL Albumin 2.1 L (3.5-5.0) g/dL TSH 0.123 L (0.465-4.680) mIU/L Free T4 2.34 H (0.78-2.19) ng/dL Microbiology - Last 24 Hours (Table) 11/16/18 22:15 Gram Stain - Preliminary Sputum Sputum Culture - Preliminary Assessment and Plan Assessment: Right lower lobe pneumonia, probable post obstructive, with almost complete opacification of the right lung with AE COPD -Patient had bronchoscopy last admission which did not show any abnormal cytology but did show Divya -Last imaging did not show any signs of malignancy -Continue with vancomycin and Zosyn -Pulmonary hygiene -Pulmonary recommendations -Chest ultrasound without any signs of pleural fluid -Sputum cultures - IV steroids, Bronchdilators Septic shock -IV fluids -Wean the Levophed as able Hyponatremia -Undetermined etiology -Continue with IV fluids, currently on D5 0.45 consider switch to NS -Repeat basic metabolic profile -If not improved in a.m. consider nephrology consultation. - recheck BMP Hypokalemia, hypophosphatemia - replace and recheck Macrocytic anemia -Check B12 and folic acid -Slightly lower than baseline -Await stool occult blood Possible hyperthyroidism -depressed TSH with increased free T4 -Recommend repeat testing as outpatient when more accurate -Would not start medications at this point in time -Once clinical improvement will check thyroid antibodies. History of non-small cell lung cancer -Currently in remission -Status post chemoradiation DVT prophylaxis: Heparin Discussed with: Nursing Anticipated discharge: [address]: home health vs SNF A total of 35 minutes was spent on the care of this complex patient more than 50% of the time was spent in counseling and care coordination.
[2018-11-17] MEDS: MIDAZOLAM HCL 50 MG in SODIUM CHLORIDE 0.9% 40 ML IV SCH (20:48)
[2018-11-17] MEDS: SODIUM CHLORIDE 0.9% 1,000 ML IV SCH (22:00)
[2018-11-17 23:51] LABS: Glucose,Whole Blood 109 mg/dL (75-99)
[2018-11-18] MEDS: methylPREDNISolone SOD SUCCI 125 MG/2 ML VIAL IV SCH ×4 (00:38→22:52)
[2018-11-18] MEDS: PIPERACILLIN-TAZOBACTAM 3.375 GM in SODIUM CHLORIDE 0.9% 100 ML IVPB SCH ×3 (00:38→16:27)
[2018-11-18] MEDS: HEPARIN SODIUM,PORCINE 5,000 UNIT/ML 1 ML VIAL SQ SCH ×4 (00:38→22:52)
[2018-11-18] MEDS: INSULIN ASPART (NovoLOG) 100 UNIT/ML VIAL SQ SCH ×4 (01:53→18:10)
[2018-11-18] MEDS: NOREPINEPHRINE 32 MG in SODIUM CHLORIDE 0.9% 218 ML IV SCH ×2 (01:54→22:53)
[2018-11-18] MEDS: PROPOFOL 1,000 MG in EMPTY BAG 1 BAG IV SCH ×4 (01:55→19:13)
[2018-11-18] MEDS ORDERED: VANCOMYCIN TROUGH DUE 1 EACH MISC MISCELLANE ONE (05:00)
[2018-11-18 06:13] LABS: Glucose,Whole Blood 138 mg/dL (75-99)
[2018-11-18 06:52] LABS: Anisocytosis Slight; HCT 25.3 % (34.0-46.0); HGB 8.1 gm/dL (11.4-16.0); MCHC 32.2 g/dL (31.0-37.0); MCV 111.5 fL (80.0-100.0); Mean Platelet Volume 7.1; Platelet Count 205 k/uL (150-450); RBC 2.26 m/uL (3.80-5.40); RDW 18.2 % (11.5-15.5); WBC 10.7 k/uL (3.8-10.6)
[2018-11-18 07:02] LABS: Macrocytosis Marked
[2018-11-18 07:05] LABS: African American GFR (CKD) >90 (>60 ml/min/1.73 sqM); Anion Gap 6 mmol/L; Blood Urea Nitrogen 2 mg/dL (7-17); Calcium 7.6 mg/dL (8.4-10.2); Carbon Dioxide 35 mmol/L (22-30); Chloride 90 mmol/L (98-107); Glucose 141 mg/dL (74-99); Magnesium 1.6 mg/dL (1.6-2.3); Phosphorus 2.6 mg/dL (2.5-4.5); Potassium 2.8 mmol/L (3.5-5.1); Sodium 131 mmol/L (137-145)
[2018-11-18] MEDS: VANCOMYCIN 1,000 MG in SODIUM CHLORIDE 0.9% 250 ML IVPB SCH (07:23)
[2018-11-18 07:27] LABS: ABG Base Excess 15.5 mmol/L; ABG HCO3 38 mmol/L (21-25); ABG Oxygen Saturation 99.5 % (94-97); ABG PCO2 47 mmHg (35-45); ABG PH 7.52 (7.35-7.45); ABG PO2 136 mmHg (83-108); ABG TCO2 40 mmol/L (19-24); Allen Test Performed? Yes
--- NOTE | 2018-11-18 07:42 | XR ---
EXAMINATION TYPE: XR chest 1V portable DATE OF EXAM: 11/18/2018 COMPARISON: Prior chest x-ray 11/17/2018 HISTORY: Intubated TECHNIQUE: Single frontal view of the chest is obtained. FINDINGS: Endotracheal tube, gastric tube, right jugular central venous catheter are stable and over lying appropriate positions. Interstitium is increased. There is some improved aeration in the right lung. No pneumothorax. Heart size is likely stable. IMPRESSION: Some improvement in aeration.
[2018-11-18] MEDS: IPRATROPIUM-ALBUTEROL 3 ML NEB INHALATION SCH ×4 (08:10→19:38)
--- NOTE | 2018-11-18 08:21 | P.PN ---
Subjective Progress Note Date: 11/18/18 Principal diagnosis: letheragy Patient is a 57-year-old female with a history of non-small cell lung cancer status post chemo and radiation and currently in remission, COPD, and tobacco abuse who initially presented to [facility] with lethargy. Patient was transferred here for ICU management. At [facility] she initially refused intubation and opted for BiPAP. CT of the brain was performed which was negative, chest x-ray showed complete opacification of the right side of the lung. Patient received IV fluids however her blood pressure remained low and a central line was inserted and she was started on levo. There lactic acid was 1.2, she was hyponatremic, and PCO2 was found to be 85 with a pH of 7.14, magnesium noted at 1.5. She was subsequently transferred to our facility. Patient did not have any active malignancy after discussion with family she was made full code and was subsequently intubated. She was felt to have possible postobstructive pneumonia along with septic shock and toxic metabolic encephalopathy. She was started on Vanco and Zosyn. She was admitted to the ICU and started on IV fluids. Pulmonology was consulted. Electrolytes were aggressively replaced. Her sodium improved by morning of 11/18. Patient seen and examined at bedside. Still sedated on vent. No acute events overnight per nursing. No family present at bedside on my assessment. Objective - Vital Signs Vital signs: Vital Signs Temp 96.6 F L 11/18/18 08:00 Pulse 82 11/18/18 08:00 Resp 12 11/18/18 08:00 BP 95/58 11/18/18 08:00 Pulse Ox 100 11/18/18 08:00 Intake & Output 11/17/18 11/18/18 11/18/18 18:59 06:59 18:59 Intake Total 3217.099 1387.315 304.132 Output Total 991 1410 500 Balance 2226.099 -22.685 -195.868 Weight 51.9 kg Intake: IV 2850 1050 150 Dextrose 5%-0.9% NaCl 1, 900 75 000 ml @ 75 mls/hr IV . [id number] [facility] Rx#:[id number] Magnesium Sulfate-D5w Pmx 200 1 gm In Dextrose/Water 1 100ml.bag @ 100 mls/hr IVPB ONCE [facility] Rx#: [id number] Piperacillin-Tazobactam 3 200 50 .375 gm In Sodium Chloride 0.9% 100 ml @ 25 mls/hr IVPB Q8HR [facility] Rx# :[id number] Potassium Phosphate 10 300 mmol In Sodium Chloride 0 .9% 100 ml @ 50 mls/hr IV Q2H [facility] Rx#:[id number] Sodium Chloride 0.9% 1, 675 150 000 ml @ 75 mls/hr IV . [id number] [facility] Rx#:[id number] Sodium Chloride 0.9% 1, 1000 000 ml @ 999 mls/hr IV . Q1H1M [facility] Rx#:[id number] Vancomycin 1,000 mg In 250 250 Sodium Chloride 0.9% 250 ml @ 125 mls/hr IVPB Q8H [facility] Rx#:[id number] Intake, IV Titration 307.099 147.315 84.132 Amount Norepinephrine 32 mg In 3.511 1.922 Sodium Chloride 0.9% 218 ml @ 0.05 MCG/KG/MIN 1. 216 mls/hr IV .Q24H [facility] Rx#:[id number] Norepinephrine 4 mg In 111.765 Sodium Chloride 0.9% 250 ml @ 0.05 MCG/KG/MIN 10. 974 mls/hr IV .[id number] [facility] Rx#:[id number] Potassium Chloride 20 meq 100 In Water For Injection 1 100ml.bag @ 50 mls/hr IVPB Q2H [facility] Rx#: [id number] Propofol 1,000 mg In 95.334 143.804 82.21 Empty Bag 1 bag @ Titrate IV .Q0M [facility] Rx#: [id number] Tube Feeding 30 160 40 Other 30 30 30 Output: Urine 991 1410 500 Other: Voiding Method Indwelling Catheter Indwelling Catheter # Voids 1 - Exam General: Ill-appearing, no distress, appears at stated age Derm: warm, dry Head: atraumatic, normocephalic, symmetric Eyes: EOMI, no lid lag, anicteric sclera Mouth: no lip lesion, mucus membranes moist, ET tube in place Cardiovascular: S1S2 reg, no murmur, positive posterior tibial pulse bilateral, Lungs: Course breath sounds bilateral, no rhonchi, no rales , no accessory muscle use, on vent Abdominal: soft, nontender to palpation, no guarding, no appreciable organomegaly Ext: no gross muscle atrophy, trace edema, no contractures Neuro: no withdrawal to pain, breathing over vent, no tremors Psych: Sedated on vent - Labs CBC & Chem 7: 11/18/18 06:26 11/18/18 06:26 Labs: Abnormal Lab Results - Last 24 Hours (Table) 11/17/18 11/17/18 11/17/18 Range/Units 11:38 20:50 23:50 WBC (3.8-10.6) k/uL RBC (3.80-5.40) m/uL Hgb (11.4-16.0) gm/dL Hct (34.0-46.0) % MCV (80.0-100.0) fL MCH (25.0-35.0) pg RDW (11.5-15.5) % Macrocytosis ABG pH (7.35-7.45) ABG pCO2 (35-45) mmHg ABG pO2 (83-108) mmHg ABG HCO3 (21-25) mmol/L ABG Total CO2 (19-24) mmol/L ABG O2 Saturation (94-97) % Sodium 129 L (137-145) mmol/L Potassium (3.5-5.1) mmol/L Chloride (98-107) mmol/L Carbon Dioxide (22-30) mmol/L BUN (7-17) mg/dL Creatinine (0.52-1.04) mg/dL Glucose (74-99) mg/dL POC Glucose (mg/dL) 117 H 109 H (75-99) mg/dL Calcium (8.4-10.2) mg/dL 11/18/18 11/18/18 11/18/18 Range/Units 06:11 06:26 06:26 WBC 10.7 H (3.8-10.6) k/uL RBC 2.26 L (3.80-5.40) m/uL Hgb 8.1 L (11.4-16.0) gm/dL Hct 25.3 L (34.0-46.0) % MCV 111.5 H (80.0-100.0) fL MCH 36.0 H (25.0-35.0) pg RDW 18.2 H (11.5-15.5) % Macrocytosis Marked A ABG pH (7.35-7.45) ABG pCO2 (35-45) mmHg ABG pO2 (83-108) mmHg ABG HCO3 (21-25) mmol/L ABG Total CO2 (19-24) mmol/L ABG O2 Saturation (94-97) % Sodium 131 L (137-145) mmol/L Potassium 2.8 L (3.5-5.1) mmol/L Chloride 90 L (98-107) mmol/L Carbon Dioxide 35 H (22-30) mmol/L BUN 2 L (7-17) mg/dL Creatinine 0.25 L (0.52-1.04) mg/dL Glucose 141 H (74-99) mg/dL POC Glucose (mg/dL) 138 H (75-99) mg/dL Calcium 7.6 L (8.4-10.2) mg/dL 11/18/18 Range/Units 07:16 WBC (3.8-10.6) k/uL RBC (3.80-5.40) m/uL Hgb (11.4-16.0) gm/dL Hct (34.0-46.0) % MCV (80.0-100.0) fL MCH (25.0-35.0) pg RDW (11.5-15.5) % Macrocytosis ABG pH 7.52 H (7.35-7.45) ABG pCO2 47 H (35-45) mmHg ABG pO2 136 H (83-108) mmHg ABG HCO3 38 H (21-25) mmol/L ABG Total CO2 40 H (19-24) mmol/L ABG O2 Saturation 99.5 H (94-97) % Sodium (137-145) mmol/L Potassium (3.5-5.1) mmol/L Chloride (98-107) mmol/L Carbon Dioxide (22-30) mmol/L BUN (7-17) mg/dL Creatinine (0.52-1.04) mg/dL Glucose (74-99) mg/dL POC Glucose (mg/dL) (75-99) mg/dL Calcium (8.4-10.2) mg/dL Microbiology - Last 24 Hours (Table) 11/17/18 01:40 Blood Culture - Preliminary Blood No Growth after 24 hours 11/17/18 00:25 Blood Culture - Preliminary Blood No Growth after 24 hours 11/16/18 22:15 Gram Stain - Preliminary Sputum Sputum Culture - Preliminary Assessment and Plan Assessment: Right lower lobe pneumonia, probable post obstructive, with AE COPD -Patient had bronchoscopy last admission which did not show any abnormal cytology but did show Divya -Last imaging did not show any signs of malignancy -Continue with vancomycin and Zosyn -Pulmonary hygiene -Pulmonary recommendations -Chest ultrasound without any signs of pleural fluid -Sputum cultures - IV steroids, Bronchdilators Septic shock -IV fluids -Wean the Levophed as able Hyponatremia, improving -likely due to dehydration -Continue with IV fluids -Repeat basic metabolic profile in AM Hypokalemia, Hypomagnesemia - replace and recheck Macrocytic anemia -B12 and folic acid pending -Slightly lower than baseline -Await stool occult blood, no BM yesterday Possible hyperthyroidism -depressed TSH with increased free T4 -Recommend repeat testing as outpatient when more accurate -Would not start medications at this point in time -Once clinical improvement will check thyroid antibodies. History of non-small cell lung cancer -Currently in remission -Status post chemoradiation hypophosphatemia, improved DVT prophylaxis: Heparin Discussed with: Nursing Anticipated discharge: 3-[address]: home health vs SNF A total of 35 minutes was spent on the care of this complex patient more than 50% of the time was spent in counseling and care coordination.
[2018-11-18] MEDS: CHLORHEXIDINE GLUCONATE 15 ML CUP MUCOUS MEM SCH ×2 (08:29→20:45)
[2018-11-18] MEDS: PANTOPRAZOLE 40 MG/10 ML VIAL IV SCH (08:29)
[2018-11-18] MEDS: MAGNESIUM SULFATE-D5W PMX 1 GM in DEXTROSE/WATER 1 100ML.BAG IVPB SCH ×2 (08:50→10:49)
[2018-11-18] MEDS: POTASSIUM BICARBONATE/CIT AC 20 MEQ TABLET.EFF NG-TUBE SCH ×5 (08:50→22:50)
[2018-11-18] MEDS ORDERED: IV FLUID CONTINUATION 1,000 ML IV ONE (09:43)
[2018-11-18] MEDS ORDERED: HYDROmorphone 0.5 MG/0.5 ML SYRINGE IVP STA (10:04)
[2018-11-18] MEDS ORDERED: HYDROmorphone 1 MG/ML 1 ML SYRINGE IVP PRN ×2 (10:04→10:10)
[2018-11-18] MEDS: SODIUM CHLORIDE 0.9% 1,000 ML IV SCH ×2 (11:30→14:46)
[2018-11-18 11:34] LABS: Glucose,Whole Blood 152 mg/dL (75-99)
--- NOTE | 2018-11-18 12:23 | PCN ---
PROCEDURE NOTE PROCEDURE: Bronchoscopy and bronchoalveolar lavage of the right upper lobe, right middle lobe and right lower lobe. 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 ANESTHESIA USED: Patient was already on propofol, she was on propofol drip and on mechanical ventilation. Prior to the procedure, she was given 50 mg of propofol, and she received Dilaudid 0.5 mg IV push. PROCEDURE DESCRIPTION: Patient was placed in a supine position, she was already on mechanical ventilation and an adapter was applied to the endotracheal tube. During the procedure, we monitored her O2 saturation continuously, blood pressure was continuously monitored, and cardiac rhythm was continuously monitored. The bronchoscope was advanced through the adapter of the endotracheal tube, and advanced down to the area of the distal trachea. Sandy was seen, and noted to be sharp. A thorough examination was done of the right mainstem, right upper lobe, right middle lobe, right lower lobe, also left mainstem, left upper lobe, lingula and left lower lobe. There was evidence of some thick purulent secretions noted mostly in the right lower lobe and right middle lobe and to some extent in the right upper lobe. Lavage was done of the right lower lobe, right middle lobe and left upper lobe. Left side was examined, minimal secretions were noted, and these were suctioned easily. The procedure was well tolerated, and there was no evidence of any immediate complications. The fluid obtained was sent for different diagnostic studies and cultures. There was no evidence of any endobronchial tumors. MMODL / IJN: [id number] /
--- NOTE | 2018-11-18 13:18 | P.PN ---
Subjective Progress Note Date: 11/18/18 Principal diagnosis: Acute hypoxic and hypercapnic respiratory failure secondary to right lung pneumonia and COPD exacerbation. This is a 57-year-old female with history of small cell lung cancer, diagnosed about a year ago by Dr. Zhang, and she received chemotherapy as well as r adiation therapy, and she was supposedly in remission. Patient was admitted to the hospital in late September and early October. At that time she was seen for acute exacerbation of COPD, right lower lobe postobstructive pneumonia underwent bronchoscopy and BAL on 10/18/2018, and she had significant amount of tenacious secretions cultures were only positive for Divya albicans. Patient had abnormal PET scan showing a right hilar uptake, and abnormal uptake in the thoracic spine. Patient was eventually discharged home, however she presented yesterday to [facility] with profound shortness of breath, and mental status change. Apparently the patient was hypoxic, hypercapnic, and in acute respiratory failure. Initially her CODE STATUS was DO NOT RESUSCITATE. However this was later changed when the patient was transferred to our facility from [facility] ER. As soon as the CODE STATUS was changed, patient was intubated for worsening respiratory failure placed on mechanical ventilation, and this consult was initiated. Her ventilator settings where handled overnight by Dr. Hein. Presently the patient is on mechanical ventilation, assist control mode tidal volume of 400 rate of 12 FiO2 of 40% and PEEP of 5. She is also on propofol, and on 0.07 mcg/kg/m of norepinephrine. Her propofol is at 40 mcg/kg/m. Patient is sedated, chest x-ray was reviewed, I discussed her condition with her family members at bedside, and I recommended ultrasound of the chest to possibly consider a right-sided thoracentesis. There is a significant volume loss and consolidation involving the right lung if the ultrasound is negative for pleural effusion, may consider bronchoscopy and evaluation of the right lung in the next 24 hours. Family was made aware of that recommendation. Patient was reevaluated today on 11/18/2018, remains on mechanical ventilation, her ventilator settings tidal volume of 400, assist control rate of 12 FiO2 40%, PEEP is 5. Patient is on a minimal dose of norepinephrine at 0.03 mcg/kg/m, propofol at 25 mcg/kg/m, she is on enteral feeding via nasogastric tube. Chest x-ray showed slight improvement, underwent bronchoscopy today and lavage of the right upper lobe right middle lobe and right lower lobe, there was no evidence of any endobronchial tumors. Secretions in the right lung were noted to be a bit reluctant, cultures are pending. Fluid was even sent for cytology, but there was no evidence of endobronchial tumor. ABG this morning showed a pO2 of 136 pCO2 of 47 pH of 7.52. Electrolytes were reviewed potassium is a bit low be corrected as per protocol. CBC is normal however hemoglobin is 8.1. Patient is sedated, on propofol drip. Will likely addressed mental status today off propofol but she is not quite ready for weaning or extubation at this point Objective - Vital Signs Vital signs: Vital Signs Temp 96.1 F L 11/18/18 12:00 Pulse 80 11/18/18 12:00 Resp 12 11/18/18 12:00 BP 86/56 11/18/18 12:00 Pulse Ox 100 11/18/18 12:00 Intake & Output 11/17/18 11/18/18 11/18/18 18:59 06:59 18:59 Intake Total 3217.099 0699.484 2164.274 Output Total 991 1410 1085 Balance 2226.099 -22.685 54.274 Weight 51.9 kg 52.7 kg Intake: IV 2850 1050 800 Dextrose 5%-0.9% NaCl 1, 900 75 000 ml @ 75 mls/hr IV . [id number] [facility] Rx#:[id number] Magnesium Sulfate-D5w Pmx 200 1 gm In Dextrose/Water 1 100ml.bag @ 100 mls/hr IVPB ONCE ONE Rx#: [id number] Magnesium Sulfate-D5w Pmx 100 1 gm In Dextrose/Water 1 100ml.bag @ 100 mls/hr IVPB Q1H [facility] Rx#: [id number] Magnesium Sulfate-D5w Pmx 100 1 gm In Dextrose/Water 1 100ml.bag @ 100 mls/hr IVPB Q1H [facility] Rx#: [id number] Piperacillin-Tazobactam 3 200 50 100 .375 gm In Sodium Chloride 0.9% 100 ml @ 25 mls/hr IVPB Q8HR [facility] Rx# :[id number] Potassium Phosphate 10 300 mmol In Sodium Chloride 0 .9% 100 ml @ 50 mls/hr IV Q2H [facility] Rx#:[id number] Sodium Chloride 0.9% 1, 675 450 000 ml @ 75 mls/hr IV . [id number] [facility] Rx#:[id number] Sodium Chloride 0.9% 1, 1000 000 ml @ 999 mls/hr IV . Q1H1M [facility] Rx#:[id number] Vancomycin 1,000 mg In 250 250 Sodium Chloride 0.9% 250 ml @ 125 mls/hr IVPB Q8H [facility] Rx#:[id number] Intake, IV Titration 307.099 147.315 104.274 Amount Norepinephrine 32 mg In 3.511 4.274 Sodium Chloride 0.9% 218 ml @ 0.05 MCG/KG/MIN 1. 216 mls/hr IV .Q24H [facility] Rx#:[id number] Norepinephrine 4 mg In 111.765 Sodium Chloride 0.9% 250 ml @ 0.05 MCG/KG/MIN 10. 974 mls/hr IV .Q23H9M [facility] Rx#:[id number] Potassium Chloride 20 meq 100 In Water For Injection 1 100ml.bag @ 50 mls/hr IVPB Q2H [facility] Rx#: [id number] Propofol 1,000 mg In 95.334 143.804 100.00 Empty Bag 1 bag @ Titrate IV .Q0M [facility] Rx#: [id number] Tube Feeding 30 160 175 Other 30 30 60 Output: Urine 991 1410 1085 Other: Voiding Method Indwelling Catheter Indwelling Catheter Indwelling Catheter # Voids 1 - Exam General: 57-year-old female on mechanical ventilation, in no distress. Derm: warm, dry Head: atraumatic, normocephalic, symmetric, endotracheal tube and orogastric tube are intact. Eyes: EOMI, no lid lag, anicteric sclera Mouth: no lip lesion, mucus membranes moist, ET tube in place Cardiovascular: S1S2 reg, no murmur, positive posterior tibial pulse bilateral, Lungs: Course breath sounds bilateral, no rhonchi, no rales , no accessory muscle use, on vent Abdominal: soft, nontender no megaly no rebound no guarding, positive bowel sounds. Ext: No clubbing, no edema, no cyanosis Neuro: Cannot be assessed, on mechanical ventilation and sedated. Psych: Sedated, on mechanical ventilation. - Labs CBC & Chem 7: 11/18/18 06:26 11/18/18 06:26 Labs: Abnormal Lab Results - Last 24 Hours (Table) 11/17/18 11/17/18 11/18/18 Range/Units 20:50 23:50 06:11 WBC (3.8-10.6) k/uL RBC (3.80-5.40) m/uL Hgb (11.4-16.0) gm/dL Hct (34.0-46.0) % MCV (80.0-100.0) fL MCH (25.0-35.0) pg RDW (11.5-15.5) % Macrocytosis ABG pH (7.35-7.45) ABG pCO2 (35-45) mmHg ABG pO2 (83-108) mmHg ABG HCO3 (21-25) mmol/L ABG Total CO2 (19-24) mmol/L ABG O2 Saturation (94-97) % Sodium 129 L (137-145) mmol/L Potassium (3.5-5.1) mmol/L Chloride (98-107) mmol/L Carbon Dioxide (22-30) mmol/L BUN (7-17) mg/dL Creatinine (0.52-1.04) mg/dL Glucose (74-99) mg/dL POC Glucose (mg/dL) 109 H 138 H (75-99) mg/dL Calcium (8.4-10.2) mg/dL 11/18/18 11/18/18 11/18/18 Range/Units 06:26 06:26 07:16 WBC 10.7 H (3.8-10.6) k/uL RBC 2.26 L (3.80-5.40) m/uL Hgb 8.1 L (11.4-16.0) gm/dL Hct 25.3 L (34.0-46.0) % MCV 111.5 H (80.0-100.0) fL MCH 36.0 H (25.0-35.0) pg RDW 18.2 H (11.5-15.5) % Macrocytosis Marked A ABG pH 7.52 H (7.35-7.45) ABG pCO2 47 H (35-45) mmHg ABG pO2 136 H (83-108) mmHg ABG HCO3 38 H (21-25) mmol/L ABG Total CO2 40 H (19-24) mmol/L ABG O2 Saturation 99.5 H (94-97) % Sodium 131 L (137-145) mmol/L Potassium 2.8 L (3.5-5.1) mmol/L Chloride 90 L (98-107) mmol/L Carbon Dioxide 35 H (22-30) mmol/L BUN 2 L (7-17) mg/dL Creatinine 0.25 L (0.52-1.04) mg/dL Glucose 141 H (74-99) mg/dL POC Glucose (mg/dL) (75-99) mg/dL Calcium 7.6 L (8.4-10.2) mg/dL 11/18/18 Range/Units 11:32 WBC (3.8-10.6) k/uL RBC (3.80-5.40) m/uL Hgb (11.4-16.0) gm/dL Hct (34.0-46.0) % MCV (80.0-100.0) fL MCH (25.0-35.0) pg RDW (11.5-15.5) % Macrocytosis ABG pH (7.35-7.45) ABG pCO2 (35-45) mmHg ABG pO2 (83-108) mmHg ABG HCO3 (21-25) mmol/L ABG Total CO2 (19-24) mmol/L ABG O2 Saturation (94-97) % Sodium (137-145) mmol/L Potassium (3.5-5.1) mmol/L Chloride (98-107) mmol/L Carbon Dioxide (22-30) mmol/L BUN (7-17) mg/dL Creatinine (0.52-1.04) mg/dL Glucose (74-99) mg/dL POC Glucose (mg/dL) 152 H (75-99) mg/dL Calcium (8.4-10.2) mg/dL Microbiology - Last 24 Hours (Table) 11/16/18 22:15 Gram Stain - Preliminary Sputum Sputum Culture - Preliminary Divya albicans 11/17/18 01:40 Blood Culture - Preliminary Blood No Growth after 24 hours 11/17/18 00:25 Blood Culture - Preliminary Blood No Growth after 24 hours Assessment and Plan Assessment: Impression: 1 acute hypoxic and hypercapnic respiratory failure multifactorial secondary extensive pneumonia involving the right lung, and underlying COPD exacerbation. Her ultrasound showed no evidence of significant pleural effusion, and her bronchoscopy showed no evidence of endobronchial tumor. 2 history of small cell lung cancer, presently in remission. 3 acute sepsis and septic shock most likely secondary to right lower lobe pneumonia, likely community-acquired. Doubt postobstructive pneumonia since her bronchoscopy was relatively unremarkable and no evidence of endobronchial tumor. 4. History of alcohol abuse Recommendation: Continue ventilatory support, nutritional support, hemodynamic support, antibiotics, bronchodilators, steroids, await final report from the bronchoalveolar lavage which was performed today, patient had negative ultrasound of the chest and no evidence of pleural effusion, bronchoscopy was performed, chest x-ray showed slight improvement compared to the chest x-ray on presentation, we will have daily assessment of mental status, and in the next couple of days may consider weaning trials. Prognosis remains guarded considering her multiple comorbidities. We'll continue to follow, critical care time is 35 minutes not including the time spent on bronchoscopy. Time with Patient: Greater than 30
[2018-11-18] MEDS: VANCOMYCIN 1,250 MG in SODIUM CHLORIDE 0.9% 250 ML IVPB SCH ×2 (14:28→22:52)
[2018-11-18 15:17] LABS: Appearance,BF Cloudy; Nucleated Cells, Body Fluid 5300 /uL; RBC, Body Fluid 220 /uL
[2018-11-18 15:25] LABS: Mononuclear WBC,Body Fluid 7 %; Polynuclear WBC,Body Fluid 93 %; Total Cells Counted,Body Fluid 100
[2018-11-18 17:53] LABS: Glucose,Whole Blood 156 mg/dL (75-99)
[2018-11-18] MEDS: MIDAZOLAM HCL 50 MG in SODIUM CHLORIDE 0.9% 40 ML IV SCH (22:53)
[2018-11-18 23:48] LABS: Glucose,Whole Blood 158 mg/dL (75-99)
[2018-11-19] MEDS: PROPOFOL 1,000 MG in EMPTY BAG 1 BAG IV SCH ×4 (00:59→21:22)
[2018-11-19] MEDS: PIPERACILLIN-TAZOBACTAM 3.375 GM in SODIUM CHLORIDE 0.9% 100 ML IVPB SCH ×3 (01:00→16:19)
[2018-11-19] MEDS: INSULIN ASPART (NovoLOG) 100 UNIT/ML VIAL SQ SCH ×4 (01:00→18:55)
[2018-11-19] MEDS: POTASSIUM BICARBONATE/CIT AC 20 MEQ TABLET.EFF NG-TUBE SCH ×2 (02:20→03:51)
[2018-11-19 05:40] LABS: Anisocytosis Slight; HCT 23.8 % (34.0-46.0); HGB 7.9 gm/dL (11.4-16.0); MCH 37.2 pg (25.0-35.0); MCHC 33.1 g/dL (31.0-37.0); MCV 112.4 fL (80.0-100.0); Macrocytosis Marked; Mean Platelet Volume 7.8; Platelet Count 159 k/uL (150-450); RBC 2.12 m/uL (3.80-5.40); RDW 18.8 % (11.5-15.5); WBC 16.1 k/uL (3.8-10.6)
[2018-11-19 06:02] LABS: Glucose,Whole Blood 113 mg/dL (75-99)
[2018-11-19 06:04] LABS: African American GFR (CKD) >90 (>60 ml/min/1.73 sqM); Anion Gap 2 mmol/L; Blood Urea Nitrogen 6 mg/dL (7-17); Calcium 7.8 mg/dL (8.4-10.2); Chloride 89 mmol/L (98-107); Glucose 128 mg/dL (74-99); Magnesium 1.8 mg/dL (1.6-2.3); Phosphorus 2.1 mg/dL (2.5-4.5); Potassium 3.6 mmol/L (3.5-5.1); Sodium 131 mmol/L (137-145)
[2018-11-19 06:23] LABS: Carbon Dioxide 40 mmol/L (22-30)
[2018-11-19] MEDS: VANCOMYCIN 1,250 MG in SODIUM CHLORIDE 0.9% 250 ML IVPB SCH ×3 (06:50→21:23)
[2018-11-19] MEDS ORDERED: POTASSIUM BICARBONATE/CIT AC 20 MEQ TABLET.EFF NG-TUBE SCH ×4 (07:00→19:00)
[2018-11-19 07:23] LABS: ABG Base Excess 21.7 mmol/L; ABG Oxygen Saturation 98.7 % (94-97); ABG PCO2 53 mmHg (35-45); ABG PH 7.53 (7.35-7.45); ABG PO2 105 mmHg (83-108); ABG TCO2 46 mmol/L (19-24); Allen Test Performed? Yes
[2018-11-19] MEDS: IPRATROPIUM-ALBUTEROL 3 ML NEB INHALATION SCH ×4 (07:57→19:45)
[2018-11-19] MEDS: MAGNESIUM SULFATE-D5W PMX 1 GM in DEXTROSE/WATER 1 100ML.BAG IVPB SCH ×2 (07:57→09:07)
[2018-11-19] MEDS: methylPREDNISolone SOD SUCCI 125 MG/2 ML VIAL IV SCH ×2 (07:57→16:19)
[2018-11-19] MEDS: CHLORHEXIDINE GLUCONATE 15 ML CUP MUCOUS MEM SCH ×2 (07:58→21:22)
[2018-11-19] MEDS: HEPARIN SODIUM,PORCINE 5,000 UNIT/ML 1 ML VIAL SQ SCH ×2 (07:58→16:19)
[2018-11-19] MEDS: PANTOPRAZOLE 40 MG/10 ML VIAL IV SCH (07:58)
--- NOTE | 2018-11-19 08:56 | XR ---
EXAMINATION TYPE: XR chest 1V portable DATE OF EXAM: 11/19/2018 COMPARISON: Prior chest x-ray 11/18/2018 HISTORY: Intubated TECHNIQUE: Single frontal view of the chest is obtained. FINDINGS: Endotracheal tube, gastric tube, right jugular central venous catheter are stable. Interst itium is increased. Bibasilar increased density. There is some improvement in aeration in the right l mary. No pneumothorax. IMPRESSION: Improved aeration.
--- NOTE | 2018-11-19 09:39 | P.PN ---
Subjective Progress Note Date: 11/19/18 Principal diagnosis: letheragy Patient is a 57-year-old female with a history of non-small cell lung cancer status post chemo and radiation and currently in remission, COPD, and tobacco abuse who initially presented to [facility] with lethargy. Patient was transferred here for ICU management. At [facility] she initially refused intubation and opted for BiPAP. CT of the brain was performed which was negative, chest x-ray showed complete opacification of the right side of the lung. Patient received IV fluids however her blood pressure remained low and a central line was inserted and she was started on levo. There lactic acid was 1.2, she was hyponatremic, and PCO2 was found to be 85 with a pH of 7.14, magnesium noted at 1.5. She was subsequently transferred to our facility. Patient did not have any active malignancy after discussion with family she was made full code and was subsequently intubated. She was felt to have possible postobstructive pneumonia along with septic shock and toxic metabolic encephalopathy. She was started on Vanco and Zosyn. She was admitted to the ICU and started on IV fluids. Pulmonology was consulted. Electrolytes were aggressively replaced. Her sodium improved by morning of 11/18. She was taken o ff of levo on 11/18. She underwent bronchoscopy which did not show any evidence of endobronchial lesions but did show some thick secretions in the right middle and lower lobe. Patient seen and examined at bedside. No family present at bedside. No acute events overnight. 2 bowel movements yesterday. Discussed with nursing. Objective - Vital Signs Vital signs: Vital Signs Temp 98.2 F 11/19/18 08:00 Pulse 93 11/19/18 09:00 Resp 19 11/19/18 09:00 BP 108/73 11/19/18 09:00 Pulse Ox 97 11/19/18 09:00 Intake & Output 11/18/18 11/19/18 11/19/18 18:59 06:59 18:59 Intake Total 2146.245 1464.774 677.892 Output Total 1535 952 425 Balance 611.245 512.774 252.892 Weight 52.7 kg Intake: IV 1500 1000 275 Magnesium Sulfate-D5w Pmx 100 1 gm In Dextrose/Water 1 100ml.bag @ 100 mls/hr IVPB Q1H [facility] Rx#: [id number] Magnesium Sulfate-D5w Pmx 100 1 gm In Dextrose/Water 1 100ml.bag @ 100 mls/hr IVPB Q1H [facility] Rx#: [id number] Piperacillin-Tazobactam 3 100 50 .375 gm In Sodium Chloride 0.9% 100 ml @ 25 mls/hr IVPB Q8HR [facility] Rx# :[id number] Sodium Chloride 0.9% 1, 900 750 225 000 ml @ 75 mls/hr IV . [id number] [facility] Rx#:[id number] Vancomycin 1,250 mg In 250 250 Sodium Chloride 0.9% 250 ml @ 125 mls/hr IVPB Q8H [facility] Rx#:[id number] Intake, IV Titration 206.245 89.774 297.892 Amount Magnesium Sulfate-D5w Pmx 200 1 gm In Dextrose/Water 1 100ml.bag @ 100 mls/hr IVPB Q1H [facility] Rx#: [id number] Norepinephrine 32 mg In 6.611 Sodium Chloride 0.9% 218 ml @ 0.05 MCG/KG/MIN 1. 216 mls/hr IV .Q24H [facility] Rx#:[id number] Propofol 1,000 mg In 199.634 89.774 97.892 Empty Bag 1 bag @ Titrate IV .Q0M [facility] Rx#: [id number] Tube Feeding 350 375 75 Other 90 30 Output: Urine 1535 950 425 Stool 2 Other: Voiding Method Indwelling Catheter Indwelling Catheter Indwelling Catheter # Bowel Movements 1 - Exam General: Ill-appearing, no distress, appears at stated age Derm: warm, dry Head: atraumatic, normocephalic, symmetric Eyes: Pupils pinpoint, no lid lesions, anicteric sclera Mouth: no lip lesion, mucus membranes moist, ET tube in place Cardiovascular: S1S2 reg, no murmur, positive posterior tibial pulse bilateral, Lungs: Course breath sounds bilateral, no rhonchi, no rales , no accessory muscle use, on vent Abdominal: soft, nontender to palpation, no guarding, no appreciable organomegaly Ext: no gross muscle atrophy, trace edema, no contractures Neuro: no withdrawal to pain, breathing at set vent rate, no tremors Psych: Sedated on vent - Labs CBC & Chem 7: 11/19/18 05:20 11/19/18 05:20 Labs: Abnormal Lab Results - Last 24 Hours (Table) 11/18/18 11/18/18 11/18/18 Range/Units 11:32 17:52 18:00 WBC (3.8-10.6) k/uL RBC (3.80-5.40) m/uL Hgb (11.4-16.0) gm/dL Hct (34.0-46.0) % MCV (80.0-100.0) fL MCH (25.0-35.0) pg RDW (11.5-15.5) % Macrocytosis ABG pH (7.35-7.45) ABG pCO2 (35-45) mmHg ABG HCO3 (21-25) mmol/L ABG Total CO2 (19-24) mmol/L ABG O2 Saturation (94-97) % Sodium (137-145) mmol/L Potassium 3.3 L (3.5-5.1) mmol/L Chloride (98-107) mmol/L Carbon Dioxide (22-30) mmol/L BUN (7-17) mg/dL Creatinine (0.52-1.04) mg/dL Glucose (74-99) mg/dL POC Glucose (mg/dL) 152 H 156 H (75-99) mg/dL Calcium (8.4-10.2) mg/dL Phosphorus (2.5-4.5) mg/dL 11/18/18 11/19/18 11/19/18 Range/Units 23:47 00:59 05:20 WBC (3.8-10.6) k/uL RBC (3.80-5.40) m/uL Hgb (11.4-16.0) gm/dL Hct (34.0-46.0) % MCV (80.0-100.0) fL MCH (25.0-35.0) pg RDW (11.5-15.5) % Macrocytosis ABG pH (7.35-7.45) ABG pCO2 (35-45) mmHg ABG HCO3 (21-25) mmol/L ABG Total CO2 (19-24) mmol/L ABG O2 Saturation (94-97) % Sodium 131 L (137-145) mmol/L Potassium 3.4 L (3.5-5.1) mmol/L Chloride 89 L (98-107) mmol/L Carbon Dioxide 40 H (22-30) mmol/L BUN 6 L (7-17) mg/dL Creatinine 0.29 L (0.52-1.04) mg/dL Glucose 128 H (74-99) mg/dL POC Glucose (mg/dL) 158 H (75-99) mg/dL Calcium 7.8 L (8.4-10.2) mg/dL Phosphorus 2.1 L (2.5-4.5) mg/dL 11/19/18 11/19/18 11/19/18 Range/Units 05:20 06:00 07:20 WBC 16.1 H (3.8-10.6) k/uL RBC 2.12 L (3.80-5.40) m/uL Hgb 7.9 L (11.4-16.0) gm/dL Hct 23.8 L (34.0-46.0) % MCV 112.4 H (80.0-100.0) fL MCH 37.2 H (25.0-35.0) pg RDW 18.8 H (11.5-15.5) % Macrocytosis Marked A ABG pH 7.53 H (7.35-7.45) ABG pCO2 53 H (35-45) mmHg ABG HCO3 44 H* (21-25) mmol/L ABG Total CO2 46 H (19-24) mmol/L ABG O2 Saturation 98.7 H (94-97) % Sodium (137-145) mmol/L Potassium (3.5-5.1) mmol/L Chloride (98-107) mmol/L Carbon Dioxide (22-30) mmol/L BUN (7-17) mg/dL Creatinine (0.52-1.04) mg/dL Glucose (74-99) mg/dL POC Glucose (mg/dL) 113 H (75-99) mg/dL Calcium (8.4-10.2) mg/dL Phosphorus (2.5-4.5) mg/dL Microbiology - Last 24 Hours (Table) 11/18/18 10:10 Acid Fast Bacilli Smear - Final Bronchial Washings - Right Acid Fast Bacilli Culture - Preliminary 11/17/18 01:40 Blood Culture - Preliminary Blood No Growth after 48 hours 11/17/18 00:25 Blood Culture - Preliminary Blood No Growth after 48 hours 11/18/18 10:10 Gram Stain - Preliminary Bronchial Washings - Right Bronchial Washings Culture - Preliminary 11/18/18 10:10 Fungal Culture - Preliminary Bronchial Washings - Right 11/16/18 22:15 Gram Stain - Preliminary Sputum Sputum Culture - Preliminary Divya albicans Assessment and Plan Assessment: Right lower lobe pneumonia, likely gram negative, with AE COPD -Bronch 11/18 without obstruction, cultures pending - Initial culture shows divya -Continue with vancomycin and Zosyn -Pulmonary hygiene -Pulmonary recommendations -Chest ultrasound without any signs of pleural fluid -Sputum cultures - IV steroids, Bronchdilators Hyponatremia, stable -likely due to dehydration -Continue with IV fluids -Repeat basic metabolic profile in AM Hypophosphatemia - replace and recheck Macrocytic anemia, stable -B12 normal - folic acid pending Possible hyperthyroidism -depressed TSH with increased free T4 -Recommend repeat testing as outpatient when more accurate -Would not start medications at this point in time -Once clinical improvement will check thyroid antibodies. History of non-small cell lung cancer -Currently in remission -Status post chemoradiation hypophosphatemia, improved Septic shock, resolved DVT prophylaxis: Heparin Discussed with: Nursing Anticipated discharge: 3-[address]: home health vs SNF A total of 35 minutes was spent on the care of this complex patient more than 50% of the time was spent in counseling and care coordination.
[2018-11-19] MEDS ORDERED: POTASSIUM CHLORIDE ER 20 MEQ TAB.ER PO SCH (11:00)
--- NOTE | 2018-11-19 12:02 | P.PN ---
Subjective Progress Note Date: 11/19/18 Principal diagnosis: Acute hypoxic and hypercapnic respiratory failure secondary to right lung pneumonia and COPD exacerbation. This is a 57-year-old female with history of small cell lung cancer, diagnosed about a year ago by Dr. Zhang, and she received chemotherapy as well as r adiation therapy, and she was supposedly in remission. Patient was admitted to the hospital in late September and early October. At that time she was seen for acute exacerbation of COPD, right lower lobe postobstructive pneumonia underwent bronchoscopy and BAL on 10/18/2018, and she had significant amount of tenacious secretions cultures were only positive for Divya albicans. Patient had abnormal PET scan showing a right hilar uptake, and abnormal uptake in the thoracic spine. Patient was eventually discharged home, however she presented yesterday to [facility] with profound shortness of breath, and mental status change. Apparently the patient was hypoxic, hypercapnic, and in acute respiratory failure. Initially her CODE STATUS was DO NOT RESUSCITATE. However this was later changed when the patient was transferred to our facility from [facility] ER. As soon as the CODE STATUS was changed, patient was intubated for worsening respiratory failure placed on mechanical ventilation, and this consult was initiated. Her ventilator settings where handled overnight by Dr. Hein. Presently the patient is on mechanical ventilation, assist control mode tidal volume of 400 rate of 12 FiO2 of 40% and PEEP of 5. She is also on propofol, and on 0.07 mcg/kg/m of norepinephrine. Her propofol is at 40 mcg/kg/m. Patient is sedated, chest x-ray was reviewed, I discussed her condition with her family members at bedside, and I recommended ultrasound of the chest to possibly consider a right-sided thoracentesis. There is a significant volume loss and consolidation involving the right lung if the ultrasound is negative for pleural effusion, may consider bronchoscopy and evaluation of the right lung in the next 24 hours. Family was made aware of that recommendation. Patient was reevaluated today on 11/18/2018, remains on mechanical ventilation, her ventilator settings tidal volume of 400, assist control rate of 12 FiO2 40%, PEEP is 5. Patient is on a minimal dose of norepinephrine at 0.03 mcg/kg/m, propofol at 25 mcg/kg/m, she is on enteral feeding via nasogastric tube. Chest x-ray showed slight improvement, underwent bronchoscopy today and lavage of the right upper lobe right middle lobe and right lower lobe, there was no evidence of any endobronchial tumors. Secretions in the right lung were noted to be a bit reluctant, cultures are pending. Fluid was even sent for cytology, but there was no evidence of endobronchial tumor. ABG this morning showed a pO2 of 136 pCO2 of 47 pH of 7.52. Electrolytes were reviewed potassium is a bit low be corrected as per protocol. CBC is normal however hemoglobin is 8.1. Patient is sedated, on propofol drip. Will likely addressed mental status today off propofol but she is not quite ready for weaning or extubation at this point Reevaluated today on 11/19/2018, remains in the ICU on mechanical ventilation, her ventilator settings are assist control rate of 12 tidal volume of 400 FiO2 of 35% and PEEP of 5. On propofol at 25 mcg/kg/m, off norepinephrine. Chest x- ray is showing some resolution of her right sided pneumonia, but not back to normal. Microbiology from the lavage done yesterday is pending, patient remains empirically on broad-spectrum antibiotics. ABG today showed a pO2 of 105 pCO2 of 53 pH of 7.53 her WBC count is 16.1 hemoglobin is 7.9. Electrolytes are normal. Sodium is a bit low at 131. Patient will be awakened today, we'll discontinue propofol, and we will assess mental status, may even proceed with weaning parameters and a weaning trial if possible. If patient is to be weaned, should be placed on a trial of pressure support and CPAP, doubt if the patient could be extubated today specially with her chest x-ray continues to show significant airspace disease in the right lung. Objective - Vital Signs Vital signs: Vital Signs Temp 98.2 F 11/19/18 08:00 Pulse 98 11/19/18 10:56 Resp 17 11/19/18 10:00 BP 102/64 11/19/18 10:00 Pulse Ox 99 11/19/18 10:00 Intake & Output 11/18/18 11/19/18 11/19/18 18:59 06:59 18:59 Intake Total 2146.245 0768.587 0927.931 Output Total 1535 952 800 Balance 611.245 906.550 3258.931 Weight 52.7 kg 51.8 kg Intake: IV 1500 1000 1275 Magnesium Sulfate-D5w Pmx 100 1 gm In Dextrose/Water 1 100ml.bag @ 100 mls/hr IVPB Q1H [facility] Rx#: [id number] Magnesium Sulfate-D5w Pmx 100 200 1 gm In Dextrose/Water 1 100ml.bag @ 100 mls/hr IVPB Q1H [facility] Rx#: [id number] Piperacillin-Tazobactam 3 100 125 .375 gm In Sodium Chloride 0.9% 100 ml @ 25 mls/hr IVPB Q8HR [facility] Rx# :[id number] Sodium Chloride 0.9% 1, 900 750 450 000 ml @ 75 mls/hr IV . [id number] [facility] Rx#:[id number] Vancomycin 1,250 mg In 250 250 500 Sodium Chloride 0.9% 250 ml @ 125 mls/hr IVPB Q8H [facility] Rx#:[id number] Intake, IV Titration 206.245 89.774 327.931 Amount Magnesium Sulfate-D5w Pmx 200 1 gm In Dextrose/Water 1 100ml.bag @ 100 mls/hr IVPB Q1H [facility] Rx#: [id number] Norepinephrine 32 mg In 6.611 Sodium Chloride 0.9% 218 ml @ 0.05 MCG/KG/MIN 1. 216 mls/hr IV .Q24H [facility] Rx#:[id number] Propofol 1,000 mg In 199.634 89.774 127.931 Empty Bag 1 bag @ Titrate IV .Q0M [facility] Rx#: [id number] Tube Feeding 350 375 150 Other 90 60 Output: Urine 1535 950 800 Stool 2 Other: Voiding Method Indwelling Catheter Indwelling Catheter Indwelling Catheter # Bowel Movements 1 - Exam General: 57-year-old female on mechanical ventilation, in no distress. Derm: warm, dry Head: atraumatic, normocephalic, symmetric, endotracheal tube and orogastric tube are intact. Eyes: EOMI, no icterus. PERRLA. Mouth: no lip lesion, mucus membranes moist, ET tube in place Cardiovascular: S1S2 reg, no murmur, good pulses bilaterally Lungs: Course breath sounds bilateral, no rhonchi, no rales , no wheezes. Abdominal: soft, nontender no megaly no rebound no guarding, positive bowel sounds. Ext: No clubbing, no edema, no cyanosis Neuro: Cannot be assessed, on mechanical ventilation and sedated. Psych: Sedated, on mechanical ventilation. - Labs CBC & Chem 7: 11/19/18 05:20 11/19/18 10:05 Labs: Abnormal Lab Results - Last 24 Hours (Table) 11/18/18 11/18/18 11/18/18 Range/Units 17:52 18:00 23:47 WBC (3.8-10.6) k/uL RBC (3.80-5.40) m/uL Hgb (11.4-16.0) gm/dL Hct (34.0-46.0) % MCV (80.0-100.0) fL MCH (25.0-35.0) pg RDW (11.5-15.5) % Macrocytosis ABG pH (7.35-7.45) ABG pCO2 (35-45) mmHg ABG HCO3 (21-25) mmol/L ABG Total CO2 (19-24) mmol/L ABG O2 Saturation (94-97) % Sodium (137-145) mmol/L Potassium 3.3 L (3.5-5.1) mmol/L Chloride (98-107) mmol/L Carbon Dioxide (22-30) mmol/L BUN (7-17) mg/dL Creatinine (0.52-1.04) mg/dL Glucose (74-99) mg/dL POC Glucose (mg/dL) 156 H 158 H (75-99) mg/dL Calcium (8.4-10.2) mg/dL Phosphorus (2.5-4.5) mg/dL 11/19/18 11/19/18 11/19/18 Range/Units 00:59 05:20 05:20 WBC 16.1 H (3.8-10.6) k/uL RBC 2.12 L (3.80-5.40) m/uL Hgb 7.9 L (11.4-16.0) gm/dL Hct 23.8 L (34.0-46.0) % MCV 112.4 H (80.0-100.0) fL MCH 37.2 H (25.0-35.0) pg RDW 18.8 H (11.5-15.5) % Macrocytosis Marked A ABG pH (7.35-7.45) ABG pCO2 (35-45) mmHg ABG HCO3 (21-25) mmol/L ABG Total CO2 (19-24) mmol/L ABG O2 Saturation (94-97) % Sodium 131 L (137-145) mmol/L Potassium 3.4 L (3.5-5.1) mmol/L Chloride 89 L (98-107) mmol/L Carbon Dioxide 40 H (22-30) mmol/L BUN 6 L (7-17) mg/dL Creatinine 0.29 L (0.52-1.04) mg/dL Glucose 128 H (74-99) mg/dL POC Glucose (mg/dL) (75-99) mg/dL Calcium 7.8 L (8.4-10.2) mg/dL Phosphorus 2.1 L (2.5-4.5) mg/dL 11/19/18 11/19/18 Range/Units 06:00 07:20 WBC (3.8-10.6) k/uL RBC (3.80-5.40) m/uL Hgb (11.4-16.0) gm/dL Hct (34.0-46.0) % MCV (80.0-100.0) fL MCH (25.0-35.0) pg RDW (11.5-15.5) % Macrocytosis ABG pH 7.53 H (7.35-7.45) ABG pCO2 53 H (35-45) mmHg ABG HCO3 44 H* (21-25) mmol/L ABG Total CO2 46 H (19-24) mmol/L ABG O2 Saturation 98.7 H (94-97) % Sodium (137-145) mmol/L Potassium (3.5-5.1) mmol/L Chloride (98-107) mmol/L Carbon Dioxide (22-30) mmol/L BUN (7-17) mg/dL Creatinine (0.52-1.04) mg/dL Glucose (74-99) mg/dL POC Glucose (mg/dL) 113 H (75-99) mg/dL Calcium (8.4-10.2) mg/dL Phosphorus (2.5-4.5) mg/dL Microbiology - Last 24 Hours (Table) 11/16/18 22:15 Gram Stain - Final Sputum Sputum Culture - Final Divya albicans 11/18/18 10:10 Acid Fast Bacilli Smear - Final Bronchial Washings - Right Acid Fast Bacilli Culture - Preliminary 11/17/18 01:40 Blood Culture - Preliminary Blood No Growth after 48 hours 11/17/18 00:25 Blood Culture - Preliminary Blood No Growth after 48 hours 11/18/18 10:10 Gram Stain - Preliminary Bronchial Washings - Right Bronchial Washings Culture - Preliminary 11/18/18 10:10 Fungal Culture - Preliminary Bronchial Washings - Right Assessment and Plan Assessment: Impression: 1 acute hypoxic and hypercapnic respiratory failure multifactorial secondary extensive pneumonia involving the right lung, and underlying COPD exacerbation. 2 history of small cell lung cancer, presently in remission. 3 acute sepsis and septic shock most likely secondary to right lower lobe pneu monia, likely community-acquired. Doubt postobstructive pneumonia since her bronchoscopy was relatively unremarkable and no evidence of endobronchial tumor. 4. History of alcohol abuse 5 status post bronchoscopy and lavage of right lung on 11/18/2018. Microbiology is pending from the lavage. Recommendation: Continue ventilatory support Continue nutritional support patient is on enteral feeding. Continue hemodynamic support if needed, presently off norepinephrine. Continue bronchodilators Continue steroids Continue antibiotics and adjust according to the final culture from the lavage if available. Give the patient a trial of weaning possibly today, and sedation holiday, may consider placing the patient on pressure support and CPAP once awakened and once off propofol. Discussed her condition with the admitting physician, no family members available today to discuss her condition with them, prognosis remains guarded. We'll continue to follow. Critical care time is 36 minutes Time with Patient: Greater than 30
[2018-11-19 12:07] LABS: Glucose,Whole Blood 137 mg/dL (75-99)
[2018-11-19] MEDS: SODIUM CHLORIDE 0.9% 1,000 ML IV SCH (14:26)
[2018-11-19] MEDS: HYDROmorphone 1 MG/ML 1 ML SYRINGE IVP PRN ×2 (16:18→21:23)
[2018-11-19 18:21] LABS: Glucose,Whole Blood 151 mg/dL (75-99)
[2018-11-19] MEDS: NOREPINEPHRINE 32 MG in SODIUM CHLORIDE 0.9% 218 ML IV SCH (21:31)
[2018-11-19] MEDS: MIDAZOLAM HCL 50 MG in SODIUM CHLORIDE 0.9% 40 ML IV SCH (21:31)
[2018-11-20] MEDS ORDERED: POTASSIUM BICARBONATE/CIT AC 20 MEQ TABLET.EFF NG-TUBE SCH
[2018-11-20 00:04] LABS: Glucose,Whole Blood 177 mg/dL (75-99)
[2018-11-20] MEDS: methylPREDNISolone SOD SUCCI 125 MG/2 ML VIAL IV SCH ×3 (00:57→15:47)
[2018-11-20] MEDS: HEPARIN SODIUM,PORCINE 5,000 UNIT/ML 1 ML VIAL SQ SCH ×3 (00:58→15:47)
[2018-11-20] MEDS: PIPERACILLIN-TAZOBACTAM 3.375 GM in SODIUM CHLORIDE 0.9% 100 ML IVPB SCH ×3 (00:58→15:47)
[2018-11-20] MEDS: INSULIN ASPART (NovoLOG) 100 UNIT/ML VIAL SQ SCH ×4 (00:58→18:18)
[2018-11-20] MEDS: PROPOFOL 1,000 MG in EMPTY BAG 1 BAG IV SCH ×3 (03:17→21:10)
[2018-11-20 04:54] LABS: Anisocytosis Slight; Basophils % (A) 0 %; Eosinophils # (A) 0.1 k/uL (0-0.7); Eosinophils % (A) 1 %; HCT 22.1 % (34.0-46.0); HGB 7.4 gm/dL (11.4-16.0); Hypochromasia Slight; Lymphocytes # (A) 0.3 k/uL (1.0-4.8); Lymphocytes % (A) 4 %; MCH 37.2 pg (25.0-35.0); MCHC 33.3 g/dL (31.0-37.0); Macrocytosis Marked; Mean Platelet Volume 8.1; Monocytes # (A) 0.4 k/uL (0-1.0); Monocytes % (A) 4 %; Neutrophils # (A) 7.9 k/uL (1.3-7.7); Neutrophils % (A) 90 %; Platelet Count 128 k/uL (150-450); RBC 1.98 m/uL (3.80-5.40); WBC 8.7 k/uL (3.8-10.6)
[2018-11-20] MEDS ORDERED: VANCOMYCIN TROUGH DUE 1 EACH MISC MISCELLANE ONE (05:00)
[2018-11-20 05:16] LABS: ALT 22 U/L (9-52); AST 24 U/L (14-36); African American GFR (CKD) >90 (>60 ml/min/1.73 sqM); Albumin 2.3 g/dL (3.5-5.0); Alkaline Phosphatase 122 U/L (38-126); Anion Gap 1 mmol/L; Blood Urea Nitrogen 11 mg/dL (7-17); Calcium 8.1 mg/dL (8.4-10.2); Chloride 94 mmol/L (98-107); Glucose 137 mg/dL (74-99); Magnesium 2.1 mg/dL (1.6-2.3); Phosphorus 2.9 mg/dL (2.5-4.5); Potassium 4.2 mmol/L (3.5-5.1); Sodium 135 mmol/L (137-145); Total Bilirubin 0.2 mg/dL (0.2-1.3); Total Protein 4.4 g/dL (6.3-8.2)
[2018-11-20 05:24] LABS: Glucose,Whole Blood 139 mg/dL (75-99)
[2018-11-20 05:29] LABS: MCV 111.6 fL (80.0-100.0)
[2018-11-20] MEDS: VANCOMYCIN 1,250 MG in SODIUM CHLORIDE 0.9% 250 ML IVPB SCH ×2 (05:31→20:23)
[2018-11-20] MEDS: HYDROmorphone 1 MG/ML 1 ML SYRINGE IVP PRN ×3 (05:31→20:14)
[2018-11-20 05:36] LABS: Carbon Dioxide 40 mmol/L (22-30)
[2018-11-20] MEDS: IPRATROPIUM-ALBUTEROL 3 ML NEB INHALATION SCH ×4 (07:28→19:52)
--- NOTE | 2018-11-20 08:24 | XR ---
EXAMINATION TYPE: XR chest 1V portable DATE OF EXAM: 11/20/2018 COMPARISON: Prior chest x-ray 11/19/2018 HISTORY: Intubated TECHNIQUE: frontal view of the chest is obtained on 2 images. FINDINGS: NG tube may have withdrawn in the interval but is coursing towards the left upper quadrant . Bibasilar density persists in the left hemidiaphragm is obscured. Pleural parenchymal changes in th e right hemithorax are stable. Endotracheal tube and right jugular central venous catheter are stable . No pneumothorax. Heart size is stable. IMPRESSION: NG tube may have withdrawn in the interval.
[2018-11-20 08:33] LABS: ABG Base Excess 17.2 mmol/L; ABG Oxygen Saturation 98.3 % (94-97); ABG PCO2 56 mmHg (35-45); ABG PH 7.47 (7.35-7.45); ABG PO2 102 mmHg (83-108); ABG TCO2 43 mmol/L (19-24); Allen Test Performed? Yes
[2018-11-20 08:40] LABS: ABG HCO3 41 mmol/L (21-25)
[2018-11-20] MEDS: PANTOPRAZOLE 40 MG/10 ML VIAL IV SCH (08:41)
[2018-11-20] MEDS: CHLORHEXIDINE GLUCONATE 15 ML CUP MUCOUS MEM SCH ×2 (08:41→20:13)
[2018-11-20 08:52] LABS: ABG HCO3 44 mmol/L (21-25)
--- NOTE | 2018-11-20 10:36 | XR ---
EXAMINATION TYPE: XR chest 1V portable DATE OF EXAM: 11/20/2018 COMPARISON: Prior chest x-ray 11/20/2018 HISTORY: Pneumonia TECHNIQUE: Single frontal view of the chest is obtained. FINDINGS: Endotracheal tube and NG tube are overlying appropriate position, right jugular central ve nous catheter shows the distal tip in the right atrium. Pleural parenchymal changes the right lung ar e similar. There may be improvement in aeration at the left lung base. No pneumothorax. IMPRESSION: Some improvement in visualization of the left hemidiaphragm, improvement in aeration. NG tube are overlying appropriate position.
[2018-11-20 11:32] LABS: ABG Base Excess 17.4 mmol/L; ABG PCO2 53 mmHg (35-45); ABG PO2 96 mmHg (83-108); ABG TCO2 42 mmol/L (19-24); Allen Test Performed? Yes
[2018-11-20 11:37] LABS: ABG HCO3 41 mmol/L (21-25)
[2018-11-20 11:53] LABS: Glucose,Whole Blood 135 mg/dL (75-99)
--- NOTE | 2018-11-20 12:02 | P.PN ---
Subjective Progress Note Date: 11/20/18 Principal diagnosis: Acute hypoxic and hypercapnic respiratory failure secondary to right lung pneumonia and COPD exacerbation. This is a 57-year-old female with history of small cell lung cancer, diagnosed about a year ago by Dr. Zhang, and she received chemotherapy as well as r adiation therapy, and she was supposedly in remission. Patient was admitted to the hospital in late September and early October. At that time she was seen for acute exacerbation of COPD, right lower lobe postobstructive pneumonia underwent bronchoscopy and BAL on 10/18/2018, and she had significant amount of tenacious secretions cultures were only positive for Divya albicans. Patient had abnormal PET scan showing a right hilar uptake, and abnormal uptake in the thoracic spine. Patient was eventually discharged home, however she presented yesterday to [facility] with profound shortness of breath, and mental status change. Apparently the patient was hypoxic, hypercapnic, and in acute respiratory failure. Initially her CODE STATUS was DO NOT RESUSCITATE. However this was later changed when the patient was transferred to our facility from [facility] ER. As soon as the CODE STATUS was changed, patient was intubated for worsening respiratory failure placed on mechanical ventilation, and this consult was initiated. Her ventilator settings where handled overnight by Dr. Hein. Presently the patient is on mechanical ventilation, assist control mode tidal volume of 400 rate of 12 FiO2 of 40% and PEEP of 5. She is also on propofol, and on 0.07 mcg/kg/m of norepinephrine. Her propofol is at 40 mcg/kg/m. Patient is sedated, chest x-ray was reviewed, I discussed her condition with her family members at bedside, and I recommended ultrasound of the chest to possibly consider a right-sided thoracentesis. There is a significant volume loss and consolidation involving the right lung if the ultrasound is negative for pleural effusion, may consider bronchoscopy and evaluation of the right lung in the next 24 hours. Family was made aware of that recommendation. Patient was reevaluated today on 11/18/2018, remains on mechanical ventilation, her ventilator settings tidal volume of 400, assist control rate of 12 FiO2 40%, PEEP is 5. Patient is on a minimal dose of norepinephrine at 0.03 mcg/kg/m, propofol at 25 mcg/kg/m, she is on enteral feeding via nasogastric tube. Chest x-ray showed slight improvement, underwent bronchoscopy today and lavage of the right upper lobe right middle lobe and right lower lobe, there was no evidence of any endobronchial tumors. Secretions in the right lung were noted to be a bit reluctant, cultures are pending. Fluid was even sent for cytology, but there was no evidence of endobronchial tumor. ABG this morning showed a pO2 of 136 pCO2 of 47 pH of 7.52. Electrolytes were reviewed potassium is a bit low be corrected as per protocol. CBC is normal however hemoglobin is 8.1. Patient is sedated, on propofol drip. Will likely addressed mental status today off propofol but she is not quite ready for weaning or extubation at this point Reevaluated today on 11/19/2018, remains in the ICU on mechanical ventilation, her ventilator settings are assist control rate of 12 tidal volume of 400 FiO2 of 35% and PEEP of 5. On propofol at 25 mcg/kg/m, off norepinephrine. Chest x- ray is showing some resolution of her right sided pneumonia, but not back to normal. Microbiology from the lavage done yesterday is pending, patient remains empirically on broad-spectrum antibiotics. ABG today showed a pO2 of 105 pCO2 of 53 pH of 7.53 her WBC count is 16.1 hemoglobin is 7.9. Electrolytes are normal. Sodium is a bit low at 131. Patient will be awakened today, we'll discontinue propofol, and we will assess mental status, may even proceed with weaning parameters and a weaning trial if possible. If patient is to be weaned, should be placed on a trial of pressure support and CPAP, doubt if the patient could be extubated today specially with her chest x-ray continues to show significant airspace disease in the right lung. Patient was reevaluated today on 11/20/2018, remains on mechanical ventilation, presently on assist control rate of 12 tidal volume of 400 FiO2 35% PEEP of 5. Remains on propofol at 45 mcg/kg/m, not requiring any pressors. Yesterday the patient tolerated 2 hours of weaning with a pressure support of 8 and CPAP. Then she had to be placed back on mechanical ventilation, and I plan to do the same thing today, given a trial of pressure support and CPAP. Remains on antibiotics, her bronchial washings are basically nondiagnostic. Does have some Divya albicans, not clinically significant at this point. Chest x-ray is showing improvement but not completely resolved. Continues to have fairly good sized infiltrate in the right upper lobe and right lower lobe. Cytology from the lavage was also negative. No malignant cells were identified. ABG this morning showed a pO2 of 102 pCO2 of 56 pH of 7.47. Objective - Vital Signs Vital signs: Vital Signs Temp 98.6 F 11/20/18 08:00 Pulse 88 11/20/18 11:46 Resp 27 H 11/20/18 10:00 BP 111/69 11/20/18 10:00 Pulse Ox 100 11/20/18 10:00 Intake & Output 11/19/18 11/20/18 11/20/18 18:59 06:59 18:59 Intake Total 2662.931 1795.420 646.149 Output Total 1776 1012 500 Balance 886.931 783.420 146.149 Weight 51.8 kg 53 kg Intake: IV 2024 1225 425 Magnesium Sulfate-D5w Pmx 200 1 gm In Dextrose/Water 1 100ml.bag @ 100 mls/hr IVPB Q1H [facility] Rx#: [id number] Piperacillin-Tazobactam 3 175 125 .375 gm In Sodium Chloride 0.9% 100 ml @ 25 mls/hr IVPB Q8HR [facility] Rx# :[id number] Sodium Chloride 0.9% 1, 900 600 300 000 ml @ 75 mls/hr IV . [id number] [facility] Rx#:[id number] Vancomycin 1,250 mg In 750 500 125 Sodium Chloride 0.9% 250 ml @ 125 mls/hr IVPB Q8H [facility] Rx#:[id number] Intake, IV Titration 327.931 180.420 91.149 Amount Magnesium Sulfate-D5w Pmx 200 1 gm In Dextrose/Water 1 100ml.bag @ 100 mls/hr IVPB Q1H [facility] Rx#: [id number] Propofol 1,000 mg In 127.931 180.420 91.149 Empty Bag 1 bag @ Titrate IV .Q0M [facility] Rx#: [id number] Tube Feeding 250 300 100 Other 60 90 30 Output: Urine 1775 1010 500 Stool 1 2 Other: Voiding Method Indwelling Catheter Indwelling Catheter Indwelling Catheter - Exam General: 57-year-old female on mechanical ventilation, sedated. On propofol drip. Derm: warm, dry Head: atraumatic, normocephalic, symmetric, endotracheal tube and orogastric tube are intact. Eyes: EOMI, no icterus. PERRLA. Mouth: no lip lesion, mucus membranes moist, ET tube in place Cardiovascular: S1S2 reg, no murmur, good pulses bilaterally Lungs: Course breath sounds bilateral, crackles at the right base noted, no wheezes. Abdominal: soft, nontender no megaly no rebound no guarding, positive bowel sounds. Ext: No clubbing, no edema, no cyanosis Neuro: Cannot be assessed, on mechanical ventilation and sedated. Psych: Sedated, on mechanical ventilation. - Labs CBC & Chem 7: 11/20/18 04:30 11/20/18 04:30 Labs: Abnormal Lab Results - Last 24 Hours (Table) 11/18/18 11/18/18 11/19/18 Range/Units 06:26 10:10 07:20 RBC (3.80-5.40) m/uL Hgb (11.4-16.0) gm/dL Hct (34.0-46.0) % MCV (80.0-100.0) fL MCH (25.0-35.0) pg RDW (11.5-15.5) % Plt Count (150-450) k/uL Neutrophils # (1.3-7.7) k/uL Lymphocytes # (1.0-4.8) k/uL Macrocytosis ABG pH (7.35-7.45) ABG pCO2 (35-45) mmHg ABG HCO3 44 H* (21-25) mmol/L ABG Total CO2 (19-24) mmol/L ABG O2 Saturation (94-97) % Sodium (137-145) mmol/L Chloride (98-107) mmol/L Carbon Dioxide (22-30) mmol/L Creatinine (0.52-1.04) mg/dL Glucose (74-99) mg/dL POC Glucose (mg/dL) (75-99) mg/dL Calcium (8.4-10.2) mg/dL Total Protein (6.3-8.2) g/dL Albumin (3.5-5.0) g/dL RBC Folate 983 H (280 - 791) ng/mL Viral Test See Below H 11/19/18 11/19/18 11/20/18 Range/Units 12:06 18:20 00:02 RBC (3.80-5.40) m/uL Hgb (11.4-16.0) gm/dL Hct (34.0-46.0) % MCV (80.0-100.0) fL MCH (25.0-35.0) pg RDW (11.5-15.5) % Plt Count (150-450) k/uL Neutrophils # (1.3-7.7) k/uL Lymphocytes # (1.0-4.8) k/uL Macrocytosis ABG pH (7.35-7.45) ABG pCO2 (35-45) mmHg ABG HCO3 (21-25) mmol/L ABG Total CO2 (19-24) mmol/L ABG O2 Saturation (94-97) % Sodium (137-145) mmol/L Chloride (98-107) mmol/L Carbon Dioxide (22-30) mmol/L Creatinine (0.52-1.04) mg/dL Glucose (74-99) mg/dL POC Glucose (mg/dL) 137 H 151 H 177 H (75-99) mg/dL Calcium (8.4-10.2) mg/dL Total Protein (6.3-8.2) g/dL Albumin (3.5-5.0) g/dL RBC Folate (280 - 791) ng/mL Viral Test 11/20/18 11/20/18 11/20/18 Range/Units 04:30 04:30 05:22 RBC 1.98 L (3.80-5.40) m/uL Hgb 7.4 L (11.4-16.0) gm/dL Hct 22.1 L (34.0-46.0) % MCV 111.6 H (80.0-100.0) fL MCH 37.2 H (25.0-35.0) pg RDW 19.0 H (11.5-15.5) % Plt Count 128 L (150-450) k/uL Neutrophils # 7.9 H (1.3-7.7) k/uL Lymphocytes # 0.3 L (1.0-4.8) k/uL Macrocytosis Marked A ABG pH (7.35-7.45) ABG pCO2 (35-45) mmHg ABG HCO3 (21-25) mmol/L ABG Total CO2 (19-24) mmol/L ABG O2 Saturation (94-97) % Sodium 135 L (137-145) mmol/L Chloride 94 L (98-107) mmol/L Carbon Dioxide 40 H (22-30) mmol/L Creatinine 0.32 L (0.52-1.04) mg/dL Glucose 137 H (74-99) mg/dL POC Glucose (mg/dL) 139 H (75-99) mg/dL Calcium 8.1 L (8.4-10.2) mg/dL Total Protein 4.4 L (6.3-8.2) g/dL Albumin 2.3 L (3.5-5.0) g/dL RBC Folate (280 - 791) ng/mL Viral Test 11/20/18 11/20/18 11/20/18 Range/Units 05:32 11:25 11:52 RBC (3.80-5.40) m/uL Hgb (11.4-16.0) gm/dL Hct (34.0-46.0) % MCV (80.0-100.0) fL MCH (25.0-35.0) pg RDW (11.5-15.5) % Plt Count (150-450) k/uL Neutrophils # (1.3-7.7) k/uL Lymphocytes # (1.0-4.8) k/uL Macrocytosis ABG pH 7.47 H 7.50 H (7.35-7.45) ABG pCO2 56 H 53 H (35-45) mmHg ABG HCO3 41 H* 41 H* (21-25) mmol/L ABG Total CO2 43 H 42 H (19-24) mmol/L ABG O2 Saturation 98.3 H 98.0 H (94-97) % Sodium (137-145) mmol/L Chloride (98-107) mmol/L Carbon Dioxide (22-30) mmol/L Creatinine (0.52-1.04) mg/dL Glucose (74-99) mg/dL POC Glucose (mg/dL) 135 H (75-99) mg/dL Calcium (8.4-10.2) mg/dL Total Protein (6.3-8.2) g/dL Albumin (3.5-5.0) g/dL RBC Folate (280 - 791) ng/mL Viral Test Microbiology - Last 24 Hours (Table) 11/18/18 10:10 Gram Stain - Final Bronchial Washings - Right Bronchial Washings Culture - Final Divya albicans 11/17/18 01:40 Blood Culture - Preliminary Blood No Growth after 72 hours 11/17/18 00:25 Blood Culture - Preliminary Blood No Growth after 72 hours 11/16/18 22:15 Gram Stain - Final Sputum Sputum Culture - Final Divya albicans Assessment and Plan Assessment: Impression: 1 acute hypoxic and hypercapnic respiratory failure multifactorial secondary extensive pneumonia involving the right lung, and underlying COPD exacerbation. 2 history of small cell lung cancer, presently in remission. 3 acute sepsis and septic shock most likely secondary to right lower lobe pneumonia, likely community-acquired. Doubt postobstructive pneumonia since her bronchoscopy was relatively unremarkable and no evidence of endobronchial tumor. 4. History of alcohol abuse 5 status post bronchoscopy and lavage of right lung on 11/18/2018. Microbiology is pending from the lavage. Recommendation: Continue ventilatory support Continue nutritional support patient is on enteral feeding.. Continue bronchodilators Continue steroids Continue antibiotics empirically, bronchoalveolar lavage was nondiagnostic. We'll try to give the patient another weaning trial with pressure support and CPAP today, and depending on her overall response to that mode of weaning, may or may not proceed with weaning and extubation. Patient remains critically ill, we'll continue to follow. I have a feeling that if extubated may tire out easily, and may require reintubation. Hence may delay extubation unless the patient does extremely well. Critical care time is 35 minutes. Time with Patient: Greater than 30
[2018-11-20] MEDS: SODIUM CHLORIDE 0.9% 1,000 ML IV SCH (16:00)
[2018-11-20 18:16] LABS: Glucose,Whole Blood 156 mg/dL (75-99)
--- NOTE | 2018-11-20 22:03 | PN ---
PROGRESS NOTE DATE OF SERVICE: 11/20/2018 PRESENTING COMPLAINT: Tired. INTERVAL HISTORY: This is a patient with multiple medical problems, currently in the ICU, intubated. Patient was transferred from [facility]. Patient is FULL CODE and was felt to have postobstructive pneumonia, toxic metabolic encephalopathy. She is on antibiotics. The patient did have a CPAP trial today for about 5 hours. Currently FiO2 is 35% and a PEEP of 5. Minimal secretions. Patient's drips include Diprivan. Telemetry shows sinus rhythm. Tube feeding is running at 25 mL/hour. REVIEW OF SYSTEMS: Patient is intubated. CURRENT MEDICATIONS: Reviewed. They include: 1. IV Solu-Medrol. 2. IV Diprivan. 3. IV Zosyn. 4. IV vancomycin. PHYSICAL EXAMINATION: Temperature 98.2, pulse 90, respiration 12, blood pressure 126/79, pulse ox 100% on the ventilator. GENERAL APPEARANCE: Lying in bed, intubated. EYES: Pupils equal. Conjunctivae normal. HEENT: Endotracheal tube in place. NECK: JVD unable to assess. Mass not palpable. RESPIRATORY: Effort increased. LUNGS: Diminished breath sounds. CARDIOVASCULAR: First and second sounds normal. No edema. ABDOMEN: Soft, non-tender. Liver and spleen not palpable. PSYCHIATRY: Unable to assess. NEUROLOGICAL: Pupils are equal, reacting. Planters equivocal. INVESTIGATIONS: White count 8.7, hemoglobin 7.4, platelets 128. Potassium 4.2, BUN 11, creatinine 0.32. Patient's bronchial washing did show some Divya albicans. Chest x-ray film, personally reviewed by me, shows right-sided infiltrate, mediastinal pushed to the right. ASSESSMENT: 1. Acute hypoxic and hypercapnic respiratory failure, multifactorial, secondary to extensive pneumonia, primarily multilobar involving the right lung. 2. Acute severe chronic obstructive pulmonary disease exacerbation in a smoker. 3. History of small-cell lung cancer, in remission. 4. Septic shock secondary to pneumonia, present on admission. 5. Status post bronchoscopy. 6. Anxiety and depression not otherwise specified. 7. Chronic nicotine dependence. Patient is a cigarette smoker. 8. Macrocytic anemia, including a component of hospital-acquired pneumonia. 9. Thrombocytopenia. Could be from underlying sepsis. PLAN: Patient remains critically ill. Continue with supportive care. Will cut back on Solu- Medrol to 40 q.8. Given the thrombocytopenia, we will also repeat platelets. Keep a close eye. MMODL / IJN: [id number] /
[2018-11-21 00:19] LABS: Glucose,Whole Blood 133 mg/dL (75-99)
[2018-11-21] MEDS: NOREPINEPHRINE 32 MG in SODIUM CHLORIDE 0.9% 218 ML IV SCH (01:49)
[2018-11-21] MEDS: INSULIN ASPART (NovoLOG) 100 UNIT/ML VIAL SQ SCH ×5 (01:50→21:22)
[2018-11-21] MEDS: MIDAZOLAM HCL 50 MG in SODIUM CHLORIDE 0.9% 40 ML IV SCH (01:50)
[2018-11-21] MEDS: PIPERACILLIN-TAZOBACTAM 3.375 GM in SODIUM CHLORIDE 0.9% 100 ML IVPB SCH ×4 (01:53→23:04)
[2018-11-21] MEDS: HEPARIN SODIUM,PORCINE 5,000 UNIT/ML 1 ML VIAL SQ SCH ×4 (01:53→23:04)
[2018-11-21] MEDS: methylPREDNISolone SOD SUCCI 40 MG/ML 1 ML VIAL IV SCH ×4 (01:53→23:04)
[2018-11-21] MEDS: PROPOFOL 1,000 MG in EMPTY BAG 1 BAG IV SCH ×2 (04:10→08:06)
[2018-11-21 05:15] LABS: Anisocytosis Slight; HCT 22.9 % (34.0-46.0); HGB 7.2 gm/dL (11.4-16.0); Hypochromasia Slight; MCH 36.4 pg (25.0-35.0); MCHC 31.6 g/dL (31.0-37.0); Macrocytosis Marked; Mean Platelet Volume 8.2; Platelet Count 120 k/uL (150-450); RBC 1.99 m/uL (3.80-5.40); RDW 18.5 % (11.5-15.5)
[2018-11-21 05:42] LABS: Glucose,Whole Blood 144 mg/dL (75-99)
[2018-11-21 05:47] LABS: ALT 21 U/L (9-52); AST 24 U/L (14-36); African American GFR (CKD) >90 (>60 ml/min/1.73 sqM); Albumin 2.4 g/dL (3.5-5.0); Alkaline Phosphatase 106 U/L (38-126); Anion Gap 4 mmol/L; Blood Urea Nitrogen 16 mg/dL (7-17); Calcium 8.2 mg/dL (8.4-10.2); Carbon Dioxide 36 mmol/L (22-30); Chloride 96 mmol/L (98-107); Glucose 140 mg/dL (74-99); Potassium 3.3 mmol/L (3.5-5.1); Sodium 136 mmol/L (137-145); Total Bilirubin 0.3 mg/dL (0.2-1.3); Total Protein 4.6 g/dL (6.3-8.2)
[2018-11-21] MEDS: HYDROmorphone 1 MG/ML 1 ML SYRINGE IVP PRN ×4 (06:25→21:21)
--- NOTE | 2018-11-21 07:35 | XR ---
EXAMINATION TYPE: XR chest 1V portable DATE OF EXAM: 11/21/2018 HISTORY: Tube placement. REFERENCE: Previous study dated 11/20/2018. FINDINGS: The patient is ET tube and NG tube remain in place, unchanged in appearance. There continues to be volume loss in the right hemithorax. The left lung appears overinflated. The he art is enlarged. There is continuing right-sided airspace disease. There is developing left-sided air space disease. There are bilateral effusions, greater on the right than the left. IMPRESSION: INTERVAL DEVELOPMENT OF LEFT BASILAR AIRSPACE DISEASE.
[2018-11-21 07:54] LABS: ABG Base Excess 16.7 mmol/L; ABG Oxygen Saturation 98.6 % (94-97); ABG PCO2 51 mmHg (35-45); ABG PO2 114 mmHg (83-108); ABG TCO2 41 mmol/L (19-24); Allen Test Performed? Yes
[2018-11-21 07:57] LABS: ABG HCO3 40 mmol/L (21-25)
[2018-11-21] MEDS: IPRATROPIUM-ALBUTEROL 3 ML NEB INHALATION SCH ×4 (07:59→21:31)
[2018-11-21] MEDS: SODIUM CHLORIDE 0.9% 1,000 ML IV SCH ×3 (08:05→20:11)
[2018-11-21] MEDS: CHLORHEXIDINE GLUCONATE 15 ML CUP MUCOUS MEM SCH ×2 (08:07→19:38)
[2018-11-21] MEDS: POTASSIUM BICARBONATE/CIT AC 20 MEQ TABLET.EFF NG-TUBE SCH ×2 (08:07→10:51)
[2018-11-21] MEDS: PANTOPRAZOLE 40 MG/10 ML VIAL IV SCH (08:07)
[2018-11-21] MEDS: VANCOMYCIN 1,250 MG in SODIUM CHLORIDE 0.9% 250 ML IVPB SCH ×2 (08:34→20:10)
--- NOTE | 2018-11-21 11:39 | P.PN ---
Subjective Progress Note Date: 11/21/18 Principal diagnosis: Acute hypoxic and hypercapnic respiratory failure secondary to right lung pneumonia and COPD exacerbation. This is a 57-year-old female with history of small cell lung cancer, diagnosed about a year ago by Dr. Zhang, and she received chemotherapy as well as r adiation therapy, and she was supposedly in remission. Patient was admitted to the hospital in late September and early October. At that time she was seen for acute exacerbation of COPD, right lower lobe postobstructive pneumonia underwent bronchoscopy and BAL on 10/18/2018, and she had significant amount of tenacious secretions cultures were only positive for Divya albicans. Patient had abnormal PET scan showing a right hilar uptake, and abnormal uptake in the thoracic spine. Patient was eventually discharged home, however she presented yesterday to [facility] with profound shortness of breath, and mental status change. Apparently the patient was hypoxic, hypercapnic, and in acute respiratory failure. Initially her CODE STATUS was DO NOT RESUSCITATE. However this was later changed when the patient was transferred to our facility from [facility] ER. As soon as the CODE STATUS was changed, patient was intubated for worsening respiratory failure placed on mechanical ventilation, and this consult was initiated. Her ventilator settings where handled overnight by Dr. Hein. Presently the patient is on mechanical ventilation, assist control mode tidal volume of 400 rate of 12 FiO2 of 40% and PEEP of 5. She is also on propofol, and on 0.07 mcg/kg/m of norepinephrine. Her propofol is at 40 mcg/kg/m. Patient is sedated, chest x-ray was reviewed, I discussed her condition with her family members at bedside, and I recommended ultrasound of the chest to possibly consider a right-sided thoracentesis. There is a significant volume loss and consolidation involving the right lung if the ultrasound is negative for pleural effusion, may consider bronchoscopy and evaluation of the right lung in the next 24 hours. Family was made aware of that recommendation. Patient was reevaluated today on 11/18/2018, remains on mechanical ventilation, her ventilator settings tidal volume of 400, assist control rate of 12 FiO2 40%, PEEP is 5. Patient is on a minimal dose of norepinephrine at 0.03 mcg/kg/m, propofol at 25 mcg/kg/m, she is on enteral feeding via nasogastric tube. Chest x-ray showed slight improvement, underwent bronchoscopy today and lavage of the right upper lobe right middle lobe and right lower lobe, there was no evidence of any endobronchial tumors. Secretions in the right lung were noted to be a bit reluctant, cultures are pending. Fluid was even sent for cytology, but there was no evidence of endobronchial tumor. ABG this morning showed a pO2 of 136 pCO2 of 47 pH of 7.52. Electrolytes were reviewed potassium is a bit low be corrected as per protocol. CBC is normal however hemoglobin is 8.1. Patient is sedated, on propofol drip. Will likely addressed mental status today off propofol but she is not quite ready for weaning or extubation at this point Reevaluated today on 11/19/2018, remains in the ICU on mechanical ventilation, her ventilator settings are assist control rate of 12 tidal volume of 400 FiO2 of 35% and PEEP of 5. On propofol at 25 mcg/kg/m, off norepinephrine. Chest x- ray is showing some resolution of her right sided pneumonia, but not back to normal. Microbiology from the lavage done yesterday is pending, patient remains empirically on broad-spectrum antibiotics. ABG today showed a pO2 of 105 pCO2 of 53 pH of 7.53 her WBC count is 16.1 hemoglobin is 7.9. Electrolytes are normal. Sodium is a bit low at 131. Patient will be awakened today, we'll discontinue propofol, and we will assess mental status, may even proceed with weaning parameters and a weaning trial if possible. If patient is to be weaned, should be placed on a trial of pressure support and CPAP, doubt if the patient could be extubated today specially with her chest x-ray continues to show significant airspace disease in the right lung. Patient was reevaluated today on 11/20/2018, remains on mechanical ventilation, presently on assist control rate of 12 tidal volume of 400 FiO2 35% PEEP of 5. Remains on propofol at 45 mcg/kg/m, not requiring any pressors. Yesterday the patient tolerated 2 hours of weaning with a pressure support of 8 and CPAP. Then she had to be placed back on mechanical ventilation, and I plan to do the same thing today, given a trial of pressure support and CPAP. Remains on antibiotics, her bronchial washings are basically nondiagnostic. Does have some Divya albicans, not clinically significant at this point. Chest x-ray is showing improvement but not completely resolved. Continues to have fairly good sized infiltrate in the right upper lobe and right lower lobe. Cytology from the lavage was also negative. No malignant cells were identified. ABG this morning showed a pO2 of 102 pCO2 of 56 pH of 7.47. Reevaluated today on 11/21/2018, remains on mechanical ventilation, presently on tidal volume of 400 assist control rate of 12 FiO2 of 35%, and PEEP is 5. Patient was still on 45 mcg/kg/m of propofol when I saw her earlier today, and I recommended that we discontinue propofol, placed the patient once she is awake on pressure support of 8 and CPAP, and likely give the patient a good weaning trial again today. Chest x-ray is showing improvement in her right sided pneum onia but not completely resolved. Patient did fairly well on pressure support and CPAP for few hours, but when I evaluated the patient again in the afternoon, she was noted to be quite tachypneic and tachycardic, hence I recommended going back on assist control mode of mechanical ventilation. Patient remains on antibiotics for her extensive pneumonia but clearly there is improvement. ABG this morning showed a pO2 of 114 pCO2 of 51 pH of 7.50. Renal profile is normal except for slightly low potassium of 3.3. Bicarb is 36. WBC count is 13.0 hemoglobin is 7.2. Objective - Vital Signs Vital signs: Vital Signs Temp 98.3 F 11/21/18 08:00 Pulse 100 11/21/18 10:00 Resp 17 11/21/18 10:00 BP 140/92 11/21/18 10:00 Pulse Ox 97 11/21/18 10:00 Intake & Output 11/20/18 11/21/18 11/21/18 18:59 06:59 18:59 Intake Total 3531.862 0617.559 636.286 Output Total 1452 1630 825 Balance 154.149 136.559 -188.714 Weight 53 kg Intake: IV 1125 1175 375 Piperacillin-Tazobactam 3 100 225 .375 gm In Sodium Chloride 0.9% 100 ml @ 25 mls/hr IVPB Q8HR [facility] Rx# :[id number] Sodium Chloride 0.9% 1, 900 825 375 000 ml @ 75 mls/hr IV . [id number] [facility] Rx#:[id number] Vancomycin 1,250 mg In 125 125 Sodium Chloride 0.9% 250 ml @ 125 mls/hr IVPB Q8H [facility]OM[facility] Rx#:[id number] Intake, IV Titration 91.149 176.559 56.286 Amount Propofol 1,000 mg In 91.149 176.559 56.286 Empty Bag 1 bag @ Titrate IV .Q0M [facility]OMO Rx#: [id number] Tube Feeding 300 325 175 Other 90 90 30 Output: Urine 1450 1630 825 Stool 2 Other: Voiding Method Indwelling Catheter Indwelling Catheter Indwelling Catheter - Exam General: 57-year-old female on mechanical ventilation, sedated. On propofol drip. Which I have ordered to discontinue. Derm: warm, dry Head: atraumatic, normocephalic, symmetric, endotracheal tube and orogastric tube are intact. Eyes: EOMI, no icterus. PERRLA. Mouth: no lip lesion, mucus membranes moist, ET tube in place Cardiovascular: S1S2 reg, no murmur, good pulses bilaterally Lungs: Course breath sounds bilateral, crackles at the right base noted, no wheezes. Abdominal: soft, nontender no megaly no rebound no guarding, positive bowel sounds. Ext: No clubbing, no edema, no cyanosis Neuro: Opens eyes, on propofol, follows very simple instructions. Remains on mechanical ventilation. Psych: Sedated, on mechanical ventilation. Cannot be fully assessed. - Labs CBC & Chem 7: 11/21/18 04:45 11/21/18 04:45 Labs: Abnormal Lab Results - Last 24 Hours (Table) 11/20/18 11/20/18 11/20/18 Range/Units 11:25 11:52 18:14 WBC (3.8-10.6) k/uL RBC (3.80-5.40) m/uL Hgb (11.4-16.0) gm/dL Hct (34.0-46.0) % MCV (80.0-100.0) fL MCH (25.0-35.0) pg RDW (11.5-15.5) % Plt Count (150-450) k/uL Macrocytosis ABG pH 7.50 H (7.35-7.45) ABG pCO2 53 H (35-45) mmHg ABG pO2 (83-108) mmHg ABG HCO3 41 H* (21-25) mmol/L ABG Total CO2 42 H (19-24) mmol/L ABG O2 Saturation 98.0 H (94-97) % Sodium (137-145) mmol/L Potassium (3.5-5.1) mmol/L Chloride (98-107) mmol/L Carbon Dioxide (22-30) mmol/L Creatinine (0.52-1.04) mg/dL Glucose (74-99) mg/dL POC Glucose (mg/dL) 135 H 156 H (75-99) mg/dL Calcium (8.4-10.2) mg/dL Total Protein (6.3-8.2) g/dL Albumin (3.5-5.0) g/dL 11/21/18 11/21/18 11/21/18 Range/Units 00:18 04:45 04:45 WBC 13.0 H (3.8-10.6) k/uL RBC 1.99 L (3.80-5.40) m/uL Hgb 7.2 L (11.4-16.0) gm/dL Hct 22.9 L (34.0-46.0) % MCV 115.0 H (80.0-100.0) fL MCH 36.4 H (25.0-35.0) pg RDW 18.5 H (11.5-15.5) % Plt Count 120 L (150-450) k/uL Macrocytosis Marked A ABG pH (7.35-7.45) ABG pCO2 (35-45) mmHg ABG pO2 (83-108) mmHg ABG HCO3 (21-25) mmol/L ABG Total CO2 (19-24) mmol/L ABG O2 Saturation (94-97) % Sodium 136 L (137-145) mmol/L Potassium 3.3 L (3.5-5.1) mmol/L Chloride 96 L (98-107) mmol/L Carbon Dioxide 36 H (22-30) mmol/L Creatinine 0.30 L (0.52-1.04) mg/dL Glucose 140 H (74-99) mg/dL POC Glucose (mg/dL) 133 H (75-99) mg/dL Calcium 8.2 L (8.4-10.2) mg/dL Total Protein 4.6 L (6.3-8.2) g/dL Albumin 2.4 L (3.5-5.0) g/dL 11/21/18 11/21/18 Range/Units 05:41 07:39 WBC (3.8-10.6) k/uL RBC (3.80-5.40) m/uL Hgb (11.4-16.0) gm/dL Hct (34.0-46.0) % MCV (80.0-100.0) fL MCH (25.0-35.0) pg RDW (11.5-15.5) % Plt Count (150-450) k/uL Macrocytosis ABG pH 7.50 H (7.35-7.45) ABG pCO2 51 H (35-45) mmHg ABG pO2 114 H (83-108) mmHg ABG HCO3 40 H* (21-25) mmol/L ABG Total CO2 41 H (19-24) mmol/L ABG O2 Saturation 98.6 H (94-97) % Sodium (137-145) mmol/L Potassium (3.5-5.1) mmol/L Chloride (98-107) mmol/L Carbon Dioxide (22-30) mmol/L Creatinine (0.52-1.04) mg/dL Glucose (74-99) mg/dL POC Glucose (mg/dL) 144 H (75-99) mg/dL Calcium (8.4-10.2) mg/dL Total Protein (6.3-8.2) g/dL Albumin (3.5-5.0) g/dL Microbiology - Last 24 Hours (Table) 11/17/18 01:40 Blood Culture - Preliminary Blood No Growth after 96 hours 11/17/18 00:25 Blood Culture - Preliminary Blood No Growth after 96 hours 11/18/18 10:10 Gram Stain - Final Bronchial Washings - Right Bronchial Washings Culture - Final Divya albicans Assessment and Plan Assessment: Impression: 1 acute hypoxic and hypercapnic respiratory failure multifactorial secondary extensive pneumonia involving the right lung, and underlying COPD exacerbation. 2 history of small cell lung cancer, presently in remission. 3 acute sepsis and septic shock most likely secondary to right lower lobe pneumonia, likely community-acquired. Doubt postobstructive pneumonia since her bronchoscopy was relatively unremarkable and no evidence of endobronchial tumor. 4. History of alcohol abuse 5 status post bronchoscopy and lavage of right lung on 11/18/2018. Microbiology is pending from the lavage. Recommendation: Continue ventilatory support Continue nutritional support patient is on enteral feeding.. Continue bronchodilators Continue steroids Continue antibiotics empirically, bronchoalveolar lavage was nondiagnostic I have instructed the nurses and respiratory therapist to hold propofol, assess weaning parameters once the patient is more awake, and if reasonable would pr oceed to pressure support of 8 and CPAP, and if she continues to do well in one hour, we'll repeat ABG, if is considered reasonable, we'll likely proceed to weaning and extubation today. In the meantime continue all meds as noted above and all supportive care measures as noted above. Before extubation will likely hold the tube feeding, and suction stomach content. Prognosis remains guarded, patient remains critically ill, we'll continue to follow. Critical care time is 33 minutes. Time with Patient: Greater than 30
[2018-11-21 11:45] LABS: ABG Base Excess 17.8 mmol/L; ABG Oxygen Saturation 98.5 % (94-97); ABG PCO2 46 mmHg (35-45); ABG PH 7.55 (7.35-7.45); ABG PO2 96 mmHg (83-108); ABG TCO2 42 mmol/L (19-24); Allen Test Performed? Yes
[2018-11-21 11:48] LABS: ABG HCO3 40 mmol/L (21-25)
[2018-11-21 11:51] LABS: Glucose,Whole Blood 133 mg/dL (75-99)
[2018-11-21] MEDS: DIAZEPAM 5 MG TAB PO PRN ×2 (15:10→23:04)
[2018-11-21 18:03] LABS: Glucose,Whole Blood 103 mg/dL (75-99)
[2018-11-21 20:44] LABS: Glucose,Whole Blood 171 mg/dL (75-99)
[2018-11-21] MEDS ORDERED: DIAZEPAM 5 MG TAB PO SCH (21:00)
[2018-11-21] MEDS ORDERED: POTASSIUM CHLORIDE ER 20 MEQ TAB.ER PO SCH (22:00)
--- NOTE | 2018-11-21 22:52 | PN ---
PROGRESS NOTE DATE OF SERVICE: 11/21/2018. PRESENTING COMPLAINT: Tired. INTERVAL HISTORY: Patient remains in the ICU, was extubated earlier today. Was initially transferred from [facility]. The patient is on nasal cannula. Pulse ox 95 percent. Tired, sitting up, off drips. Telemetry shows sinus rhythm. REVIEW OF SYSTEMS: Attempted for consult cardiovascular GI pulmonary; relevant findings as above. CURRENT MEDICATIONS: Reviewed, that include IV Zosyn, vancomycin, IV Solu-Medrol. EXAMINATION: Afebrile, pulse 95, respirations 13, blood pressure 148/88, pulse ox 98% on 3 L. GENERAL APPEARANCE: Sitting up, tired, awake. EYES: Pupils equal. Conjunctivae normal. NECK: JVD unable to assess. Mass not palpable. Respiratory effort increased. LUNGS: Diminished breath sounds. Some wheezing. CARDIOVASCULAR: 1st and 2nd heart sounds normal. No edema. ABDOMEN: Soft, nontender. Liver and spleen not palpable. PSYCHIATRY: Awake, answering some simple questions. INVESTIGATIONS: Blood gas showed a pH of 7.55, bicarb of 40. White count 13, hemoglobin 7.2, potassium 3.3, BUN 16, creatinine 0.30. Chest x-ray film personally reviewed by me, shows infiltrates. ASSESSMENT: 1. Acute hypoxic and hypercapnic respiratory failure, multifactorial, secondary to extensive pneumonia, multi global primarily involving the right lung, status post ventilator support. 2. Acute failure COPD exacerbation in a smoker. 3. History of small-cell lung cancer in remission. 4. Septic shock secondary to pneumonia, POA. 5. Status post bronchoscopy. 6. Anxiety, depression, not otherwise specified. 7. Chronic nicotine dependence. Patient is a cigarette smoker. 8. Macrocytic anemia including component of hospital acquired anemia. 9. Thrombocytopenia from underlying sepsis. PLAN: Continue current medication and treatment plan. Care was discussed with the patient. The patient is requesting home dose of Valium 7.5 three times a day. Will give the patient only 2.5 twice a day to start up with and follow closely. MMODL / IJN: [id number] /
[2018-11-21 23:38] LABS: Glucose,Whole Blood 67 mg/dL (75-99)
[2018-11-21 23:58] LABS: Glucose,Whole Blood 68 mg/dL (75-99)
[2018-11-22 00:26] LABS: Glucose,Whole Blood 104 mg/dL (75-99)
[2018-11-22] MEDS: HYDROmorphone 1 MG/ML 1 ML SYRINGE IVP PRN ×5 (00:30→20:12)
[2018-11-22 05:03] LABS: Anisocytosis Slight; HCT 24.7 % (34.0-46.0); HGB 7.7 gm/dL (11.4-16.0); Hypochromasia Slight; MCH 36.1 pg (25.0-35.0); MCHC 31.2 g/dL (31.0-37.0); Macrocytosis Marked; Mean Platelet Volume 8.1; Platelet Count 128 k/uL (150-450); RBC 2.14 m/uL (3.80-5.40); RDW 18.6 % (11.5-15.5); WBC 25.7 k/uL (3.8-10.6)
[2018-11-22 05:11] LABS: MCV 115.7 fL (80.0-100.0)
[2018-11-22 05:16] LABS: ALT 50 U/L (9-52); AST 60 U/L (14-36); African American GFR (CKD) >90 (>60 ml/min/1.73 sqM); Albumin 2.7 g/dL (3.5-5.0); Alkaline Phosphatase 108 U/L (38-126); Anion Gap 3 mmol/L; Blood Urea Nitrogen 11 mg/dL (7-17); Calcium 8.6 mg/dL (8.4-10.2); Carbon Dioxide 38 mmol/L (22-30); Chloride 95 mmol/L (98-107); Glucose 104 mg/dL (74-99); Potassium 4.3 mmol/L (3.5-5.1); Sodium 136 mmol/L (137-145); Total Bilirubin 0.4 mg/dL (0.2-1.3)
--- NOTE | 2018-11-22 06:29 | XR ---
EXAMINATION TYPE: XR chest 1V portable DATE OF EXAM: 11/22/2018 HISTORY: Tube placement. REFERENCE: Previous study dated 11/21/2018. FINDINGS: The patient has been extubated. The NG tube is been removed. A right internal jugular ector ter remains in place. Its tip is in the right atrium. There is near complete opacification of the right hemithorax. There is worsening airspace disease at the left lung base. Heart size is obscured. IMPRESSION: 1. NEAR COMPLETE OPACIFICATION OF THE RIGHT HEMIDIAPHRAGM WHICH IS LIKELY A COMBINATION OF PLEURAL FL UID AND AIRSPACE DISEASE. 2. WORSENING LEFT BASILAR AIRSPACE DISEASE.
[2018-11-22] MEDS: DIAZEPAM 5 MG TAB PO PRN ×2 (06:54→17:55)
[2018-11-22] MEDS: IPRATROPIUM-ALBUTEROL 3 ML NEB INHALATION SCH ×4 (07:43→20:26)
[2018-11-22] MEDS ORDERED: VANCOMYCIN TROUGH DUE 1 EACH MISC MISCELLANE ONE (08:00)
[2018-11-22] MEDS: methylPREDNISolone SOD SUCCI 40 MG/ML 1 ML VIAL IV SCH ×2 (08:08→17:55)
[2018-11-22] MEDS: VANCOMYCIN 1,250 MG in SODIUM CHLORIDE 0.9% 250 ML IVPB SCH (08:08)
[2018-11-22] MEDS: HEPARIN SODIUM,PORCINE 5,000 UNIT/ML 1 ML VIAL SQ SCH ×2 (08:08→17:55)
[2018-11-22] MEDS: PANTOPRAZOLE 40 MG/10 ML VIAL IV SCH (08:08)
[2018-11-22] MEDS: PIPERACILLIN-TAZOBACTAM 3.375 GM in SODIUM CHLORIDE 0.9% 100 ML IVPB SCH ×2 (08:08→17:55)
[2018-11-22] MEDS: INSULIN ASPART (NovoLOG) 100 UNIT/ML VIAL SQ SCH ×3 (08:28→22:59)
[2018-11-22 08:30] LABS: Glucose,Whole Blood 115 mg/dL (75-99)
--- NOTE | 2018-11-22 08:53 | P.PN ---
Subjective Progress Note Date: 11/22/18 Principal diagnosis: Acute hypoxic and hypercapnic respiratory failure secondary to right lung pneumonia and COPD exacerbation. This is a 57-year-old female with history of small cell lung cancer, diagnosed about a year ago by Dr. Zhang, and she received chemotherapy as well as r adiation therapy, and she was supposedly in remission. Patient was admitted to the hospital in late September and early October. At that time she was seen for acute exacerbation of COPD, right lower lobe postobstructive pneumonia underwent bronchoscopy and BAL on 10/18/2018, and she had significant amount of tenacious secretions cultures were only positive for Divya albicans. Patient had abnormal PET scan showing a right hilar uptake, and abnormal uptake in the thoracic spine. Patient was eventually discharged home, however she presented yesterday to [facility] with profound shortness of breath, and mental status change. Apparently the patient was hypoxic, hypercapnic, and in acute respiratory failure. Initially her CODE STATUS was DO NOT RESUSCITATE. However this was later changed when the patient was transferred to our facility from [facility]. As soon as the CODE STATUS was changed, patient was intubated for worsening respiratory failure placed on mechanical ventilation, and this consult was initiated. Her ventilator settings where handled overnight by Dr. Hein. Presently the patient is on mechanical ventilation, assist control mode tidal volume of 400 rate of 12 FiO2 of 40% and PEEP of 5. She is also on propofol, and on 0.07 mcg/kg/m of norepinephrine. Her propofol is at 40 mcg/kg/m. Patient is sedated, chest x-ray was reviewed, I discussed her condition with her family members at bedside, and I recommended ultrasound of the chest to possibly consider a right-sided thoracentesis. There is a significant volume loss and consolidation involving the right lung if the ultrasound is negative for pleural effusion, may consider bronchoscopy and evaluation of the right lung in the next 24 hours. Family was made aware of that recommendation. Patient was reevaluated today on 11/18/2018, remains on mechanical ventilation, her ventilator settings tidal volume of 400, assist control rate of 12 FiO2 40%, PEEP is 5. Patient is on a minimal dose of norepinephrine at 0.03 mcg/kg/m, propofol at 25 mcg/kg/m, she is on enteral feeding via nasogastric tube. Chest x-ray showed slight improvement, underwent bronchoscopy today and lavage of the right upper lobe right middle lobe and right lower lobe, there was no evidence of any endobronchial tumors. Secretions in the right lung were noted to be a bit reluctant, cultures are pending. Fluid was even sent for cytology, but there was no evidence of endobronchial tumor. ABG this morning showed a pO2 of 136 pCO2 of 47 pH of 7.52. Electrolytes were reviewed potassium is a bit low be corrected as per protocol. CBC is normal however hemoglobin is 8.1. Patient is sedated, on propofol drip. Will likely addressed mental status today off propofol but she is not quite ready for weaning or extubation at this point Reevaluated today on 11/19/2018, remains in the ICU on mechanical ventilation, her ventilator settings are assist control rate of 12 tidal volume of 400 FiO2 of 35% and PEEP of 5. On propofol at 25 mcg/kg/m, off norepinephrine. Chest x- ray is showing some resolution of her right sided pneumonia, but not back to normal. Microbiology from the lavage done yesterday is pending, patient remains empirically on broad-spectrum antibiotics. ABG today showed a pO2 of 105 pCO2 of 53 pH of 7.53 her WBC count is 16.1 hemoglobin is 7.9. Electrolytes are normal. Sodium is a bit low at 131. Patient will be awakened today, we'll discontinue propofol, and we will assess mental status, may even proceed with weaning parameters and a weaning trial if possible. If patient is to be weaned, should be placed on a trial of pressure support and CPAP, doubt if the patient could be extubated today specially with her chest x-ray continues to show significant airspace disease in the right lung. Patient was reevaluated today on 11/20/2018, remains on mechanical ventilation, presently on assist control rate of 12 tidal volume of 400 FiO2 35% PEEP of 5. Remains on propofol at 45 mcg/kg/m, not requiring any pressors. Yesterday the patient tolerated 2 hours of weaning with a pressure support of 8 and CPAP. Then she had to be placed back on mechanical ventilation, and I plan to do the same thing today, given a trial of pressure support and CPAP. Remains on antibiotics, her bronchial washings are basically nondiagnostic. Does have some Divya albicans, not clinically significant at this point. Chest x-ray is showing improvement but not completely resolved. Continues to have fairly good sized infiltrate in the right upper lobe and right lower lobe. Cytology from the lavage was also negative. No malignant cells were identified. ABG this morning showed a pO2 of 102 pCO2 of 56 pH of 7.47. Reevaluated today on 11/21/2018, remains on mechanical ventilation, presently on tidal volume of 400 assist control rate of 12 FiO2 of 35%, and PEEP is 5. Patient was still on 45 mcg/kg/m of propofol when I saw her earlier today, and I recommended that we discontinue propofol, placed the patient once she is awake on pressure support of 8 and CPAP, and likely give the patient a good weaning trial again today. Chest x-ray is showing improvement in her right sided pneum onia but not completely resolved. Patient did fairly well on pressure support and CPAP for few hours, but when I evaluated the patient again in the afternoon, she was noted to be quite tachypneic and tachycardic, hence I recommended going back on assist control mode of mechanical ventilation. Patient remains on antibiotics for her extensive pneumonia but clearly there is improvement. ABG this morning showed a pO2 of 114 pCO2 of 51 pH of 7.50. Renal profile is normal except for slightly low potassium of 3.3. Bicarb is 36. WBC count is 13.0 hemoglobin is 7.2. Patient was reevaluated today on 11/22/2018, she was extubated yesterday successfully. Before I saw the patient this morning, I reviewed her chest x- ray, and there was clearly evidence of worsening of her right lung with opacification of the right lung again. I was certain that the patient will need to be reintubated and bronchoscoped, however when I evaluated the patient she did not seem to be as sick as expected. She was on 6 L nasal cannula, her O2 saturation is 94%, and the patient was not in any form of respiratory distress. Hence I have explained to the patient that I prefer to place her on BiPAP for now, continue antibiotics, continue bronchodilators and steroids, and if she does not improve much in the next 24 hours, she may have to be bronchoscoped again. Explained to her the reasoning behind bronchoscopy. Clinically today the patient does not look as bad as a chest x-ray. Hence we'll hold on bronchoscopy for today. Her white count today is 25.7 hemoglobin is 7.7 and left lites are normal renal profile is normal. Antibiotics mendenhall, the patient remains on vancomycin, and she is also on Zosyn. Microbiology from the BAL has been nondiagnostic, there is only Divya albicans, and considering the patient is marginal, I will go ahead and start the patient on fluconazole. Objective - Vital Signs Vital signs: Vital Signs Temp 97.8 F 11/22/18 08:00 Pulse 101 H 11/22/18 08:00 Resp 17 11/22/18 08:00 BP 144/91 11/22/18 08:00 Pulse Ox 96 11/22/18 08:00 Intake & Output 11/21/18 11/22/18 11/22/18 18:59 06:59 18:59 Intake Total 1729.388 1871 150 Output Total 1860 3451 400 Balance -548.714 -771 -250 Weight 54.1 kg Intake: IV 1000 1000 150 Piperacillin-Tazobactam 3 100 .375 gm In Sodium Chloride 0.9% 100 ml @ 25 mls/hr IVPB Q8HR [facility] Rx# :[id number] Sodium Chloride 0.9% 1, 900 750 150 000 ml @ 75 mls/hr IV . [id number] [facility] Rx#:[id number] Vancomycin 1,250 mg In 250 Sodium Chloride 0.9% 250 ml @ 125 mls/hr IVPB Q12HR [facility]O Rx#:[id number] Intake, IV Titration 56.286 Amount Propofol 1,000 mg In 56.286 Empty Bag 1 bag @ Titrate IV .Q0M [facility]OMO Rx#: [id number] Oral 1680 Tube Feeding 225 Other 30 Output: Urine 1860 3450 400 Stool 1 Other: Voiding Method Indwelling Catheter Indwelling Catheter Indwelling Catheter - Exam General: 57-year-old female on nasal cannula, however she was switched to BiPAP for now Derm: warm, dry Head: atraumatic, normocephalic, symmetric, Eyes: EOMI, no icterus. PERRLA. Mouth: no lip lesion, mucus membranes moist, Cardiovascular: S1S2 reg, no murmur, good pulses bilaterally Lungs: Slightly diminished breath sounds on the right side, left side is clear. Abdominal: soft, nontender no megaly no rebound no guarding, positive bowel sounds. Ext: No clubbing, no edema, no cyanosis Neuro: Alert oriented 3, no gross focal neurologic deficits. Psych: Depressed mood and blunted affect, normal mental status examination. - Labs CBC & Chem 7: 11/22/18 04:15 11/22/18 04:15 Labs: Abnormal Lab Results - Last 24 Hours (Table) 11/21/18 11/21/18 11/21/18 Range/Units 11:33 11:49 18:02 WBC (3.8-10.6) k/uL RBC (3.80-5.40) m/uL Hgb (11.4-16.0) gm/dL Hct (34.0-46.0) % MCV (80.0-100.0) fL MCH (25.0-35.0) pg RDW (11.5-15.5) % Plt Count (150-450) k/uL Macrocytosis ABG pH 7.55 H (7.35-7.45) ABG pCO2 46 H (35-45) mmHg ABG HCO3 40 H* (21-25) mmol/L ABG Total CO2 42 H (19-24) mmol/L ABG O2 Saturation 98.5 H (94-97) % Sodium (137-145) mmol/L Chloride (98-107) mmol/L Carbon Dioxide (22-30) mmol/L Creatinine (0.52-1.04) mg/dL Glucose (74-99) mg/dL POC Glucose (mg/dL) 133 H 103 H (75-99) mg/dL AST (14-36) U/L Total Protein (6.3-8.2) g/dL Albumin (3.5-5.0) g/dL 11/21/18 11/21/18 11/21/18 Range/Units 20:42 23:37 23:56 WBC (3.8-10.6) k/uL RBC (3.80-5.40) m/uL Hgb (11.4-16.0) gm/dL Hct (34.0-46.0) % MCV (80.0-100.0) fL MCH (25.0-35.0) pg RDW (11.5-15.5) % Plt Count (150-450) k/uL Macrocytosis ABG pH (7.35-7.45) ABG pCO2 (35-45) mmHg ABG HCO3 (21-25) mmol/L ABG Total CO2 (19-24) mmol/L ABG O2 Saturation (94-97) % Sodium (137-145) mmol/L Chloride (98-107) mmol/L Carbon Dioxide (22-30) mmol/L Creatinine (0.52-1.04) mg/dL Glucose (74-99) mg/dL POC Glucose (mg/dL) 171 H 67 L 68 L (75-99) mg/dL AST (14-36) U/L Total Protein (6.3-8.2) g/dL Albumin (3.5-5.0) g/dL 11/22/18 11/22/18 11/22/18 Range/Units 00:24 04:15 04:15 WBC 25.7 H (3.8-10.6) k/uL RBC 2.14 L (3.80-5.40) m/uL Hgb 7.7 L (11.4-16.0) gm/dL Hct 24.7 L (34.0-46.0) % MCV 115.7 H (80.0-100.0) fL MCH 36.1 H (25.0-35.0) pg RDW 18.6 H (11.5-15.5) % Plt Count 128 L (150-450) k/uL Macrocytosis Marked A ABG pH (7.35-7.45) ABG pCO2 (35-45) mmHg ABG HCO3 (21-25) mmol/L ABG Total CO2 (19-24) mmol/L ABG O2 Saturation (94-97) % Sodium 136 L (137-145) mmol/L Chloride 95 L (98-107) mmol/L Carbon Dioxide 38 H (22-30) mmol/L Creatinine 0.33 L (0.52-1.04) mg/dL Glucose 104 H (74-99) mg/dL POC Glucose (mg/dL) 104 H (75-99) mg/dL AST 60 H (14-36) U/L Total Protein 5.0 L (6.3-8.2) g/dL Albumin 2.7 L (3.5-5.0) g/dL 11/22/18 Range/Units 08:28 WBC (3.8-10.6) k/uL RBC (3.80-5.40) m/uL Hgb (11.4-16.0) gm/dL Hct (34.0-46.0) % MCV (80.0-100.0) fL MCH (25.0-35.0) pg RDW (11.5-15.5) % Plt Count (150-450) k/uL Macrocytosis ABG pH (7.35-7.45) ABG pCO2 (35-45) mmHg ABG HCO3 (21-25) mmol/L ABG Total CO2 (19-24) mmol/L ABG O2 Saturation (94-97) % Sodium (137-145) mmol/L Chloride (98-107) mmol/L Carbon Dioxide (22-30) mmol/L Creatinine (0.52-1.04) mg/dL Glucose (74-99) mg/dL POC Glucose (mg/dL) 115 H (75-99) mg/dL AST (14-36) U/L Total Protein (6.3-8.2) g/dL Albumin (3.5-5.0) g/dL Microbiology - Last 24 Hours (Table) 11/17/18 01:40 Blood Culture - Preliminary Blood No Growth after 120 hours 11/17/18 00:25 Blood Culture - Preliminary Blood No Growth after 120 hours Assessment and Plan Assessment: Impression: 1 acute hypoxic and hypercapnic respiratory failure multifactorial secondary extensive pneumonia involving the right lung, and underlying COPD exacerbation. 2 history of small cell lung cancer, presently in remission. 3 acute sepsis and septic shock most likely secondary to bibasilar pneumonia, right more so than left, status post bronchoscopy 2 and both were nondiagnostic for specific organism. Except both were positive for Divya albicans 4. History of alcohol abuse 5 status post bronchoscopy and lavage of right lung on 11/18/2018. Nondiagnostic Recommendation: Switch patient from nasal cannula to BiPAP for now, hoping positive airway pressure could expand the right lung and hopefully the patient will not eventually require bronchoscopy and lavage. Continue nutritional patient is being fed orally. Continue bronchodilators Continue steroids Continue antibiotics, Diflucan was added. We'll keep the patient in the intensive care unit, placed on BiPAP, I had a long discussion with the patient that she may require bronchoscopy again, and she may even require reintubation if her condition gets any worse. Presently the patient actually looks stable, in no distress, and clinically she looks much better than how the x-ray looks like. Hence I decided not to proceed with bronchoscopy at this point and not to proceed with reintubation at this point. We will continue to follow again prognosis is extremely poor and guarded. Time with Patient: Less than 30
[2018-11-22] MEDS: FLUCONAZOLE IN NACL,ISO-OSM 200 MG in SALINE 1 100ML.BAG IVPB SCH (10:11)
[2018-11-22 12:04] LABS: Glucose,Whole Blood 120 mg/dL (75-99)
[2018-11-22] MEDS: SODIUM CHLORIDE 0.9% 1,000 ML IV SCH ×2 (14:03→20:14)
[2018-11-22 17:50] LABS: Glucose,Whole Blood 142 mg/dL (75-99)
[2018-11-22] MEDS: VANCOMYCIN 1,500 MG in SODIUM CHLORIDE 0.9% 250 ML IVPB SCH (20:13)
--- NOTE | 2018-11-22 22:36 | PN ---
PROGRESS NOTE DATE OF SERVICE: November 22, 2018. PRESENTING COMPLAINT: Tired. INTERVAL HISTORY: Patient in the ICU, was extubated yesterday. Propped up in bed, barely ate. Tired. The patient is on a BiPAP setting of 12 and 5, at 40 percent FiO2. REVIEW OF SYSTEMS: Done for constitutional, cardiovascular, GI, pulmonary and relevant findings as above. CURRENT MEDICATIONS: Reviewed that include IV Diflucan, IV Zosyn and vancomycin. PHYSICAL EXAMINATION: VITAL SIGNS: Temperature 98.1, pulse 91, respirations 16, blood pressure 141/90, pulse ox 100 percent on the BiPAP. GENERAL APPEARANCE: Propped up, tired-appearing. EYES: Pupils equal. Conjunctivae normal. NECK: JVD unable to assess. RESPIRATORY: Effort increased. LUNGS: Diminished breath sounds. Expiratory wheezing. CARDIOVASCULAR: First and second sounds normal. No edema. ABDOMEN: Soft, nontender. Liver and spleen not palpable. PSYCHIATRY: Tired but answering simple questions. NEUROLOGICAL: Moving all 4 limbs. INVESTIGATIONS: White count 25.7, hemoglobin 7.7, platelets 128, potassium 4.3, BUN 11, creatinine 0.33. ASSESSMENT: 1. Acute hypoxic and hypercapnic respiratory failure, multifactorial, secondary to extensive pneumonia, multilobar primarily involving the right lung, status post ventilator support. 2. Acute chronic obstructive pulmonary disease exacerbation in a smoker. 3. History of small cell lung cancer in remission. 4. Septic shock secondary to pneumonia, POA. 5. Status post bronchoscopy. 6. Anxiety and depression, not otherwise specified. 7. Chronic nicotine dependence, patient is a cigarette smoker. 8. Microcytic anemia including component of hospital acquired anemia. 9. Thrombocytopenia from underlying sepsis. PLAN: Prognosis remains guarded. The patient is still somewhat rather unstable requiring a BiPAP. Continue with broad-spectrum antibiotics. The patient is on BiPAP care, slow to respond. MMODL / IJN: [id number] /
[2018-11-22 23:00] LABS: Glucose,Whole Blood 155 mg/dL (75-99)
[2018-11-23] MEDS: PIPERACILLIN-TAZOBACTAM 3.375 GM in SODIUM CHLORIDE 0.9% 100 ML IVPB SCH ×4 (01:07→23:29)
[2018-11-23] MEDS: HEPARIN SODIUM,PORCINE 5,000 UNIT/ML 1 ML VIAL SQ SCH ×4 (01:07→23:28)
[2018-11-23] MEDS: methylPREDNISolone SOD SUCCI 40 MG/ML 1 ML VIAL IV SCH ×4 (01:07→23:29)
[2018-11-23 05:35] LABS: Anisocytosis Slight; HCT 24.3 % (34.0-46.0); HGB 7.8 gm/dL (11.4-16.0); Hypochromasia Slight; MCH 36.7 pg (25.0-35.0); MCHC 32.1 g/dL (31.0-37.0); Macrocytosis Marked; Mean Platelet Volume 8.2; Platelet Count 101 k/uL (150-450); RBC 2.12 m/uL (3.80-5.40); RDW 18.1 % (11.5-15.5); WBC 16.1 k/uL (3.8-10.6)
[2018-11-23 05:48] LABS: MCV 114.4 fL (80.0-100.0)
[2018-11-23 05:52] LABS: ALT 57 U/L (9-52); AST 61 U/L (14-36); African American GFR (CKD) >90 (>60 ml/min/1.73 sqM); Albumin 2.7 g/dL (3.5-5.0); Alkaline Phosphatase 105 U/L (38-126); Anion Gap 3 mmol/L; Blood Urea Nitrogen 11 mg/dL (7-17); Calcium 8.4 mg/dL (8.4-10.2); Carbon Dioxide 37 mmol/L (22-30); Chloride 93 mmol/L (98-107); Glucose 134 mg/dL (74-99); Potassium 3.7 mmol/L (3.5-5.1); Sodium 133 mmol/L (137-145); Total Bilirubin 0.5 mg/dL (0.2-1.3)
[2018-11-23] MEDS: INSULIN ASPART (NovoLOG) 100 UNIT/ML VIAL SQ SCH ×4 (07:43→21:48)
[2018-11-23 07:50] LABS: Glucose,Whole Blood 127 mg/dL (75-99)
[2018-11-23] MEDS: VANCOMYCIN 1,500 MG in SODIUM CHLORIDE 0.9% 250 ML IVPB SCH (07:51)
[2018-11-23] MEDS: FLUCONAZOLE IN NACL,ISO-OSM 200 MG in SALINE 1 100ML.BAG IVPB SCH (07:51)
[2018-11-23] MEDS: PANTOPRAZOLE 40 MG/10 ML VIAL IV SCH (07:52)
[2018-11-23] MEDS: IPRATROPIUM-ALBUTEROL 3 ML NEB INHALATION SCH ×4 (07:56→20:11)
--- NOTE | 2018-11-23 08:46 | XR ---
EXAMINATION TYPE: XR chest 1V portable DATE OF EXAM: 11/23/2018 COMPARISON: Prior chest x-ray 11/22/2018 HISTORY: Pneumonia, shortness of breath TECHNIQUE: Single frontal view of the chest is obtained. FINDINGS: There is improvement in aeration in the right upper lobe. Central venous catheter is stabl e. Interstitium remains increased in the left lung. There are overlying cardiac leads and the patient is rotated. There are overlying artifacts. Heart is obscured. IMPRESSION: Some improvement in aeration in the right upper lobe is noted.
[2018-11-23] MEDS ORDERED: POTASSIUM CHLORIDE ER 20 MEQ TAB.ER PO SCH (09:00)
[2018-11-23] MEDS: HYDROmorphone 1 MG/ML 1 ML SYRINGE IVP PRN ×4 (09:31→23:29)
--- NOTE | 2018-11-23 10:04 | PN ---
PROGRESS NOTE This is a 57-year-old female well known to me. I did a navigational bronchoscopy on her back on June 2017 when she was diagnosed with small-cell lung cancer. The patient had combined chemo radiation therapy. The patient was admitted to the hospital on November 16. She came in with a diagnosis of sepsis and pneumonia. She was intubated on the for respiratory failure and extubated on November 21. Currently, she is using BiPAP at nighttime at 12 and 5 and 40%. Currently, the patient's overall situation remains tenuous. She is on 10 L high flow. Her IV is a saline IV at 75 mL an hour. Today we have a talk about code status. She agrees that she does not want to go back on life support. I think that is a smart decision given her underlying condition. She also has a previous history of chronic alcohol abuse and she had spent previous time at [place]. My partner saw her yesterday in followup. She has a history of acute hypoxemic and hypercapnic respiratory failure secondary to COPD exacerbation and extensive pneumonia involving the right lung, as previously mentioned, small-cell lung cancer diagnosed back in June 2017, status post concurrent chemo radiation, acute sepsis with septic shock, alcohol abuse and a bronchoscopy on November 18. It was nondiagnostic. Currently, she is resting comfortably in bed. She is on 10 L high flow. Her cough is weak. Her cough is wet and congested sounding. There is no audible wheezing or use of accessory muscles. There is no conversational dyspnea. PHYSICAL EXAMINATION: VITAL SIGNS: Current vital signs are reviewed. Temperature is 97.4, heart rate 80, respiratory rate 16, blood pressure 165/84, mean 111. GENERAL: She appears in no acute distress. HEENT: Examination is grossly unremarkable. Nasal O2 in place. NECK: Supple. Full range of motion. No adenopathy or thyromegaly. Neck veins are flat. CARDIOVASCULAR: Examination reveals regular rhythm and rate. Heart rate 80. Heart sounds are distant. S1, S2 normal. LUNGS: Reveal some coarse expiratory rhonchi. Breath sounds are diminished on the right. Adventitious lung sounds are more prominent on the right. There is some prolongation on forced maneuver. ABDOMEN: Soft. Bowel sounds are heard. EXTREMITIES: Are intact. Mild edema. SKIN: Without rash. NEUROLOGIC: Examination reveals diffuse muscle weakness. She does move all 4 extremities. She is alert and awake. MICROBIOLOGIC STUDIES: Microbiologic studies only show sputum with Divya albicans and bronch washings with Divya albicans. Likely not a pathogen. LAB DATA: Lab data is reviewed. White count 16.1, hemoglobin 7.8, hematocrit 24.3, platelet count is a 101,000. Sodium 133, potassium 3.7, chloride 93 CO2 of 37. BUN and creatinine were 11 and 0.38. AST 61, ALT 57. Albumin 2.7. X-RAY: Chest x-ray shows volume loss in the right lung. There is some chronic changes, particularly on the right side. The chest x-ray is basically unchanged from the prior chest x-ray. There may be some improved aeration in the right upper lobe. MEDICATIONS: Medications are reviewed. She is currently on Tylenol, Valium, fluconazole, heparin, Dilaudid, insulin subcu, updrafts, magnesium, Solu-Medrol, Narcan, Protonix, phosphorus replacement, Zosyn, potassium replacement, basic IV, vancomycin. ASSESSMENT: 1. Acute hypoxemic and hypercapnic respiratory failure secondary to pneumonia, and chronic obstructive pulmonary disease exacerbation with intubation on November 16 and extubation on November 21. 2. Ongoing hypoxemia secondary to chronic changes in the right lung and chronic obstructive pulmonary disease. 3. Status post navigational bronchoscopy June 2017 with a diagnosis of small-cell lung cancer, status post concurrent chemo radiation therapy. 4. Acute sepsis and septic shock, improved. 5. History of chronic alcohol abuse. 6. Status post bronchoscopy on November 18, showing only evidence of Divya albicans. PLAN: So far, sputum sampling and bronch washes have been negative. Will discontinue the vancomycin. Continue with the other antibiotic. Continue on breathing treatments. Continue with steroids. Will add some Pulmicort and Perforomist. Overall prognosis remains very guarded. We had a long conversation with the patient today. She wishes not to be reintubated. This will be documented in the medical record. She remains on 10 L high flow. CRITICAL CARE TIME: 33 minutes. MMODL / IJN: [id number] /
[2018-11-23 11:35] LABS: Glucose,Whole Blood 145 mg/dL (75-99)
[2018-11-23] MEDS: SODIUM CHLORIDE 0.9% 1,000 ML IV SCH (12:53)
[2018-11-23 17:12] LABS: Glucose,Whole Blood 162 mg/dL (75-99)
[2018-11-23] MEDS: BUDESONIDE 1 MG/2 ML NEBU INHALATION SCH (20:11)
[2018-11-23] MEDS: FORMOTEROL FUMARATE 20 MCG/2 ML NEBU INHALATION SCH (20:11)
[2018-11-23 21:37] LABS: Glucose,Whole Blood 117 mg/dL (75-99)
--- NOTE | 2018-11-23 21:51 | PN ---
PROGRESS NOTE DATE OF SERVICE: November 23, 2018. PRESENTING COMPLAINT: Tired, lethargic. INTERVAL HISTORY: The patient in the ICU was extubated on November 21, 2018, propped up in bed, lethargic but arousable. Does answer questions. Did drink some slight fluids earlier. The patient is on nasal cannula 10 L. Getting some IV fluids. REVIEW OF SYSTEMS: Attempted for constitutional, cardiovascular, GI, pulmonary and relevant findings as above. CURRENT MEDICATIONS: Reviewed that include IV Zosyn, IV Diflucan, IV Solu-Medrol. PHYSICAL EXAMINATION: VITAL SIGNS: Temperature 98.1, pulse 92, respirations 16, blood pressure 113/76, pulse ox 97% on 10 L. GENERAL APPEARANCE: Sitting up, tired, lethargic but arousable. EYES: Pupils equal. Conjunctivae normal. NECK: JVD unable to assess. Mass not palpable. RESPIRATORY: Effort increased. LUNGS: Decreased breath sounds. Some crackles. CARDIOVASCULAR: First and second sounds normal. No edema. ABDOMEN: Soft, nontender. Liver and spleen not palpable. PSYCHIATRY: Lethargic but arousable. NEUROLOGICAL: Does move her limbs. INVESTIGATIONS: White count 16.1, hemoglobin 7.8, platelets 101, potassium 3.7, BUN 11, creatinine 0.38. Chest x-ray shows some improvement in aeration on the right side. The patient's cultures, all bronchial washings have been showing Divya albicans. ASSESSMENT: 1. Acute hypoxic and hypercapnic respiratory failure, multifactorial, secondary to extensive pneumonia, multilobar, primary involving the right lung, status post ventilator support, currently on 10 L of oxygen. 2. Acute chronic obstructive pulmonary disease exacerbation in a smoker. 3. History of small cell lung cancer in remission. 4. Septic shock secondary to pneumonia, POA. 5. Status post bronchoscopy. 6. Anxiety and depression not otherwise specified. 7. Chronic nicotine dependence, patient is a cigarette smoker. 8. Microcytic anemia including component of hospital acquired anemia. 9. Thrombocytopenia likely from underlying sepsis. PLAN: Patient is slow to respond. Continue current medication and treatment plan. Continue with broad-spectrum antibiotics, oxygen support. Follow. MMODL / IJN: [id number] /
[2018-11-23] MEDS ORDERED: MELATONIN 5 MG TABLET PO SCH (22:30)
[2018-11-23] MEDS ORDERED: MELATONIN 5 MG TABLET PO PRN (23:45)
[2018-11-24] MEDS: SODIUM CHLORIDE 0.9% 1,000 ML IV SCH ×2 (02:26→13:45)
[2018-11-24] MEDS: HYDROmorphone 1 MG/ML 1 ML SYRINGE IVP PRN ×4 (04:19→17:19)
[2018-11-24 06:00] LABS: ALT 61 U/L (9-52); AST 36 U/L (14-36); African American GFR (CKD) >90 (>60 ml/min/1.73 sqM); Albumin 2.6 g/dL (3.5-5.0); Alkaline Phosphatase 84 U/L (38-126); Blood Urea Nitrogen 14 mg/dL (7-17); Calcium 8.5 mg/dL (8.4-10.2); Chloride 95 mmol/L (98-107); Glucose 138 mg/dL (74-99); Magnesium 1.8 mg/dL (1.6-2.3); Phosphorus 3.3 mg/dL (2.5-4.5); Potassium 3.2 mmol/L (3.5-5.1); Sodium 138 mmol/L (137-145); Total Bilirubin 0.4 mg/dL (0.2-1.3); Total Protein 4.8 g/dL (6.3-8.2)
[2018-11-24 06:08] LABS: Anion Gap 4 mmol/L; Carbon Dioxide 39 mmol/L (22-30)
[2018-11-24 06:10] LABS: Anisocytosis Slight; HCT 22.7 % (34.0-46.0); HGB 7.3 gm/dL (11.4-16.0); Hypochromasia Slight; MCH 36.3 pg (25.0-35.0); MCHC 32.1 g/dL (31.0-37.0); MCV 112.9 fL (80.0-100.0); Macrocytosis Marked; RBC 2.01 m/uL (3.80-5.40); WBC 11.8 k/uL (3.8-10.6)
[2018-11-24 07:00] LABS: Glucose,Whole Blood 170 mg/dL (75-99)
[2018-11-24] MEDS ORDERED: VANCOMYCIN TROUGH DUE 1 EACH MISC MISCELLANE ONE (07:00)
[2018-11-24 07:03] LABS: Platelet Count 94 k/uL (150-450)
[2018-11-24] MEDS: INSULIN ASPART (NovoLOG) 100 UNIT/ML VIAL SQ SCH ×4 (07:13→22:13)
[2018-11-24] MEDS: IPRATROPIUM-ALBUTEROL 3 ML NEB INHALATION SCH ×4 (07:38→19:47)
[2018-11-24] MEDS: FORMOTEROL FUMARATE 20 MCG/2 ML NEBU INHALATION SCH ×2 (07:38→19:47)
[2018-11-24] MEDS: BUDESONIDE 1 MG/2 ML NEBU INHALATION SCH ×2 (07:38→19:47)
[2018-11-24] MEDS: MAGNESIUM SULFATE-D5W PMX 1 GM in DEXTROSE/WATER 1 100ML.BAG IVPB SCH ×2 (07:44→10:05)
[2018-11-24] MEDS: POTASSIUM CHLORIDE 20 MEQ in WATER FOR INJECTION 1 100ML.BAG IVPB SCH ×2 (07:44→10:05)
[2018-11-24] MEDS: methylPREDNISolone SOD SUCCI 40 MG/ML 1 ML VIAL IV SCH ×2 (07:44→17:18)
[2018-11-24] MEDS: HEPARIN SODIUM,PORCINE 5,000 UNIT/ML 1 ML VIAL SQ SCH ×2 (07:45→17:19)
[2018-11-24] MEDS: PANTOPRAZOLE 40 MG/10 ML VIAL IV SCH (07:45)
[2018-11-24] MEDS: FLUCONAZOLE IN NACL,ISO-OSM 200 MG in SALINE 1 100ML.BAG IVPB SCH (07:45)
--- NOTE | 2018-11-24 08:47 | XR ---
EXAMINATION TYPE: XR chest 1V portable DATE OF EXAM: 11/24/2018 COMPARISON: 11/23/2018 HISTORY: Shortness of breath TECHNIQUE: Single frontal view of the chest is obtained. FINDINGS: There is evidence of volume loss on the right with diffuse pleural-parenchymal changes whi ch are stable. Left lower lobe consolidation small effusion stable. Coarsened interstitium likely ref lects chronic underlying interstitial lung disease and are likely is a component of COPD. IMPRESSION: 1. Stable chronic pleural-parenchymal changes likely superimposed on a background of COPD. Correlate for pneumonia.
--- NOTE | 2018-11-24 09:20 | PN ---
PROGRESS NOTE DATE OF SERVICE: 11/24/2018 This is a 57-year-old female well known to me. I did a navigational bronchoscopy on her back in June 2017 and at that time she was diagnosed with small-cell lung cancer. The patient underwent concurrent chemo radiation. She was admitted to the hospital on November 16. She came with a diagnosis of sepsis and pneumonia. She was intubated for respiratory failure on the 16 of November and extubated on November 21. Currently, she is doing relatively well. She did not require any BiPAP last night. She is on O2 at 4 L by nasal cannula high flow. She is also getting saline IV at 75 mL an hour. The patient is awake and alert. Does not look particularly happy. She has a history of multiple medical problems including COPD, lung cancer, chronic alcohol abuse, septic shock, among other things. She denies any difficulty breathing or pain today. She denies any cough or wheezing. No phlegm production. No nausea, vomiting or diarrhea. PHYSICAL EXAMINATION: VITAL SIGNS: Vital signs are reviewed. Temperature 98.2, heart rate 73, respiratory rate 12, blood pressure 153/88, mean 109, saturations are between 91% and 98%. GENERAL: She appears in no acute distress. She looks comfortable. HEENT: Examination is grossly unremarkable. Mucous membranes are moist. Nasal O2 noted. NECK: Supple. Full range of motion. No adenopathy, thyromegaly or neck vein distention. CARDIOVASCULAR: Examination reveals regular rhythm and rate. Heart rate mid 70s. S1, S2 normal. There is no murmur. LUNGS: Reveal mostly clear breath sounds. A few scattered rhonchi. Breath sounds are diminished somewhat on the right side. No crackles. ABDOMEN: Soft. Bowel sounds are heard. EXTREMITIES: Are intact. No cyanosis, clubbing, or edema. SKIN: Without rash. NEUROLOGIC: Examination is brief but nonfocal. LABS: Labs are reviewed. White count 11.8, hemoglobin 7.3, hematocrit 22.7, platelet count 94,000. Sodium 138, potassium 3.2, chloride 95, CO2 of 39. Anion gap of 4. BUN and creatinine were 14 and 0.35. Albumin 2.6. X-RAY: Chest x-ray shows a pattern of unchanging chest x-ray. There is volume loss in the right lung. There is either a scar and/or effusion in the right side. MICROBIOLOGY: Microbiology is reviewed. Sputum was negative say for Divya. Bronchial washings were negative save for Divya. MEDICATIONS: Medications are reviewed. They appear to be relatively appropriate. ASSESSMENT: 1. Acute hypoxemic and hypercapnic respiratory failure secondary to pneumonia as well as chronic obstructive pulmonary disease exacerbation with intubation on the 16 of November and extubation successfully on november. 2. Ongoing hypoxemia secondary to chronic changes in the right lung and chronic obstructive pulmonary disease. 3. Status post navigational bronchoscopy, June 2017 with a diagnosis of small-cell lung cancer, status post concurrent chemo radiation. 4. Acute sepsis and septic shock, improved. 5. History of chronic alcohol abuse. 6. Status post bronchoscopy, November 18, showing only evidence of Divya albicans. PLAN: The patient is doing reasonably well. She appears to be relatively stable. She denies any difficulty breathing, cough, sputum production, chest pain, chest discomfort, fever, chills, nausea, vomiting or diarrhea. The patient appears to be relatively stable. Labs, x-rays and medications are reviewed. Prognosis is guarded. We will continue to follow. No additional recommendations are made at this time. MMODL / IJN: [id number] /
[2018-11-24] MEDS: FLUCONAZOLE 100 MG TAB PO SCH (10:06)
[2018-11-24 12:04] LABS: Glucose,Whole Blood 142 mg/dL (75-99)
[2018-11-24 17:22] LABS: Glucose,Whole Blood 147 mg/dL (75-99)
[2018-11-24 20:17] LABS: Glucose,Whole Blood 197 mg/dL (75-99)
[2018-11-24] MEDS ORDERED: traZODone HCL 100 MG TAB PO SCH (21:00)
--- NOTE | 2018-11-24 23:35 | PN ---
PROGRESS NOTE DATE OF SERVICE: 11/24/2018. PRESENTING COMPLAINT: Tired. INTERVAL HISTORY: The patient was moved out of the ICU, was initially extubated. Patient was extubated on November 21. The patient ate a bit better today. More awake and answering questions. Oxygen requirement has gone down. REVIEW OF SYSTEMS: Done for constitutional, cardiovascular, GI, pulmonary; relevant findings as above. CURRENT MEDICATIONS: Reviewed they include DuoNeb, subcu heparin, IV Solu-Medrol. Antibiotics were discontinued. The patient is in Diflucan. PHYSICAL EXAMINATION: Temperature 97.8, pulse 85, respiratory rate 18, blood pressure 130/71, pulse ox 96% on 4 L. GENERAL APPEARANCE: More awake, answering questions. EYES: Pupils equal. Conjunctivae normal. NECK: JVD not raised. Mass not palpable. Respiratory effort increased. LUNGS: Decreased breath sounds. CARDIOVASCULAR: 1st and 2nd sounds. No edema. ABDOMEN: Soft, nontender. Liver and spleen not palpable. PSYCHIATRY: Awake, not fully awake but is slightly drowsy with answering questions. INVESTIGATIONS: White count 11.8, hemoglobin 7.3, platelets 94,000. Potassium 3.2, BUN 14, creatinine 0.35. Accu-Cheks 138, 171, 142. Chest x-ray film personally reviewed by me shows decreased volume on the right side with infiltrates on the left side too. ASSESSMENT: 1. Acute hypoxic and hypercapnic respiratory failure, multifactorial, secondary to extensive pneumonia, multilobar, primarily involving the right lung, status post ventilator supported on nasal cannula. 2. Acute chronic obstructive pulmonary disease exacerbation in a smoker. 3. History of small cell lung cancer in remission. 4. Septic shock secondary to pneumonia, POA. 5. Status post bronchoscopy. 6. Anxiety depression not otherwise specified. 7. Chronic nicotine dependence patient is a cigarette smoker. 8. Microcytic anemia including component of hospital acquired anemia. 9. Thrombocytopenia likely from sepsis. PLAN: Patient's trazodone will be started tonight. We will start the patient's Celexa tomorrow morning. We will get a psychiatry opinion. Also will DC the IV Solu-Medrol and switch to high-dose oral prednisone. We can cut back on IV fluids when oral intake improves. PT OT on the case. Care was discussed with the patient. MMODL / IJN: [id number] /
[2018-11-25 07:33] LABS: Glucose,Whole Blood 92 mg/dL (75-99)
[2018-11-25] MEDS: FORMOTEROL FUMARATE 20 MCG/2 ML NEBU INHALATION SCH (08:43)
[2018-11-25] MEDS: IPRATROPIUM-ALBUTEROL 3 ML NEB INHALATION SCH ×3 (08:43→16:30)
[2018-11-25] MEDS: BUDESONIDE 1 MG/2 ML NEBU INHALATION SCH (08:43)
[2018-11-25] MEDS ORDERED: LIDOCAINE 5% PATCH TOPICAL SCH (09:00)
[2018-11-25] MEDS ORDERED: predniSONE 20 MG TAB PO SCH (09:00)
[2018-11-25] MEDS ORDERED: CITALOPRAM HYDROBROMIDE 20 MG TAB PO SCH (09:00)
[2018-11-25] MEDS ORDERED: ENOXAPARIN 40 MG/0.4 ML SYRINGE SQ SCH (09:00)
[2018-11-25 09:51] LABS: Magnesium 1.9 mg/dL (1.6-2.3); Phosphorus 1.9 mg/dL (2.5-4.5)
[2018-11-25] MEDS: INSULIN ASPART (NovoLOG) 100 UNIT/ML VIAL SQ SCH ×2 (09:53→14:08)
[2018-11-25 10:03] LABS: Glucose,Whole Blood 116 mg/dL (75-99)
[2018-11-25 10:31] LABS: Anisocytosis Slight; HCT 27.5 % (34.0-46.0); HGB 8.8 gm/dL (11.4-16.0); Hypochromasia Slight; MCH 36.8 pg (25.0-35.0); MCHC 32.2 g/dL (31.0-37.0); MCV 114.1 fL (80.0-100.0); Macrocytosis Marked; Mean Platelet Volume 8.8; Platelet Count 112 k/uL (150-450); RBC 2.41 m/uL (3.80-5.40); RDW 18.7 % (11.5-15.5); WBC 12.8 k/uL (3.8-10.6)
[2018-11-25 10:34] LABS: African American GFR (CKD) >90 (>60 ml/min/1.73 sqM); Anion Gap 6 mmol/L; Blood Urea Nitrogen 9 mg/dL (7-17); Calcium 8.7 mg/dL (8.4-10.2); Carbon Dioxide 39 mmol/L (22-30); Chloride 94 mmol/L (98-107); Glucose 104 mg/dL (74-99); Sodium 139 mmol/L (137-145)
[2018-11-25 10:45] LABS: Potassium 2.6 mmol/L (3.5-5.1)
[2018-11-25] MEDS ORDERED: Potassium Replacement Protocol 1 EACH MISC MISCELLANE PRN (10:48)
[2018-11-25] MEDS ORDERED: Phosphorus Replacement Protoco 1 EACH MISC MISCELLANE PRN (10:49)
[2018-11-25 10:55] VITALS: BP 124/82; RESP 20; TEMP 98.5
[2018-11-25] MEDS: FLUCONAZOLE 100 MG TAB PO SCH (10:55)
[2018-11-25] MEDS: PANTOPRAZOLE 40 MG/10 ML VIAL IV SCH (10:55)
[2018-11-25] MEDS: SODIUM CHLORIDE 0.9% 1,000 ML IV SCH (10:55)
--- NOTE | 2018-11-25 11:13 | P.PN ---
Subjective Progress Note Date: 11/25/18 Principal diagnosis: Acute hypoxemic and hypercapnic respiratory failure secondary to pneumonia and acute exacerbation of chronic obstructive pulmonary disease, requiring intubatio n, and mechanical ventilation. 11/25/2018 patient seen in follow-up on medical surgical floor. She is awake and alert, she is confused, but no acute distress, yesterday patient was quite delirious, she was attempting to leave the hospital, she was trying to get up unassisted, and patient has unstable gait, and is quite weak. Her maintenance supplemental oxygen 4 L the pulse ox of 96%, afebrile, hemodynamically stable, shortly after our evaluation patient went into new onset A. fib RVR, and she was transferred to a monitored bed on selective care unit in the [facility]. Cardiology has been consulted. Lung sounds reveal scattered rhonchi. Patient is on Pulmicort, Perforomist, DuoNeb, Diflucan. Comycin has been discontinued, she is on oral prednisone 60 mg daily. Bronchial wash cultures revealed Divya albicans only. Objective - Vital Signs Vital signs: Vital Signs Temp 98.5 F 11/25/18 10:53 Pulse 137 H 11/25/18 10:53 Resp 20 11/25/18 10:53 BP 124/82 11/25/18 10:53 Pulse Ox 96 11/25/18 10:53 Intake & Output 11/24/18 11/25/18 11/25/18 18:59 06:59 18:59 Intake Total 1780 815 Output Total 1695 1 1 Balance 85 814 -1 Weight 55 kg Intake: IV 900 225 Sodium Chloride 0.9% 1, 900 225 000 ml @ 75 mls/hr IV . [id number] [facility] Rx#:[id number] Intake, IV Titration 400 Amount Magnesium Sulfate-D5w Pmx 200 1 gm In Dextrose/Water 1 100ml.bag @ 100 mls/hr IVPB Q1H [facility] Rx#: [id number] Potassium Chloride 20 meq 200 In Water For Injection 1 100ml.bag @ 50 mls/hr IVPB Q2H [facility] Rx#: [id number] Oral 480 590 Output: Urine 1695 Stool 1 1 Other: Voiding Method Indwelling Catheter Bedside Commode Bedside Commode # Voids 5 - Exam GENERAL EXAM: Alert, pleasant, 57-year-old thin white female, on 4 L of oxygen, confused, with a product safety specialist at the bedside comfortable in no apparent distress. HEAD: Normocephalic/atraumatic. EYES: Normal reaction of pupils, equal size. Conjunctiva pink, sclera white. NOSE: Clear with pink turbinates. THROAT: No erythema or exudates. NECK: No masses, no JVD, no thyroid enlargement, no adenopathy. CHEST: No chest wall deformity. Symmetrical expansion. LUNGS: Equal air entry with scattered rhonchi CVS: Regular rate and rhythm, normal S1 and S2, no gallops, no murmurs, no rubs ABDOMEN: Soft, nontender. No hepatosplenomegaly, normal bowel sounds, no guardi ng or rigidity. EXTREMITIES: No clubbing, no edema, no cyanosis, 2+ pulses and upper and lower extremities. MUSCULOSKELETAL: Muscle strength and tone normal. SPINE: No scoliosis or deformity SKIN: No rashes CENTRAL NERVOUS SYSTEM: Alert and oriented -2. No focal deficits, tone is normal in all 4 extremities. PSYCHIATRIC: Alert and oriented -2. Appropriate affect. Intact judgment and insight. - Labs CBC & Chem 7: 11/25/18 08:50 11/25/18 08:50 Labs: Abnormal Lab Results - Last 24 Hours (Table) 11/24/18 11/24/18 11/24/18 Range/Units 12:02 17:21 20:16 WBC (3.8-10.6) k/uL RBC (3.80-5.40) m/uL Hgb (11.4-16.0) gm/dL Hct (34.0-46.0) % MCV (80.0-100.0) fL MCH (25.0-35.0) pg RDW (11.5-15.5) % Macrocytosis Potassium (3.5-5.1) mmol/L Chloride (98-107) mmol/L Carbon Dioxide (22-30) mmol/L Creatinine (0.52-1.04) mg/dL Glucose (74-99) mg/dL POC Glucose (mg/dL) 142 H 147 H 197 H (75-99) mg/dL Phosphorus (2.5-4.5) mg/dL 11/25/18 11/25/18 11/25/18 Range/Units 08:50 08:50 08:50 WBC 12.8 H (3.8-10.6) k/uL RBC 2.41 L (3.80-5.40) m/uL Hgb 8.8 L D (11.4-16.0) gm/dL Hct 27.5 L (34.0-46.0) % MCV 114.1 H (80.0-100.0) fL MCH 36.8 H (25.0-35.0) pg RDW 18.7 H (11.5-15.5) % Macrocytosis Marked A Potassium 2.6 L* (3.5-5.1) mmol/L Chloride 94 L (98-107) mmol/L Carbon Dioxide 39 H (22-30) mmol/L Creatinine 0.36 L (0.52-1.04) mg/dL Glucose 104 H (74-99) mg/dL POC Glucose (mg/dL) (75-99) mg/dL Phosphorus 1.9 L (2.5-4.5) mg/dL 11/25/18 Range/Units 10:01 WBC (3.8-10.6) k/uL RBC (3.80-5.40) m/uL Hgb (11.4-16.0) gm/dL Hct (34.0-46.0) % MCV (80.0-100.0) fL MCH (25.0-35.0) pg RDW (11.5-15.5) % Macrocytosis Potassium (3.5-5.1) mmol/L Chloride (98-107) mmol/L Carbon Dioxide (22-30) mmol/L Creatinine (0.52-1.04) mg/dL Glucose (74-99) mg/dL POC Glucose (mg/dL) 116 H (75-99) mg/dL Phosphorus (2.5-4.5) mg/dL Assessment and Plan Plan: Assessment: 1 acute hypoxic and hypercapnic respiratory failure multifactorial secondary extensive pneumonia involving the right lung, and underlying COPD exacerbation. 2 history of small cell lung cancer, presently in remission. 3 acute sepsis and septic shock most likely secondary to bibasilar pneumonia, right more so than left, status post bronchoscopy 2 and both were nondiagnostic for specific organism. Except both were positive for Divya albicans 4. History of alcohol abuse 5 status post bronchoscopy and lavage of right lung on 11/18/2018. Nondiagnostic, bronchoscopy cultures positive for Divya albicans species 6 new-onset A. fib with RVR Plan: Continue current breathing treatments, oral steroids, Diflucan. From pulmonary perspective patient is improving, she did go into A. fib RVR, and has been transferred to a monitored bed on selective care unit. Cardiology consultation is pending, will await their recommendations for anticoagulation, and rate control medications. I performed a history & physical examination of the patient and discussed their management with my nurse practitioner, Rebecca Amaral. I reviewed the nurse practitioner's note and agree with the documented findings and plan of care. Maddie ng sounds are positive for scattered rhonchi The findings and the impression was discussed with the patient. I attest to the documentation by the nurse practitioner. Time with Patient: Less than 30
[2018-11-25] MEDS ORDERED: HEPARIN SODIUM,PORCINE 5,000 UNIT/ML 1 ML VIAL IV ONE (11:38)
[2018-11-25] MEDS ORDERED: HEPARIN SODIUM,PORCINE 5,000 UNIT/ML 1 ML VIAL IV PRN (11:38)
[2018-11-25] MEDS ORDERED: DILTIAZEM DRIP BOLUS FROM BAG 1 MG SOLN IV ONE (11:38)
--- NOTE | 2018-11-25 11:39 | P.CRDCN ---
History of Present Illness Consult date: 11/25/18 Requesting physician: Esa Campa Consult reason: atrial fibrillation Chief complaint: Shortness of breath History of present illness: This is a 57-year-old female with history of small cell lung cancer, COPD, history of alcoholism, nicotine dependence, who was in the hospital in Sep and early October with exacerbation of COPD and right lower lobe pneumonia, she was positive for Divya albicans in her secretions at that time. She presented to [facility] from [facility] with profound shortness of breath, mental status changes, she was found to be significantly hypoxic and hypercapnia, and acute respiratory failure. On arrival here the patient was intubated and being followed in the intensive care unit. Subsequent to that patient was transferred to the medical surgical floor where this morning she went into atrial fibrillation with a rapid ventricular response, she was then transferred to the cardiac unit where we are seeing here in consultation today. At the time of my examination, patient continues to be in atrial fibrillation with a heart rate of 150. Blood pressure 124/80, 96% on 4 L of oxygen, afebrile. Laboratory data from today, white blood cell count 12.8, hemoglobin 8.8, sodium 139, potassium 2.6, BUN 9 and creatinine 0.3, magnesium 1.9. Crystal beltre is quite confused also quite adamant that she wants to go home and will be walking out. She did apparently have a sitter while on the other unit, the time of my examination there is no sitter present. According to the patient, she has no prior history of any arrhythmia in the past although again she is quite confused at the time of my examination. Past Medical History Past Medical History: Cancer, COPD Additional Past Medical History / Comment(s): hx alcoholism, lung cancer in remission History of Any Multi-Drug Resistant Organisms: None Reported Past Surgical History: Section Past Anesthesia/Blood Transfusion Reactions: No Reported Reaction Past Psychological History: Anxiety, Depression Smoking Status: Current every day smoker Past Alcohol Use History: None Reported Additional Past Alcohol Use History / Comment(s): states has not used alchohol since 04/2018. smokes about 1/2ppd from age 16 Past Drug Use History: None Reported - Past Family History Mother Family Medical History: COPD Additional Family Medical History / Comment(s): ETOH, lung cancer Father Family Medical History: Myocardial Infarction ([place]) Additional Family Medical History / Comment(s): ETOH Medications and Allergies Home Medications Medication Instructions Recorded Confirmed Type traZODone HCL [Desyrel] 100 mg PO HS 07/02/17 11/16/18 History Citalopram Hydrobromide [CeleXA] 20 mg PO DAILY 09/12/17 11/16/18 History Acetaminophen/Diphenhydramine 1 tab PO HS PRN 10/17/18 11/16/18 History [Tylenol PM Extra Strength] Cyclobenzaprine [Flexeril] 5 mg PO TID PRN 10/17/18 11/16/18 History Diazepam [Valium] 7.5 mg PO TID PRN 10/17/18 11/16/18 History Ibuprofen [Motrin] 800 mg PO TID PRN 10/17/18 11/16/18 History Docusate [Colace] 100 mg PO BID PRN #60 cap 10/23/18 11/16/18 Rx Ipratropium-Albuterol Nebulize 3 ml INHALATION RT-QID PRN #60 10/23/18 11/16/18 Rx [Duoneb 0.5 mg-3 mg/3 ml Soln] ampul.neb Lidocaine 5% Patch [Lidoderm 5% 1 patch TOPICAL DAILY #7 patch 10/23/18 11/16/18 Rx Patch] Ipratropium [place] [Atrovent Hfa] 2 puff INHALATION RT-QID PRN 11/16/18 11/16/18 History Allergies Allergy/AdvReac Type Severity Reaction Status Date / Time No Known Allergies Allergy Verified 11/16/18 20:53 Physical Exam Vitals: Vital Signs Temp Pulse Pulse Resp BP BP Pulse Ox 11/25/18 10:53 98.5 F 137 H 20 124/82 96 11/25/18 09:12 104 H 11/25/18 09:01 100 11/25/18 08:58 100 11/25/18 08:43 108 H 11/25/18 08:00 16 11/25/18 05:20 97.6 F 90 16 126/68 93 L 11/24/18 20:57 97.8 F 85 18 130/71 96 11/24/18 20:07 78 11/24/18 20:00 78 11/24/18 19:47 76 11/24/18 18:46 97.5 F L 92 16 144/83 98 11/24/18 16:06 80 11/24/18 16:00 98.1 F 84 15 133/84 96 11/24/18 15:00 101 H 15 94 L 11/24/18 14:00 76 8 L 95 11/24/18 13:00 83 12 140/92 94 L 11/24/18 12:00 98.0 F 85 15 137/90 96 Intake and Output 11/24/18 11/25/18 11/25/18 22:59 06:59 14:59 Intake Total 600 590 Output Total 675 1 1 Balance -75 589 -1 Intake: IV 600 Sodium Chloride 0.9% 1, 600 000 ml @ 75 mls/hr IV . [id number] [facility] Rx#:[id number] Oral 590 Output: Urine 675 Stool 1 1 Other: Voiding Method Indwelling Catheter Bedside Commode Bedside Commode # Voids 2 5 Weight 55 kg HEAD: Normocephalic/atraumatic. EYES: Normal reaction of pupils, equal size. Conjunctiva pink, sclera white. NOSE: Clear with pink turbinates. THROAT: No erythema or exudates. NECK: No masses, no JVD, no thyroid enlargement, no adenopathy. CHEST: No chest wall deformity. Symmetrical expansion. LUNGS: Equal air entry with scattered rhonchi CVS: Heart S1 and S2 irregularly irregular gallops, no murmurs, no rubs ABDOMEN: Soft, nontender. No hepatosplenomegaly, normal bowel sounds, no guarding or rigidity. EXTREMITIES: No clubbing, no edema, no cyanosis, 2+ pulses and upper and lower extremities. MUSCULOSKELETAL: Muscle strength and tone normal. SPINE: No scoliosis or deformity SKIN: No rashes CENTRAL NERVOUS SYSTEM: Alert and oriented -2. No focal deficits, tone is normal in all 4 extremities. PSYCHIATRIC: Alert and oriented -1. Threatening to leave the hospital. Results 11/25/18 08:50 11/25/18 08:50 CBC 11/25/18 Range/Units 08:50 WBC 12.8 H (3.8-10.6) k/uL RBC 2.41 L (3.80-5.40) m/uL Hgb 8.8 L D (11.4-16.0) gm/dL Hct 27.5 L (34.0-46.0) % Comprehensive Metabolic Panel 11/24/18 11/25/18 Range/Units 12:11 08:50 Sodium 139 (137-145) mmol/L Potassium 3.9 2.6 L* (3.5-5.1) mmol/L Chloride 94 L (98-107) mmol/L Carbon Dioxide 39 H (22-30) mmol/L BUN 9 (7-17) mg/dL Creatinine 0.36 L (0.52-1.04) mg/dL Glucose 104 H (74-99) mg/dL Calcium 8.7 (8.4-10.2) mg/dL Current Medications Generic Name Dose Route Start Last Admin Trade Name Freq PRN Reason Stop Dose Admin Acetaminophen 650 mg 11/16/18 20:40 Tylenol Suppository RECTAL Q4HR PRN Fever And/ Or Mild Pain Albuterol/Ipratropium 3 ml 11/17/18 08:00 11/25/18 08:43 Duoneb 0.5 Mg-3 Mg/3 Ml Soln INHALATION 3 ml RT-QID [facility] Administration Budesonide 1 mg 11/23/18 20:00 11/25/18 08:43 Pulmicort INHALATION 1 mg RT-BID [facility] Administration Citalopram Hydrobromide 20 mg 11/25/18 09:00 11/25/18 10:55 Celexa PO 20 mg DAILY [facility] Administration Enoxaparin Sodium 40 mg 11/25/18 09:00 11/25/18 10:54 Lovenox SQ 40 mg DAILY [facility] Administration Fluconazole 100 mg 11/24/18 09:00 11/25/18 10:55 Diflucan PO 100 mg DAILY [facility] Administration Formoterol Fumarate 20 mcg 11/23/18 20:00 11/25/18 08:43 Perforomist INHALATION 20 mcg RT-BID [facility] Administration Hydromorphone HCl 1 mg 11/19/18 15:58 11/24/18 17:19 Dilaudid IVP 1 mg Q3HR PRN Administration Moderate-Severe Pain Sodium Chloride 1,000 mls @ 75 mls/hr 11/17/18 21:45 11/25/18 10:55 Saline 0.9% IV 75 mls/hr .[id number] [facility] Administration Potassium Chloride 10 meq/ IV 100 mls @ 100 mls/hr 11/25/18 12:00 Solution IVPB 11/25/18 15:59 Q1HR [facility] Protocol Potassium Phosphate 10 mmol/ 253.3333 mls @ 125 mls/hr 11/25/18 12:00 Sodium Chloride IV 11/25/18 15:59 Q2H [facility] Insulin Aspart 0 unit 11/21/18 21:00 11/25/18 09:53 Novolog SQ Not Given ACHS [facility] Protocol Lidocaine 1 patch 11/25/18 09:00 Lidoderm TOPICAL DAILY [facility] Melatonin 5 mg 11/23/18 23:45 Melatonin PO HS PRN Insomnia Miscellaneous Information 1 each 11/17/18 05:39 Potassium Per Protocol MISCELLANE DAILY PRN Per Protocol Protocol Miscellaneous Information 1 each 11/17/18 07:21 Phosphorus Per Protocol MISCELLANE DAILY PRN Per Protocol Protocol Miscellaneous Information 1 each 11/17/18 07:23 Magnesium Per Protocol MISCELLANE DAILY PRN Per Protocol Protocol Miscellaneous Information 1 each 11/25/18 10:49 Phosphorus Per Protocol MISCELLANE DAILY PRN Per Protocol Protocol Miscellaneous Information 1 each 11/25/18 10:48 Potassium Per Protocol MISCELLANE DAILY PRN Per Protocol Protocol Naloxone HCl 0.2 mg 11/16/18 20:40 Narcan IV Q2M PRN Opioid Reversal Pantoprazole Sodium 40 mg 11/17/18 09:00 11/25/18 10:55 Protonix IV 40 mg DAILY [facility] Administration Prednisone 60 mg 11/25/18 09:00 11/25/18 10:55 PO 60 mg DAILY [facility] Administration Trazodone HCl 100 mg 11/24/18 21:00 11/24/18 22:17 Desyrel PO 100 mg HS [facility] Administration Intake and Output 11/24/18 11/25/18 11/25/18 22:59 06:59 14:59 Intake Total 600 590 Output Total 675 1 1 Balance -75 589 -1 Intake: IV 600 Sodium Chloride 0.9% 1, 600 000 ml @ 75 mls/hr IV . [id number] [facility] Rx#:[id number] Oral 590 Output: Urine 675 Stool 1 1 Other: Voiding Method Indwelling Catheter Bedside Commode Bedside Commode # Voids 2 5 Weight 55 kg 11/25/18 08:50 11/25/18 08:50 EKG Interpretations (text) EKG shows atrial fibrillation with a rapid ventricular response Assessment and Plan Plan: Assessment and plan: #1 acute hypoxic and hypercapnic respiratory failure multifactorial secondary extensive pneumonia involving the right lung, and underlying COPD exacerbation. #2 history of small cell lung cancer, presently in remission. #3 acute sepsis and septic shock most likely secondary to bibasilar pneumonia, right more so than left, status post bronchoscopy 2 and both were nondiagnostic for specific organism. Except both were positive for Divya albicans #4. History of alcohol abuse #5 status post bronchoscopy and lavage of right lung on 11/18/2018. Nondiagnostic, bronchoscopy cultures positive for Divya albicans species #6 new-onset A. fib with RVR Plan We will replace the patient's potassium and magnesium, obtain an echocardiogram with Doppler study as well as a TSH level. We will also give the patient a 5 mg bolus of IV Cardizem and start the patient on a Cardizem drip. Patient is currently on a daily dose of Lovenox, we will initiate IV heparin, we will continue oral Coumadin anticoagulation as well as noncompliance with her history of alcohol abuse and psychiatric issues. Further recommendations to follow. DNP note has been reviewed, I agree with a documented findings and plan of care. Patient was seen and examined.
[2018-11-25 11:45] LABS: Glucose,Whole Blood 90 mg/dL (75-99)
[2018-11-25] MEDS ORDERED: DILTIAZEM 125 MG in SODIUM CHLORIDE 0.9% 100 ML IV SCH (11:45)
[2018-11-25] MEDS ORDERED: HEPARIN SOD,PORK IN 0.45% NACL 25,000 UNIT in 0.45% NACL 1 250ML.BAG IV SCH (11:45)
[2018-11-25 11:51] LABS: Band Neutrophils % 3 %; Metamyelocytes # (M) 0.13 k/uL (0); Metamyelocytes % 1 %; Monocytes # (M) 0.77 k/uL (0-1.0); Neutrophils % (M) 91 %; Nucleated Red Blood Cells 0 /100 WBC (0-0); Total Cells Counted 200
[2018-11-25 11:53] LABS: Lymphocytes # (M) 0.13 k/uL (1.0-4.8); Poikilocytosis (M) Present
[2018-11-25] MEDS ORDERED: POTASSIUM PHOSPHATE 10 MMOL in SODIUM CHLORIDE 0.9% 250 ML IV SCH (12:00)
[2018-11-25] MEDS ORDERED: POTASSIUM CHLORIDE 10 MEQ in WATER FOR INJECTION 1 100ML.BAG IVPB SCH (12:00)
[2018-11-25] MEDS ORDERED: POTASSIUM CHLORIDE ER 20 MEQ TAB.ER PO SCH (12:00)
[2018-11-25 12:15] VITALS: PULSE 156
[2018-11-25] MEDS ORDERED: OLANZapine 2.5 MG TAB PO ONE (13:48)
[2018-11-25] MEDS ORDERED: APIXABAN 5 MG TAB PO SCH (14:00)
[2018-11-25 14:19] VITALS: BMI 19.5
[2018-11-25] MEDS ORDERED: POTASSIUM CHLORIDE 20 MEQ in WATER FOR INJECTION 1 100ML.BAG IVPB SCH (15:00)
--- NOTE | 2018-11-25 15:10 | P.CN ---
Psychiatric Consult - . Consult date: 11/25/18 Consult:: 11/25/18 15:03Identification: Patient is a 57-year-old female who was transferred from an outside hospital with altered mental status, septic shock and pneumonia and was intubated on arrival at the emergency room and extubated on 11/21/2018 Reason for Consult: Suspiciousness, paranoia History of Present Illness: Patient was a transfer from another hospital for continuing care and when evaluated in the emergency room she had altered mental status, was in septic shock with pneumonia and required intubation. Patient was extubated on November 21. Patient's chart was reviewed and the patient was seen in her room no family members were present at that time and the patient refused to speak with me. Patient's attending physician was present on the unit and I spoke with him regarding her paranoia, wishing to leave the hospital and maia tated behavior. He reported that the patient's behavior was less agitated and she was less confused than she was yesterday. Patient's was also present and I spoke with him outside of the patient's room and he discussed with me the fact that the patient has been treated for anxiety for a number of years with multiple medications mostly recently being treated by her primary care physician with trazodone 100 mg at bedtime, Celexa 20 mg daily and Valium 7.5 mg 3 times a day and an as-needed basis, however the patient's reports that the patient took the Valium 3 times a day on a regular basis. Past Psychiatric History: Patient was admitted to a psychiatric unit in 2013 for suicidal ideation and was seen in consultation here in 2017 by psychiatry. At that time the patient had relapsed after 3 years of sobriety. Per the patient's she has suffered from anxiety for a number of years and has a history of alcohol use in the past. Patient's current medications are stated above. Past Medical/Surgical History: Patient has a history of lung cancer treated with chemoradiation which is in remission, COPD Social History: Not obtained as the patient refused to speak with me Substance Use History: Per the patient's medical record she has had an alcohol use disorder in the past Legal History: Not obtained as the patient refused to speak with me Mental status: Patient was sitting in a hospital bed, she refused to speak with me stating that she is getting ready to be discharged and I questioned how she could be discharged with a central line in place she stated that the doctor told her she was ready for discharge. Patient then made no eye contact further with me and refused to answer any further questions. Assessment: Patient was admitted and required intubation, patient is also been on steroids previously on Solu-Medrol now on oral prednisone at a dose of 60 mg daily and also has a history of using Valium 7-1/2 mg 3 times a day and the patient's confirms that the patient was taking this on a regular basis. Patient is currently presenting with paranoia and suspiciousness, she refused to speak with me and stated that she is been discharged by her physician. Most of the information was obtained either from the chart or from her who also stated that she continues to state to him that she wants to leave the hospital. He stated that she has been on anxiety medication for a number of years, Ativan, BuSpar and others of which she is uncertain. He states that most recently her psychiatric medications have been prescribed by her primary care physician. Patient's paranoia can certainly be caused by the use of steroids, compounded by the patient's recent septic shock and pneumonia that required intubation and I do not think that after 8 days in the hospital that Valium withdrawal is an acute problem. Diagnosis: Delirium multifactorial etiology; anxiety disorder Plan: as the patient would not speak with me I spoke with both patient's attending and her regarding treating her paranoid symptoms with Zyprexa, patient will be given Zyprexa 2.5 mg now and then 2.5 mg at bedtime on a recurring basis. The Zyprexa will be to target the patient's paranoia, I will also discontinue the trazodone as the Zyprexa sedating and she does not need to have additional medication to assist with sleep. Patient's Celexa 20 mg was restarted and I see no difficulty with that. I will return to see the patient to see if she is more open to speaking with me and if there are any concerns or questions please don't hesitate to contact me.
[2018-11-25] MEDS ORDERED: OLANZapine 2.5 MG TAB PO SCH (21:00)
[2018-11-26] MEDS ORDERED: PANTOPRAZOLE 40 MG TABLET PO SCH (09:00)
--- NOTE | 2018-11-26 11:08 | DS ---
DISCHARGE SUMMARY DATE OF ADMISSION: 11/16/2018 DATE LEFT AGAINST MEDICAL ADVICE: 11/25/2018 FINAL DIAGNOSES: 1. Acute hypoxic hypercapnic respiratory failure, multifactorial, secondary to extensive pneumoniae, multilobar, primary involving the right lung, status post ventilator support. 2. Acute chronic obstructive pulmonary disease exacerbation in a smoker. 3. History of small cell lung cancer in remission. 4. Septic shock secondary to pneumonia on admission. 5. Status post bronchoscopy. 6. Anxiety and depression, not otherwise specified. 7. Chronic nicotine dependence, patient is a cigarette smoker. 8. Microcytic anemia including hospital-acquired anemia. 9. Thrombocytopenia likely from sepsis. HOSPITAL COURSE: This is a patient transferred to [facility] for ICU management when she went into respiratory failure and had to be intubated. The patient was turning around, became very anxious. Patient is doing quite a bit of medications. Also was treated for pneumonia. The patient insisted upon leaving AMA even though that decision was unreasonable, but she was capable of taking on decisions. I spoke to her at length this morning. Today, she had gone into A Fib with rapid ventricular rate, even called her in and he did understand the need for patient to stay here, but patient kept insisting on leaving against medical advice. Also seen by psychiatrist later on. Patient did leave AMA. Total time spent today was about 1 hour with over 40 minutes of discussion. CONSULTATION: 1. Dr. Arnett from Pulmonary. 2. Dr. Vernon from Psychiatry. HOME MEDICATIONS: Not done as patient LEFT AGAINST MEDICAL ADVICE. MMODL / IJN: [id number] /
--- NOTE | 2018-11-26 19:20 | ECHOF ---
Referral Reason:afib MEASUREMENTS -------- HEIGHT: 167.6 cm WEIGHT: 54.9 kg BP: IVSd: 1.0 cm (0.6 - 1.1) LVIDd: 1.5 cm (3.9 - 5.3) LVPWd: 0.9 cm (0.6 - 1.1) IVSs: 1.2 cm LVIDs: 1.1 cm LVPWs: 1.5 cm FINDINGS -------- Atrial fibrillation. This was a technically difficult study with suboptimal views. The left ventricular size is normal. Left ventricular wall thickness is normal. Overall left vent ricular systolic function is normal with, an EF between 65 - 70 %. The RV was not well visualized. The left atrium was not well visualized. The right atrium was not well visualized. The aortic valve was not well visualized. The mitral valve was not well visualized. The tricuspid valve was not well visualized. The pulmonic valve was not well visualized. There is a trivial pericardial effusion present. CONCLUSIONS -------- 1. Atrial fibrillation. 2. This was a technically difficult study with suboptimal views. 3. The left ventricular size is normal. 4. Left ventricular wall thickness is normal. 5. Overall left ventricular systolic function is normal with, an EF between 65 - 70 %. 6. The RV was not well visualized. 7. The left atrium was not well visualized. 8. The right atrium was not well visualized. 9. The aortic valve was not well visualized. 10. The mitral valve was not well visualized. 11. The tricuspid valve was not well visualized. 12. The pulmonic valve was not well visualized. 13. There is a trivial pericardial effusion present. CHILD SUPPORT OFFICER: Mery Razo, [facility]
--- NOTE | 2018-11-27 06:13 | CDI ---
Documentation Clarification Form Date: 11/27/18 From: Marco Antonio Vance Phone: call [phone] Admit Date: 11/16/2018 8:41:00 PM Patient Name: Evangelina Myles Visit Number: Discharge Date: 11/25/2018 3:37:00 PM ATTENTION: The Clinical Documentation Specialists (CDI) and [facility] Coding Staff appreciate your assistance in clarifying documentation. Please respond to the clarification below the line at the bottom and electronically sign. The CDI & [facility] Coding staff will review the response and follow-up if needed. Please note: Queries are made part of the Legal Health Record. If you have any questions, please contact the author of this message via ITS. Dr. Bee Arnett, Documentation in the Operative Report included: In Bronchoscopy OP Report after BAL procedure mentioned "Left side was examined, minimal secretions were noted, and these were suctioned easily". History/Risk factors: ARF, Pneumonia, sepsis. Pre-Operative Diagnosis: ARF, Pneumonia,Pleural effusion. Postoperative Diagnosis: ARF, Pneumonia,Pleural effusion. In order to capture the severity of condition, please specify the following: Anatomical site of the body system on which the procedure is performed Laterality, Left Lung or left main Bronchus. lavage was done from the right lung.all purulent secretions from right lung were suctioned and lavaged.no endobronchial tumor or mucus plugs were noted.preop diagnosis is rt lung pneumonia and pleural effusion.post op diagnosis is the same MTDD
== END 2018-11-25 15:37 | disposition left against medical advice (07) | DRG 853 ==
LOC: EC 20:23 → 2SICU 20:41 → 3NMEDONC 11-24 18:17 → 3SCARD 11-25 10:31
PROVIDERS: ADMIT Hospitalist; ATTEND Hospitalist
PROC: 5A1955Z Respiratory Ventilation, Greater than 96 Consecutive Hours (ICD-10-PCS; 2018-11-16)
PROC: 0BH17EZ Insertion of Endotracheal Airway into Trachea, Via Natural or Artificial Opening (ICD-10-PCS; 2018-11-16)
PROC: 0B9K8ZZ Drainage of Right Lung, Via Natural or Artificial Opening Endoscopic (ICD-10-PCS; 2018-11-18)
PROC: 0B9K8ZX Drainage of Right Lung, Via Natural or Artificial Opening Endoscopic, Diagnostic (ICD-10-PCS; principal; 2018-11-18 09:35)
DX: A41.9 Sepsis, unspecified organism (principal); R65.21 Severe sepsis with septic shock; J18.1 Lobar pneumonia, unspecified organism; J96.01 Acute respiratory failure with hypoxia; J96.02 Acute respiratory failure with hypercapnia; G92 Toxic encephalopathy; C34.31 Malignant neoplasm of lower lobe, right bronchus or lung; E87.1 Hypo-osmolality and hyponatremia; J44.0 Chronic obstructive pulmonary disease with (acute) lower respiratory infection; J44.1 Chronic obstructive pulmonary disease with (acute) exacerbation; J90 Pleural effusion, not elsewhere classified; E83.39 Other disorders of phosphorus metabolism; D69.59 Other secondary thrombocytopenia; I48.91 Unspecified atrial fibrillation; F41.8 Other specified anxiety disorders; F17.210 Nicotine dependence, cigarettes, uncomplicated; D50.9 Iron deficiency anemia, unspecified; E83.42 Hypomagnesemia; D63.8 Anemia in other chronic diseases classified elsewhere; E86.0 Dehydration; E87.6 Hypokalemia; D53.9 Nutritional anemia, unspecified; Z91.14 Patient's other noncompliance with medication regimen; Z92.21 Personal history of antineoplastic chemotherapy; Z92.3 Personal history of irradiation; Z79.899 Other long term (current) drug therapy; Z80.1 Family history of malignant neoplasm of trachea, bronchus and lung; Z82.49 Family history of ischemic heart disease and other diseases of the circulatory system; Z82.5 Family history of asthma and other chronic lower respiratory diseases
CPT/HCPCS: 31500; 31624; 36415; 36600; 71045; 76604; 80048; 80053; 80202; 81003; 82533; 82607; 82747; 82805; 83605; 83735; 84100; 84132; 84295; 84439; 84443; 85025; 85027; 87040; 87070; 87102; 87116; 87205; 87206; 87252; 88108; 88305; 89050; 93005; 93306; 94002; 94003; 94640; 94660; 96365; 96366; 99291

== ENCOUNTER → 2018-12-10 | Outpatient (CLI) | payer OTHER ==
--- NOTE | 2018-12-10 22:52 | MR ---
EXAMINATION TYPE: MR brain wo con DATE OF EXAM: 12/10/2018 COMPARISON: MRI brain March 09, 2018 HISTORY: Confusion, history of lung cancer. TECHNIQUE: Multiplanar, multisequence imaging of the brain and brainstem is performed without IV cont rast. IV contrast could not be given due to inability to obtain IV access. FINDINGS: Diffusion weighted images demonstrate no evidence of a recent infarct or other diffusion abnormality. There is no worrisome extra-axial fluid collection. There is ventricular and sulcal prominence. There are scattered foci of T2 hyperintensity redemonstrated throughout the white matter bilaterally. Appr oximately 30 scattered lesions are again seen. Overall no definitive new areas of suspicious edema ar e identified. Midline structures demonstrate normal morphology. The craniocervical junction appears within normal limits. Normal vascular flow voids are present. The visualized sinuses are clear and the globes are i ntact. IMPRESSION: Mild to moderate diffuse cerebral atrophy and chronic small vessel ischemic change redemo nstrated without significant interval change from prior MRI. No postcontrast imaging was performed.
== END | disposition home or self-care (01) ==
LOC: RADMRIMAIN 15:25
PROVIDERS: ATTEND Internal Medicine Hematology & Oncology
DX: G31.9 Degenerative disease of nervous system, unspecified (principal); I67.82 Cerebral ischemia; C34.91 Malignant neoplasm of unspecified part of right bronchus or lung
CPT/HCPCS: 70551

== ENCOUNTER → 2018-12-30 | Outpatient (CLI) | payer OTHER | END | disposition home or self-care (01) | LOC: RADCTMAIN 09:08 | PROVIDERS: ATTEND Internal Medicine Hematology & Oncology | DX: Z53.9 Procedure and treatment not carried out, unspecified reason (principal) ==

== ENCOUNTER → 2019-01-12 | Outpatient (CLI) | payer OTHER ==
--- NOTE | 2019-01-13 08:19 | CT ---
EXAMINATION TYPE: CT chest w con DATE OF EXAM: 01/12/2019 COMPARISON: 07/08/2018 HISTORY: f/u lung ca CT DLP: 112.9 mGycm Automated exposure control for dose reduction was used. CONTRAST: CT scan of the chest is performed with IV Contrast, patient injected with 100 mL of Isovue 300. FINDINGS: LUNGS: New wedge-shaped masslike density pleural-based right upper lobe laterally measuring 3.8 x 2.6 cm. There is progressive volume loss and consolidation right lower with lobe bronchiectatic and fibr otic changes identified. Hyperinflation of the left lung noted with emphysematous changes seen. No tanisha ng nodule or mass identified no pleural effusion seen. MEDIASTINUM: There are no greater than 1 cm hilar or mediastinal lymph nodes. No pericardial effusi on is seen. Thoracic aorta is of normal caliber. The heart is not enlarged. UPPER ABDOMEN: No significant abnormality appreciated. OTHER: Fractures of right ribs 6 through 10 of uncertain age and/or etiology although not present on the study from June. New compression fractures of the thoracic segments 7 and 8 and 9. There is s evere loss of height involving T8. Again age and etiology is indeterminate. IMPRESSION: 1. Wedge-shaped area of masslike consolidation right upper lobe. Neoplasm is not excluded. Pneumonia also a consideration. 2. Progressive volume loss and consolidation right lower lobe with bronchiectatic and fibrotic change likely posttreatment noted. 3. New right-sided rib fractures and thoracic fractures as noted of indeterminate age and/or etiology .
== END | disposition home or self-care (01) ==
LOC: RADCTMAIN 16:40
PROVIDERS: ATTEND Internal Medicine Hematology & Oncology
DX: Z03.89 Encounter for observation for other suspected diseases and conditions ruled out (principal); C34.91 Malignant neoplasm of unspecified part of right bronchus or lung; J47.9 Bronchiectasis, uncomplicated; J84.10 Pulmonary fibrosis, unspecified; M84.48XA Pathological fracture, other site, initial encounter for fracture
CPT/HCPCS: 71260; Q9967

== ENCOUNTER 2019-04-01 15:13 | Emergency (ER) | payer OTHER ==
[2019-04-01] MEDS ORDERED: THIAMINE 100 MG/ML 2 ML VIAL IM STA (16:02)
[2019-04-01] MEDS ORDERED: LORazepam 2 MG/ML INJ IV PRN ×3 (16:02)
--- NOTE | 2019-04-01 16:15 | ED ---
General Adult HPI - General Chief complaint: Recheck/Abnormal Lab/Rx Stated complaint: KAI, ETOH Time Seen by Provider: 04/01/19 15:38 Source: patient, family Mode of arrival: ambulatory Limitations: no limitations - History of Present Illness Initial comments: Patient is a 58-year-old female with history of alcoholism, COPD and smoking is presenting to emergency Department with a chief complaint alcohol intoxication. Patient was brought to the ED by her who found the patient sleeping on the couch and measured her oxygen saturation levels which was in the low 80s. Patient does have history of COPD and does have home oxygen but does not use it accordingly due to her alcohol intoxication according to her . Patient reports that she drank about half a pint. Patient denies any chest pain, shortness of breath, nausea, vomiting, abdominal pain or headache. Patient denies any suicidal thoughts or ideations. Patient does take Valium 3 times a day. Patient attempted rehab 3 times for alcohol abuse. The once the patient to be evaluated by psychiatry. - Related Data Home Medications Medication Instructions Recorded Confirmed Citalopram Hydrobromide [CeleXA] 20 mg PO DAILY 09/12/17 04/01/19 Acetaminophen/Diphenhydramine 1 tab PO HS PRN 10/17/18 04/01/19 [Tylenol PM Extra Strength] Diazepam [Valium] 7.5 mg PO TID PRN 10/17/18 04/01/19 Ibuprofen [Motrin] 800 mg PO TID PRN 10/17/18 04/01/19 Ipratropium Hoffman [Atrovent Hfa] 2 puff INHALATION RT-QID PRN 11/16/1804/01 Previous Rx's Medication Instructions Recorded Ipratropium-Albuterol Nebulize 3 ml INHALATION RT-QID PRN #60 10/23/18 [Duoneb 0.5 mg-3 mg/3 ml Soln] ampul.neb Allergies Allergy/AdvReac Type Severity Reaction Status Date / Time No Known Allergies Allergy Verified 04/01/19 16:37 Review of Systems ROS Statement: Those systems with pertinent positive or pertinent negative responses have been documented in the HPI. ROS Other: All systems not noted in ROS Statement are negative. Past Medical History Past Medical History: Cancer, COPD Additional Past Medical History / Comment(s): hx alcoholism, lung cancer in remission History of Any Multi-Drug Resistant Organisms: None Reported Past Surgical History: Section Past Anesthesia/Blood Transfusion Reactions: No Reported Reaction Past Psychological History: Anxiety, Depression Smoking Status: Current every day smoker Past Alcohol Use History: Abuse, Daily, Heavy Past Drug Use History: None Reported - Past Family History Mother Family Medical History: COPD Additional Family Medical History / Comment(s): ETOH, lung cancer Father Family Medical History: Myocardial Infarction ([place]) Additional Family Medical History / Comment(s): ETOH General Exam Limitations: no limitations General appearance: alert, in no apparent distress, appears intoxicated Head exam: Present: atraumatic, normocephalic, normal inspection Eye exam: Present: normal appearance ENT exam: Present: normal exam, mucous membranes moist, normal external ear exam Neck exam: Present: normal inspection Respiratory exam: Present: normal lung sounds bilaterally Cardiovascular Exam: Present: regular rate, normal rhythm, normal heart sounds GI/Abdominal exam: Present: soft. Absent: distended, tenderness, guarding, rebound Extremities exam: Present: normal inspection, normal capillary refill, other (+2 ulnar and radial pulses bilat) Back exam: Present: normal inspection, full ROM. Absent: CVA tenderness (R), CVA tenderness (L) Neurological exam: Present: alert, oriented X3, normal gait Psychiatric exam: Present: normal affect, normal mood Skin exam: Present: warm, intact, normal color Course Vital Signs 04/01/19 04/01/19 04/01/19 15:26 16:25 17:37 Temperature 98.2 F Pulse Rate 101 H 76 Respiratory 16 16 Rate Blood Pressure 87/60 121/76 O2 Sat by Pulse 90 L 100 99 Oximetry 04/01/19 18:57 Temperature 97.9 F Pulse Rate 80 Respiratory 15 Rate Blood Pressure 121/76 O2 Sat by Pulse 99 Oximetry Medical Decision Making - Medical Decision Making Patient is a 58-year-old female with history of lung cancer, alcoholism, COPD an d smoking is presenting to the emergency department with a chief complaint of alcohol is a. Her found the patient sleeping and measured her oxygen saturation levels in the right and the low 80s so he brought her to the ED. He was suspect the patient was intoxicated with alcohol. does report a chronic history of alcoholism. Patient did have about half a pint today. Patient denies any abdominal pain, chest pain, nausea or vomiting. Physical examination is unremarkable. Patient is not wheezing on auscultation. Patient does not have shortness of breath. CBC, CMP and UA are at her baseline. Chest x-ray is showing no changes compared to previous imaging, in fact there is improvement in the basilar atelectasis. Patient's oxygen saturation is in the high 90s. patient was given thiamine and fluids. Patient reports that she feels well and is asking for psychiatric evaluation. Patient had a breath alcohol level of 0.166. Patient will been sober at 2100. I informed the and the patient that we have to wait until that time until she can be evaluated by EPS. They said that they could not wait that long and would like to see an outpatient psychiatrist. I gave him contact information to see a psychiatrist. At this time I do not feel the patient is spread to herself and others. Patient does not have any homicidal, suicidal thoughts or ideations. Strict return parameters were thoroughly discussed the patient was understanding and agreeable. Case discussed with physician. - Lab Data Result diagrams: 04/01/19 17:00 04/01/19 17:00 Lab Results 04/01/19 04/01/19 04/01/19 Range/Units 16:21 17:00 17:00 WBC 6.3 (3.8-10.6) k/uL RBC 4.05 (3.80-5.40) m/uL Hgb 13.6 (11.4-16.0) gm/dL Hct 41.4 (34.0-46.0) % MCV 102.1 H (80.0-100.0) fL MCH 33.7 (25.0-35.0) pg MCHC 33.0 (31.0-37.0) g/dL RDW 16.1 H (11.5-15.5) % Plt Count 291 (150-450) k/uL Neutrophils % 64 % Lymphocytes % 29 % Monocytes % 4 % Eosinophils % 1 % Basophils % 1 % Neutrophils # 4.1 (1.3-7.7) k/uL Lymphocytes # 1.8 (1.0-4.8) k/uL Monocytes # 0.3 (0-1.0) k/uL Eosinophils # 0.0 (0-0.7) k/uL Basophils # 0.0 (0-0.2) k/uL Anisocytosis Slight Macrocytosis Slight Sodium 134 L (137-145) mmol/L Potassium 4.6 (3.5-5.1) mmol/L Chloride 95 L (98-107) mmol/L Carbon Dioxide 29 (22-30) mmol/L Anion Gap 10 mmol/L BUN 4 L (7-17) mg/dL Creatinine 0.55 (0.52-1.04) mg/dL Est GFR (CKD-EPI)AfAm >90 (>60 ml/min/1.73 sqM) Est GFR (CKD-EPI)NonAf >90 (>60 ml/min/1.73 sqM) Glucose 79 (74-99) mg/dL POC Glucose (mg/dL) 86 (75-99) mg/dL POC Glu Refrigerator Repair Technician ID NasirRavindra Calcium 9.2 (8.4-10.2) mg/dL Total Bilirubin 0.3 (0.2-1.3) mg/dL AST 34 (14-36) U/L ALT 13 (9-52) U/L Alkaline Phosphatase 137 H (38-126) U/L Total Protein 6.7 (6.3-8.2) g/dL Albumin 3.7 (3.5-5.0) g/dL Disposition Clinical Impression: Alcohol intoxication Disposition: HOME SELF-CARE Condition: Stable Instructions (If sedation given, give patient instructions): Alcohol Intoxication (ED) Additional Instructions: Please follow up with his psychiatrist. Please return to emergency department if symptoms worsen. Is patient prescribed a controlled substance at d/c from ED?: No Referrals: Zev Contreras MD [Primary Care Provider] - 1-2 days Ravindra Hernandez MD [Medical Doctor] - 1-2 days Time of Disposition: 18:51
[2019-04-01 16:23] LABS: Glucose,Whole Blood 86 mg/dL (75-99)
[2019-04-01] MEDS ORDERED: DIAZEPAM 5 MG TAB PO STA (17:30)
[2019-04-01] MEDS ORDERED: THIAMINE 100 MG TAB PO SCH (17:30)
[2019-04-01 17:32] LABS: ALT 13 U/L (9-52); AST 34 U/L (14-36); African American GFR (CKD) >90 (>60 ml/min/1.73 sqM); Albumin 3.7 g/dL (3.5-5.0); Alkaline Phosphatase 137 U/L (38-126); Anion Gap 10 mmol/L; Blood Urea Nitrogen 4 mg/dL (7-17); Calcium 9.2 mg/dL (8.4-10.2); Carbon Dioxide 29 mmol/L (22-30); Chloride 95 mmol/L (98-107); Glucose 79 mg/dL (74-99); Sodium 134 mmol/L (137-145); Total Bilirubin 0.3 mg/dL (0.2-1.3); Total Protein 6.7 g/dL (6.3-8.2)
[2019-04-01 17:39] VITALS: BP 121/76
[2019-04-01 17:39] LABS: Potassium 4.6 mmol/L (3.5-5.1)
[2019-04-01 17:42] LABS: Anisocytosis Slight; Basophils % (A) 1 %; Eosinophils % (A) 1 %; HCT 41.4 % (34.0-46.0); HGB 13.6 gm/dL (11.4-16.0); Lymphocytes # (A) 1.8 k/uL (1.0-4.8); Lymphocytes % (A) 29 %; MCH 33.7 pg (25.0-35.0); MCV 102.1 fL (80.0-100.0); Macrocytosis Slight; Mean Platelet Volume 6.7; Monocytes # (A) 0.3 k/uL (0-1.0); Monocytes % (A) 4 %; Neutrophils # (A) 4.1 k/uL (1.3-7.7); Neutrophils % (A) 64 %; Platelet Count 291 k/uL (150-450); RBC 4.05 m/uL (3.80-5.40); RDW 16.1 % (11.5-15.5); WBC 6.3 k/uL (3.8-10.6)
--- NOTE | 2019-04-01 18:40 | XR ---
EXAMINATION TYPE: XR chest 2V DATE OF EXAM: 04/01/2019 COMPARISON: 11/24/2018 HISTORY: Chest pain. COPD. TECHNIQUE: Frontal and lateral views of the chest are obtained. FINDINGS: There is airspace consolidation and volume loss in the right lower lobe. There is some spi culated density at the right pulmonary hilum. Left lung is fairly clear. There is no heart failure. H eart is shifted to the right side. Chest leads. IMPRESSION: Consolidation and volume loss in the right hemithorax that could relate to treated tumor . Minimal atelectasis left lung base improved compared to last exam. No heart failure. Volume loss no t significantly different than last exam.
[2019-04-01 18:59] VITALS: PULSE 80; RESP 15; TEMP 97.9
[2019-04-01] MEDS ORDERED: PHENobarbital 64.8 MG TAB PO ONE (20:15)
[2019-04-02] MEDS ORDERED: PHENobarbital 64.8 MG TAB PO ONE (00:15)
[2019-04-02] MEDS ORDERED: PHENobarbital 64.8 MG TAB PO SCH (16:30)
[2019-04-02] MEDS ORDERED: PHENobarbital 32.4 MG TAB PO SCH (16:30)
== END 2019-04-01 18:57 | disposition home or self-care (01) ==
LOC: EC 15:13
DX: F10.229 Alcohol dependence with intoxication, unspecified (principal); J44.9 Chronic obstructive pulmonary disease, unspecified; J98.11 Atelectasis; F41.9 Anxiety disorder, unspecified; F32.9 Major depressive disorder, single episode, unspecified; F17.200 Nicotine dependence, unspecified, uncomplicated; Y90.9 Presence of alcohol in blood, level not specified; Z79.51 Long term (current) use of inhaled steroids; Z79.899 Other long term (current) drug therapy; Z99.81 Dependence on supplemental oxygen; Z85.118 Personal history of other malignant neoplasm of bronchus and lung
CPT/HCPCS: 82075; 36415; 93005; 80053; 85025; 71046; 96372; 99285; J3411